=== PATIENT | female | born 1955 | race African-American/Black ===

== ENCOUNTER 2022-07-27 07:50 | Inpatient (IN) | payer MEDICARE, SELFPAY ==
--- NOTE | ~2022-07-27 | MR_ITS ---
EXAMINATION: MR MRCP wo/w con/w 3D wo ind DATE: 07/27/2022 12:16 INDICATION: Abnormal liver function tests. Pancreatitis. Abdominal pain. TECHNIQUE: Magnetic resonance imaging (MRI) of the abdomen was performed without and with 16 mL Multi Emperatriz intravenous contrast. Sequences included coronal T2-weighted FS FSE, coronal T2-weighted FSE, a xial T1-weighted LAVA, coronal FS FIESTA, axial dual-echo T1-weighted SPGR, coronal lava-FLEX, sagitt al T2-weighted FSE, axial T2-weighted FSE, and axial DWI. Thick-slab T2-weighted FSE images were obta ined for magnetic resonance cholangiopancreatography (MRCP). Maximum intensity projection 3-D reconst ructions of the volumetric data were created by the technologist. Postcontrast sequences included cor onal LAVA-flex and time course of axial T1-weighted LAVA. COMPARISON: None. FINDINGS: ABDOMEN MRI: The liver and spleen are normal. There are gallstones in the gallbladder, which is diste nded. Gallbladder wall thickening is noted. The pancreatic duct is dilated and measures 5 mm in the b lana segment. The adrenal glands and kidneys are normal. There are no dilated loops of bowel. There is a 3.7 cm cyst in the right adnexa. ABDOMEN MRCP: The common duct is normal in size and measures 6 mm. There are two 3 mm stones in the c ommon bile duct. IMPRESSION: 1. Two 3 mm stones in the common bile duct. 2. Acute cholecystitis. 3. Mildly dilated pancreatic duct, consistent with acute or chronic pancreatitis. 4. 3.7 cm cyst in the right adnexa, likely benign. Pelvis ultrasound is recommended in one year. Reviewed, dictated and finalized at location A. IMPRESSION: 1. Two 3 mm stones in the common bile duct. 2. Acute cholecystitis. 3. Mildly dilated pancreatic duct, consistent with acute or chronic pancreatiti s. 4. 3.7 cm cyst in the right adnexa, likely benign. Pelvis ultrasound is recomme nded in one year.
--- NOTE | ~2022-07-27 | CT_ITS ---
EXAMINATION: CT abdomen pelvis wo con DATE: 07/30/2022 11:54 INDICATION: Worsening abdominal pain TECHNIQUE: Computed tomography (CT) of the abdomen and pelvis was performed without intravenous contr ast. Automated exposure control and iterative reconstruction technique were employed. The dose-length product was 838.96 mGy-cm. COMPARISON: None FINDINGS: Discoid atelectasis in the right lower lobe. Heart size is normal. No pericardial or pleural effusion . Postoperative change of prior gastric bypass procedure. There appears to be edematous wall thickeni ng in the stomach. Couple small calcified gallstones in the dependent aspect of the gallbladder which itself appears to demonstrate minimal wall thickening and some haziness to the pericholecystic fat s uspicious for acute cholecystitis. The common bile duct remains mildly dilated measuring approximatel y 8 mm with persistent small 4 mm calcified stone at the distal duct. Mild intrahepatic biliary ducta l dilation. There is also mild dilation of the main pancreatic duct within the otherwise unremarkable pancreas with no peripancreatic stranding to suggest acute pancreatitis. Spleen, bilateral adrenal g lands and kidneys are normal. Bowels are normal. The appendix is not visualized. No pericecal inflamm atory change to suggest acute appendicitis. Bladder is normal. There are a few subtle small uterine f ibroids of slightly higher density than the surrounding myometrium, the largest measuring 1.5 cm at t he anterior lower uterine segment. 3.4 cm right adnexal cyst. Left adnexa is unremarkable. Small amou nt of likely physiologic free fluid in the cul-de-sac. No abscess or free intraperitoneal gas. No pat hologically enlarged abdominal or pelvic lymphadenopathy. Partially lumbarized S1 segment. IMPRESSION: 1. Cholelithiasis and choledocholithiasis with 4 mm stone at the distal common bile duct and mild int ra and extrahepatic biliary ductal dilation. There is also mild gallbladder wall thickening with subt le haziness to the surrounding fat consistent with acute cholecystitis. 2. Mild dilation of the main pancreatic duct which could be due to pancreatitis either acute or chron ic although there is no peripancreatic inflammatory stranding to more specifically suggest acute panc reatitis. Correlate with amylase and lipase levels. 3. Change of prior gastric bypass procedure with edematous-appearing gastric wall thickening which co uld be due to gastritis or peptic ulcer disease. Reviewed, dictated and finalized at location A. IMPRESSION: 1. Cholelithiasis and choledocholithiasis with 4 mm stone at the distal common bile duct and mild intra and extrahepatic biliary ductal dilation. There is als o mild gallbladder wall thickening with subtle haziness to the surrounding fat consistent with acute cholecystitis. 2. Mild dilation of the main pancreatic duct which could be due to pancreatitis either acute or chronic although there is no peripancreatic inflammatory stran ding to more specifically suggest acute pancreatitis. Correlate with amylase an d lipase levels. 3. Change of prior gastric bypass procedure with edematous-appearing gastric wa ll thickening which could be due to gastritis or peptic ulcer disease.
[2022-07-27 08:05] VITALS: BMI 33.5
--- NOTE | 2022-07-27 08:36 | ADMGEN ---
This patient, Екатерина Capellan, was admitted to 3 [facility] Surg Room 310-01 from [facility] at 0720 by EMS stretcher. Patient/family oriented to hospital policies and general routines including ID bracelet, bed and alarms, visiting hours, pain management, procedures, bathroom and other care routines, personal items, smoking policy, room service/diet, and visiting hours. Information on how to activate the Rapid Response Team has been discussed. Patient/Family are encouraged to report perceived risks to care and to ask questions if they do not understand what they are told or what they should do.
[2022-07-27 08:44] VITALS: BP 127/74; PULSE 68; RESP 18; TEMP 35.6; O2SAT 97
[2022-07-27] MEDS: MORPHINE SULFATE (*CRX) 2 MG/ML INJ IV PUSH (09:54)
[2022-07-27 10:01] LABS: Basophils Percent Auto 0.3 % (0.2-1.2); Eosinophils Percent Auto 0.1 % (0-4.4); Hematocrit 33.6 % (37.0-47.0); Hemoglobin 10.8 g/dL (12.0-15.0); Immature Granulocyte Absolute 0.07 K/mm3 (0.00-0.031); Immature Granulocyte Percent A 0.4 % (0-0.5); Lymphocytes Absolute Auto 0.51 K/mm3 (0.9-3.2); Lymphocytes Percent Auto 3.3 % (18.3-44.2); Mean Corpuscular HGB Conc 32.1 g/dl (32-36); Mean Corpuscular Hemoglobin 34.3 pg (26-34); Mean Corpuscular Volume 106.7 fl (80-100); Mean Platelet Volume 9.5 fl (7.4-10.4); Monocytes Absolute Auto 0.7 K/mm3 (0.1-0.6); Monocytes Percent Auto 4.5 % (2.6-8.5); Neutrophils Absolute Auto 14.3 K/mm3 (1.3-6.7); Neutrophils Percent Auto 91.4 % (45.5-73.1); Platelet Count Result 276 k/mm3 (150-375); Red Blood Count 3.15 M/mm3 (4.2-5.4); Red Cell Distribution Width 12.3 % (11.5-14.5); White Blood Count 15.7 K/mm3 (4.5-10.0)
[2022-07-27 10:10] LABS: Lactic Acid Reflex 1.1 mmol/L (0.7-2.0)
[2022-07-27 10:14] LABS: INR 1.1; Prothrombin Time 13.8 Seconds (11.1-14.7)
[2022-07-27 10:15] LABS: Albumin Level 3.9 g/dL (3.5-5.1); Alkaline Phosphatase 386 U/L (38-126); Anion Gap 16 mmol/L (8-16); Bilirubin,Total 2.3 mg/dL (0.2-1.3); Blood Urea Nitrogen 13 mg/dL (7-17); Calcium 8.5 mg/dL (8.4-10.2); Carbon Dioxide 20 mmol/L (22-30); Chloride 100 mmol/L (98-107); Estimated CRCL calculation 44 ml/min; Estimated Glomerular Filt Rate 50; Glucose 112 mg/dL (65-110); Magnesium 1.6 mg/dL (1.6-2.3); Partial Thromboplastin Time 26.5 SECONDS (22.3-36.8); Potassium 3.6 mmol/L (3.4-5.0); Sodium 136 mmol/L (137-145)
--- NOTE | 2022-07-27 10:17 | WPDGICN ---
Assessment and Plan Assessment and plan (1) Biliary acute pancreatitis: Code(s): K85.10 - Biliary acute pancreatitis without necrosis or infection Status: Acute Assessment and Plan: most likely biliary pancreatitis based on CT findings and presentation will get MRCP to rule out choledocholithiasis, also will ask surgery to see get records of previous gastric surgery- will be important to know anatomy before deciding if we could do ERCP (2) Elevated liver enzymes: Code(s): R74.8 - Abnormal levels of other serum enzymes Status: Acute Assessment and Plan: repeat labs and trend probably biliary related will get hepatitis panel denies alcohol use (3) RUQ pain: Code(s): R10.11 - Right upper quadrant pain Status: Acute Assessment and Plan: better with pain meds (4) Nausea and vomiting in adult: Code(s): R11.2 - Nausea with vomiting, unspecified Status: Acute Assessment and Plan: better (5) S/P gastric surgery: Code(s): Z98.890 - Other specified postprocedural states Status: Acute GI Consult Note Consult date/time: 07/27/22 10:17 Reason for consult: elevated liver enzymes, biliary pancreatitis HPI: Екатерина Capellan is a 66 year old female with history of prior gastric surgery about 4 years ago at [facility] because perforated ulcer that required new intervention at [facility] [place] (no records). She had new onset of severe pain after having fried fish for lunch, radiated to her back and ruq and did not go away, then also nausea and vomiting. Finally went to [place] [facility]. CT scan a/p reviewed, showed mild diffuse and GB distension questionable stone in distal bile duct, also unremarkable gastric anastomosis. Labs wbc 13k, hb 12.4, plat 295, transaminases 880, bili 1.3, lipase 1027. Patient given pain meds, zosyn and then physician contacted me to transfer her to our hospital because lack of GI coverage. She is better but still with abdominal pain. She denies previous episode of pancreatitis, no alcohol. Review of Systems Constitutional: Constitutional: Denies chills Eyes: Eyes: Denies blurry vision ENT: Reports Normal hearing present Cardiovascular: Cardiovascular: Denies chest pain Respiratory: Respiratory: Denies cough Gastrointestinal: Gastrointestinal: Reports abdominal pain, Reports nausea and Reports vomiting Genitourinary: Genitourinary: Denies dysuria Musculoskeletal: Musculoskeletal: Denies myalgias Integumentary/Breasts: Skin/Breast: Denies rash Neurologic: Denies Abnormal speech present Psychiatric: Psychiatric: Denies behavioral changes [facility] Past Medical History Medical History (Updated 07/27/22 @ 10:24 by Yovanny Hutchinson MD) Biliary acute pancreatitis Elevated liver enzymes Nausea and vomiting in adult RUQ pain Surgical History Surgical History (Updated 07/27/22 @ 10:24 by Yovanny Hutchinson MD) S/P gastric surgery Family History Family History (Updated 07/27/22 @ 08:43 by Alicia Brewer RN) Father Stomach cancer Mother Myocardial infarction Cerebrovascular accident Social History Social History Smoking status: Never smoker Alcohol intake: never Substance use: current Substance use type: marijuana Last use: 07/22/2022 Spiritual care concerns: No Meds Home Medications and Allergies Allergies Allergy/AdvReac Type Severity Reaction Status Date / Time No Known Allergies Allergy Verified 07/27/22 08:55 Vital Signs Vital Signs - 24 hr 07/27/22 08:44 Temperature 96.1 F L Pulse Rate 68 Respiratory Rate 18 Blood Pressure 127/74 Pulse Oximetry 97 Exam Const: General: no acute distress HENMT: General nose exam: Normal nares present Eyes: General: appearance normal, both eyes and all related structures Neck: Neck: supple Resp: Auscultation: clear to auscultation bilaterally Cardio: Rate: regular rate GI: GI Palp:
[2022-07-27 10:20] LABS: Alanine Aminotransferase 1400 U/L (6-35)
[2022-07-27 10:34] LABS: Aspartate Amino Transferase 2207 U/L (14-36)
--- NOTE | 2022-07-27 10:49 | PM.IMHP ---
H&P: HPI History of Present Illness Date/Time: 07/27/22 10:49 Chief Complaint: Abdominal pain Narrative: 66-year-old female who presents with severe pain In her right upper quadrant radiated to the back 1 hour after eating lunch associated with nausea and vomiting. she went into the [facility]. CT scan of abdomen pelvis was done which showed mild diffusion gallbladder distension questionable stone in distal bile duct. She was started on pain medication and Zosyn and was transferred here for further management and evaluation. CT abdomen and pelvis done 07/26/2022: Lungs clear trace pericardial effusion heart size normal Visible liver unremarkable. Moderately distended gallbladder with no wall thickening or inflammation. Distal esophagus and gastric body appeared normal. Gastric anastomosis revealed no complication. Small bowel appears normal. Mural lipoma in the ascending colon. Appendix is not seen. Pancreas normal. Adrenal glands normal. Spleen is normal. Mild diffuse biliary fullness no visible choledocholithiasis or other obstruction. Major vascular structures are normal in caliber. No enlarged lymph node or free fluid. Small right adnexal cyst. Mild disc disease moderate face at arthropathy. Mild hip and SI joint arthrosis. Body wall unremarkable Impression: 1. Mild diffuse bili distension moderate gallbladder distention. Questionable stone in the distal common duct could be obstructing. Consider HIDA or MRCP correlation. Two chronic findings as above Laboratory findings WBC 13.4 Hemoglobin 12.4 hematocrit 38 Platelet 295 AST 182 ALT 2086 is Sodium 131 Potassium 3.9 chloride 100 bicarbonate 21 Glucose 114 BUN 17 creatinine 1.26 Alkaline phosphorus 359 Bilirubin total 1.3 Calcium 9.5 Total protein 7.2 Albumin 4.2 Globulin 3.0 lipase is 1027 Urinalysis with protein 30 many squamous epithelial cells otherwise negative COVID nonreactive Review of Systems Review of Systems: - CONSTITUTIONAL: Denies weight loss, fever and chills. - HEENT: Denies changes in vision and hearing - RESPIRATORY: Denies SOB and cough. - CV: Denies palpitations and CP. - GI: Reports abdominal pain, nausea, vomiting and denies diarrhea. - : Denies dysuria and urinary frequency. - MSK: Denies myalgia and joint pain. - SKIN: Denies rash and pruritus. - NEUROLOGICAL: Denies headache and syncope. - PSYCHIATRIC: Denies recent changes in mood. Denies anxiety and depression. [facility] Past Medical History Medical History (Updated 07/27/22 @ 10:24 by Yovanny Hutchinson MD) Biliary acute pancreatitis Elevated liver enzymes Nausea and vomiting in adult RUQ pain Surgical History Surgical History (Updated 07/27/22 @ 10:24 by Yovanny Hutchinson MD) S/P gastric surgery Family History Family History (Updated 07/27/22 @ 08:43 by Alicia Brewer RN) Father Stomach cancer Mother Myocardial infarction Cerebrovascular accident Social History Social History Smoking status: Never smoker Alcohol intake: never Substance use: current Substance use type: marijuana Last use: 07/22/2022 Spiritual care concerns: No Meds Home Medications and Allergies Allergies Allergy/AdvReac Type Severity Reaction Status Date / Time No Known Allergies Allergy Verified 07/27/22 08:55 Vital Signs Vital Signs - 24 hr 07/27/22 08:44 Temperature 96.1 F L Pulse Rate 68 Respiratory Rate 18 Blood Pressure 127/74 Pulse Oximetry 97 Exam Narrative: GENERAL: The patient is well developed, not in acute distress HEENT: Nonicteric sclerae, PERRLA, EOMI. Oropharynx clear. Moist mucous membranes. Conjunctivae appear well perfused. CHEST: Chest wall is nontender. HEART: Regular rate and rhythm without murmur, rubs, or gallops LUNGS: Clear to auscultation bilaterally. no respiratory distress ABDOMEN: Soft, positive bowel sounds, tender right upper quadrant, no organomegaly.
--- NOTE | 2022-07-27 13:19 | PM.CNGS ---
Assessment and Plan Assessment and plan (1) RUQ pain: Code(s): R10.11 - Right upper quadrant pain Status: Acute Assessment and Plan: Suspicious for biliary acute pancreatitis or possibly severe acute cholecystitis with cystic duct obstruction. MRCP has been done and will review the report once generated. If patient does have bile duct stones, Dr. Alvarez is seeing the patient and possibly may need to proceed with ERCP. Patient has had previous stomach surgery and ERCP view may not be possible depending on the procedure done before. Continue IV Zosyn and analgesics. Follow exam labs and further plans pending results of MRCP. Thank you for asking us to see this patient in consultation. (2) Elevated liver enzymes: Code(s): R74.8 - Abnormal levels of other serum enzymes Status: Acute Assessment and Plan: Suspicious for common bile duct stones and biliary pancreatitis versus severe acute cholecystitis. No definite stones noted in the gallbladder on CT scan. Pend MR CP result. (3) S/P gastric surgery: Code(s): Z98.890 - Other specified postprocedural states Status: Acute Assessment and Plan: Request previous records from outside hospital. History of Present Illness Consult details Consult date: 07/27/22 Reason for consult: abdominal pain (RIGHT UPPER QUADRANT ABDOMINAL PAIN) Requesting physician: Yovanny Hutchinson MD Narrative: Patient is a 66-year-old woman who had some fried fish yesterday afternoon around 330. About an hour later she experienced severe right upper quadrant abdominal pain the radiated around to her back. The pain was unrelenting and she went to the emergency room at [facility]. She had at least 3 episodes of vomiting while she was there. She had some chills but no real fever. A CT scan was done and showed a dilated gallbladder and dilated bile ducts with a possible stone in the distal common bile [place]. [place] [address], her low liver function tests and lipase were elevated as well. She transferred to [facility] about 7:00 a.m. this morning. Patient feels much better than she did but is still requiring narcotic IV analgesics. Her liver function tests are elevated here with total bilirubin 2.3, AST 2207, ALT 1400, alkaline phosphatase 386[place] [address] and H&H is 10.8/33.6. An MRCP has been done but is not yet read. She is seen in consultation now for acute pancreatitis, possibly acute biliary pancreatitis. The patient does have a history of 2 previous stomach surgeries. The 1st was at [facility] and was due to bleeding. She had a perforated pyloric ulcer repaired at [facility] about 3 years ago. We do not have any of these records. Review of Systems Review of Systems: All systems reviewed & are unremarkable except as noted in HPI and below (HPI and those items noted below) Constitutional: Constitutional: Reports as per HPI, Reports chills, Denies fever(s), Denies headache(s) and Denies night sweats Cardiovascular: Cardiovascular: Denies chest pain, Denies diaphoresis, Denies dyspnea and Denies paroxysmal nocturnal dyspnea Respiratory: Respiratory: Denies chest congestion, Denies cough and Denies dyspnea Gastrointestinal: Gastrointestinal: Reports as per HPI, Reports abdominal pain, Reports nausea and Reports vomiting Comments: History of stomach surgery x2 due to ulcer disease Integumentary/Breasts: Skin/Breast: Denies lesions and Denies rash PMF Past Medical History Medical History (Updated 07/27/22 @ 10:24 by Yovanny Hutchinson MD) Biliary acute pancreatitis Elevated liver enzymes Nausea and vomiting in adult RUQ pain Surgical History Surgical History (Updated 07/27/22 @ 10:24 by Yovanny Hutchinson MD) S/P gastric surgery Family History Family History (Updated 07/27/22 @ 08:43 by Alicia Brewer RN) Father Stomach cancer
[2022-07-27 14:00] VITALS: BP 128/48; PULSE 71; RESP 18; TEMP 36.2; O2SAT 98
[2022-07-27] MEDS: SODIUM CHLORIDE 0.9% IV 1,000 ML 100 ML IV CONT (14:19)
[2022-07-27] MEDS: ONDANSETRON INJ 4 MG/2 ML VIAL IV PUSH (14:20)
[2022-07-27] MEDS: MORPHINE SULFATE INJ (*CRX) 10 MG/ML AMP 5 MG IV PUSH (14:20)
[2022-07-27 16:00] VITALS: PULSE 59
[2022-07-27 16:28] LABS: Appearance Urine Clear (Clear); Bilirubin Urine 2+ (Negative); Blood Urine Negative (Negative); Color Urine Yellow (Yellow); Glucose Urine UA Negative (Negative); Ketones Urine Negative (Negative); Leukocyte Esterase Ur Negative LEU/UL (Negative); Nitrate Urine Negative (Negative); Protein Urine 1+ mg/dL (Negative); Specific Grav Ur 1.015 (1.001-1.035); Urobilinogen Urine 0.2 mg/dL (<2.0)
[2022-07-27 16:37] LABS: Add Urine Microscopic? YES; Bacteria Urine Trace /hpf; Mucus Urine Rare /lpf; Squamous Epithelial Cell Urine Few /hpf (Few); WBC Urine 0-3 /hpf
[2022-07-27 19:38] VITALS: PULSE 65
[2022-07-27] MEDS: METOPROLOL TARTRATE 50 MG TAB PO (19:38)
[2022-07-27] MEDS: PANTOPRAZOLE 40 MG TABLET PO (19:38)
[2022-07-27] MEDS: GABAPENTIN 300 MG CAPSULE PO (19:38)
[2022-07-27] MEDS: BENZONATATE 100 MG CAPSULE 200 MG PO (19:38)
[2022-07-27] MEDS: oxyCODONE/ACETAMINOPHEN (*CRX) 10-325 MG TABLET 1 TAB PO (19:39)
[2022-07-27 20:00] VITALS: PULSE 65
[2022-07-27 20:45] VITALS: BP 143/54; PULSE 61; RESP 16; TEMP 36.6; O2SAT 96
[2022-07-27] MEDS: SUCRALFATE 1 GM TABLET PO (20:50)
[2022-07-27] MEDS: QUEtiapine FUMARATE 25 MG TABLET PO (20:50)
[2022-07-27] MEDS: ZOLPIDEM TARTRATE (*CRX) 5 MG TABLET 10 MG PO (23:00)
[2022-07-27] MEDS: MORPHINE SULFATE (*CRX) 4 MG/ML INJ 3 MG IV PUSH (23:00)
[2022-07-28] VITALS (11 sets, daily range): BP systolic 112–154; BP diastolic 49–68; PULSE 51–68; RESP 18–20; TEMP 35.6–36.3; O2SAT 92–97
[2022-07-28] MEDS: MORPHINE SULFATE (*CRX) 2 MG/ML INJ 1 MG IV PUSH ×2 (04:10→23:12)
[2022-07-28] MEDS: SODIUM CHLORIDE 0.9% IV 1,000 ML 100 ML IV CONT (04:11)
[2022-07-28] MEDS: LEVOTHYROXINE SODIUM 75 MCG TABLET PO (05:32)
[2022-07-28] MEDS: LEVOTHYROXINE SODIUM 100 MCG TABLET PO (05:32)
[2022-07-28 07:39] LABS: Basophils Percent Auto 0.2 % (0.2-1.2); Eosinophils Absolute Auto 0.4 K/mm3 (0-0.3); Eosinophils Percent Auto 4.4 % (0-4.4); Immature Granulocyte Absolute 0.04 K/mm3 (0.00-0.031); Immature Granulocyte Percent A 0.4 % (0-0.5); Lymphocytes Absolute Auto 0.69 K/mm3 (0.9-3.2); Lymphocytes Percent Auto 7.5 % (18.3-44.2); Mean Corpuscular HGB Conc 32.3 g/dl (32-36); Mean Corpuscular Hemoglobin 33.9 pg (26-34); Mean Corpuscular Volume 105.1 fl (80-100); Monocytes Absolute Auto 0.8 K/mm3 (0.1-0.6); Monocytes Percent Auto 8.9 % (2.6-8.5); Neutrophils Absolute Auto 7.2 K/mm3 (1.3-6.7); Neutrophils Percent Auto 78.6 % (45.5-73.1); Platelet Count Result 268 k/mm3 (150-375); Red Blood Count 2.95 M/mm3 (4.2-5.4); Red Cell Distribution Width 12.5 % (11.5-14.5); White Blood Count 9.2 K/mm3 (4.5-10.0)
[2022-07-28 07:49] LABS: Albumin Level 3.2 g/dL (3.5-5.1); Alkaline Phosphatase 336 U/L (38-126); Anion Gap 9 mmol/L (8-16); Aspartate Amino Transferase 676 U/L (14-36); Bilirubin,Total 2.8 mg/dL (0.2-1.3); Calcium 8.5 mg/dL (8.4-10.2); Carbon Dioxide 22 mmol/L (22-30); Chloride 104 mmol/L (98-107); Estimated CRCL calculation 53 ml/min; Estimated Glomerular Filt Rate > 60; Glucose 88 mg/dL (65-110); Lipase 175 U/L (23-300); Magnesium 1.9 mg/dL (1.6-2.3); Potassium 3.4 mmol/L (3.4-5.0); Sodium 135 mmol/L (137-145)
[2022-07-28 07:50] LABS: Blood Urea Nitrogen 7 mg/dL (7-17)
[2022-07-28 07:55] LABS: Alanine Aminotransferase 797 U/L (6-35)
[2022-07-28 08:13] LABS: Anisocytosis 1+ (NORMAL); Platelet Estimate Adequate (Adequate)
[2022-07-28 08:31] LABS: Hepatitis B Surface Antigen Negative (Negative)
[2022-07-28 08:37] LABS: HAV RESULT Negative (Negative); Hepatitis B Core IgM Result Negative (Negative)
[2022-07-28 08:49] LABS: Hepatitis C Virus Antibody Negative (Negative)
[2022-07-28] MEDS: FLUTICASONE PROPIONATE 0.05% NA SPR 16 GM BTL (*BKC) 2 SPRAY NASAL (08:55)
[2022-07-28] MEDS: ENOXAPARIN 40 MG/0.4 ML SYRINGE SUB-Q (08:56)
[2022-07-28] MEDS: BENZONATATE 100 MG CAPSULE 200 MG PO ×3 (08:57→17:12)
[2022-07-28] MEDS: oxyCODONE/ACETAMINOPHEN (*CRX) 10-325 MG TABLET 1 TAB PO ×3 (08:57→17:12)
[2022-07-28] MEDS: ESCITALOPRAM OXALATE 10 MG TABLET PO (08:57)
[2022-07-28] MEDS: PANTOPRAZOLE 40 MG TABLET PO ×2 (08:57→17:12)
[2022-07-28] MEDS: GABAPENTIN 300 MG CAPSULE PO ×3 (08:57→17:12)
[2022-07-28] MEDS: ROSUVASTATIN 10 MG TABLET PO (08:57)
[2022-07-28] MEDS: DICYCLOMINE HCL 10 MG CAPSULE PO ×3 (08:57→17:12)
[2022-07-28] MEDS: LORATADINE 10 MG TABLET PO (08:57)
[2022-07-28] MEDS: METOPROLOL TARTRATE 50 MG TAB PO (08:58)
[2022-07-28] MEDS: carisoprodoL (*CRX) 350 MG TABLET PO ×3 (08:58→21:40)
[2022-07-28] MEDS: LOSARTAN POTASSIUM 100 MG TABLET PO (08:58)
[2022-07-28] MEDS: SUCRALFATE 1 GM TABLET PO ×4 (08:59→21:34)
[2022-07-28] MEDS: TRIAMCINOLONE ACET 0.1% CREAM 80 GM TUBE 1 APPLIC TOPICAL ×2 (09:03→17:13)
--- NOTE | 2022-07-28 12:38 | WPDGIPROGNO ---
Progress Note: A&P Assessment and Plan (1) Biliary acute pancreatitis: Code(s): K85.10 - Biliary acute pancreatitis without necrosis or infection Status: Acute Assessment and Plan: liver enzymes trending down, normal lipase today, feeling better but still with pain MRCP pending to exclude choledocholithiasis and decide if will need ERCP, ok to have CL diet today and npo after midnight surgery on board (2) Elevated liver enzymes: Code(s): R74.8 - Abnormal levels of other serum enzymes Status: Acute Assessment and Plan: slowly trending down probably biliary related (3) RUQ pain: Code(s): R10.11 - Right upper quadrant pain Status: Acute (4) S/P gastric surgery: Code(s): Z98.890 - Other specified postprocedural states Status: Acute Assessment and Plan: pending records (5) Nausea and vomiting in adult: Code(s): R11.2 - Nausea with vomiting, unspecified Status: Acute Assessment and Plan: improved Subjective Date/time seen: 07/28/22 12:38 Interval history: less pain today, no more nausea Review of Systems Review of Systems: All systems reviewed & are unremarkable except as noted in HPI and below Exam Const: General: comfortable, no acute distress, alert and awake; No confusion Nutritional Appearance: well nourished Orientation/consciousness: No confusion HENMT: Head: normocephalic and atraumatic Mouth: Yes Normal oral and palatal mucosa present Eyes: Conjunctivae: conjunctivae normal Pupils: Equal, round and reactive pupils present EOM: EOMs intact bilaterally Neck: Neck: normal visual inspection and nontender Resp: Effort & Inspection: normal respiratory effort Auscultation: clear to auscultation bilaterally Cardio: Rate: regular rate Rhythm: regular rhythm Heart sounds: no gallops, no murmurs and no rubs GI: Inspection: non-distended, scar (Upper midline scar, left epigastric scar) and no visible herniation GI Palp: Yes Soft to palpation and Yes Tenderness to palpation present (GI) (tender right upper quadrant with guarding) Auscultation: Hypoactive bowel sounds present Skin: Lesions: no lesions Rashes: no rashes Neuro: General: no focal motor deficits and CN's II-XI intact bilaterally Cranial nerves: Yes Equal, round and reactive pupils present, Yes Bilaterally intact EOM present, Yes facial symmetry and Yes Midline tongue present Speech: normal speech Motor exam (neuro): 5/5 motor strength present throughout and Motor abnormalities not present Extrem: General: no clubbing, cyanosis or edema and edema Psych: Affect: normal affect Thought process: Normal thought process present Insight: Good insight present (Psych) Objective Data Vital Signs Vital Signs: Vital Signs - 24 hr 07/27/22 14:00 07/27/22 16:00 07/27/22 19:38 Temperature 97.1 F L Pulse Rate 71 59 L 65 Respiratory Rate 18 Blood Pressure 128/48 L Pulse Oximetry 98 Oxygen Delivery 07/27/22 20:45 07/27/22 20:00 07/27/22 20:00 Temperature 97.8 F Pulse Rate 61 65 Respiratory Rate 16 Blood Pressure 143/54 H Pulse Oximetry 96 Oxygen Delivery Room Air 07/28/22 00:00 07/28/22 04:00 07/28/22 05:29 Temperature 97.3 F L Pulse Rate 68 68 62 Respiratory Rate 18 Blood Pressure 154/68 H Pulse Oximetry 95 Oxygen Delivery 07/28/22 08:58 07/28/22 08:00 07/28/22 08:00 Temperature Pulse Rate 59 L 61 Respiratory Rate Blood Pressure Pulse Oximetry Oxygen Delivery Room Air 07/28/22 12:00 Temperature Pulse Rate 57 L Respiratory Rate Blood Pressure Pulse Oximetry Oxygen Delivery Intake/Output Intake/Output: Intake & Output 07/25/22 07/26/22 07/27/22 07/28/22 23:59 23:59 23:59 23:59 Intake Total 870 1150 Output Total 800 800 Balance 70 350 Meds/Results Medications: Active Medications Generic Name Dose Route Start Last Admin Trade Name Freq PRN Re
--- NOTE | 2022-07-28 14:14 | PM.PNGS ---
Progress Note: A&P Assessment and Plan (1) RUQ pain: Code(s): R10.11 - Right upper quadrant pain Status: Acute Assessment and Plan: pain better but still present. Discussed with patient she will need her gallbladder removed eventually. Awaiting GI plans an MRCP result. Continue IV Zosyn and analgesics. (2) Elevated liver enzymes: Code(s): R74.8 - Abnormal levels of other serum enzymes Status: Acute Assessment and Plan: LFTs improving today although bilirubin slightly higher Subjective Subjective Date/Time Seen: 07/28/22 14:14 Patient reports: still having pain ( Less severe than yesterday or the day before), tolerating liquids well and afebrile Review of Systems Review of Systems: All systems reviewed & are unremarkable except as noted in HPI and below ( HPI and those items noted below) Constitutional: Constitutional: Denies chills and Denies fever(s) Gastrointestinal: Gastrointestinal: Reports abdominal pain ( right upper quadrant), Denies heartburn, Denies nausea and Denies vomiting Objective Data Vital Signs Vital Signs: Vital Signs - 24 hr 07/27/22 16:00 07/27/22 19:38 07/27/22 20:45 Temperature 36.6 C Pulse Rate 59 L 65 61 Respiratory Rate 16 Blood Pressure 143/54 H Pulse Oximetry 96 Oxygen Delivery 07/27/22 20:00 07/27/22 20:00 07/28/22 00:00 Temperature Pulse Rate 65 68 Respiratory Rate Blood Pressure Pulse Oximetry Oxygen Delivery Room Air 07/28/22 04:00 07/28/22 05:29 07/28/22 08:58 Temperature 36.3 C L Pulse Rate 68 62 59 L Respiratory Rate 18 Blood Pressure 154/68 H Pulse Oximetry 95 Oxygen Delivery 07/28/22 08:00 07/28/22 08:00 07/28/22 12:00 Temperature Pulse Rate 61 57 L Respiratory Rate Blood Pressure Pulse Oximetry Oxygen Delivery Room Air Intake/Output Intake/Output: Intake & Output 07/25/22 07/26/22 07/27/22 07/28/22 23:59 23:59 23:59 23:59 Intake Total 870 1150 Output Total 800 800 Balance 70 350 Meds/Results Medications: Active Medications Generic Name Dose Route Start Last Admin Trade Name Freq PRN Reason Stop Dose Admin Benzonatate 200 mg 07/27/22 17:50 07/28/22 11:58 Benzonatate 100 Mg Capsule PO 200 mg TID MARK Administration Carisoprodol 350 mg 07/27/22 17:40 07/28/22 11:59 Carisoprodol (*Crx) 350 Mg Tablet PO 350 mg TID PRN Administration Muscle Spasm Dicyclomine HCl 10 mg 07/27/22 17:40 07/28/22 11:58 Dicyclomine Hcl 10 Mg Capsule PO 10 mg TID PRN Administration Abdominal Discomfort Enoxaparin Sodium 40 mg 07/28/22 09:00 07/28/22 08:56 Enoxaparin 40 Mg/0.4 Ml Syringe SUB-Q 40 mg DAILY MARK Administration Ergocalciferol 50,000 unit 08/05/22 09:00 Ergocalciferol 50,000 Unit Capsule PO Mo@0900 MARK Escitalopram Oxalate 10 mg 07/28/22 09:00 07/28/22 08:57 Escitalopram Oxalate 10 Mg Tablet PO 10 mg DAILY MARK Administration Fluticasone Propionate 2 spray 07/28/22 09:00 07/28/22 08:55 Fluticasone Propionate 0.05% Na Spr 16 Gm Btl (*Bkc) NASAL 2 spray DAILY MARK Administration Gabapentin 300 mg 07/27/22 17:50 07/28/22 11:58 Gabapentin 300 Mg Capsule PO 300 mg TID MARK Administration Sodium Chloride 1,000 mls @ 100 mls/hr 07/27/22 11:40 07/28/22 12:33 Normal Saline Iv IV CONT 100 mls/hr .Q10H MARK Infusion Piperacillin/Tazobactam/Dextrose 3.375 gm in 50 mls @ 100 mls/hr 07/27/22 12:00 07/28/22 12:33 Zosyn 3.375 Gm/D5w 50ml Pm IVPB Infused Q6HR MARK Infusion Levothyroxine Sodium 100 mcg 07/28/22 06:30 07/28/22 05:32 Levothyroxine Sodium 100 Mcg Tablet PO 100 mcg DAILY@0630 MARK Administration Levothyroxine Sodium 75 mcg 07/28/22 06:30 07/28/22 05:32 Levothyroxine Sodium 75 Mcg Tablet PO 75 mcg DAILY@0630 MARK Administration Loratadine 10 mg 07/28/22 09:00 07/28/22 08:57 Loratadine 10 Mg Tablet PO
--- NOTE | 2022-07-28 15:21 | PM.IMPN ---
Progress Note: A&P Assessment and Plan (1) Nausea and vomiting in adult: Code(s): R11.2 - Nausea with vomiting, unspecified Status: Acute (2) S/P gastric surgery: Code(s): Z98.890 - Other specified postprocedural states Status: Acute (3) RUQ pain: Code(s): R10.11 - Right upper quadrant pain Status: Acute (4) Elevated liver enzymes: Code(s): R74.8 - Abnormal levels of other serum enzymes Status: Acute (5) Biliary acute pancreatitis: Code(s): K85.10 - Biliary acute pancreatitis without necrosis or infection Status: Acute Plan # acute pancreatitis lipase elevated likely biliary pancreatitis. LFTs are elevated as well. No history of alcohol use. MRI as ordered by GI to rule out choledocholithiasis if so will need ERCP. MRI of bleed pending. General surgery consultation for cholecystectomy which she will eventually need # elevated liver enzymes likely due to choledocholithiasis MRI to conform / prove. Continue to monitor # Gallbladder distention no fluid around the gallbladder noted in the CT abdomen. MRI ordered # history of gastric bypass surgery 4 years ago # history of perforated ulcer status post repair # hypertension # DVT prophylaxis Lovenox # code status full code Subjective Date/time seen: 07/28/22 15:21 Interval history: overnight events. Still continues to have pain. Not able to tolerate clear liquids. No nausea or vomiting remains afebrile Review of Systems Review of Systems: All systems reviewed & are unremarkable except as noted in HPI and below Exam Narrative: GENERAL: The patient is well developed, not in acute distress HEENT: Nonicteric sclerae, PERRLA, EOMI. Oropharynx clear. Moist mucous membranes. Conjunctivae appear well perfused. CHEST: Chest wall is nontender. HEART: Regular rate and rhythm without murmur, rubs, or gallops LUNGS: Clear to auscultation bilaterally. no respiratory distress ABDOMEN: Soft, positive bowel sounds, tender right upper quadrant, no organomegaly. SKIN: No rash, no excessive bruising, petechiae, or purpura. NEUROLOGIC: Cranial nerves II-XII intact, alert and oriented x 3, no gross motor deficits EXTREMITIES: no edema, cyanosis or clubbing Objective Data Vital Signs Vital Signs: Vital Signs - 24 hr 07/27/22 16:00 07/27/22 19:38 07/27/22 20:45 Temperature 97.8 F Pulse Rate 59 L 65 61 Respiratory Rate 16 Blood Pressure 143/54 H Pulse Oximetry 96 Oxygen Delivery 07/27/22 20:00 07/27/22 20:00 07/28/22 00:00 Temperature Pulse Rate 65 68 Respiratory Rate Blood Pressure Pulse Oximetry Oxygen Delivery Room Air 07/28/22 04:00 07/28/22 05:29 07/28/22 08:58 Temperature 97.3 F L Pulse Rate 68 62 59 L Respiratory Rate 18 Blood Pressure 154/68 H Pulse Oximetry 95 Oxygen Delivery 07/28/22 08:00 07/28/22 08:00 07/28/22 12:00 Temperature Pulse Rate 61 57 L Respiratory Rate Blood Pressure Pulse Oximetry Oxygen Delivery Room Air Intake/Output Intake/Output: Intake & Output 07/25/22 07/26/22 07/27/22 07/28/22 23:59 23:59 23:59 23:59 Intake Total 870 1150 Output Total 800 800 Balance 70 350 Meds/Results Medications: Active Medications Generic Name Dose Route Start Last Admin Trade Name Freq PRN Reason Stop Dose Admin Benzonatate 200 mg 07/27/22 17:50 07/28/22 11:58 Benzonatate 100 Mg Capsule PO 200 mg TID MARK Administration Carisoprodol 350 mg 07/27/22 17:40 07/28/22 11:59 Carisoprodol (*Crx) 350 Mg Tablet PO 350 mg TID PRN Administration Muscle Spasm Dicyclomine HCl 10 mg 07/27/22 17:40 07/28/22 11:58 Dicyclomine Hcl 10 Mg Capsule PO 10 mg TID PRN Administration Abdominal Discomfort Enoxaparin Sodium 40 mg 07/28/22 09:00 07/28/22 08:56 Enoxaparin 40 Mg/0.4 Ml Syringe SUB-Q 40 mg DAILY MARK Administration Ergocalciferol 50,000 unit 08/05/22 09:00
[2022-07-28] MEDS: MORPHINE SULFATE INJ (*CRX) 10 MG/ML AMP 5 MG IV PUSH (15:35)
[2022-07-28] MEDS: QUEtiapine FUMARATE 25 MG TABLET PO (21:34)
[2022-07-28] MEDS: ONDANSETRON INJ 4 MG/2 ML VIAL IV PUSH (21:40)
[2022-07-28] MEDS: ZOLPIDEM TARTRATE (*CRX) 5 MG TABLET 10 MG PO (23:05)
[2022-07-29] VITALS (17 sets, daily range): BP systolic 126–153; BP diastolic 51–90; PULSE 49–66; RESP 12–20; TEMP 36.1–36.6; O2SAT 0–100
[2022-07-29] MEDS: MORPHINE SULFATE (*CRX) 2 MG/ML INJ 1 MG IV PUSH (04:33)
[2022-07-29] MEDS: SODIUM CHLORIDE 0.9% IV 1,000 ML 100 ML IV CONT ×2 (04:34→21:14)
[2022-07-29] MEDS: LEVOTHYROXINE SODIUM 75 MCG TABLET PO (06:04)
[2022-07-29] MEDS: LEVOTHYROXINE SODIUM 100 MCG TABLET PO (06:04)
[2022-07-29 06:09] LABS: Basophils Absolute Auto 0.1 K/mm3 (0.0-0.1); Basophils Percent Auto 0.7 % (0.2-1.2); Eosinophils Absolute Auto 0.4 K/mm3 (0-0.3); Hematocrit 31.2 % (37.0-47.0); Hemoglobin 9.9 g/dL (12.0-15.0); Immature Granulocyte Absolute 0.02 K/mm3 (0.00-0.031); Immature Granulocyte Percent A 0.3 % (0-0.5); Lymphocytes Percent Auto 12.2 % (18.3-44.2); Mean Corpuscular HGB Conc 31.7 g/dl (32-36); Mean Corpuscular Hemoglobin 33.9 pg (26-34); Mean Corpuscular Volume 106.8 fl (80-100); Monocytes Absolute Auto 0.7 K/mm3 (0.1-0.6); Monocytes Percent Auto 9.4 % (2.6-8.5); Neutrophils Absolute Auto 5.3 K/mm3 (1.3-6.7); Neutrophils Percent Auto 72.4 % (45.5-73.1); Platelet Count Result 248 k/mm3 (150-375); Red Blood Count 2.92 M/mm3 (4.2-5.4); Red Cell Distribution Width 12.3 % (11.5-14.5); White Blood Count 7.4 K/mm3 (4.5-10.0)
[2022-07-29 06:28] LABS: Alanine Aminotransferase 476 U/L (6-35); Albumin Level 3.2 g/dL (3.5-5.1); Alkaline Phosphatase 323 U/L (38-126); Anion Gap 10 mmol/L (8-16); Aspartate Amino Transferase 209 U/L (14-36); Bilirubin,Total 1.1 mg/dL (0.2-1.3); Blood Urea Nitrogen 4 mg/dL (7-17); Calcium 8.1 mg/dL (8.4-10.2); Carbon Dioxide 23 mmol/L (22-30); Chloride 106 mmol/L (98-107); Estimated CRCL calculation 53 ml/min; Estimated Glomerular Filt Rate > 60; Glucose 92 mg/dL (65-110); Magnesium 1.9 mg/dL (1.6-2.3); Potassium 3.5 mmol/L (3.4-5.0); Sodium 139 mmol/L (137-145)
[2022-07-29] MEDS: ENOXAPARIN 40 MG/0.4 ML SYRINGE SUB-Q (08:52)
[2022-07-29] MEDS: FLUTICASONE PROPIONATE 0.05% NA SPR 16 GM BTL (*BKC) 2 SPRAY NASAL (08:52)
[2022-07-29] MEDS: BENZONATATE 100 MG CAPSULE 200 MG PO ×2 (08:53→17:22)
[2022-07-29] MEDS: oxyCODONE/ACETAMINOPHEN (*CRX) 10-325 MG TABLET 1 TAB PO ×2 (08:53→17:23)
[2022-07-29] MEDS: GABAPENTIN 300 MG CAPSULE PO ×2 (08:54→17:22)
[2022-07-29] MEDS: DICYCLOMINE HCL 10 MG CAPSULE PO ×3 (08:54→20:07)
[2022-07-29] MEDS: LOSARTAN POTASSIUM 100 MG TABLET PO (08:55)
[2022-07-29] MEDS: ESCITALOPRAM OXALATE 10 MG TABLET PO (08:55)
[2022-07-29] MEDS: TRIAMCINOLONE ACET 0.1% CREAM 80 GM TUBE 1 APPLIC TOPICAL ×2 (08:56→17:25)
[2022-07-29] MEDS: PANTOPRAZOLE 40 MG TABLET PO ×2 (08:56→17:23)
[2022-07-29] MEDS: carisoprodoL (*CRX) 350 MG TABLET PO ×2 (08:56→17:22)
[2022-07-29] MEDS: LORATADINE 10 MG TABLET PO (08:56)
[2022-07-29] MEDS: SUCRALFATE 1 GM TABLET PO ×3 (08:56→20:05)
[2022-07-29] MEDS: ROSUVASTATIN 10 MG TABLET PO (08:56)
[2022-07-29] MEDS: MORPHINE SULFATE (*CRX) 4 MG/ML INJ 3 MG IV PUSH (11:15)
--- NOTE | 2022-07-29 12:12 | WPDANESEPPF ---
Anes - Initial Pre Proc Eval Procedure: Operation Date: 07/29/22 14:15 Proposed Procedures p Endoscopic Retro Cholangiopancreatogram - Yovanny Hutchinson MD Date/Time: 07/29/22 12:12 Surgeon: Gaetano Reeves MD Pre Op Diagnosis: Acute Biliary Pancreatitis Patient Data Age: 66 Gender: F Height: 1.57 m Weight: 83.1 kg Last Vital Signs Temp 36.1 C L 07/29/22 06:00 Pulse 49 L 07/29/22 08:55 Resp 20 07/29/22 06:00 BP 153/74 H 07/29/22 06:00 Pulse Ox 97 07/29/22 06:00 O2 Del Method Room Air 07/29/22 08:45 Allergies Allergy/AdvReac Type Severity Reaction Status Date / Time No Known Allergies Allergy Verified 07/27/22 08:55 Home Medications Medication Instructions Recorded Confirmed Type benzonatate 200 mg capsule 200 mg PO TID 07/27/22 07/27/22 History carisoprodol 350 mg tablet 350 mg PO TID PRN Muscle Spasm 07/27/22 07/27/22 History cetirizine 10 mg tablet 10 mg PO DAILY 07/27/22 07/27/22 History dicyclomine 10 mg capsule 10 mg PO TID PRN Abdominal 07/27/22 07/27/22 History Discomfort ergocalciferol (vitamin D2) 1,250 50,000 unit PO WEEKLY 07/27/22 07/27/22 History mcg (50,000 unit) capsule escitalopram oxalate 10 mg tablet 10 mg PO DAILY 07/27/22 07/27/22 History escitalopram oxalate 10 mg tablet mg 07/27/22 History fluticasone propionate 50 2 spray intranasal DAILY 07/27/22 07/27/22 History mcg/actuation nasal spray,suspension gabapentin 300 mg capsule 300 mg PO TID 07/27/22 07/27/22 History hydrochlorothiazide 12.5 mg capsule 12.5 mg PO DAILY 07/27/22 07/27/22 History levothyroxine 175 mcg tablet 175 mcg PO QAM 07/27/22 07/27/22 History losartan 100 mg tablet 100 mg PO DAILY 07/27/22 07/27/22 History metoprolol tartrate 50 mg tablet 50 mg PO BID 07/27/22 07/27/22 History oxycodone-acetaminophen 10 mg-325 1 tablet PO TID 07/27/22 07/27/22 History mg tablet pantoprazole 40 mg tablet,delayed 40 mg PO BID 07/27/22 07/27/22 History release quetiapine 25 mg tablet 25 mg PO HS 07/27/22 07/27/22 History rosuvastatin 10 mg tablet 10 mg PO DAILY 07/27/22 07/27/22 History sucralfate 1 gram tablet 1 g PO QID 07/27/22 07/27/22 History triamcinolone acetonide 0.1 % 1 applic topical BID 07/27/22 07/27/22 History topical cream zolpidem 10 mg tablet 10 mg PO HS PRN Insomnia 07/27/22 07/27/22 History Laboratory Tests 07/29/22 07/29/22 05:30 05:30 WBC 7.4 K/mm3 K/mm3 (4.5-10.0) RBC 2.92 M/mm3 L M/mm3 (4.2-5.4) Hgb 9.9 g/dL L g/dL (12.0-15.0) Hct 31.2 % L % (37.0-47.0) MCV 106.8 fl H fl (80-100) MCH 33.9 pg pg (26-34) MCHC 31.7 g/dl L g/dl (32-36) RDW 12.3 % % (11.5-14.5) Plt Count 248 k/mm3 k/mm3 (150-375) MPV 10.0 fl fl (7.4-10.4) Immature Gran % (Auto) 0.3 % % (0-0.5) Neut % (Auto) 72.4 % % (45.5-73.1) Lymph % (Auto) 12.2 % L % (18.3-44.2) [place] % (Auto) 9.4 % H % (2.6-8.5) Eos % (Auto) 5.0 % H % (0-4.4) Baso % (Auto) 0.7 % % (0.2-1.2) Lymph # (Auto) 0.90 K/mm3 K/mm3 (0.9-3.2) [place] # (Auto) 0.7 K/mm3 H K/mm3 (0.1-0.6) Eos # (Auto) 0.4 K/mm3 H K/mm3 (0-0.3) Baso # (Auto) 0.1 K/mm3 K/mm3 (0.0-0.1) Abs Immat Gran (auto) 0.02 K/mm3 K/mm3 (0.00-0.031) Absolute Neuts (auto) 5.3 K/mm3 K/mm3 (1.3-6.7) Absolute Nucleated RBC 0.0 K/mm3 K/mm3 (0.0-0.012) Nucleated RBC % 0.0 % % (0.0-0.2) Sodium 139 mmol/L mmol/L (137-145) Potassium 3.5 mmol/L mmol/L (3.4-5.0) Chloride 106 mmol/L mmol/L (98-107) Carbon Dioxide 23 mmol/L mmol/L (22-30) Anion Gap 10 mmol/L mmol/L (8-16) BUN 4 mg/dL L mg/dL (7-17) Creatinine 0.90 mg/dL mg/dL (0.7-1.0) Estim Creat Clear Calc 53 ml/min ml/min Estimated GFR > 60 (59 - ) Glucose 92 mg/dL mg/dL (65-110) Calcium 8.1 mg/dL L mg/dL (8.4
--- NOTE | 2022-07-29 12:12 | PC.NURSE ---
I received a message from pt's daughter as she has concerns about pt's ERCP today stating that we did not get her consent. I attempted to call her back but there was no answer. Pt is A&O4.
[2022-07-29] MEDS: LACTATED RINGERS 1,000 ML 150 ML IV CONT (12:20)
[2022-07-29] MEDS: INDOMETHACIN 50 MG SUPP.RECT RECTAL (13:07)
--- NOTE | 2022-07-29 14:34 | PM.IMPN ---
Progress Note: A&P Assessment and Plan (1) Nausea and vomiting in adult: Code(s): R11.2 - Nausea with vomiting, unspecified Status: Acute (2) S/P gastric surgery: Code(s): Z98.890 - Other specified postprocedural states Status: Acute (3) RUQ pain: Code(s): R10.11 - Right upper quadrant pain Status: Acute (4) Elevated liver enzymes: Code(s): R74.8 - Abnormal levels of other serum enzymes Status: Acute (5) Biliary acute pancreatitis: Code(s): K85.10 - Biliary acute pancreatitis without necrosis or infection Status: Acute Plan # acute pancreatitis lipase elevated likely biliary pancreatitis. LFTs are elevated as well. No history of alcohol use. MRI as ordered by GI to rule out choledocholithiasis and shows 2 stones. ERCP attempted today however she is status post gastro jejunostomy and hence it could be done. GI suggested higher facility transfer . General surgery consultation for cholecystectomy which she will eventually need # elevated liver enzymes likely due to choledocholithiasis MRI suggestive of choledocholithiasis. # Gallbladder distention no fluid around the gallbladder noted in the CT abdomen. Acute cholecystitis revealed in MRI /MRCP on Zosyn IV # history of gastric bypass surgery 4 years ago # history of perforated ulcer status post repair # hypertension # DVT prophylaxis Lovenox # code status full code Subjective Date/time seen: 07/29/22 14:34 Interval history: She went for EGD / ERCP today. She had gastrojejunostomy and hence ERCP could not be performed. Discussed with GI and General surgery. He is transferred to tertiary facility. She continues to have pain in right upper quadrant but improved Review of Systems Review of Systems: All systems reviewed & are unremarkable except as noted in HPI and below Exam Narrative: GENERAL: The patient is well developed, not in acute distress HEENT: Nonicteric sclerae, PERRLA, EOMI. Oropharynx clear. Moist mucous membranes. Conjunctivae appear well perfused. CHEST: Chest wall is nontender. HEART: Regular rate and rhythm without murmur, rubs, or gallops LUNGS: Clear to auscultation bilaterally. no respiratory distress ABDOMEN: Soft, positive bowel sounds, tender right upper quadrant, no organomegaly. SKIN: No rash, no excessive bruising, petechiae, or purpura. NEUROLOGIC: Cranial nerves II-XII intact, alert and oriented x 3, no gross motor deficits EXTREMITIES: no edema, cyanosis or clubbing Objective Data Vital Signs Vital Signs: Vital Signs - 24 hr 07/28/22 17:12 07/28/22 16:00 07/28/22 21:30 Temperature Pulse Rate 51 L 53 L Respiratory Rate Blood Pressure Pulse Oximetry Oxygen Delivery Room Air 07/28/22 20:00 07/29/22 00:00 07/28/22 22:00 Temperature 96.4 F L Pulse Rate 51 L 62 55 L Respiratory Rate 19 Blood Pressure 135/49 L Pulse Oximetry 97 Oxygen Delivery 07/29/22 04:00 07/29/22 06:00 07/29/22 08:55 Temperature 96.9 F L Pulse Rate 59 L 61 49 L Respiratory Rate 20 Blood Pressure 153/74 H Pulse Oximetry 97 Oxygen Delivery 07/29/22 08:45 07/29/22 08:45 07/29/22 12:16 Temperature 97.3 F L Pulse Rate 61 52 L Respiratory Rate 17 Blood Pressure 130/51 L Pulse Oximetry 97 Oxygen Delivery Room Air Room Air Intake/Output Intake/Output: Intake & Output 07/26/22 07/27/22 07/28/22 07/29/22 23:59 23:59 23:59 23:59 Intake Total 870 3610 350 Output Total 800 1900 1100 Balance 70 1710 -750 Meds/Results Medications: Active Medications Generic Name Dose Route Start Last Admin Trade Name Freq PRN Reason Stop Dose Admin Benzonatate 200 mg 07/27/22 17:50 07/29/22 08:53 Benzonatate 100 Mg Capsule PO 200 mg TID MARK Administration Carisoprodol 350 mg 07/27/22 17:40 07/29/22 08:56 Carisoprodol (*Crx) 350 Mg Tablet PO 350 mg TID PRN Administration Muscle Spasm Dicyclomine HCl 1
--- NOTE | 2022-07-29 15:58 | PM.PNGS ---
Progress Note: A&P Assessment and Plan (1) Choledocholithiasis: Code(s): K80.50 - Calculus of bile duct without cholangitis or cholecystitis without obstruction Status: Acute Assessment and Plan: MRCP showed two 3mm stones in the common bile duct. ERCP attempted today but she was found to have had a partial gastrectomy with a gastrojejunostomy, and they were unable to proceed with the ERCP. Agree with transfer to a tertiary care facility. She will eventually need to have a cholecystectomy, which can be addressed at the outside facility. (2) Elevated liver enzymes: Code(s): R74.8 - Abnormal levels of other serum enzymes Status: Acute Assessment and Plan: LFTs trending down, although MRCP showed two 3mm stones in the common bile duct. Recommend transfer. (3) S/P gastric surgery: Code(s): Z98.890 - Other specified postprocedural states Status: Acute Plan I have discussed the patient's case and plan of care with Dr. Mccall. Subjective Subjective Date/Time Seen: 07/29/22 15:58 Patient reports: no new complaints and afebrile Interval history: No acute events overnight. Underwent ERCP today. Still having some right-sided abdominal pain, but better. No nausea. Review of Systems Review of Systems: All systems reviewed & are unremarkable except as noted in HPI and below Exam Const: General: comfortable, no acute distress and awake Orientation/consciousness: patient oriented x3 GI: Inspection: non-distended GI Palp: Yes Soft to palpation, Yes Tenderness to palpation present (GI) (RUQ, RLQ) and No Guarding due to palpation present (GI) Auscultation: normal bowel sounds Psych: Affect: normal affect Thought process: Normal thought process present Objective Data Vital Signs Vital Signs: Vital Signs - 24 hr 07/28/22 17:12 07/28/22 16:00 07/28/22 21:30 Temperature Pulse Rate 51 L 53 L Respiratory Rate Blood Pressure Pulse Oximetry Oxygen Delivery Room Air Oxygen Flow Rate 07/28/22 20:00 07/29/22 00:00 07/28/22 22:00 Temperature 96.4 F L Pulse Rate 51 L 62 55 L Respiratory Rate 19 Blood Pressure 135/49 L Pulse Oximetry 97 Oxygen Delivery Oxygen Flow Rate 07/29/22 04:00 07/29/22 06:00 07/29/22 08:55 Temperature 96.9 F L Pulse Rate 59 L 61 49 L Respiratory Rate 20 Blood Pressure 153/74 H Pulse Oximetry 97 Oxygen Delivery Oxygen Flow Rate 07/29/22 08:45 07/29/22 08:45 07/29/22 12:16 Temperature 97.3 F L Pulse Rate 61 52 L Respiratory Rate 17 Blood Pressure 130/51 L Pulse Oximetry 97 Oxygen Delivery Room Air Room Air Oxygen Flow Rate 07/29/22 14:27 07/29/22 14:37 07/29/22 14:47 Temperature 97.8 F Pulse Rate 66 66 57 L Respiratory Rate 17 17 17 Blood Pressure 135/70 150/90 H 146/60 H Pulse Oximetry 100 100 100 Oxygen Delivery Simple Face Mask Simple Face Mask Simple Face Mask Oxygen Flow Rate 6 6 6 07/29/22 14:56 07/29/22 15:06 07/29/22 15:16 Temperature Pulse Rate 54 L 52 L 53 L Respiratory Rate 17 17 17 Blood Pressure 150/80 H 147/59 H 146/54 H Pulse Oximetry 100 100 0 L Oxygen Delivery Simple Face Mask Simple Face Mask Room Air Oxygen Flow Rate 4 2 Intake/Output Intake/Output: Intake & Output 07/26/22 07/27/22 07/28/22 07/29/22 23:59 23:59 23:59 23:59 Intake Total 870 3610 350 Output Total 800 1900 1100 Balance 70 1710 -750 Meds/Results Medications: Active Medications Generic Name Dose Route Start Last Admin Trade Name Freq PRN Reason Stop Dose Admin Benzonatate 200 mg 07/27/22 17:50 07/29/22 08:53 Benzonatate 100 Mg Capsule PO 200 mg TID MARK Administration Carisoprodol 350 mg 07/27/22 17:40 07/29/22 08:56 Carisoprodol (*Crx) 350 Mg Tablet PO 350 mg TID PRN Administration Muscle Spasm Dicyclomine HCl 10 mg 07/27/22 17:40 07/29/22 08:54 Dicyclomine Hcl 10 Mg Capsule PO 10 mg TID PRN Administrat
[2022-07-29 17:34] LABS: EDCOVIDSCREEN Negative (Negative)
[2022-07-29] MEDS: QUEtiapine FUMARATE 25 MG TABLET PO (20:06)
[2022-07-29] MEDS: ZOLPIDEM TARTRATE (*CRX) 5 MG TABLET 10 MG PO (22:57)
[2022-07-30] VITALS (8 sets, daily range): BP systolic 157–169; BP diastolic 65–76; PULSE 43–74; RESP 18; TEMP 36.3–36.6; O2SAT 96–98
[2022-07-30] MEDS: LEVOTHYROXINE SODIUM 100 MCG TABLET PO (05:48)
[2022-07-30] MEDS: LEVOTHYROXINE SODIUM 75 MCG TABLET PO (05:48)
[2022-07-30] MEDS: carisoprodoL (*CRX) 350 MG TABLET PO (05:48)
[2022-07-30 06:58] LABS: Basophils Percent Auto 0.1 % (0.2-1.2); Hematocrit 29.5 % (37.0-47.0); Hemoglobin 9.4 g/dL (12.0-15.0); Immature Granulocyte Absolute 0.07 K/mm3 (0.00-0.031); Immature Granulocyte Percent A 0.8 % (0-0.5); Lymphocytes Absolute Auto 0.87 K/mm3 (0.9-3.2); Lymphocytes Percent Auto 9.9 % (18.3-44.2); Mean Corpuscular HGB Conc 31.9 g/dl (32-36); Mean Corpuscular Hemoglobin 33.9 pg (26-34); Mean Corpuscular Volume 106.5 fl (80-100); Mean Platelet Volume 10.3 fl (7.4-10.4); Monocytes Absolute Auto 0.7 K/mm3 (0.1-0.6); Monocytes Percent Auto 7.6 % (2.6-8.5); Neutrophils Absolute Auto 7.2 K/mm3 (1.3-6.7); Neutrophils Percent Auto 81.6 % (45.5-73.1); Platelet Count Result 245 k/mm3 (150-375); Red Blood Count 2.77 M/mm3 (4.2-5.4); Red Cell Distribution Width 11.9 % (11.5-14.5); White Blood Count 8.8 K/mm3 (4.5-10.0)
[2022-07-30 07:20] LABS: Alanine Aminotransferase 302 U/L (6-35); Albumin Level 3.2 g/dL (3.5-5.1); Alkaline Phosphatase 279 U/L (38-126); Anion Gap 11 mmol/L (8-16); Aspartate Amino Transferase 86 U/L (14-36); Bilirubin,Total 0.6 mg/dL (0.2-1.3); Blood Urea Nitrogen 3 mg/dL (7-17); Calcium 8.2 mg/dL (8.4-10.2); Carbon Dioxide 24 mmol/L (22-30); Chloride 105 mmol/L (98-107); Estimated CRCL calculation 59 ml/min; Estimated Glomerular Filt Rate > 60; Glucose 132 mg/dL (65-110); Magnesium 1.8 mg/dL (1.6-2.3); Potassium 3.6 mmol/L (3.4-5.0); Sodium 140 mmol/L (137-145)
[2022-07-30 07:24] LABS: Anisocytosis 1+ (NORMAL); Macrocytosis 1+ (NORMAL); Ovalocytes 1+ (NORMAL)
[2022-07-30 07:25] LABS: Platelet Estimate Adequate (Adequate)
[2022-07-30] MEDS: ESCITALOPRAM OXALATE 10 MG TABLET PO (08:47)
[2022-07-30] MEDS: BENZONATATE 100 MG CAPSULE 200 MG PO ×2 (08:47→12:34)
[2022-07-30] MEDS: ENOXAPARIN 40 MG/0.4 ML SYRINGE SUB-Q (08:47)
[2022-07-30] MEDS: SODIUM CHLORIDE 0.9% IV 1,000 ML 100 ML IV CONT (08:47)
[2022-07-30] MEDS: FLUTICASONE PROPIONATE 0.05% NA SPR 16 GM BTL (*BKC) 2 SPRAY NASAL (08:47)
[2022-07-30] MEDS: GABAPENTIN 300 MG CAPSULE PO ×2 (08:48→12:34)
[2022-07-30] MEDS: SUCRALFATE 1 GM TABLET PO ×2 (08:48→12:34)
[2022-07-30] MEDS: ROSUVASTATIN 10 MG TABLET PO (08:48)
[2022-07-30] MEDS: LOSARTAN POTASSIUM 100 MG TABLET PO (08:48)
[2022-07-30] MEDS: oxyCODONE/ACETAMINOPHEN (*CRX) 10-325 MG TABLET 1 TAB PO ×2 (08:48→12:34)
[2022-07-30] MEDS: PANTOPRAZOLE 40 MG TABLET PO (08:48)
[2022-07-30] MEDS: LORATADINE 10 MG TABLET PO (08:48)
[2022-07-30] MEDS: ONDANSETRON INJ 4 MG/2 ML VIAL IV PUSH (08:57)
--- NOTE | 2022-07-30 10:50 | ECG_ITS ---
Measurements Intervals [place] Rate: 63 P: 48 NH: 137 QRS: 44 QRSD: 83 T: 55 QT: 458 QTc: 470 Interpretive Statements SINUS RHYTHM BASELINE ARTIFACT- II, V5-V6 NORMAL ECG NO PREVIOUS ECG AVAILABLE FOR COMPARISON Electronically Signed On 07-30-2022 12:09:18 CDT by Narayan Callaway D.O.
[2022-07-30] MEDS: HYDROmorphone HCL INJ (*CRX) 1 MG/ML SYR IV PUSH ×2 (11:20→15:38)
--- NOTE | 2022-07-30 12:59 | PM.PNGS ---
Progress Note: A&P Assessment and Plan (1) Choledocholithiasis with acute cholecystitis: Code(s): K80.42 - Calculus of bile duct with acute cholecystitis without obstruction Status: Acute Assessment and Plan: Patient awaiting transfer to [facility] for alternative techniques of endoscopic bile duct stone removal. Now with worsening acute cholecystitis. Will ask x-ray to place image guided percutaneous cholecystostomy tube today as it is uncertain when transfer will occur. Discussed with patient who agrees. (2) Biliary acute pancreatitis: Code(s): K85.10 - Biliary acute pancreatitis without necrosis or infection Status: Acute Assessment and Plan: Pancreatitis is improved but above problems persist (3) S/P gastric surgery: Code(s): Z98.890 - Other specified postprocedural states Status: Acute Assessment and Plan: Appears to have undergone gastrojejunostomy such that ERCP was not successful. Subjective Subjective Date/Time Seen: 07/30/22 12:59 Patient reports: still having pain (Right upper quadrant pain worse today.), nausea and afebrile Interval history: ERCP unable to be done due to presence of gastroenterostomy. Patient awaiting transfer to [facility] but is having increasing right upper quadrant abdominal pain. Repeat CT today shows suggestion of cholecystitis. There is still a stone in the common bile duct (which is the reason for transfer) by the CT scan done today. Review of Systems Review of Systems: All systems reviewed & are unremarkable except as noted in HPI and below (HPI and those items noted below) Constitutional: Constitutional: Denies chills and Denies fever(s) Cardiovascular: Cardiovascular: Denies chest pain, Denies diaphoresis, Denies dyspnea and Denies paroxysmal nocturnal dyspnea Respiratory: Respiratory: Denies chest congestion, Denies cough and Denies dyspnea Gastrointestinal: Gastrointestinal: Reports as per HPI, Reports abdominal pain, Reports GI cramping and Reports nausea Integumentary/Breasts: Skin/Breast: Denies lesions and Denies rash Exam Const: General: cooperative, no acute distress, alert, awake and uncomfortable Nutritional Appearance: average body habitus Orientation/consciousness: patient oriented x3 GI: Inspection: non-distended, scar (Upper midline scar as before) and no visible herniation GI Palp: Yes abdominal tenderness (Right upper quadrant), Yes Firmness to palpation present (GI), Yes Tenderness to palpation present (GI), Yes Guarding due to palpation present (GI) and No Palpable mass present Objective Data Vital Signs Vital Signs: Vital Signs - 24 hr 07/29/22 14:27 07/29/22 14:37 07/29/22 14:47 Temperature 36.6 C Pulse Rate 66 66 57 L Respiratory Rate 17 17 17 Blood Pressure 135/70 150/90 H 146/60 H Pulse Oximetry 100 100 100 Oxygen Delivery Simple Face Mask Simple Face Mask Simple Face Mask Oxygen Flow Rate 6 6 6 07/29/22 14:56 07/29/22 15:06 07/29/22 15:16 Temperature Pulse Rate 54 L 52 L 53 L Respiratory Rate 17 17 17 Blood Pressure 150/80 H 147/59 H 146/54 H Pulse Oximetry 100 100 0 L Oxygen Delivery Simple Face Mask Simple Face Mask Room Air Oxygen Flow Rate 4 2 07/29/22 15:30 07/29/22 16:00 07/29/22 20:05 Temperature 36.2 C L Pulse Rate 52 L 57 L 64 Respiratory Rate 12 Blood Pressure 141/58 H Pulse Oximetry 95 Oxygen Delivery Oxygen Flow Rate 07/29/22 20:05 07/29/22 22:00 07/30/22 00:00 Temperature 36.3 C L Pulse Rate 62 58 L Respiratory Rate 16 Blood Pressure 126/74 Pulse Oximetry 94 Oxygen Delivery Room Air Oxygen Flow Rate 07/30/22 04:00 07/30/22 06:00 07/30/22 08:00 Temperature 36.4 C Pulse Rate 44 L 74 43 L Respiratory Rate 18 Blood Pressure 157/66 H Pulse Oximetry 96 Oxygen Delivery Oxygen Flow Rate 07/30/22 10:30 Temperature 36.3 C L Pulse Rate 44 L Respiratory Rate 18 Blood Pressure 15
--- NOTE | 2022-07-30 13:16 | P.PNAN_ITS ---
Anes - Prog Note Post-Op Date/Time: 07/30/22 10:50 Cardiovascular status: normal Respiratory status: normal Airway patency: baseline Mental status: baseline Post-Op hydration status: normal Vital Signs: Last Vital Signs Temp 97.3 F L 07/30/22 10:30 Pulse 44 L 07/30/22 10:30 Resp 18 07/30/22 10:30 BP 157/65 H 07/30/22 10:30 Pulse Ox 97 07/30/22 10:30 O2 Del Method Room Air 07/29/22 20:05 O2 Flow Rate 2 07/29/22 15:06 Pain Score (VAS): 9 I/O: Intake & Output 07/29/22 07/30/22 07/30/22 23:59 07:59 15:59 Intake Total 1150 1150 200 Output Total 50 850 Balance 1100 300 200 Laboratory Tests 07/30/22 06:05 07/30/22 06:05 07/29/22 07/30/22 07/30/22 16:10 06:05 06:05 WBC 8.8 RBC 2.77 L Hgb 9.4 L Hct 29.5 L MCV 106.5 H MCH 33.9 MCHC 31.9 L RDW 11.9 Plt Count 245 MPV 10.3 Immature Gran % (Auto) 0.8 H Neut % (Auto) 81.6 H Lymph % (Auto) 9.9 L [place] % (Auto) 7.6 Eos % (Auto) 0.0 Baso % (Auto) 0.1 L Lymph # (Auto) 0.87 L [place] # (Auto) 0.7 H Eos # (Auto) 0.0 Baso # (Auto) 0.0 Abs Immat Gran (auto) 0.07 H Absolute Neuts (auto) 7.2 H Absolute Nucleated RBC 0.0 Nucleated RBC % 0.0 Platelet Estimate Adequate Anisocytosis 1+ Macrocytosis 1+ Ovalocytes 1+ Sodium 140 Potassium 3.6 Chloride 105 Carbon Dioxide 24 Anion Gap 11 BUN 3 L Creatinine 0.80 Estim Creat Clear Calc 59 Estimated GFR > 60 Glucose 132 H Calcium 8.2 L Magnesium 1.8 Total Bilirubin 0.6 AST 86 H ALT 302 H Alkaline Phosphatase 279 H Total Protein 6.0 L Albumin 3.2 L SARS-CoV-2 IgG/IgM Ag?Rapid Negative Post-procedural complaints: none Patient Feedback: Patient satisfied with anesthetic care. Other Findings: pt having complaints of pain 9.5/10. spoke with nurse regarding pt's complaint of pain and need for intervention.
--- NOTE | 2022-07-30 13:19 | WPDGIPROGNO ---
Progress Note: A&P Assessment and Plan (1) Choledocholithiasis with acute cholecystitis: Code(s): K80.42 - Calculus of bile duct with acute cholecystitis without obstruction Status: Acute Assessment and Plan: patient needs transfer to another hospital since she had gastric bypass and unable to advance ERCP scope she has choledocholithiasis, liver enzymes trending down but will need ERCP follow by surgery for cholecystectomy continue medical treatment and awaiting bed at another facility (2) Nausea and vomiting in adult: Code(s): R11.2 - Nausea with vomiting, unspecified Status: Acute Assessment and Plan: better (3) RUQ pain: Code(s): R10.11 - Right upper quadrant pain Status: Acute Assessment and Plan: still with pain but better (4) Elevated liver enzymes: Code(s): R74.8 - Abnormal levels of other serum enzymes Status: Acute Assessment and Plan: monitor (5) S/P gastric surgery: Code(s): Z98.890 - Other specified postprocedural states Status: Acute Subjective Date/time seen: 07/30/22 13:19 Interval history: unable to complete ercp yesterday because evidence of previous gastric bypass. Still with upper abdominal pain but better, tolerating liquid diet Review of Systems Review of Systems: All systems reviewed & are unremarkable except as noted in HPI and below Exam Const: General: cooperative, no acute distress, alert, awake and uncomfortable Nutritional Appearance: average body habitus Orientation/consciousness: patient oriented x3 HENMT: General nose exam: Normal nares present Eyes: General: appearance normal, both eyes and all related structures Neck: Neck: supple Resp: Auscultation: clear to auscultation bilaterally GI: Inspection: non-distended, scar (Upper midline scar as before) and no visible herniation GI Palp: Yes abdominal tenderness (Right upper quadrant), Yes Tenderness to palpation present (GI), Yes Guarding due to palpation present (GI) and No Palpable mass present Skin: General skin exam: normal color Neuro: Speech: normal speech Extrem: General: normal to inspection Psych: Mental Status: mental status grossly normal Objective Data Vital Signs Vital Signs: Vital Signs - 24 hr 07/29/22 14:27 07/29/22 14:37 07/29/22 14:47 Temperature 97.8 F Pulse Rate 66 66 57 L Respiratory Rate 17 17 17 Blood Pressure 135/70 150/90 H 146/60 H Pulse Oximetry 100 100 100 Oxygen Delivery Simple Face Mask Simple Face Mask Simple Face Mask Oxygen Flow Rate 6 6 6 07/29/22 14:56 07/29/22 15:06 07/29/22 15:16 Temperature Pulse Rate 54 L 52 L 53 L Respiratory Rate 17 17 17 Blood Pressure 150/80 H 147/59 H 146/54 H Pulse Oximetry 100 100 0 L Oxygen Delivery Simple Face Mask Simple Face Mask Room Air Oxygen Flow Rate 4 2 07/29/22 15:30 07/29/22 16:00 07/29/22 20:05 Temperature 97.1 F L Pulse Rate 52 L 57 L 64 Respiratory Rate 12 Blood Pressure 141/58 H Pulse Oximetry 95 Oxygen Delivery Oxygen Flow Rate 07/29/22 20:05 07/29/22 22:00 07/30/22 00:00 Temperature 97.3 F L Pulse Rate 62 58 L Respiratory Rate 16 Blood Pressure 126/74 Pulse Oximetry 94 Oxygen Delivery Room Air Oxygen Flow Rate 07/30/22 04:00 07/30/22 06:00 07/30/22 08:00 Temperature 97.6 F Pulse Rate 44 L 74 43 L Respiratory Rate 18 Blood Pressure 157/66 H Pulse Oximetry 96 Oxygen Delivery Oxygen Flow Rate 07/30/22 10:30 Temperature 97.3 F L Pulse Rate 44 L Respiratory Rate 18 Blood Pressure 157/65 H Pulse Oximetry 97 Oxygen Delivery Oxygen Flow Rate Intake/Output Intake/Output: Intake & Output 07/27/22 07/28/22 07/29/22 07/30/22 23:59 23:59 23:59 23:59 Intake Total 870 3610 1500 1400 Output Total 800 1900 1150 850 Balance 70 1710 350 550 Meds/Results Medications: Active Medications Generic Name Dose Route Start Last Admin Trade Name
--- NOTE | 2022-07-30 13:57 | PM.TDS ---
Transfer Discharge Sum: Prov Provider Date of admission: 07/28/22 13:32 Primary care physician: UNKNOWN,DOCTOR Admitting clinician: Itzel Melara MD Consults: 07/27/22 Consult to Physician Routine Comment: Samm/Meggan on Exchange @ 10:52am (,[place]) Consulting Provider: Oskar Mccall machine scallop cutter/MD group to consult: surgery Reason for consultation: biliary pancreatitis Has provider been notified: Yes DS: Admitting Diagnosis Discharge Date Admitting Diagnosis abdominal pain DS: Discharge Diagnosis Discharge Diagnosis (1) Nausea and vomiting in adult: Code(s): R11.2 - Nausea with vomiting, unspecified Status: Acute (2) S/P gastric surgery: Code(s): Z98.890 - Other specified postprocedural states Status: Acute (3) RUQ pain: Code(s): R10.11 - Right upper quadrant pain Status: Acute (4) Elevated liver enzymes: Code(s): R74.8 - Abnormal levels of other serum enzymes Status: Acute (5) Biliary acute pancreatitis: Code(s): K85.10 - Biliary acute pancreatitis without necrosis or infection Status: Acute Plan # Acute pancreatitis; lipase elevated likely biliary pancreatitis. LFTs are elevated as well. No history of alcohol use. MRI as ordered by GI to rule out choledocholithiasis and shows 2 stones. ERCP attempted 07/29/2022 however she is status post gastro jejunostomy and hence it could be done. GI suggested higher facility transfer . General surgery consultation for cholecystectomy which she will eventually need. This was consulted with outside hospital at [facility] and was accepted the. She had worsening pain on 07/30/2022 just suspected to be due to ongoing choledocholithiasis and cholecystitis. CT scan was done which revealed the same. She is planned for cholecystostomy tube placement however she had available bed at [facility] and will be going to be transferred there for further care. # elevated liver enzymes likely due to choledocholithiasis MRI suggestive of choledocholithiasis. # Gallbladder distention no fluid around the gallbladder noted in the CT abdomen. Acute cholecystitis revealed in MRI /MRCP on Zosyn IV # bradycardia mild sinus bradycardia may be medication related. Metoprolol on hold # history of gastric bypass surgery 4 years ago # history of perforated ulcer status post repair # hypertension # DVT prophylaxis Lovenox # code status full code Transfer Discharge Sum: Med Medications Active and Home Medications: Home Medications benzonatate 200 mg capsule 200 mg PO TID 07/27/22 [History Confirmed 07/27/22] carisoprodol 350 mg tablet 350 mg PO TID PRN Muscle Spasm 07/27/22 [History Confirmed 07/27/22] cetirizine 10 mg tablet 10 mg PO DAILY 07/27/22 [History Confirmed 07/27/22] dicyclomine 10 mg capsule 10 mg PO TID PRN Abdominal Discomfort 07/27/22 [History Confirmed 07/27/22] ergocalciferol (vitamin D2) 1,250 mcg (50,000 unit) capsule 50,000 unit PO WEEKLY 07/27/22 [History Confirmed 07/27/22] escitalopram oxalate 10 mg tablet 10 mg PO DAILY 07/27/22 [History Confirmed 07/27/22] escitalopram oxalate 10 mg tablet mg 07/27/22 [History] fluticasone propionate 50 mcg/actuation nasal spray,suspension 2 spray intranasal DAILY 07/27/22 [History Confirmed 07/27/22] gabapentin 300 mg capsule 300 mg PO TID 07/27/22 [History Confirmed 07/27/22] hydrochlorothiazide 12.5 mg capsule 12.5 mg PO DAILY 07/27/22 [History Confirmed 07/27/22] levothyroxine 175 mcg tablet 175 mcg PO QAM 07/27/22 [History Confirmed 07/27/22] losartan 100 mg tablet 100 mg PO DAILY 07/27/22 [History Confirmed 07/27/22] metoprolol tartrate 50 mg tablet 50 mg PO BID 07/27/22 [History Confirmed 07/27/22] oxycodone-acetaminophen 10 mg-325 mg tablet 1 tablet PO TID 07/27/22 [History Confirmed 07/27/22] pantoprazole 40 mg tablet,delayed release 40 mg PO BID 07/27/22 [History Confirmed 07/27/22] quetiapine 25 mg tablet 25 mg PO HS 07/27/22 [His
== END 2022-07-30 15:50 | disposition short-term general hospital (02) | DRG 439 ==
PROVIDERS: Internal Medicine Gastroenterology; Admitting Provider Internal Medicine; Visit Provider Internal Medicine
PROC: 0DJ08ZZ Inspection of Upper Intestinal Tract, Via Natural or Artificial Opening Endoscopic (ICD-10-PCS; CPT 43260; principal; 2022-07-29 14:15)
DX: K85.10 Biliary acute pancreatitis without necrosis or infection (principal); K80.42 Calculus of bile duct with acute cholecystitis without obstruction; K31.89 Other diseases of stomach and duodenum; I10 Essential (primary) hypertension; E78.5 Hyperlipidemia, unspecified; E03.9 Hypothyroidism, unspecified; R00.1 Bradycardia, unspecified; T44.7X5A Adverse effect of beta-adrenoreceptor antagonists, initial encounter; Z20.822 Contact with and (suspected) exposure to COVID-19; Z79.899 Other long term (current) drug therapy; Z87.11 Personal history of peptic ulcer disease; Z98.84 Bariatric surgery status; Z98.890 Other specified postprocedural states
CPT/HCPCS: 36415; 74176; 74183; 76376; 80053; 80074; 81001; 83605; 83690; 83735; 85025; 85610; 85730; 87040; 87426; 93005; 96361; 96365; 96366; 96372; 96375; 96376; A9270; A9577; C9803; G0378; J1100; J1170; J1650; J2270; J2405; J2543; J2704; J2710; J3010; J7030; J7120

== ENCOUNTER 2025-05-30 14:43 | Outpatient (CLI) | payer MEDICARE, SELFPAY ==
--- NOTE | ~2025-05-30 | XR_ITS ---
Supine view of the abdomen Clinical history: Abdominal pain Findings: Bowel gas pattern is nonspecific. No evidence for obstruction or free air. No abnormal mass lesion or calcification is seen. Osseous structures are intact. Impression: No significant abnormality is seen. Reviewed, dictated and finalized at [facility]. Impression: No significant abnormality is seen.
--- OUTSIDE RECORDS SUMMARY | 2025-05-30 14:47 | XMS_ITS | Referral Summary ---
Author Organization [facility] Address [address] [place] [address] Care Team Providers Care Senior Linux Administrator Name Role Phone Siena Bell MD Primary Care Provider Encounters Date Type Department Care Team Description 05/26/2025 9:00 AM CDT Office Visit [facility] Surgery [address] 12th [place] [address] [place] [id number] Dustin Garibay MD Other constipation (Primary Dx) from Last 3 Months Allergies Active Allergy Reactions Criticality Noted Date Comments Ibuprofen Other (See comments) Low 04/21/2020 Medications rosuvastatin (CRESTOR) 10 mg tablet take 1 tablet (10MG) by oral route every day 0 2 Active losartan (COZAAR) 25 mg tablet take 1 tablet (25MG) by oral route every day 0 2 Active gabapentin (NEURONTIN) 600 mg tablet Take 1 tablet (600 mg total) by mouth 2 (two) times a day [address] (PROTONIX) 40 mg EC tablet Take 1 tablet (40 mg total) by mouth 2 (two) times a day 8 Active hydroCHLOROthia zide (HYDRODIURIL) 12.5 mg tablet Take 1 tablet (12.5 mg total) by mouth daily Active escitalopram (LEXAPRO) 10 mg tablet Take 1 tablet (10 mg total) by mouth daily Active zolpidem (AMBIEN) 10 mg tablet Take 1 tablet (10 mg total) by mouth nightly as needed for sleep Active metoprolol tartrate (LOPRESSOR) 50 mg immediate release tablet Take 1 tablet (50 mg total) by mouth 2 (two) times a day 60 tablet 2 Active QUEtiapine (SEROquel) 25 mg tablet Take 1 tablet (25 mg total) by mouth nightly 30 tablet 3 Active senna-docusate (Senexon-S) 8.6-50 mg Take 1 tablet by mouth 2 (two) times a day 60 tablet 2 4 Active NIFEdipine XL 30 mg 24 hr tablet Take 1 tablet (30 mg total) by mouth daily Active tiZANidine (ZANAFLEX) 4 mg tablet Take 1 tablet (4 mg total) by mouth 3 (three) times a day as needed for muscle spasms Active calcitRIOL (ROCALTROL) 0.25 mcg capsule Take 1 capsule (0.25 mcg total) by mouth daily 4 Active levothyroxine (SYNTHROID) 175 mcg tablet Take 1 tablet (175 mcg total) by mouth director of operations before breakfast Active acetaminophen 500 mg capsule Take 2 capsules (1,000 mg total) by mouth every 6 (six) hours as needed for pain 5 Active oxyCODONE (ROXICODONE) 5 mg immediate release tabletIndicatio ns:Pain Take 1 tablet (5 mg total) by mouth every 4 (four) hours as needed for pain 20 tablet 5 Active Active Problems Problem Noted Date Diagnosed Date SBO (small bowel obstruction) 11/23/2022 History of biliary duct stent placement 09/24/20 22 Overview (09/24/2022): Added automatically from request for surgery [id number] Intraabdominal fluid collection 08/12/2022 Assessment & Plan (09/24/2022 2:36 PM ANCIENT ART CURATOR): - Reports doing well today with no acute complaints. Tolerating antibiotics well without issues. Labs show no leukocytosis with normal renal and hepatic function. She has some occasional mild abdominal pain that has significantly improved. Imaging from yesterday shows resolution of gallbladder fossa fluid collection and only tiny remaining perihepatic fluid collection. She has received an extended course of IV antibiotics - Ok to stop IV ertapenem and micafungin today. PICC line should be pulled - Discussed with patient the rational for treatment, culture results, risk of recurrent infection, signs/symptoms of recurrent infection, and to contact ID clinic with any questions or concerns Assessment & Plan (08/16/2022 8:00 AM CDT): The patient is a 66 y.o. female w/ PMH of Bilroth 2 HTN, HLD, hypothyroidism, RYGB, chronic pain on opioids, mood disorder who is admitted for complications s/p cholecystectomy with several intraabdominal fluid collections. ID is consulted for antibiotic recommendations. She presented initially to an OSH ([facility]) with abdominal pain a couple weeks ago. She subsequently had a laparascopic cholecystectomy at [facility] on 08/02. Following this she had poor recovery with new O2 requirement after the OR and rising WBC count. She had a positive HIDA scan. She was transferred to [facility] on 08/04. On 08/05 she had a drain placement by IR for multiloculated fluid collection in the periphepatic space with 20cc of bilious fluid drained. Cultures from this are +C. Dubliniensis and C. Glabrata (S-dev, fluc - dose dependent). Also on 08/05 she had ERCP which showed a small bowel injury involving the parent limb of her previous Billroth II anatomy. She was taken to the OR later that day on 08/05 for ex lap with small bowel resection and anastomosis. Cultures were were obtained of intraabdominal fluid and are also positive for C. Dubliniensis and C. Glabrata. She had rising leukocytosis to 20 over the weekend so repeat CT was obtained on 08/11 which showed small volume collection extending from the gallbladder fossa with mild peripheral rim enhancement is slightly increased in size. The current drain does not appear to be reaching this space. IR was consulted and this collection is not currently amenable to percutaneous drainage. They recommended if the patient fails to improve, a repeat CT may be performed in approximately 1 week to evaluate evolution of these collections. Currently on micafungin and ertapenem Recommendations -continue micafungin 100mg IV q24hrs and ertapenem 1g IV q24hrs -would repeat CT [address] to re-evaluate fluid collection -we will sign off for now. Please let us know when she is approaching discharge and/or when the repeat CT is completed for further antibiotic recs Acute cholangitis 08/04/2022 Bile leak 08/04/2022 Overview (08/05/2022): Added automatically from request for surgery [id number] Perforation bowel 08/04/2022 Overview (08/05/2022): Added automatically from request for surgery [id number] Choledocholithiasis 07/30/2022 Chronic prescription opiate use 07/30/2022 History of gastric bypass 07/30/2022 Acute cholecystitis with acute cholangitis 07/30 Acute gallstone pancreatitis 07/30/2022 Vitamin D deficiency 08/13/2021 Stage 3 chronic kidney disease 08/09/2021 Hypercholesterolemia 08/01/2020 Primary insomnia 02/10/2019 Chronic bilateral low back pain without sciatica 01/26/2019 Chronic peptic ulcer 01/26/2019 Atherosclerosis of [place] co ronary artery of [place] heart without angina pectoris 01/26/2019 Depressive disorder 01/26/2019 Essential hypertension 01/26/2019 Acquired hypothyroidism 01/26/2019 Chronic gastric ulcer with perforation 8 Gastric ulcer without hemorrhage or perforation 06/30/2018 Overview (06/30/2018): Added automatically from request for surgery [id number] Class 1 obesity due to exces s calories with serious comorbidity and body mass index (BMI) of 32.0 to 32.9 in adult 03/09/2018 Iron deficiency anemia secon victorina to inadequate dietary iron intake 01/08/2018 Other constipation 01/08/2018 Pain of upper abdomen 01/08/2018 Immunizations Immunization Administration Dates Next Due Influenza, Quadrivalent, Hig h Dose, Preservative Free, Intrr 11/27/2022 Social History Tobacco Use Types Packs/Day Years Used Date Smoking Tobacco: Former Cigarettes Q uit: 1982 Smokeless Tobacco: Never Tobacco Cessation:Counseling Given: Not Answered Alcohol Use Standard Drinks/Week Comments Yes 0 (1 standard drink = 0.6 oz pur e alcohol) Social Connection and Isolation Panel [NHANES] A nswer Date Recorded In a typical week, how many times do you talk on the phone with family, friends, or neighbors? Three times a week 07/31/2022 How often do you get togethe r with friends or relatives? Twice a week 07/31/2022 How often do you attend chur ch or adventism services? Never 07/31/2022 Do you belong to any clubs o r organizations such as caodaism groups, unions, fraternal or athletic groups, or school groups? No 07/31/2022 How often do you attend meet ings of the clubs or organizations you belong to? Never 07/31/2022 Are you , , di vorced, , never , or living with a partner? 07/31/2022 AUDIT-C Answer Date Recorded Q1: How often do you have a drink containing alc ohol? Monthly or less 12/26/2024 Q2: How many drinks containi ng alcohol do you have on a typical day when you are drinking? 1 or 2 12/26/2024 Q3: How often do you have si x or more drinks on one occasion? Never 12/26/2024 Overall Financial Resource Strain (CARDIA) Answe r Date Recorded How hard is it for you to pa y for the very basics like food, housing, medical care, and heating? Not hard at all 07/31/2022 PRAPARE - Transportation Answer Date Re corded In the past 12 months, has l ack of transportation kept you from medical appointments or from getting medications? No 07/18 In the past 12 months, has l ack of transportation kept you from meetings, work, or from getting things needed for daily living? No 07/31/2022 Personal Safety Answer Date Recorded Have you ever been in or are you currently in a harmful physical or emotional relationship or is someone making you feel afraid or unsafe? Denies 01/14/2025 Comments No Sex and Gender Information Value Date Recorded Sex Assigned at Not on file Legal Sex Female 12:02 PM ANCIENT ART CURATOR Gender Identity Not on file Sexual Orientation Not on file Last Filed Vital Signs Vital Sign Reading Time Taken Comments Blood Pressure 108/63 05/26/2025 9:09 AM CDT Pulse 76 05/26/2025 9:09 AM CDT Temperature 36.4 C (97.6 F) 05/26/2025 9:09 AM CDT Respiratory Rate 18 01/17/2025 11:38 AM ANCIENT ART CURATOR Oxygen Saturation 96% 02/24/2025 9:35 AM CDT Inhaled Oxygen Concentration - - Weight 63.1 kg (139 lb 3.2 oz) 05/26/2025 9:09 A M CDT Height 157.5 cm (5' 2) 05/26/2025 9:09 AM CDT Body Mass Index 25.46 05/26/2025 9:09 AM CDT Plan of Treatment Not on file Medical Devices Implanted Type Area Zoology Technical Officer Device Identifier Shelf Expiration Date Model / Serial / Lot [employer] Rubio Advanix 8.5fr 7cm Rapid Exchange Temporary [place] Stent [id number] - [id number] Implanted:Qty: 1 on 08/01/2022 by Nick Nobles MD at Stent N/A: Bile Duct [employer] Rubio 04/15/2024 [id number] / / [id number] Explanted Type Area Zoology Technical Officer Device Identifier Shelf Expiration Date Model / Serial / Lot [employer] Calderón 5fr 9cm Pancreatic Stent [id number] - [id number] Implanted:Qty: 1 on 08/01/2022 by Nick Nobles MD at Explanted:Qty: 1 on 08/05/2022 by Philipp Andino MD at [facility] Stent N/A: Pancreas [employer] 04/16/2027 [id number] / / [id number] Procedures Procedure Name Priority Date/Time Associated Diagnosis Comments OCCULT BLOOD, FECAL (FIT) Routine 03/17/2017 6:37 PM CDT SCREENING MAMMOGRAM BILATERAL W ZULY Routine 06/20/2016 2:52 PM CDT from Last 3 Months or Most Recently Relevant to Health Maintenance Results * Occult blood, fecal non neoplasm screening (03/17/2017 6:37 PM CDT) Stool Occult Blood NEGATIVE NEGATIVE 03/17/2017 6:55 PM CDT [facility] HISTORICAL RESULTS 03/17/2017 6:37 PM CDT 03/17/2017 6:52 PM CDT Narrative [employer] HISTORICAL RESULTS - 03/17/2017 6:55 PM CDT Collected By bg Arley [facility] BODY FLUIDS AND STOOLS GRETA [place]STILLO Final Result [facility] [employer] HISTORICAL RESULTS from Last 3 Months or Most Recently Relevant to Health Maintenance Insurance [facility] MEDICARE ADVANTAGE [employer] OOS Voxy ACCESS OOS Member Subscriber Plan / Payer (Ef fective 2021-Present) Name:Екатерина Dockery Relation to Subscriber:Self Name:Екатерина Dockery Payer ID:[id number] (NAIC) Type:[facility] Address: [address] MEDICARE ADVANTAGE [facility] MDCR HMO REF Advance Directives For more information, please contact: [phone] * Full Code (Latest Code Status on File) Date Activated Date Inactivated Comments 01/14/2025 2:46 PM 01/17/2025 4:11 PM * Full Code Date Activated Date Inactivated Comments 12/26/2024 2:51 AM 12/31/2024 2:15 PM * Full Code Date Activated Date Inactivated Comments 11/23/2022 7:44 AM 11/27/2022 2:36 PM * Full Code Date Activated Date Inactivated Comments 10/16/2022 12:35 PM 10/16/2022 8:42 PM * Full Code Date Activated Date Inactivated Comments 08/05/2022 10:14 PM 08/24/2022 2:48 AM Care Teams Senior Linux Administrator Relationship Specialty Start Date End Date Siena Bell MD [address] [place] [address] PCP - General Gastroenterology 08/28/22
--- OUTSIDE RECORDS SUMMARY | 2025-05-30 14:47 | XMS_ITS | Encounter Summary ---
Author Organization [facility] Address [address] [place] [address] Care Team Providers Care Correspondence School Instructor Name Role Phone Malorie Lo MD Primary Care Provider [phone] Encounter Details Date Type Department Care Team (Late st Contact Info) Description 06/15/2024 Chart Prep [facility] Infusion Services at [facility] [place] [address] Malorie Lo MD [address] [facility] [place] [address] Social History Tobacco Use Types Packs/Day Years Used Date Smoking Tobacco: Never Assessed Comments Unknown Sex and Gender Information Value Date Recorded Sex Assigned at Female 03/01/2025 12:11 PM CDT Legal Sex Female 7:10 PM CDT Gender Identity Not on file Sexual Orientation Not on file documented as of this encounter Plan of Treatment Not on file documented as of this encounter Visit Diagnoses Not on filedocumented in this encounter Care Teams Correspondence School Instructor Relationship Specialty Start Date End Date Malorie Lo MD [address] [facility] [place] [address] PCP - General 08/21/11 documented as of this encounter
--- OUTSIDE RECORDS SUMMARY | 2025-05-30 14:47 | XMS_ITS | Clinical Summary ---
Author Organization [facility] Address [address] [place] [address] Care Team Providers Care Wall Attendant Name Role Phone Malorie Lo MD Primary Care Provider [phone] Source Comments [facility],non-owned Affiliates and Associated Physician Practices is amultiple site organization consisting of ambulatory clinics and hospital sitesin [place], [place], [place] and [place]. This disclosure is being madepursuant to the Care Everywhere program and may not contain all information available regarding this patient. 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 Gender Identity Not on file Sexual Orientation Not on file Plan of Treatment Health Maintenance Due Date Last Done Comments BONE DENSITY TESTING 1955 COLOGUARD (AGES 45-75) - COL ON CA SCREENING 1954 COLON MONITORING 1954 COLONOSCOPY - COLON CA SCREENING 1954 CT COLONOGRAPHY - COLON CA SCREENING 1954 Colorectal Cancer Screening 1954 FIT - COLON CA SCREENING 1954 FLEX SIG - COLON CA SCREENING 1954 LIPID TESTING 1954 MAMMOGRAM 1954 HEPATITIS C SCREENING 12/12/1972 DTAP/TDAP/TD VACCINES (1 - Tdap) 1973 PNEUMOCOCCAL VACCINE 50+ (1 of 1 - PCV) 2004 ZOSTER VACCINE (1 of 2) 2004 COVID-19 VACCINE (1 - 2023-2 5 season) 2024 DEPRESSION SCREENING 11/17/2024 INFLUENZA VACCINE (#1) 2025 Respiratory Syncytial Virus (RSV) Vaccine Pt: or over 60 yrs (1 - 1-dose 75+ series) 2029 HEPATITIS B VACCINE Aged Out No longe r eligible based on patient's age to complete this topic HIB VACCINE Aged Out No longer eligi ble based on patient's age to complete this topic HPV VACCINE Aged Out No longer eligi ble based on patient's age to complete this topic MENINGOCOCCAL (Group B) VACC INE SHARED DECISION-MAKING Aged Out No longer eligibl e based on patient's age to complete this topic MENINGOCOCCAL GROUPS A/C/Y/W VACCINE Aged Out No longer eligible b ased on patient's age to complete this topic Care Teams Wall Attendant Relationship Specialty Start Date End Date Malorie Lo MD PCP - General 04/30/12
--- OUTSIDE RECORDS SUMMARY | 2025-05-30 14:47 | XMS_ITS | Clinical Summary ---
Author Organization [facility] Address [address] [place] [address] Care Team Providers Care Block Operator Name Role Phone Siena Bell MD Primary Care Provider Allergies Active Allergy Reactions Criticality Noted Date [...] 1 tablet (175 mcg total) by mouth charging operator before breakfast Active acetaminophen 500 mg capsule [...] (09/24/2022): Added automatically from request for surgery [id number] Intraabdominal fluid collection 08/12/2022 Assessment & Plan (09/24/2022 2:36 PM GLASS CLEANER): - Reports doing well today with no [...] recommendations. She presented initially to an OSH ([facility]) with abdominal pain a couple weeks ago. She subsequently had a laparascopic cholecystectomy at [facility] on 08/02. Following this she had poor recovery with new O2 requirement after the OR and rising WBC count. She had a positive HIDA scan. She was transferred to [facility] on 08/04. On 08/05 she had [...] (08/05/2022): Added automatically from request for surgery [id number] Perforation bowel 08/04/2022 Overview (08/05/2022): Added automatically from request for surgery [id number] Choledocholithiasis 07/30/2022 Chronic prescription opiate use 07/30/2022 History of gastric bypass 07/30/2022 Acute cholecystitis with acute cholangitis 07/30 Acute gallstone pancreatitis 07/30/2022 Vitamin D deficiency 08/13/2021 Stage 3 chronic kidney disease 08/09/2021 Hypercholesterolemia 08/01/2020 Primary insomnia 02/10/2019 Chronic bilateral low back pain without sciatica 01/26/2019 Chronic peptic ulcer 01/26/2019 Atherosclerosis of [place] co ronary artery of [place] heart without angina pectoris 01/26/2019 Depressive disorder 01/26/2019 Essential hypertension 01/26/2019 Acquired hypothyroidism 01/26/2019 Chronic gastric ulcer with perforation 8 Gastric ulcer without hemorrhage or perforation 06/30/2018 Overview (06/30/2018): Added automatically from request for surgery [id number] Class 1 obesity due to exces s calories with serious comorbidity and body mass index (BMI) of 32.0 to 32.9 in adult 03/09/2018 Iron deficiency anemia henny prajapati to inadequate dietary iron intake 01/08/2018 Other constipation 01/08/2018 Pain of upper abdomen 01/08/2018 Encounters Date Type Department Care Team Description 05/26/2025 9:00 AM CDT Office Visit [facility] Surgery [address] 12th [place] [address] [place] [address] Dustin Garibay MD Other constipation (Primary Dx) from Last 3 Months Immunizations Immunization Administration Dates Next Due Influenza, Quadrivalent, Hig h Dose, Preservative Free, Intrr 11/27/2022 Surgical History Surgery Date Site/Laterality Comments CORONARY ANGIOPLASTY WITH STENT PLACEMENT VAGOTOMY AND PYLOROPLASTY UPPER GASTROINTESTINAL ENDOSCOPY IMAGE GUIDED DRAINAGE PERITO LORELEI OR RETROPERITONEAL FLUID COLLECTION 08/05/2022 N/A CHOLECYSTECTOMY Medical History Medical History Date Comments Peptic ulcer disease with hemorrhage Aspiration pneumonia (HCC) Gastric outlet obstruction Hypothyroidism Hyperlipidemia Hypertension Chronic coronary artery disease Iron deficiency anemia IV iron - Electrical Controls Assembler Dr. Mendez Family History Medical History Relation Name Comments Ulcers Brother Heart disease Father Stomach cancer Father Cancer Mother Coronary artery disease Mother Heart disease Mother Stroke Mother Heart disease Sister 1 Heart disease Sister 2 Relation Name Status Comments Brother Father Mother Other 1 Other 2 Sister 1 Sister 2 Social History Tobacco Use Types Packs/Day Years [...] often do you attend chur ch or congregation services? Never 07/31/2022 Do you belong to any clubs o r organizations such as christian groups, unions, fraternal or athletic groups, or [...] on file Legal Sex Female 12:02 PM GLASS CLEANER Gender Identity Not on file Sexual Orientation Not on file Obstetrics History Last Filed Vital Signs Vital Sign Reading Time Taken Comments Blood Pressure 108/63 05/26/2025 9:09 AM CDT Pulse 76 05/26/2025 9:09 AM CDT Temperature 36.4 C (97.6 F) 05/26/2025 9:09 AM CDT Respiratory Rate 18 01/17/2025 11:38 AM GLASS CLEANER Oxygen Saturation 96% 02/24/2025 9:35 AM CDT Inhaled Oxygen Concentration - - Weight 63.1 kg (139 lb 3.2 oz) 05/26/2025 9:09 A M CDT Height 157.5 cm (5' 2) 05/26/2025 9:09 AM CDT Body Mass Index 25.46 05/26/2025 9:09 AM CDT Plan of Treatment Health Maintenance Due Date Last Done Comments Colon Cancer Screening-Colonoscopy 1954 Hepatitis C Screening 1954 Osteoporosis Screening-Bone Density Scan 1954 DTaP/Tdap/Td Vaccine (1 - Tdap) 1965 Hepatitis B Screening 1972 Zoster Vaccine (1 of 2) 2004 Depression Screening 01/08/2019 01/08/2018 Well Visit 65+ 2019 Pneumococcal vaccine 65+ (2 of 2 - PPSV23) 08/01/2021 08/01/2020 Covid-19 Vaccine (3 - 2023-2 5 season) 2024 03/09/2021, 02/09/2021 Influenza Vaccine (#1) 2025 , 11/27/2022, 08/07/2021, Additional history exists Fall Risk Assessment 01/17/2026 01/17/2025 Breast Cancer Screening-Mammogram 03/24/2026 03/24/2025, 03/24/2025, 06/20/2016 Colon Cancer Screening-FIT Discontinued 03/17/2017 Medical Devices Implanted Type Area Solar Energy Installation Manager Device Identifier Shelf Expiration Date Model / Serial / Lot [employer] Rubio Advanix 8.5fr 7cm Rapid Exchange Temporary [place] Stent [id number] - [id number] Implanted:Qty: 1 on 08/01/2022 by Nick Nobles MD at [facility] Stent N/A: Bile Duct [employer] Rubio 04/15/2024 [id number] / / [id number] Explanted Type Area Solar Energy Installation Manager Device Identifier Shelf Expiration Date Model / Serial / Lot [employer] Calderón 5fr 9cm Pancreatic Stent [id number] - [id number] Implanted:Qty: 1 on 08/01/2022 by Nick Nobles MD at [facility] Explanted:Qty: 1 on 08/05/2022 by Philipp Andino MD at [facility] Stent N/A: Pancreas [employer] 04/16/2027 [id number] / / [id number] Procedures Procedure Name Priority Date/Time Associated Diagnosis Comments OCCULT BLOOD, FECAL (FIT) Routine 03/17/2017 6:37 PM CDT SCREENING MAMMOGRAM BILATERAL W ZULY Routine 06/20/2016 2:52 PM CDT from Last 3 Months or Most Recently Relevant to Health Maintenance Results * Occult blood, fecal non neoplasm screening (03/17/2017 6:37 PM CDT) Stool Occult Blood NEGATIVE NEGATIVE 03/17/2017 6:55 PM CDT [facility] HISTORICAL RESULTS 03/17/2017 6:37 PM CDT 03/17/2017 6:52 PM CDT Narrative [facility] HISTORICAL RESULTS - 03/17/2017 6:55 PM CDT Collected By bg Arley [facility] BODY FLUIDS AND STOOLS [place]ST[place]O Final Result [facility] HISTORICAL RESULTS from Last 3 Months or Most Recently Relevant to Health Maintenance Insurance [facility] MEDICARE ADVANTAGE BLUE ACCESS OOS BLUE ACCESS OOS Member Subscriber Plan / Payer (Ef fective 2021-Present) Name:Екатерина Dockery Relation to Subscriber:Self Name:Екатерина Dockery Payer ID:[id number] (NAIC) Type:[employer] Address: [address] MEDICARE ADVANTAGE [facility] MDCR HMO REF Advance Directives For more information, please contact: [phone] * Full Code (Latest Code Status on [...] 10:14 PM 08/24/2022 2:48 AM Care Teams Block Operator Relationship Specialty [place] [address] [place] [id number] PCP - General Gastroenterology 08/28/22
--- OUTSIDE RECORDS SUMMARY | 2025-05-30 14:47 | XMS_ITS | Clinical Summary ---
Author Organization [facility] Address [address], [address] [place] [address] Phone Care Team Providers Care Keg Raiser Name Role Phone Siena Bell MD Primary Care Provider Eloy Mendez MD Unavailable [phone] Allergies Active Allergy Reactions Criticality Noted Date Comments Ibuprofen Other (see Comments) Low 04/21/2020 Pollen Extract Runny Nose,Other (see Comments) Low 01/15/2018 headache Medications sucralfate (CARAFATE) 1 GM Tablet Take 1 g by mouth 4 times daily. Active losartan (COZAAR) 100 MG Tablet Take 100 mg by mouth daily. 11/05/20 17 Active pantoprazole (PROTONIX) 40 MG Tablet Delayed Response 2 times daily. 12/17/19 18 Active oxyCODONE-Acet aminophen (PERCOCET) 10-325 MG Tablet Take 1 Tablet by mouth every 6 hours as needed for Moderate or more severe pain. 0 12/19/19 18 Active QUEtiapine (SEROQUEL) 25 MG Tablet nightly. 12/19/19 18 Active dicyclomine (BENTYL) 10 MG Capsule dicyclomine 10 mg capsule Active hydroCHLOROthi azide (MICROZIDE) 12.5 MG Capsule hydrochlorothiazide 12.5 mg capsule Active fluticasone (FLONASE) 50 MCG/ACT Suspension SPRAY TWO SPRAYS IN EACH NOSTRIL ONCE DAILY 10/06/20 20 Active escitalopram (LEXAPRO) 10 MG Tablet TAKE 1 TABLET BY MOUTH EVERY DAY IN THE MORNING 09/04/20 Active busPIRone (BUSPAR) 10 MG Tablet TAKE 1 TABLET BY MOUTH TWICE A DAY 09/04/20 20 Active metoprolol tartrate (LOPRESSOR) 50 MG Tablet 06/27/20 21 Active zolpidem (AMBIEN) 10 MG Tablet TAKE 1 TABLET BY MOUTH EVERY DAY NEEDED 12/28/19 22 Active ergocalciferol (VITAMIN D) 84305 UNIT Capsule TAKE 1 CAPSULE EVERY WEEK BY ORAL ROUTE. 11/27/19 22 Active carisoprodol (SOMA) 350 MG Tablet 01/08/20 22 Active tiZANidine (ZANAFLEX) 4 MG Tablet 03/18/20 23 Active Senexon-S 8.6-50 MG Tablet Take 1 Tablet by mouth 2 times daily. 09/02/20 23 Active NIFEdipine (PROCARDIA-XL) 30 MG TABLET SR 24 HR Take 30 mg by mouth daily. 07/21/20 23 Active gabapentin (NEURONTIN) 600 MG Tablet Take 600 mg by mouth 3 times daily. 09/03/20 23 Active furosemide (LASIX) 40 MG Tablet Take 40 mg by mouth daily. 07/31/20 23 Active ferrous sulfate 325 (65 Fe) MG Tablet Take 325 mg by mouth. 18 Active cetirizine (ZyrTEC) 10 MG Tablet Take 10 mg by mouth daily. 07/24/20 23 Active bisacodyl 10 MG Suppository INSERT 1 SUPPOSITORY INTO THE RECTUM DAILY. 06/20/20 23 Active Linzess 145 MCG Capsule TAKE 1 CAPSULE BY MOUTH EVERY DAY NEEDED 11/20/19 24 Active ondansetron (ZOFRAN) 4 MG Tablet TAKE 1 TABLET BY MOUTH THREE TIMES A DAY NEEDED Active levothyroxine (SYNTHROID) 175 MCG Tablet 05/20/20 24 Active HYDROcodone-ac etaminophen (NORCO) 5-325 MG Tablet Take 1 Tablet by mouth every 6 hours as needed. 11/12/20 24 Active polyethylene glycol (GLYCOLAX) 17 GM/SCOOP Powder DISSOLVE 17 GRAMS INTO APPROPRIATE LIQUID AND DRINK BY MOUTH DAILY 11/16/20 24 Active traZODone (DESYREL) 50 MG Tablet Take 50 mg by mouth every evening. 11/16/20 24 Active calcitRIOL (ROCALTROL) 0.25 MCG Capsule take 1 capsule by mouth every other day 10/18/20 24 Active nitroGLYCERIN (NITRODUR) 0.2 MG/HR PATCH 24 HR nitroglycerin 0.2 mg/hr patch 24 hour 02/18/20 25 Active cloNIDine (CATAPRES) 0.1 MG Tablet 02/22/20 25 Active rosuvastatin (CRESTOR) 20 MG Tablet Take 20 mg by mouth daily. 12/15/19 25 Active Active Problems Problem Noted Date Diagnosed Date Trauma 09/11/2024 Iron deficiency anemia, unspecified 09/10/2023 Anemia in stage 3b chronic kidney disease 2017 Hypertension Encounters Date Type Department Care Team Description 03/03/2025 10:15 AM CDT Lab [facility] [address] [phone] Lab, [facility] [place] Anemia in stage 3b chronic kidney disease (HCC); Iron deficiency anemia, unspecified iron deficiency anemia type 03/03/2025 9:30 AM CDT Office Visit [facility] [address] [phone] Gillian Sandoval, CABIN AGENT, ELECTRONIC WIRER Anemia in stage 3b chronic kidney disease (HCC) (Primary Dx); Iron deficiency anemia, unspecified iron deficiency anemia type 03/03/2025 Travel from Last 3 Months Immunizations Immunization Administration Dates Next Due Influenza, high-dose, trivalent, PF 09/08/2024 Family History Medical History Relation Name Comments Cancer Father stomach Heart Attack Mother Stroke Mother Heart Attack Sister Relation Name Status Comments Father Mother Sister Social History Tobacco Use Types Packs/Day Years Used Date Smoking Tobacco: Former Cigarettes Smokeless Tobacco: Never Tobacco Cessation:Counseling Given: Not Answered Comments:socially smoked in her 20's Alcohol Use Standard Drinks/Week Comments Yes 0 (1 standard drink = 0.6 oz pur e alcohol) occasionally PHQ-2 Answer Date Recorded Total Score - Questions 1-9 0 11/2021 Comments No Sex and Gender Information Value Date Recorded Sex Assigned at Not on file 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 Gender Identity Not on file Sexual Orientation Not on file Last Filed Vital Signs Vital Sign Reading Time Taken Comments Blood Pressure 150/84 03/03/2025 9:40 AM CDT Pulse 84 03/03/2025 9:40 AM CDT Temperature 36.5 C (97.7 F) 03/03/2025 9:40 AM CDT Respiratory Rate 18 03/03/2025 9:40 AM CDT Oxygen Saturation 99% 03/03/2025 9:40 AM CDT Inhaled Oxygen Concentration - - Weight 64.4 kg (141 lb 14.4 oz) 03/03/2025 9:40 AM CDT Height 157.5 cm (5' 2) 03/03/2025 9:40 AM CDT Body Mass Index 25.95 03/03/2025 9:40 AM CDT Plan of Treatment Upcoming Encounters Date Type Department Care Team (Late st Contact Info) Description 06/02/2025 9:30 AM CDT Office Visit [facility] [address] [phone] Mary Syed MD [address] [place] [phone] Health Maintenance Due Date Last Done Comments DEXA Bone Density 1954 Hepatitis C Virus (HCV) Screening 1954 TdaP Immunization 1954 Cologuard 1999 Colonoscopy 1999 Colorectal Cancer Screening 1999 Immunochemical Fecal Occult Blood 1999 Zoster Immunization (1 of 2) 2004 Mammogram 06/20/2017 06/20/2016 Pneumococcal Immunization (50+ years) (2 of 2 - PPSV23) 09/26/2020 08/01/2020 SARS-COV-2 Immunization (3 - season) 2024 03/09/2021, 02/09/2021 Influenza Immunization (#1) 07/18/202508/18, 11/27/2022, 08/07/2021, Additional history exists Respiratory Syncytial Virus (RSV) Immunization (Adult) (1 - 1-dose 75+ series) 2029 Pneumococcal Immunization Combined Discontinued 08/01/2020 Hepatitis B Immunization Aged Out No longer eligible based on patient's age to complete this topic Human Papillomavirus (HPV) Immunization Aged Out No longer eligible based on patient's age to complete this topic Meningococcal Immunization (ACWY) Aged Out No longer eligible based on patient's age to complete this topic Rotavirus Immunization Aged Out No lo nger eligible based on patient's age to complete this topic Procedures Procedure Name Priority Date/Time Associated Diagnosis Comments CBC WITH AUTO DIFF OH Routine 03/03/2025 10:13 AM CDT CMP (COMPREHENSIVE METABOLIC PANEL) Routine 03/03/2025 10:13 AM CDT Anemia in stage 3b chronic kidney disease (HCC) Iron deficiency anemia, unspecified iron deficiency anemia type VITAMIN B12 Routine 03/03/2025 10:13 AM CDT Anemia in stage 3b chronic kidney disease (HCC) Iron deficiency anemia, unspecified iron deficiency anemia type FOLIC ACID (FOLATE) Routine 03/03/2025 1 0:13 AM CDT Anemia in stage 3b chronic kidney disease (HCC) Iron deficiency anemia, unspecified iron deficiency anemia type FERRITIN Routine 03/03/2025 10:13 AM CDT Anemia in stage 3b chronic kidney disease (HCC) Iron deficiency anemia, unspecified iron deficiency anemia type IRON W/ IRON BINDING CAPACITY OH Routine 03/03/2025 10:13 AM CDT Anemia in stage 3b chronic kidney disease (HCC) Iron deficiency anemia, unspecified iron deficiency anemia type RETICULOCYTE COUNT (RETIC) Routine 03/03/2025 10:13 AM CDT Anemia in stage 3b chronic kidney disease (HCC) Iron deficiency anemia, unspecified iron deficiency anemia type from Last 3 Months Results * IRON W/ IRON BINDING CAPACITY OH (03/03/2025 10:13 AM CDT) IRON 90 50 - 212 ug/dL [facility] [employer] [employer] [facility] UIBC 249 155 - 355 ug/dL [facility] [employer] TIBC 339 261 - 478 ug/dl [facility] [employer] % Saturation 27 20 - 50 % [facility] [employer] [facility] 03/03/2025 10:1 3 AM CDT Narrative [facility] [employer] [facility] - 03/03/2025 11:06 AM CDT Release to patient->Immediate us Gillian Sandoval APRN, ELECTRONIC WIRER LAB SEND OUTS Toni tilley Result [facility] [employer] [place] [address], * (ABNORMAL) CBC WITH AUTO DIFF [place] (03/03/2025 10:13 AM CDT) WBC 5.9 4.0 - 10.0 10*3/uL [facility] [employer] [facility] HGB 10.6(L) 11.2 - 15.7 g/dL [facility] [employer] HCT 33.2(L) 34.1 - 44.9 % [facility] [employer] [employer] PLT 308 163 - 369 10*3/uL [facility] [employer] [facility] MPV 8.8(L) 9.4 - 12.4 fL [facility] [employer] RBC 3.08(L) 3.93 - 5.22 10*6/uL [facility] MCV 108(H) 79 - 95 fL [facility] [employer] MCH 34.4(H) 25.6 - 32.2 pg [facility] [employer] MCHC 31.9(L) 32.2 - 36.5 g/dL [facility] [employer] RDW 16.7(H) 11.6 - 14.4 % [facility] [employer] Neutrophils % 69.6(H) 36.0 - 66.0 % [facility] [employer] Lymphocytes % 18.6(L) 19.0 - 40.0 % [facility] [employer] Monocytes % 8.1 4.1 - 12.1 % [facility] [employer] Eosinophils % 2.7 0.0 - 3.5 % [facility] Basophils % 0.7 0.0 - 1.0 % [facility] [employer] [facility] Absolute Neutrophils 4.1 1.4 - 6.6 10*3/uL [facility] [employer] Absolute Lymphocytes 1.1 0.8 - 4.0 10*3/uL [facility] [employer] Absolute Monocytes 0.5 0.2 - 1.2 10*3/uL [facility] [employer] Absolute Eosinophils 0.2 0.0 - 0.4 10*3/uL [facility] [employer] Absolute Basophils 0.0 0.0 - 0.1 10*3/uL [facility] [employer] [facility] WBC Estimate Normal [facility] [employer] [facility] Platelet Estimate Normal [facility] [facility] RBC Morphology Abnormal CANCE R [employer] Macrocytosis 2+ [facility] [employer] Anisocytosis 1+ [facility] [facility] 03/03/2025 10:1 3 AM CDT us Gillian Sandoval APRN, CNP LAB SEND OUTS Fin al Result [facility] [address] [place] [address], [place] [phone] * VITAMIN B12 (03/03/2025 10:13 AM CDT) Vitamin B12 243 180 - 914 pg/mL [facility] [employer] Blood 03/03/2025 10:1 3 AM CDT Narrative [facility] - 03/03/2025 3:12 PM CDT Release to patient->Immediate us Gillian Sandoval APRN, CNP CHEMISTRY ORDERABLE S Final Result Performing Organization Address City/[facility]/ZIP Co de Phone Number [facility] [employer] [address] [place] [address], [place] [phone] * (ABNORMAL) RETICULOCYTE COUNT (RETIC) (03/03/2025 10:13 AM CDT) Reticulocyte count 2.27(H) 0.50 - 1.70 % [facility] [employer] [facility] RET-He 39.20(H) 28.20 - 36.60 pg [facility] [employer] [facility] Comment: RET-He is a direct assessment of incorporation of iron into erythrocyte hemoglobin. It provides an indirect measure of the iron available for new erythropoiesis over past 2-4 days. Blood 03/03/2025 10:[address] [facility] - 03/03/2025 10:27 AM CDT Release to patient->Immediate us Gillian Sandoval APRN, ELECTRONIC WIRER HEMATOLOGY ORDERABL ES Final Result Performing Organization Address [facility] de Phone Number [facility] [place] [address], [place] [phone] * FOLIC ACID (FOLATE) (03/03/2025 10:13 AM CDT) Folate >20.00 >=5.90 ng/mL [facility] Blood 03/03/2025 10:1 3 AM CDT [facility] - 03/03/2025 3:12 PM CDT Release to patient->Immediate IS THE PATIENT REQUIRED TO BE FASTING FOR 12 HOURS?->No us Gillian Sandoval APRN, CNP CHEMISTRY ORDERABLE S Final Result Performing Organization Address [facility] de Phone Number [facility] [place] [place] [address], [place] [phone] * (ABNORMAL) FERRITIN (03/03/2025 10:13 AM CDT) Ferritin 421(H) 11 - 307 ng/mL [facility] Blood 03/03/2025 10:1 3 AM CDT [facility] - 03/03/2025 3:12 PM CDT Release to patient->Immediate us Gillian Sandoval APRN, ELECTRONIC WIRER CHEMISTRY ORDERABLE S Final Result Performing Organization Address [facility] Co de Phone Number [facility] [address] [place] [address], * CMP (COMPREHENSIVE METABOLIC PANEL) (03/03/2025 10:13 AM CDT) Glucose 85 70 - 105 mg/dL [facility] Blood Urea Nitrogen 23 7 - 25 mg/dL [facility] Creatinine 1.0 0.6 - 1.2 mg/dL [facility] Sodium 139 136 - 145 mEq/L [facility] Potassium 4.2 3.5 - 5.1 mEq/L [facility] Chloride 106 98 - 107 mEq/L [facility] Bicarbonate 23 21 - 31 mEq/L [facility] Total Bilirubin 0.3 0.3 - 1.0 mg/dL [facility] Alk. Phosphatase 69 34 - 104 U/L [facility] Aspartate Aminotransferase 20 13 - 39 U/L [facility] Alanine Aminotransferase 25 7 - 52 U/L [facility] Total Protein 6.6 6.4 - 8.9 g/dL [facility] Albumin 4.3 3.5 - 5.7 g/dL [facility] Calcium 9.4 8.6 - 10.3 mg/dL [facility] Anion Gap 14.2 7.0 - 15.0 mEq/L [facility] Globulin 2.3 2.0 - 3.5 g/dL [facility] EGFR 61 >60 ml/min/1. 73m2 [facility] Comment: This eGFR is calculated using 2020 CKD-EPI Creatinine equation without race modifier based on the NKF-ASN task force recommendations Equation: bISR=782*min(SCr/k,1)a*max(SCr/k,1)-1.200*0.9938Age*1.012 (if female), where SCr is serum creatinine, k is 0.7 for females and 0.9 for males, and a is -0.241 for females and -0.302 for males Blood 03/03/2025 10:1 3 AM CDT [facility] - 03/03/2025 11:06 AM CDT Release to patient->Immediate IS THE PATIENT REQUIRED TO BE FASTING FOR 8 HOURS?->No us Gillian Sandoval APRN, NAHOMI CHEMISTRY ORDERABLE S Final Result [facility] [employer] [facility] [address], [place] [phone] from Last 3 Months Insurance [facility] Teams Keg Raiser Relationship Specialty Start Date End Date Siena Bell MD [address] [place] [address] PCP - General Internal Medicine 01/16/22 Eloy Mendez MD [address] [place] [phone] Consulting Physician Oncology 09/29/23
--- OUTSIDE RECORDS SUMMARY | 2025-05-30 14:47 | XMS_ITS | Continuity of Care Document ---
Author Organization [facility] Address [address] [place] [address] [place] [address] Phone Care Team Providers Care Client Service Associate Name Role Phone Jb Apple MD Unavailable [...] Diagnoses Date Provider Providers Copied on Encounter [facility], [address], [place], [address], tel:[phone] [facility] No Information 9 Zechariah Muhammad. [address], [place], [address] , [place]. tel:[phone] OFFICE/OUTPA TIENT VISIT, [facility], [address], [place], [place], [address], [place] tel:[phone] [facility] chronic pain (chief complaint) anxiety1 (chief complaint) abd pain1 (chief complaint) thyroid1 (chief complaint) HTN (chief complaint) Abdominal painHypothyroidismG eneralized Anxiety DisorderChronic pain syndromeEssential (primary) hypertension Zechariah Muhammad. [address], [place], [place], [address] , [place]. tel:[phone] Referring Provider: Silverio Temple [facility] A, [place], [place], [address]. tel:[phone] OFFICE/OUTPA TIENT VISIT, [facility], [address], [place], [place], [address], [place] tel:[phone] [facility] chronic pain (chief complaint) hypothyroi dism1 (chief complaint) anxiety1 (chief complaint) abd pain1 (chief complaint) anemia1 (chief complaint) HypothyroidismAbdom inal painChronic pain syndromeGeneralized Anxiety DisorderIron deficiency anemia Zechariah Muhammad. [address], [place], [place], [address] , [place]. tel:[phone] Referring Provider: Silverio Temple [facility] A, [place], [place], [address]. tel:[phone] OFFICE/OUTPA TIENT VISIT, [facility], [address], [address], [place] tel:[phone] [facility] hypothyroi dism1 (chief complaint) back pain1 (chief complaint) anxiety1 (chief complaint) itching1 (chief complaint) abd pain1 (chief complaint) HypothyroidismAbdom inal painPruritus, unspecifiedChronic pain syndromeGeneralized Anxiety Disorder Zechariah Lorenzo [address], [place], [place], [address] , [place]. tel:[phone] Referring Provider: Silverio Temple [address], [place], [place], [address]. tel:[phone] OFFICE/OUTPA TIENT VISIT, EST [facility], [address], [place], [place], [address], [place] tel:[phone] [facility] chronic pain1 (chief complaint) anxiety1 (chief complaint) thyroid1 (chief complaint) gastric ulcer1 (chief complaint) hard nodule1 (chief complaint) HypothyroidismGener alized Anxiety DisorderAcute gastric ulcer with hemorrhageChronic pain syndromeAbdominal pain 8 Zechariah Muhammad. [address], [place], [place], [address] , [place]. [phone] Referring Provider: Silverio Temple [address], [place], [place], [address]. tel:[phone] OFFICE/OUTPA TIENT VISIT, [facility], [address], [place], [place], [address], [place] tel:[phone] [facility] anxiety1 (chief complaint) chronic pain1 (chief complaint) gastric1 ulcer (chief complaint) hand1 (chief complaint) HTN (chief complaint) Acute gastric ulcer with hemorrhageChronic pain syndromeEssential (primary) hypertensionPain in left handGeneralized Anxiety DisorderHypothyroid ism 8 Zechariah Muhammad. [address], [place], [place], [address] , [place]. [phone] Referring Provider: Silverio Temple [address], [place], [place], [address]. tel:[phone] PREV VISIT, EST, AGE 40-64 [facility], [address], [place], [place], [address], [place] tel:[phone] [facility] Physicaal (chief complaint) Encounter for general adult medical exam w abnormal findingsAcute gastric ulcer with hemorrhageChronic pain syndromeGeneralized Anxiety DisorderAnemia 8 Zechariah Muhammad. [address], [place], [place], [address] , [place]. [phone] Referring Provider: Silverio Temple [address], [place], [place], [address]. tel:[phone] OFFICE/OUTPA TIENT VISIT, [facility], [address], [place], [place], [address], [place] tel:[phone] [facility] chronic pain1 (chief complaint) anxiety1 (chief complaint) hypothyroi dism1 (chief complaint) HTN (chief complaint) gastric ulcer1 (chief complaint) HypothyroidismEssen tial (primary) hypertensionAcute gastric ulcer with hemorrhageChronic pain syndromeGeneralized Anxiety Disorder 8 Zechariah Muhammad. [address], [place], [place], [address] , [place]. tel:[phone] Referring Provider: Silverio Temple [address], [place], [place], [address]. tel:[phone] OFFICE/OUTPA TIENT VISIT, [facility], [address], [address], [place] tel:[phone] [facility] thyroid1 (chief complaint) anemia1 (chief complaint) anxiety1 (chief complaint) back pain1 (chief complaint) HypothyroidismAnemi aChronic pain syndromeGeneralized Anxiety DisorderEssential (primary) hypertension 8 Zechariah Lorenzo [address], [place], [place], [address] , [place]. tel:[phone] Referring Provider: Silverio Temple [address], [place], [place], [address]. tel:[phone] OFFICE/OUTPA TIENT VISIT, [facility], [address], [place], [place], [address], [place] tel:[phone] [facility] Gastric ulcer1 (chief complaint) anxiety1 (chief complaint) chronic pain1 (chief complaint) thyroid1 (chief complaint) HypothyroidismAcute gastric ulcer with hemorrhageChronic pain syndromeGeneralized Anxiety DisorderEssential (primary) hypertension 8 Zechariah Lorenzo [address], [place], [place], [address] , [place]. tel:[phone] Referring Provider: Silverio Temple [address], [place], [place], [address]. tel:[phone] OFFICE/OUTPA TIENT VISIT, [facility], [address], [place], [place], [address], [place] tel:[phone] [facility] HTN (chief complaint) gastric ulcer1 (chief complaint) hypothyroi dism1 (chief complaint) anxiety1 (chief complaint) Acute gastric ulcer with hemorrhageEssential (primary) hypertensionHypothy roidismChronic pain syndromeGeneralized Anxiety Disorder May-0 8 Zechariah Muhammad. [address], [place], [place], [address] , [place]. tel:[phone] Referring Provider: Silverio Temple [address], [place], [place], [address]. tel:[phone] OFFICE/OUTPA TIENT VISIT, [facility], [address], [place], [place], [address], [place] tel:[phone] [facility] gastric ulcer1 (chief complaint) back pain1 (chief complaint) anxiety1 (chief complaint) hypothyroi dism1 (chief complaint) Acute gastric ulcer with hemorrhageHypothyro idismChronic pain syndromeGeneralized Anxiety Disorder 0 8 Zechariah Muhammad. [address], [place], [place], [address] , [place]. [phone] Referring Provider: Silverio Temple [address], [place], [place], [address]. tel:[phone] OFFICE/OUTPA TIENT VISIT, [facility], [address], [place], [place], [address], [place] tel:[phone] [facility] GI (chief complaint) anxiety1 (chief complaint) back pain1 (chief complaint) thyroid (chief complaint) HypothyroidismAnemi aAcute gastric ulcer with hemorrhageChronic pain syndrome Mar-0 8 Zechariah Muhammad. [address], [place], [place], [address] , [place]. [phone] PREV VISIT, EST, AGE 40-64 [facility], [address], [place], [place], [address], [place] tel:[phone] [facility] Medicine Physical (chief complaint) Encounter for general adult medical exam w abnormal findingsHypothyroid ismEssential (primary) hypertensionAcute gastric ulcer with hemorrhage Fe0 2 8 Zechariah Lorenzo [address], [place], [place], [address] , [place]. [phone] OFFICE/OUTPA TIENT VISIT, [facility], [address], [place], [place], [address], [place] [phone] [facility] fibroid (chief complaint) cough1 (chief complaint) hypothyroi dism1 (chief complaint) HTN (chief complaint) HypothyroidismAcute bronchitisEssential (primary) hypertensionLeiomyo ma of uterus, unspecified 0 7 Zechariah Lorenzo [address], [place], [place], [address] , [place]. [phone] Referring Provider: Silverio Temple [address], [place], [place], [address]. tel:[phone] OFFICE/OUTPA TIENT VISIT, [facility], [address], [place], [place], [address], [place] [phone] [facility] Medicine htyroid (chief complaint) fibroid (chief complaint) anxiety1 (chief complaint) back pain1 (chief complaint) UTI1 (chief complaint) HypothyroidismUrina ry tract infectionChronic pain syndromeAnemia Oct- 7 Zechariah Lorenzo [address], [place], [place], [address] , [place]. [phone] Referring Provider: Silverio Temple [address], [place], [place], [address]. tel:[phone] OFFICE/OUTPA TIENT VISIT, [facility], [address], [place], [place], [address], [place] tel:[phone] [facility] hypothyroi dism1 (chief complaint) anemia1 (chief complaint) back pain1 (chief complaint) anxiety1 (chief complaint) HypothyroidismAnemi aAcute gastric ulcer with hemorrhageChronic pain syndrome 7 Zechariah Muhammad. [address], [place], [place], [address] , [place]. tel:[phone] Referring Provider: Silverio Temple [address], [place], [place], [address]. tel:[phone] OFFICE/OUTPA TIENT VISIT, [facility], [address], [place], [place], [address], [place] tel:[phone] [facility] hypothryoi dism1 (chief complaint) anemia1 (chief complaint) HLP (chief complaint) vitamin D (chief complaint) back pain1 (chief complaint) Iron deficiency anemiaHyperlipidemi aHypothyroidismVita min D deficiency, unspecified Zechariah Lorenzo [address], [place], [place], [address] , [place]. [phone] Referring Provider: Silverio Temple [address], [place], [place], [address]. tel:[phone] OFFICE/OUTPA TIENT VISIT, [facility], [address], [place], [place], [address], [place] [phone] [facility] cold (chief complaint) HTN (chief complaint) back pain1 (chief complaint) Acute bronchitisChronic pain syndromeEssential (primary) hypertension 7 Zechariah Lorenzo [address], [place], [place], [address] , [place]. [phone] Referring Provider: Silverio Temple [address], [place], [place], [address]. tel:[phone] OFFICE/OUTPA TIENT VISIT, [facility], [address], [place], [place], [address], [place] tel:[phone] [facility] gastric ulcer1 (chief complaint) anxiety1 (chief complaint) back pain1 (chief complaint) thyroid1 (chief complaint) HTN (chief complaint) Essential (primary) hypertensionUnspeci fied ovarian cyst, right sideAnemiaChronic pain syndrome 7 Zechariah Muhammad. [address], [place], [place], [address] , [place]. [phone] Referring Provider: Silverio Temple [address], [place], [place], [address]. tel:[phone] OFFICE/OUTPA TIENT VISIT, [facility], [address], [place], [place], [address], [place] tel:[phone] [facility] ulcer (chief complaint) anemia1 (chief complaint) pelvic cyst (chief complaint) back pain1 (chief complaint) anxiety1 (chief complaint) Acute gastric ulcer with hemorrhageUnspecifi ed ovarian cyst, right sideChronic pain syndromeAnemia 7 Zechariah Muhammad. [address], [place], [place], [address] , [place]. [phone] Referring Provider: Silverio Temple [address], [place], [place], [address]. tel:[phone] OFFICE/OUTPA TIENT VISIT, [facility], [address], [place], [place], [address], [place] [phone] [facility] Gastric ulcer1 (chief complaint) hypothyroi dism (chief complaint) HTN (chief complaint) back pain1 (chief complaint) Acute gastric ulcer with hemorrhageHypothyro idismEssential (primary) hypertensionChronic pain syndrome 7 Zechariah Muhammad. [address], [place], [place], [address] , [place]. [phone] Referring Provider: Silverio Temple [address], [place], [place], [address]. tel:[phone] OFFICE/OUTPA TIENT VISIT, [facility], [address], [place], [place], [address], [place] tel:[phone] [facility] back pain1 (chief complaint) anxiety1 (chief complaint) HTN (chief complaint) hypothyroi dism1 (chief complaint) GERD1 (chief complaint) Essential (primary) hypertensionHypothy roidismGERD w/o esophagitis 7 Zechariah Muhammad. [address], [place], [place], [address] , [place]. tel:[phone] Referring Provider: Silverio Temple [address], [place], [place], [address]. tel:[phone] Family History Family Member Type Diagnosis Age At Onset Mother Problem (finding) of HTN Father Problem (finding) of stomach CA Sister Problem (finding) back pain Mother Problem (finding) Cardiovascular disease 60 Payers Payer name Insurance type Covered green party ID Authoriza tion(s) No Information Social History [...] homicidal thought. Pt denies any crying spells. HTN Pt has HTn ,Pt t akes metoprolol and losartan and her BP is borderline high today abd pain1 Pt has midepigas tric pain [...] Pt denies any chest pain, headache palpitation. hypothyroidism1 Pt has low thyro id. Pt [...] headache, palpitation, fatigue. back pain1 Patient has outpatient physical therapist assistant linda low back pain. . Patient complained of mild sciatica with leg numbness and tingling. Patient denies any loss of bowel bladder control. Patient failed NSAID and tramadol. Patient has 6 out of 10 pain daily. Patient complained of sharp pain. Patient denies any worsening pain. anxiety1 Patient has outpatient physical therapist assistant linda anxiety and depression. Patient denies any [...] robaxin PRN for pain anxiety1 Patient has outpatient physical therapist assistant linda anxiety and depression. Patient denies any [...] op. Pt denies any nausea, vomiting, diarrhea hypothyroidism1 Pt takes 125 mcg synthroid daily. [...] any active bleeding or any abd pain chronic pain1 Pt has chronic l ow back pain with bilateral sciatica or any numbness. Pt denies any loss of bladder control. Pt denies any worsening pain. Pt has neurontin and dong ok Pt failed ultram and NSAID anxiety1 Pt has chronic a nxiety and depression pt takes paxil and valium and doing ok. pt denies any suicidal or homicidals thought thyroid1 Pt has low thyro id. Pt [...] me she had TSH done recen[facility]ty at [facility] but i could not find anything at [facility]. HTN Pt takes losarta n and metoprolol and her BP is high today Pt states that she is stressed out a lot since her just recently. Pt denies any chest ness or headache htyroid Pt has hypothyro idism. Pt takes synthroid. Pt had lab done at [facility] two weeks ago. . Pt denies any [...] Pt deneis any loss of bladder control cold Pt c/o coughing, wheezing and sore [...] homicidal thought. Pt denies any crying spells Gastric ulcer1 Pt has large gas tric ulcer. Pt recenlty admitted to [facility] for acute bleeding Pt had EGD phillip in hospital and she was transfused 4 [...] does have sciatica and some leg numbness. hypothyroidism Pt has low thyro id. Pt takes synthroid. Pt denies any chest pain or headache HTN Pt has HTn. Pt t akes metoprolol 25 mg bid and losartan. Her BP is stalbe. back pain1 Pt has chronic l ow [...] hemorrhage Increase physical activity Relat ed to [facility] general adult medical exam w/o abnormal findings Special diet education Related t o Body mass index (BMI) 31.0-31.9, adult Weight management Related to Hyp othyroidism Increase physical activity Relat ed to Hypothyroidism Weight management Related to Ane na Special diet education Related t o Body mass index (BMI) 33.0-33.9, adult Special diet education Related t o [...] Education Related to Dietary Surveillance and Counseling Increase [...]
--- OUTSIDE RECORDS SUMMARY | 2025-05-30 14:47 | XMS_ITS | Clinical Summary ---
Author Organization 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 Name Role Phone Malorie Lo MD Primary Care Provider [phone] Active Problems Problem Noted Date Diagnosed Date Iron deficiency anemia 06/15/2024 Encounters Date Type Department Care Team Description 05/14/2025 10:35 AM CDT - 05/14/2025 11:59 PM CDT Hospital Encounter [facility] [place] [address] [place] [address] Joce Barksdale MD Discharge Disposition: Home or Self Care (Routine Discharge) 05/14/2025 Orders Only [facility] [place] [address] [place] [address] Joce Barksdale MD 05/14/2025 Travel 03/24/2025 9:50 AM CDT - 03/24/2025 11:59 PM CDT Hospital Encounter [facility] [place] [address] [place] [address] Joce Barksdale MD Discharge Disposition: Home or Self Care (Routine Discharge) 03/24/2025 9:50 AM CDT - 03/24/2025 11:59 PM CDT Hospital Encounter [facility] [place] [address] [place] [address] Non-Staff, Provider Discharge Disposition: Home or Self Care (Routine Discharge) 03/24/2025 Orders Only [facility] [place] [address] [place] [address] Joce Barksdale MD 03/24/2025 Travel from Last 3 Months Social History Tobacco Use Types Packs/Day Years Used Date Smoking Tobacco: Never Assessed Comments Unknown Sex and Gender Information Value Date Recorded Sex Assigned at Female 03/01/2025 12:11 PM CDT Legal Sex Female 7:10 PM CDT Gender Identity Not on file Sexual Orientation Not on file Last Filed Vital Signs Vital Sign Reading Time Taken Comments Blood Pressure 151/75 02/25/2025 11:05 AM CDT Pulse 62 02/25/2025 11:05 AM CDT Temperature 36.2 C (97.1 F) 02/25/2025 11:05 AM CDT Respiratory Rate 16 02/25/2025 11:05 AM CDT Oxygen Saturation 100% 02/25/2025 11:05 AM CDT Inhaled Oxygen Concentration - - Weight - - Height - - Body Mass Index - - Plan of Treatment Health Maintenance Due Date Last Done Comments Colorectal Cancer Screening Colonoscopy (10 Years) 1954 Hepatitis C 1972 DTaP, Tdap and Td Vaccines ( 1 - Tdap) 1973 Zoster Vaccines (1 of 2) 2004 Annual Medicare Wellness Visit 2019 Dexa Scan (General) 2019 Pneumococcal Vaccine: 50+ Years (2 of 2 - PPSV23) 08/01/2021 08/01/2020 COVID-19 Vaccine (3 - 2023-2 5 season) 2024 03/09/2021, 02/09/2021 Mammogram Screening 03/24/2027 03/24/2025, 06/20/2016 RSV Immunization or 60+ Years (1 - 1-dose 75+ series) 2029 Meningococcal B Vaccine Aged Out No l onger eligible based on patient's age to complete this topic Meningococcal Vaccine Aged Out No jesus alberto júnior eligible based on patient's age to complete this topic RSV Immunizations Under 20 Months Aged Out No longer eligible b ased on patient's age to complete this topic Procedures Procedure Name Priority Date/Time Associated Diagnosis Comments VITAMIN D, 25 OH Routine 05/14/2025 10:5 5 AM CDT Vitamin D deficiency disease PTH - INTACT Routine 05/14/2025 10:55 AM CDT Hyperparathyroidism , unspecified (HHS/HCC) URIC ACID BLOOD Routine 05/14/2025 10:55 AM CDT Chronic kidney disease, stage III (moderate) (CMS/HCC) COMPREHENSIVE METABOLIC PANEL Routine 05/14/2025 10:55 AM CDT Chronic kidney disease, stage III (moderate) (CMS/HCC) MG SCREENING W ZULY SHERLY DIGI Routine 03/24/2025 10:39 AM CDT Encounter for screening mammogram for malignant neoplasm of breast ALBUMIN URINE RANDOM W/CREATININE Routine 03/24/2025 10:04 AM CDT CKD (chronic kidney disease) HTN (hypertension) Anemia Edema Vitamin D deficiency Urinary tract infection, site not specified Impaired glucose tolerance test Elevated lipoprotein A level Hyperparathyroidism , unspecified (HHS/HCC) Nonspecific abnormal results of thyroid function study HC URINALYSIS AUTO W/O MICRO Routine 03/24/2025 10:04 AM CDT CKD (chronic kidney disease) HTN (hypertension) Anemia Edema Vitamin D deficiency Urinary tract infection, site not specified Impaired glucose tolerance test Elevated lipoprotein A level Hyperparathyroidism , unspecified (HHS/HCC) Nonspecific abnormal results of thyroid function study VITAMIN D, 25 OH Routine 03/24/2025 10:0 0 AM CDT CKD (chronic kidney disease) HTN (hypertension) Anemia Edema Vitamin D deficiency Urinary tract infection, site not specified Impaired glucose tolerance test Elevated lipoprotein A level Hyperparathyroidism , unspecified (HHS/HCC) Nonspecific abnormal results of thyroid function study PTH - INTACT Routine 03/24/2025 10:00 AM CDT CKD (chronic kidney disease) HTN (hypertension) Anemia Edema Vitamin D deficiency Urinary tract infection, site not specified Impaired glucose tolerance test Elevated lipoprotein A level Hyperparathyroidism , unspecified (HHS/HCC) Nonspecific abnormal results of thyroid function study THYROID STIM HORMONE TSH Routine 03/24/2025 10:00 AM CDT CKD (chronic kidney disease) HTN (hypertension) Anemia Edema Vitamin D deficiency Urinary tract infection, site not specified Impaired glucose tolerance test Elevated lipoprotein A level Hyperparathyroidism , unspecified (HHS/HCC) Nonspecific abnormal results of thyroid function study HEMOGLOBIN, GLYCOSYLATED Routine 03/24/2025 10:00 AM CDT CKD (chronic kidney disease) HTN (hypertension) Anemia Edema Vitamin D deficiency Urinary tract infection, site not specified Impaired glucose tolerance test Elevated lipoprotein A level Hyperparathyroidism , unspecified (HHS/HCC) Nonspecific abnormal results of thyroid function study URIC ACID BLOOD Routine 03/24/2025 10:00 AM CDT CKD (chronic kidney disease) HTN (hypertension) Anemia Edema Vitamin D deficiency Urinary tract infection, site not specified Impaired glucose tolerance test Elevated lipoprotein A level Hyperparathyroidism , unspecified (HHS/HCC) Nonspecific abnormal results of thyroid function study COMPREHENSIVE METABOLIC PANEL Routine 03/24/2025 10:00 AM CDT CKD (chronic kidney disease) HTN (hypertension) Anemia Edema Vitamin D deficiency Urinary tract infection, site not specified Impaired glucose tolerance test Elevated lipoprotein A level Hyperparathyroidism , unspecified (HHS/HCC) Nonspecific abnormal results of thyroid function study from Last 3 Months Results * PTH - INTACT (05/14/2025 10:55 AM CDT) Only the most recent of2 resultswithin the time period is included. PTH INTACT 31.7 18.4 - 80.1 PG/ML 05/14/2025 11:44 AM CDT [facility] 05/14/2025 10:5 5 AM CDT us Joce Barksdale MD LABORATORY Final Result [facility] [address] [place] [address], [place] [phone] * (ABNORMAL) COMPREHENSIVE METABOLIC PANEL (05/14/2025 10:55 AM CDT) Only the most recent of2 resultswithin the time period is included. [facility] GLUCOSE 93 70 - 99 MG/DL 05/14/2025 11:37 AM T [facility] BUN 18 7 - 18 MG/DL 05/14/2025 11:37 AM T [facility] CREATININE S/P/B 0.94 0.55 - 1.02 MG/DL 05/14/2025 11:37 AM T [facility] SODIUM S/P/B 140 136 - 145 MMOL/L 05/14/2025 11:37 AM T [facility] POTASSIUM S/P/B 4.1 3.5 - 5.1 MMOL/L 05/14/2025 11:37 AM T [facility] CHLORIDE S/P/B 113 97 - 115 MMOL/L 05/14/2025 11:37 AM T [facility] CO2 23.1 21 - 32 MMOL/L 05/14/2025 11:37 AM T [facility] CALCIUM S/P/B 9.0 8.5 - 10.1 MG/DL 05/14/2025 11:37 AM T [facility] BILIRUBIN TOTAL S/P/B 0.4 0.2 - 1.2 MG/DL 05/14/2025 11:37 AM T [facility] Comment: THIS ASSAY IS NOT RECOMMENDED FOR PATIENTS UNDERGOING TREATMENT WITH ELTROMBOPAG DUE TO THE POTENTIAL FOR FALSELY ELEVATED RESULTS. TOTAL PROTEIN S/P/B 6.6 6.4 - 8.2 G/DL 05/14/2025 11:37 AM T [facility] ALBUMIN S/P/B 3.5 3.4 - 5.0 G/DL 05/14/2025 11:37 AM T [facility] AST 19 15 - 37 U/L 05/14/2025 11:37 AM T [facility] ALT 28 14 - 55 U/L 05/14/2025 11:37 AM CDT [facility] ALKALINE PHOSPHATASE S/P/B 82 50 - 136 U/L 05/14/2025 11:37 AM CDT [facility] ANION GAP 3.9 2 - 10 MMOL/L 05/14/2025 11:37 AM CDT [facility] BUN CREATININE RATIO 19.2 6 - 26 05/14/2025 11:37 AM CDT [facility] A/G RATIO 1.1 1.0 - 2.0 RATIO 05/14/2025 11:37 AM CDT [facility] GFR ESTIMATE 65(L) >90 ML/MIN/1.7 3 M2 05/14/2025 11:37 AM CDT [facility] Comment: NOTE: eGFR is not calculated for patients <18 years of age or gender unknown. This is an estimated GFR calculation using the new CKD EPI creatinine equation without race and so does not require a correction factor for race. This estimated GFR should not be used for calculating drug doses. 05/14/2025 10:5 5 AM CDT Joce Barksdale MD LABORATORY Final Result [facility] [address] [place] [address], * VITAMIN D, 25 OH (05/14/2025 10:55 AM CDT) Only the most recent of2 resultswithin the time period is included. VITAMIN D 25 HYDROXY S/P/B 74 30 - 100 NG/ML 05/14/2025 11:44 AM CDT [facility] Comment: INTERPRETATION DEFICIENT <20 INSUFFICIENT 20-29 SUFFICIENT 30-100 05/14/2025 10:5 5 AM CDT Joce Barksdale MD LABORATORY Final Result [facility] [address] [place] [address], [place] [phone] * (ABNORMAL) URIC ACID BLOOD (05/14/2025 10:55 AM CDT) Only the most recent of2 resultswithin the time period is included. URIC ACID 2.5(L) 2.6 - 6.0 MG/DL 05/14/2025 11:37 AM CDT [facility] 05/14/2025 10:5 5 AM CDT Joce Barksdale MD LABORATORY Final Result Performing Organization Address City/[facility]/ZIP Co de Phone Number [facility] [address] [place] [address], [place] [phone] * MG SCREENING W ZULY SHERLY DIGI (03/24/2025 10:39 AM CDT) Anatomical Region Laterality Modality Breast Bilateral Mammography 03/25/2025 11:1 3 AM CDT Impressions 03/25/2025 11:13 AM CDT IMPRESSION: No significant interval change. No mammographic evidence of malignancy. RECOMMENDATION: Routine ScreeningBilateral OVERALL IMAGING ASSESSMENT: ACR BI-RADS 2 - BENIGN FINDING(S). Ordered By: PROVIDER NON-STAFF Interpreted By: Lv Rojas, 03/25/2025 11:13 AM Narrative 03/25/2025 11:13 AM CDT [facility] [place] [address] EXAMINATION: MG SCREENING W ZULY SHERLY DIGI INDICATIONS: Screening TECHNIQUE: Digital full field CC and MLO screening mammography bilaterally to include 3-D Tomosynthesis technique. This study was read with the assistance of a computer-aided detection system. HISTORY: No reported breast complaint. No documented personal or first degree family history of breast cancer. No documented prior breast procedure. COMPARISON: 08/04/2023, 04/30/2022, 03/30/2021, 12/03/2018, and 06/20/2016. TISSUE DENSITY: There are scattered areas of fibroglandular density. FINDINGS: Typically benign round and rim calcifications bilaterally, right greater than left, without suspicious interval change in quantity or morphology. No suspicious microcalcification or mass. No developing asymmetry or architectural distortion. No axillary adenopathy. us Provider Non-Staff MAMMO Final Result * (ABNORMAL) URINALYSIS (03/24/2025 10:04 AM CDT) SPECIMEN TYPE URINE CLEAN CATCH 03/24/2025 10:05 AM CDT [facility] COLOR (U) LIGHT YELLOW 03/24/2025 10:34 AM CDT [facility] TRANSPARENCY CLEAR 03/24/2025 10:34 AM CDT [facility] SPECIFIC GRAVITY (U) 1.023 1.001 - 1.030 03/24/2025 10:34 AM CDT [facility] U PH 5.5 5.0 - 9.0 03/24/2025 10:34 AM CDT [facility] LEUKOCYTES (U) 250(A) NEGATIVE 03/24/2025 10:34 AM CDT [facility] NITRITES NEGATIVE NEGATIVE 03/24/2025 10:34 AM CDT [facility] PROTEIN RANDOM (U) 10 <30 MG/DL 03/24/2025 10:34 AM CDT [facility] GLUCOSE (U) NORMAL NORMAL MG/DL 03/24/2025 10:34 AM CDT [facility] KETONES MG/DL (U) NEGATIVE NEGATIVE MG/DL 03/24/2025 10:34 AM CDT [facility] UROBILINOGEN NORMAL NORMAL MG/DL 03/24/2025 10:34 AM CDT [facility] BILIRUBIN (U) NEGATIVE NEGATIVE MG/DL 03/24/2025 10:34 AM CDT [facility] BLOOD (U) NEGATIVE NEGATIVE 03/24/2025 10:34 AM CDT [facility] MUCUS RARE /LPF 03/24/2025 10:34 AM CDT [facility] WBC/HPF 1 <6 /HPF 03/24/2025 10:34 AM CDT [facility] RBC/HPF 1 <6 /HPF 03/24/2025 10:34 AM CDT [facility] SQUAMOUS EPITHELIALS RARE /HPF 03/24/2025 10:34 AM CDT [facility] URINE SPECIMEN OBTAINED BY CLEAN CATCH PROCEDURE / Unknown 03/24/2025 10:04 AM CDT us Joce Barksdale MD URINE ORDERABLES Final Result [facility] [address] [place] [address], [place] [phone] * MICROALBUMIN CREAT RATIO, URINE RANDOM (03/24/2025 10:04 AM CDT) CREATININE (U) 78.2 28 - 217 MG/DL 03/24/2025 11:02 AM CDT [facility] MICROALBUMIN (U) 0.6 <2.0 mg/dL 03/24/20 11:02 AM CDT [facility] ALBUMIN/CREAT RATIO 7.6 <30 MG/G 03/24/2025 11:02 AM CDT [facility] URINE SPECIMEN / Unknown 03/24/2025 10:04 AM CDT us Joce Barksdale MD URINE ORDERABLES Final Result Performing Organization Address [facility] Co de Phone Number [facility] [address] [place] [address], [place] [phone] * HEMOGLOBIN, GLYCOSYLATED (03/24/2025 10:00 AM CDT) HGB A1C 5.0 <5.7 % 03/24/2025 11:22 AM CDT [facility] Comment: ADA GUIDELINES 2010 5.7 TO 6.4% INCREASED RISK OF DIABETES > OR = 6.5% CONSISTENT WITH DIABETES ESTIMATED AVG GLUCOSE 97 mg/dL 03/24/2025 11:22 AM CDT [facility] 03/24/2025 10:0 0 AM CDT us Joce Barksdale MD LABORATORY Final Result Performing Organization Address [facility] de Phone Number [facility] [address] [place] [address], [place] [phone] * (ABNORMAL) THYROID STIM HORMONE TSH (03/24/2025 10:00 AM CDT) TSH 0.174(L) 0.358 - 3.74 uIU/ML 03/24/2025 11:07 AM CDT [facility] Comment: HIGH DOSES OF BIOTIN MAY INTERFERE WITH THIS TEST RESULT. CORRELATION TO CLINICAL HISTORY AND PRESENTATION RECOMMENDED. 03/24/2025 10:0 0 AM CDT us Joce Barksdale MD LABORATORY Final Result [facility] [address] [place] [address], from Last 3 Months Insurance [facility] [place] [address] Care Teams Oil Pipeline Dispatcher Relationship Specialty Start Date End Date Malorie Lo MD [address] [place] [address] PCP - General 08/21/11
--- OUTSIDE RECORDS SUMMARY | 2025-05-30 14:47 | XMS_ITS | Encounter Summary ---
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 Name Role Phone Malorie Lo MD Primary Care Provider [phone] Encounter Details Date Type Department Care Team (Late st Contact Info) Description 06/29/2024 Therapy Plan [facility] [place] [address] Mary Syed MD [address] [place] [address] [phone] Social History Tobacco Use Types Packs/Day Years [...] documented as of this encounter Visit Diagnoses Diagnosis Iron deficiency anemia- Primary Iron deficiency anemia, unspecified documented in this encounter Care Teams Bread Packer Relationship Specialty Start Date End Date Malorie Lo MD [address] [facility] [place] [address] PCP - General 08/21/11 documented as of this encounter
== END 2025-05-30 14:44 | disposition home or self-care (01) ==
PROVIDERS: Visit Provider Nurse Practitioner Family
DX: K59.00 Constipation, unspecified (principal)
CPT/HCPCS: 74018

== ENCOUNTER 2025-07-21 16:00 | Emergency (ER) | payer MEDICARE, SELFPAY ==
--- OUTSIDE RECORDS SUMMARY | 2019-01-13 15:34 | XMS_ITS | Continuity of Care Document ---
Author Organization [facility] Address [address] [place] [address] [place] [address] Phone Care Team Providers Care Silver Wrapper Name Role Phone Jb Apple MD Unavailable Unavailable Allergies, Adverse Reactions, Alerts Substance Reaction Status Criticality No Known Allergies Active No Inform ation Medications Medication Instructions Dosage Effective Dates (start - stop) Status Comments Percocet 10 mg-325 mg tablet take 1 tablet by oral route 4 times every day as needed as needed 1 tablet - Active PRN for pain, avoid drivng or operate machines Valium 5 mg tablet take 1 tablet by oral route 2 times every day as needed 5 MG - Active PRN for anxiety, avoid driving or oepat amchines cyclobenzaprine 5 mg tablet take 1 tablet by oral route every bedtime as needed 5 MG - Active PRN for pain, avoid driving or operate machines Synthroid 137 mcg tablet take 1 tablet by oral route every day 137 MCG - Active triamcinolone acetonide 0.025 % topical cream apply by topical route 2 times every day a thin layer to the affected area(s) 0.00 - Active Protonix 40 mg tablet,delayed release take 1 tablet by oral route 2 times every day 40 MG - Active Paxil 20 mg tablet take 1 tablet by oral route every day 20 MG - Active Neurontin 300 mg capsule take 1 capsule by oral route 3 times every day 300 MG - Active avoid driving or operate machines, losartan 100 mg tablet take 1 tablet by oral route every day 100 MG - Active metoprolol tartrate 25 mg tablet take 1 tablet by oral route 2 times every day 25 MG - Active Ventolin HFA 90 mcg/actuation aerosol inhaler inhale 2 puff by inhalation route every 4 - 6 hours as needed - Active PRN for cough Vitamin D2 50,000 unit capsule take 1 capsule by oral route every week - Active Procedures Procedure Date OFFICE/OUTPATIENT VISIT, EST OFFICE/OUTPATIENT VISIT, EST OFFICE/OUTPATIENT VISIT, EST OFFICE/OUTPATIENT VISIT, EST OFFICE/OUTPATIENT VISIT, EST PREV VISIT, EST, AGE 40-64 OFFICE/OUTPATIENT VISIT, EST OFFICE/OUTPATIENT VISIT, EST OFFICE/OUTPATIENT VISIT, EST OFFICE/OUTPATIENT VISIT, EST OFFICE/OUTPATIENT VISIT, EST OFFICE/OUTPATIENT VISIT, EST OFFICE/OUTPATIENT VISIT, EST PREV VISIT, EST, AGE 40-64 OFFICE/OUTPATIENT VISIT, EST OFFICE/OUTPATIENT VISIT, EST OFFICE/OUTPATIENT VISIT, EST OFFICE/OUTPATIENT VISIT, EST OFFICE/OUTPATIENT VISIT, EST OFFICE/OUTPATIENT VISIT, EST OFFICE/OUTPATIENT VISIT, EST OFFICE/OUTPATIENT VISIT, EST OFFICE/OUTPATIENT VISIT, EST OFFICE/OUTPATIENT VISIT, NEW Advance Directives Directive Yes / No Effective Date File Name No Information Encounters Encounter Description Practice Location Reason(s) For Visit Diagnoses Date Provider Providers Copied on Encounter [facility], [address], [address], tel:[phone] [facility] No Information 9 Zechariah Muhammad. [address], [address] , [place]. tel:[phone] OFFICE/OUTPA TIENT VISIT, [facility], [address], [place], [place], [address], [place] tel:[phone] [facility] chronic pain (chief complaint) anxiety1 (chief complaint) abd pain1 (chief complaint) thyroid1 (chief complaint) HTN (chief complaint) Abdominal painHypothyroidismG eneralized Anxiety DisorderChronic pain syndromeEssential (primary) hypertension Zechariha Muhammad. [address], [place], [place], [address] , [place]. tel:[phone] Referring Provider: Silverio Temple [facility] [address], [place], [place], [address]. tel:[phone] OFFICE/OUTPA TIENT VISIT, [facility], [address], [place], [place], [address], [place] tel:[phone] [facility] chronic pain (chief complaint) hypothyroi dism1 (chief complaint) anxiety1 (chief complaint) abd pain1 (chief complaint) anemia1 (chief complaint) HypothyroidismAbdom inal painChronic pain syndromeGeneralized Anxiety DisorderIron deficiency anemia Zechariah Muhammad. [address], [place], [place], [address] , [place]. tel:[phone] Referring Provider: Silverio Temple [facility] [address], [place], [place], [address]. tel:[phone] OFFICE/OUTPA TIENT VISIT, [facility], [address], [address], [place] tel:[phone] [facility] hypothyroi dism1 (chief complaint) back pain1 (chief complaint) anxiety1 (chief complaint) itching1 (chief complaint) abd pain1 (chief complaint) HypothyroidismAbdom inal painPruritus, unspecifiedChronic pain syndromeGeneralized Anxiety Disorder Zechariah Lorenzo [address], [place], [place], [address] , [place]. tel:[phone] Referring Provider: Silverio Temple [address], [place], [place], [address]. tel:[phone] OFFICE/OUTPA TIENT VISIT, EST [facility], [address], [place], [place], [address], [place] tel:[phone] [facility] chronic pain1 (chief complaint) anxiety1 (chief complaint) thyroid1 (chief complaint) gastric ulcer1 (chief complaint) hard nodule1 (chief complaint) HypothyroidismGener alized Anxiety DisorderAcute gastric ulcer with hemorrhageChronic pain syndromeAbdominal pain 8 Zechariah Muhammad. [address], [place], [place], [address] , [place]. [phone] Referring Provider: Silverio Temple [address], [place], [place], [address]. tel:[phone] OFFICE/OUTPA TIENT VISIT, [facility], [address], [place], [place], [address], [place] tel:[phone] [facility] anxiety1 (chief complaint) chronic pain1 (chief complaint) gastric1 ulcer (chief complaint) hand1 (chief complaint) HTN (chief complaint) Acute gastric ulcer with hemorrhageChronic pain syndromeEssential (primary) hypertensionPain in left handGeneralized Anxiety DisorderHypothyroid ism 8 Zechariah Muhammad. [address], [place], [place], [address] , [place]. [phone] Referring Provider: Silverio Temple [address], [place], [place], [address]. tel:[phone] PREV VISIT, EST, AGE 40-64 [facility], [address], [place], [place], [address], [place] tel:[phone] [facility] Physicaal (chief complaint) Encounter for general adult medical exam w abnormal findingsAcute gastric ulcer with hemorrhageChronic pain syndromeGeneralized Anxiety DisorderAnemia 8 Zechariah Muhammad. [address], [place], [place], [address] , [place]. [phone] Referring Provider: Silverio Temple [address], [place], [place], [address]. tel:[phone] OFFICE/OUTPA TIENT VISIT, [facility], [address], [place], [place], [address], [place] tel:[phone] [facility] chronic pain1 (chief complaint) anxiety1 (chief complaint) hypothyroi dism1 (chief complaint) HTN (chief complaint) gastric ulcer1 (chief complaint) HypothyroidismEssen tial (primary) hypertensionAcute gastric ulcer with hemorrhageChronic pain syndromeGeneralized Anxiety Disorder 8 Zechariah Muhammad. [address], [place], [place], [address] , [place]. tel:[phone] Referring Provider: Silverio Temple [address], [place], [place], [address]. tel:[phone] OFFICE/OUTPA TIENT VISIT, [facility], [address], [address], [place] tel:[phone] [facility] thyroid1 (chief complaint) anemia1 (chief complaint) anxiety1 (chief complaint) back pain1 (chief complaint) HypothyroidismAnemi aChronic pain syndromeGeneralized Anxiety DisorderEssential (primary) hypertension 8 Zechariah Lorenzo [address], [place], [place], [address] , [place]. tel:[phone] Referring Provider: Silverio Temple [address], [place], [place], [address]. tel:[phone] OFFICE/OUTPA TIENT VISIT, [facility], [address], [place], [place], [address], [place] tel:[phone] [facility] Gastric ulcer1 (chief complaint) anxiety1 (chief complaint) chronic pain1 (chief complaint) thyroid1 (chief complaint) HypothyroidismAcute gastric ulcer with hemorrhageChronic pain syndromeGeneralized Anxiety DisorderEssential (primary) hypertension 8 Zechariah Lorenzo [address], [place], [place], [address] , [place]. tel:[phone] Referring Provider: Silverio Temple [address], [place], [place], [address]. tel:[phone] OFFICE/OUTPA TIENT VISIT, [facility], [address], [place], [place], [address], [place] tel:[phone] [facility] HTN (chief complaint) gastric ulcer1 (chief complaint) hypothyroi dism1 (chief complaint) anxiety1 (chief complaint) Acute gastric ulcer with hemorrhageEssential (primary) hypertensionHypothy roidismChronic pain syndromeGeneralized Anxiety Disorder May-0 8 Zechariah Muhammad. [address], [place], [place], [address] , [place]. [phone] Referring Provider: Silverio Temple [address], [place], [place], [address]. tel:[phone] OFFICE/OUTPA TIENT VISIT, [facility], [address], [place], [place], [address], [place] tel:[phone] [facility] gastric ulcer1 (chief complaint) back pain1 (chief complaint) anxiety1 (chief complaint) hypothyroi dism1 (chief complaint) Acute gastric ulcer with hemorrhageHypothyro idismChronic pain syndromeGeneralized Anxiety Disorder 0 8 Zechariah Muhammad. [address], [place], [place], [address] , [place]. [phone] Referring Provider: Silverio Temple [address], [place], [place], [address]. tel:[phone] OFFICE/OUTPA TIENT VISIT, [facility], [address], [place], [place], [address], [place] tel:[phone] [facility] GI (chief complaint) anxiety1 (chief complaint) back pain1 (chief complaint) thyroid (chief complaint) HypothyroidismAnemi aAcute gastric ulcer with hemorrhageChronic pain syndrome Mar-0 8 Zechariah Muhammad. [address], [place], [place], [address] , [place]. [phone] PREV VISIT, EST, AGE 40-64 [facility], [address], [place], [place], [address], [place] tel:[phone] [facility] Medicine Physical (chief complaint) Encounter for general adult medical exam w abnormal findingsHypothyroid ismEssential (primary) hypertensionAcute gastric ulcer with hemorrhage Fe0 2 8 Zechariah Lorenzo [address], [place], [place], [address] , [place]. [phone] OFFICE/OUTPA TIENT VISIT, [facility], [address], [place], [place], [address], [place] [phone] [facility] fibroid (chief complaint) cough1 (chief complaint) hypothyroi dism1 (chief complaint) HTN (chief complaint) HypothyroidismAcute bronchitisEssential (primary) hypertensionLeiomyo ma of uterus, unspecified 0 7 Zechariah Lorenzo [address], [place], [place], [address] , [place]. [phone] Referring Provider: Silverio Temple [address], [place], [place], [address]. tel:[phone] OFFICE/OUTPA TIENT VISIT, [facility], [address], [place], [place], [address], [place] [phone] [facility] Medicine htyroid (chief complaint) fibroid (chief complaint) anxiety1 (chief complaint) back pain1 (chief complaint) UTI1 (chief complaint) HypothyroidismUrina ry tract infectionChronic pain syndromeAnemia Oct- 7 Zechariah Lorenzo [address], [place], [place], [address] , [place]. [phone] Referring Provider: Silverio Temple [address], [place], [place], [address]. tel:[phone] OFFICE/OUTPA TIENT VISIT, [facility], [address], [place], [address], [place] tel:[phone] [facility] hypothyroi dism1 (chief complaint) anemia1 (chief complaint) back pain1 (chief complaint) anxiety1 (chief complaint) HypothyroidismAnemi aAcute gastric ulcer with hemorrhageChronic pain syndrome 7 Zechariah Muhammad. [address], [place], [place], [address] , [place]. tel:[phone] Referring Provider: Silverio Temple [address], [place], [place], [address]. tel:[phone] OFFICE/OUTPA TIENT VISIT, [facility], [address], [place], [place], [address], [place] tel:[phone] [facility] hypothryoi dism1 (chief complaint) anemia1 (chief complaint) HLP (chief complaint) vitamin D (chief complaint) back pain1 (chief complaint) Iron deficiency anemiaHyperlipidemi aHypothyroidismVita min D deficiency, unspecified Zechariah Lorenzo [address], [place], [place], [address] , [place]. [phone] Referring Provider: Silverio Temple [address], [place], [place], [address]. tel:[phone] OFFICE/OUTPA TIENT VISIT, [facility], [address], [place], [place], [address], [place] [phone] [facility] cold (chief complaint) HTN (chief complaint) back pain1 (chief complaint) Acute bronchitisChronic pain syndromeEssential (primary) hypertension 7 Zechariah Lorenzo [address], [place], [place], [address] , [place]. [phone] Referring Provider: Silverio Temple [address], [place], [address]. tel:[phone] OFFICE/OUTPA TIENT VISIT, [facility], [address], [place], [place], [address], [place] tel:[phone] [facility] gastric ulcer1 (chief complaint) anxiety1 (chief complaint) back pain1 (chief complaint) thyroid1 (chief complaint) HTN (chief complaint) Essential (primary) hypertensionUnspeci fied ovarian cyst, right sideAnemiaChronic pain syndrome 7 Zechariah Muhammad. [address], [place], [place], [address] , [place]. [phone] Referring Provider: Silverio Temple [address], [place], [place], [address]. tel:[phone] OFFICE/OUTPA TIENT VISIT, [facility], [address], [place], [place], [address], [place] tel:[phone] [facility] ulcer (chief complaint) anemia1 (chief complaint) pelvic cyst (chief complaint) back pain1 (chief complaint) anxiety1 (chief complaint) Acute gastric ulcer with hemorrhageUnspecifi ed ovarian cyst, right sideChronic pain syndromeAnemia 7 Zechariah Muhammad. [address], [place], [place], [address] , [place]. [phone] Referring Provider: Silverio Temple [address], [place], [place], [address]. tel:[phone] OFFICE/OUTPA TIENT VISIT, [facility], [address], [place], [place], [address], [place] [phone] [facility] Gastric ulcer1 (chief complaint) hypothyroi dism (chief complaint) HTN (chief complaint) back pain1 (chief complaint) Acute gastric ulcer with hemorrhageHypothyro idismEssential (primary) hypertensionChronic pain syndrome 7 Zechariah Muhammad. [address], [place], [place], [address] , [place]. [phone] Referring Provider: Silverio Temple [address], [place], [place], [address]. tel:[phone] OFFICE/OUTPA TIENT VISIT, [facility], [address], [place], [place], [address], [place] tel:[phone] [facility] back pain1 (chief complaint) anxiety1 (chief complaint) HTN (chief complaint) hypothyroi dism1 (chief complaint) GERD1 (chief complaint) Essential (primary) hypertensionHypothy roidismGERD w/o esophagitis 7 Zechariah Muhammad. [address], [place], [place], [address] , [place]. tel:[phone] Referring Provider: Silverio Temple [address], [place], [place], [address]. tel:[phone] Family History Family Member Type Diagnosis Age At Onset Mother Problem (finding) of HTN Father Problem (finding) of stomach CA Sister Problem (finding) back pain Mother Problem (finding) Cardiovascular disease 60 Payers Payer name Insurance type Covered republican ID Authoriza tion(s) No Information Social History Type Description Quantity Date Captured Comments Sex Female Smoking Status No Information Chief Complaint And Reason For Visit No Information Plan Of Treatment Date Type Action Status Goal Special diet education compl eted Goal Special diet education compl eted Goal Special diet education compl eted Goal Special diet education compl eted Goal Special diet education compl eted Goal Special diet education compl eted Goal Special diet education compl eted Goal Special diet education compl eted Goal Special diet education compl eted Goal Special diet education compl eted Referral Ordered: Hematology (related to Abdominal pain) ordered Referral Ordered: CT ABDOMEN W/O DYE ordered Referral Ordered: US EXAM, ABDOM, COMPLETE ordered Referral Ordered: Hematology (related to Iron deficiency anemia) ordered Referral Ordered: US THYROID ordered Referral Ordered: Referrals: Hematology. Evaluate and treat ordered Referral Ordered: DXA BONE DENSITY, AXIAL ordered Referral Ordered: MAMMOGRAM, SCREENING ordered Referral Ordered: US, PELVIC (NONOBSTETRIC); ordered Referral Ordered: Pain Medicine (related to GERD w/o esophagitis) ordered Referral Ordered: Referrals: Pain Medicine. Evaluate and treat ordered History Of Present Illness Encounter Date Complaint History Of Prese nt Illness chronic pain Pt has chronic l ow back pain pt denies any worsening pain Pt denies any loss of bladder control. Pt failed NSAID and ultram anxiety1 Pt has chronic a nxiety and depression. Pt takes paxil and valium and doing ok. Pt denies any suicidal or homicidal thought. Pt denies any crying spells. abd pain1 Pt has midepigas tric pain Pt is s/p gastric ulcer repair and she notices the hard nodule shortly post surgery. Pt is noncompliant pt was told to follow up with surgeon and also to do abdominal CT which she still has not done either. Pt denies any worsening pain. pt denies any fever nausea, vomiting thyroid1 Pt is on 137 mcg of synthroid. Pt denies any chest pain, headache palpitation. HTN Pt has HTn ,Pt t akes metoprolol and losartan and her BP is borderline high today hypothyroidism1 Pt has low thyro id. Pt takes synthroid 125 mcg daily. Pt is under replaced. abd pain1 Pt has hard nodu le midabdominal around the surgical scar. Pt still did not see surgeon yet. Pt had ultrasound done which showed nonspecific nodule around the surgical scar. anemia1 Pt has anemia. P t denies any GI blood loss post surgery. Pt is seeing Dr. Tariq now. Pt is on protonix Pt denies any acute abdominal pain. Pt does feel fatigue. Pt denies any dizziness. chronic pain Pt has chronic l ow back pain Pt denies any worsening pain Pt denies any loss of bladder control. Pt takes percocet PRN for pain. Pt failed NSAID and ultram. Pt has bilateral sciatica and leg numbness but not worse anxiety1 Pt has chronic a nxiety and depression Pt takes paxil and valium and doing ok. Pt denies any suicidal or homicidal thought. Pt denies any crying spells hypothyroidism1 Patient has hypo thyroidism. The patient takes Synthroid patient. Patient is noncompliant with TSH testing. Patient denies any chest pain, headache, palpitation, fatigue. back pain1 Patient has chronic condition nurse linda low back pain. . Patient complained of mild sciatica with leg numbness and tingling. Patient denies any loss of bowel bladder control. Patient failed NSAID and tramadol. Patient has 6 out of 10 pain daily. Patient complained of sharp pain. Patient denies any worsening pain. anxiety1 Patient has chronic condition nurse linda anxiety and depression. Patient denies any suicidal homicidal thoughts. Patient denies any crying spells. Patient takes paxil and valium and doing okay. Patient denies any hopelessness. itching1 Patient has hist ory of eczema. Patient has intermittent itchy skin throughout the arm and legs. Patient denies any rash. The patient will refill of steroid cream. abd pain1 Patient status p ost partial gastrectomy due to perforated gastric ulcer. Patient recently had EGD which showed benign stomach. Patient is on Protonix. Patient see GI. Patient complained of a tender hard nodule in mid epigastric area for several months now. Patient did not do ultrasound. Patient did not see surgeon. Patient told me her GI physician gave her some medication for the nodule but she does not know the name of it. chronic pain1 Patient has hist ory of chronic low back pain. Patient complained of mild sciatica with bilateral leg numbness medically. Patient denies any loss of bowel bladder control. Patient failed NSAID and tramadol. Patient has 6 out of 10 pain daily. Patient complained of sharp pain. Patient denies any worsening pain. Pt takes percocet PRN for pain. Pt takes robaxin PRN for pain anxiety1 Patient has chronic condition nurse linda anxiety and depression. Patient denies any suicidal homicidal thoughts. Patient denies any crying spells. Patient takes paxil and valium and doing okay. Patient noticed more motivation. Patient denies any hopelessness. gastric ulcer1 Patient has hist ory of perforated gastric ulcer status post gastrectomy. Patient just saw Dr. Tariq and had EGD done. Patient takes Protonix. Patient was told EGD was benign. hard nodule1 Pt notices a xochitl d tender nodule on top of surgical scar for several weeks. Pt denies any fever, chill. Pt denies any bleeding thyroid1 Pt has low thyro id. Pt takes synthroid. pt still has not done TSH yet. Pt denies any fatigue, chest pain, palpitation. hand1 Pt c/o pain betw een left 5th and 4th finger for one week. Pt denies any injury. Pt c/o sharp pain. Pt thinks that she might have hit the left hand on night stand. Pt denies any weakness or numbness. HTN Pt takes losarta n and metoprolol;. Her BP is stable. Pt needs refill anxiety1 Pt has chronic a nxiety and depression. Pt takes paxil and valium ,Pt denies any suicidal or homicidal thought. Pt denies any crying spells chronic pain1 Pt has chronic l ow back pain. Pt has sciatica and leg numbness. pt has stomach pain post op. Pt denies any worsening pain gastric1 ulcer Pt has chronic b leeding gastric ulcer. Pt had emergency gastrotomy recently. Pt had followed up with surgeon. Pt will see Dr marciano bland .Pt is on protonix Physicaal Pt needs annual physical. pt has HTn. Pt takes metoprolol, losartan and her BP is stable. Pt has chronic low back pain with sciatica and leg numbness. Pt takes neurontin and percocet and doing ok. Pt has low thyroid Pt teaks synthroid. Pt also has anxiety and depression Pt takes paxil and valium. Pt recently had emergency gastrectomy due to perforated stomach ulcer. Pt is on protonix Pt c/o stomach pain post op. Pt denies any nausea, vomiting, diarrhea chronic pain1 Pt has chronic l ow back pain with bilateral sciatica or any numbness. Pt denies any loss of bladder control. Pt denies any worsening pain. Pt has neurontin and dong ok Pt failed ultram and NSAID anxiety1 Pt has chronic a nxiety and depression pt takes paxil and valium and doing ok. pt denies any suicidal or homicidals thought hypothyroidism1 Pt takes 125 mcg synthroid daily. Pt denies any chest pain or headache HTN Pt takes losarta n and metoprolol BID. her BP is high today Pt denies any chest pain or headache gastric ulcer1 Pt has gastric u lcer and she just seen GI surgeon and she could not make to her surgery date so she is waiting from surgeon to be rescheduled. Pt is on protonix. Pt denies any active bleeding or any abd pain thyroid1 Pt has low thyro id. Pt takes 112 mcg of synthroid. Pt had lab done and she is under replaced. Pt has chronic fatigue but no sob. Pt denies any chest pain back pain1 Pt has chronic l ow back pain with sciatica and leg numbness. Pt has 7/10 pain. Pt failed neurontin Pt was told that she is not surgical candidate by neurosurgery last year per pt Pt failed pain injections. Pt takes percocet PRN for pain. Pt failed ultram and she could not tolerate NSAID due to stomach issue anxiety1 Pt has chronic a nxiety and depression. Pt takes paxil and valium and doing ok. Pt denies any suicidal or homicidal thought. pt denies any crying spells anemia1 Pt has anemia wi th iron deficiency. Pt has gastri ulcer which is bleeding still. Pt is on protonix. Pt states that she still has not set up surgery with her GI surgeon. Pt just had lab done and her Hemoglobin actually improving. Pt denies any vaginal bleeding. thyroid1 Pt has low thyro id. Pt takes synthroid. Pt still has not done lab yet Pt denies any chest pain or fatigue or headache chronic pain1 Pt has chronic l ow back pain. Pt has DDD Pt failed NSAID and ultram. Pt takes opioid for back pain pt denies any worsening pain pt denies any loss of bladder control anxiety1 Pt has chronic a nxiety and depression Pt takes paxil and avium and doing ok pt denies any suicidal or homicidal thought Pt denies any crying spells Gastric ulcer1 Pt has large gas tric ulcer Pt continue to bleed and she has to go to hospital frequent for transfusion and anemia Pt still has not had gastric surgery done yet Pt is very slow in this and she does not seem to worry about it. Pt is on protonix 40 mg BID. pt denies any acute abdominal pain Pt feels mildly fatigue recently. Pt denies any dizziness Pt denies any chest pain HTN Pt takes metopro lol and losartan. Her BP is borderline high. gastric ulcer1 Pt has gastric u lcer pt is seeing GI surgeon (Devon) who will perform gastric surgery. Pt is on carafate. Pt is on protonix. Pt has high gastrin hypothyroidism1 Pt has low thyro id Pt takes synthroid Pt has not done lab yet anxiety1 Pt has chronic a nxiety and depression Pt takes paxil and valium and doing ok. Pt denies any suicidal, or homicidal thought. Pt denies any crying spells hypothyroidism1 Pt has been taki ng 112 mcg synthroid for two weeks now. Pt denies any palpitation, chest pain. anxiety1 Pt has chronic a nxiety and depression. Pt takes paxil and valium and doing ok. Pt denies any suicidal or homicidal thought. Pt denies any crying spells back pain1 Pt has chronic l ow back pain Pt denies any worsening pain. Pt denies any loss of bladder control. gastric ulcer1 Pt has gastric u lcer with high gastrin. Pt is seeing GI surgeon and she will have gastric surgery soon. Pt is on protonix Pt denies any abd pain. thyroid Pt has hypothyro idism. Pt takes synthroid 137 mcg daily. Her lab form hematology came back and she is overreplaced. Pt denie sany chest pain or headache back pain1 Pt has chronic l ow back pain. Pt denies any worsening pain .pt denies any loss of bladder control. Pt has 7/10 pain. Pt failed NSAID anxiety1 Pt has chronic a nxiety and depression. Pt takes paxil and valium and doing ok. pt denies any suicidal or homicidalk t hought. Pt denies any crying spells. GI Pt has chronic a nd recurrent bleeding pyloric ulcer. Pt is seeing tracy and she is going to see GI surgeon soon. Pt is on protonix. Pt denies any acute abdominal pain, ,Pt denies any nausea, vomiting, diarrhea. Physical Pt needs annual physical. Pt has chornic low back pian pt has sciatica and leg numbness. pt failed pain management Pt has chronic anxiety and depression. Pt takes paxil and valium. Pt has low thyroid. Pt takes synthroid 137 mcg and she still has not done lab yet Pt c/o productive coughing with green phlegm for one week. Pt is severely anemc due to bleeding gastric ulcer. Pt states that she was admitted to hospital last week for anemia again and she recieved blood transfusion and also EGD sohwed again bleeding ulcer. Pt told me she will be seeing a different GI physician now and no longer Marciano Levine. Pt is on protonix now. Pt still has not seen hematology yet. Pt denies any other complaints. Pt overall feels weak but not worse than her baseline HTN Pt takes losarta n and metoprolol and her BP is high today Pt states that she is stressed out a lot since her just recently. Pt denies any chest ness or headache fibroid Pt has fibroid. Pt denies any vaginal bleeding. cough1 Pt c/o productiv e coughing with green phlegm for one week pt denies any sore throat or sinus symptoms. pt denies any chest pain or sob Pt denies any fever hypothyroidism1 Pt takes synthro id. Pt told me she had TSH done recenlty at [place] but i could not find anything at [place]. htyroid Pt has hypothyro idism. Pt takes synthroid. Pt had lab done at [place] two weeks ago. . Pt denies any chest pain or headache fibroid Pt has a small f ibroid that is growing out of her uterus. Pt denies any vaginal bleeding anxiety1 Pt has chornic a nxiety and depression. Pt takes paxil and valium and doign ok. Pt denies any suicidal or homicidal thought. Pt denies any cyring spells back pain1 Pt has chornic l ow back pain. Pt denies any worsening pain. >pt denies nay loss of bladder control UTI1 Pt c/o urinary b urning, frequency, urgency for one week. Pt denies any flank pain. Pt denies any fever, chill hypothyroidism1 Pt has low thryo id,, Pt had normal thyroid ultrasound. Pt is on 137 mcg of syhthroid Pt denies any chest pain or headache anemia1 Pt is anemic. Pt told me she never received any call from hematology. Pt has pyloric ulcer. Pt is christine protonix and she denies any abd pian or GERd back pain1 Pt has chornic l ow back pain. Pt denies any worsening pian, ,Pt denies an loss of bladder control. Pt takes pecocet PRN for pain. Pt failed NSAID anxiety1 Pt has chornic a nxiety and depression. Pt takes paxil and valium. pt denie sany suicidal or homicidal thought. Pt denies any cyring spells. anemia1 Pt has iron defi ciency anemia. Pt denies any blood loss in urine Pt feels fatigue. Pt denies any chest pain HLP Pt has HLP Pt is not eating healthy vitamin D Pt has low D. back pain1 Pt has chronic l ow back pain Pt denies any worsening pain Pt deneis any loss of bladder control hypothryoidism1 Pt takes synthro id. Pt has low thyroid. Pt has high TPO and thyroglobulin. Pt is on 125 mcg daily. pt feels fatigue cold Pt c/o coughing, wheezing and sore throat, headache, and myalgia for 2 days. Pt denies any fever. Pt feels dizzy. Pt has sinus congestion as well. Pt denies any sob or chest pain. Pt feels sob with coughing spells. Pt denies any calf pain or recent travel or bedrest back pain1 Pt has chronic l ow back pain. Pt takes percocet Pt did not have any oxycodone during her last UDS HTN Pt has been taki ng losartan 50 mg and metoprolol and her BP is still high today Pt denies any leonard ness or headahe HTN Pt has HTn. Pt t akes metoprolol and losartan and her BP is midlly high today. Pt states that it is due to her back pain. Pt denies any chest pain or headache thyroid1 Pt has low thyro id. Pt takes synthroid. Pt needs refills back pain1 Pt has chronic l ow back pain. pt has 8/10 pain. Pt denies any worsening pain. Pt denies any loss of bladder control. Pt does not want neurosrugery evaluation. pt failed back injections. Pt takes percocet and she states that her back pain is not well controlled. anxiety1 Pt has chronic a nxizety and depression. pt takes paxil and valium and doing ok. Pt denies any suicidal or homicidal thought. Pt denies any cyring spells. gastric ulcer1 Pt has ative gas tric ulcer. Pt is on protonix BID. Pt denies any abd pain or GERD. pt just seen GI and she will have EGD next month ulcer Comments: Pt has bleeding GI ulcer. Pt has appointment with Dr. Tariq next week. Pt is on protonix 40 mg BID. Pt denies any recurrent GI bleeding or abd pain now. anemia1 Pt was anemic wi th low iron due to GI bleeding. Pt is s/p PRBC transfusion in hospital recently. Pt denies any chest pain or headache or dizziness. pelvic cyst Pt has right eve e ovarian cyst and pelvic fluid. Pt denies any pelvic pain back pain1 Pt has 7/10 low back pain with bilateral sciatica and numbness. Pt denies any loss of bladder control. Pt denies any worsening pain. Pt doies not want back surgery. Pt failed PT and also back injection by pain management. Pt currently doing ok with percocet and also neurontin. anxiety1 Pt has chornic a nxiety and depression. Pt takes paxil and valium and doing ok. pt denies any suicidal or homicidal thought. Pt denies any crying spells hypothyroidism Pt has low thyro id. Pt takes synthroid. Pt denies any chest pain or headache HTN Pt has HTn. Pt t akes metoprolol 25 mg bid and losartan. Her BP is stalbe. Gastric ulcer1 Pt has large gas tric ulcer. Pt recenlty admitted to [facility] for acute bleeding Pt had EGD whiel in hospital and she was transfused 4 pints of blood. Pt was anemic. Pt denies any dizziness. Pt is on protonix 40 mg BID.currently. Pt has mild midabdominal pain but not as severe as last week. Pt did have dark stool but not anymore. Pt told me she had EGD again in hospital recenlty back pain1 Pt has severe lo w back pain. Pt actually was seeing pain management but she failed injection and she does not want anymore injections. Pt had MRI done recenlty. Pt denies any loss of bladder control. Pt denies any worsening pain Pt used to take percocet QID for pain. Pt does have sciatica and some leg numbness. back pain1 Pt has chronic l ow back pain Pt states that she has spinal stenosis. Pt denies any loss of bladder control. Pt has sciatica. Pt has leg numbness. Pt denies any loss of bladder control anxiety1 Pt has chronic a nxiety Pt denies depression or any suicidal thought. Pt takes valium for anxiety. Pt takes valium QID Pt denies any cyring spells. HTN Pt atakes metorp olol and losartan and her BP is borderline. pt denies any chest pain or headache. hypothyroidism1 Pt has low thyro id Pt takes synthroid Pt denies any chest pain or headache GERD1 Pt has chronic G ERD Pt takes protonix. Pt had EGD two weeks ago and she was told she has gastritis. Pt denies any abd pain or GERD Instructions Date Instruction Additional Infor lisandra Special diet education Related t o Body mass index (BMI) 30.0-30.9, adult Special diet education Related t o Body mass index (BMI) 30.0-30.9, adult Increase physical activity Relat ed to Hypothyroidism Special diet education Related t o Body mass index (BMI) 30.0-30.9, adult Weight management Related to Hyp othyroidism Special diet education Related t o Body mass index (BMI) 30.0-30.9, adult Increase physical activity Relat ed to Hypothyroidism Weight management Related to Hyp othyroidism Elevate head of bed prior to sle ep. Related to Acute gastric ulcer with hemorrhage Avoid provocative fo ods: citrus, alcohol, coffee, chocolate, mints. Related to Acute gastric ulcer with hemorrhage Eat smaller meals, n o eating three hours prior to bedtime. Related to Acute gastric ulcer with hemorrhage Increase physical activity Relat ed to [facility] general adult medical exam w/o abnormal findings Special diet education Related t o Body mass index (BMI) 31.0-31.9, adult Weight management Related to Hyp othyroidism Increase physical activity Relat ed to Hypothyroidism Weight management Related to Ane an Special diet education Related t o Body mass index (BMI) 33.0-33.9, adult Eat smaller meals, n o eating three hours prior to bedtime. Related to Acute gastric ulcer with hemorrhage Elevate head of bed prior to sle ep. Related to Acute gastric ulcer with hemorrhage Special diet education Related t o Body mass index (BMI) 32.0-32.9, adult Avoid provocative fo ods: citrus, alcohol, coffee, chocolate, mints. Related to Acute gastric ulcer with hemorrhage Special diet education Related t o Body mass index (BMI) 31.0-31.9, adult Avoid provocative fo ods: citrus, alcohol, coffee, chocolate, mints. Related to Acute gastric ulcer with hemorrhage Eat smaller meals, n o eating three hours prior to bedtime. Related to Acute gastric ulcer with hemorrhage Elevate head of bed prior to sle ep. Related to Acute gastric ulcer with hemorrhage Special diet education Related t o Body mass index (BMI) 31.0-31.9, adult Special diet education Related t o Body mass index (BMI) 31.0-31.9, adult Avoid provocative fo ods: citrus, alcohol, coffee, chocolate, mints. Related to Acute gastric ulcer with hemorrhage Eat smaller meals, n o eating three hours prior to bedtime. Related to Acute gastric ulcer with hemorrhage Elevate head of bed prior to sle ep. Related to Acute gastric ulcer with hemorrhage Prescribed Diet Educ ation/Lifestyle Education Regarding Diet Related to Dietary Surveillance and Counseling Weight management Related to Hyp othyroidism Prescribed Activity and Exercise Education Related to Dietary Surveillance and Counseling Weight management Related to Enc ounter for general adult medical exam w abnormal findings Prescribed Diet Educ ation/Lifestyle Education Regarding Diet Related to Dietary Surveillance and Counseling Prescribed Activity and Exercise Education Related to Dietary Surveillance and Counseling Prescribed Activity and Exercise Education Related to Dietary Surveillance and Counseling Prescribed Diet Educ ation/Lifestyle Education Regarding Diet Related to Dietary Surveillance and Counseling Increase physical activity Relat ed to Hypothyroidism Weight management Related to Hyp othyroidism Prescribed Activity and Exercise Education Related to Dietary Surveillance and Counseling Prescribed Diet Educ ation/Lifestyle Education Regarding Diet Related to Dietary Surveillance and Counseling Quit smoking Related to Hypot hyroidism Quit smoking Related to Hypot hyroidism Weight management Related to Hyp othyroidism Prescribed Activity and Exercise Education Related to Dietary Surveillance and Counseling Prescribed Diet Educ ation/Lifestyle Education Regarding Diet Related to Dietary Surveillance and Counseling Increase physical activity Relat ed to Hypothyroidism Prescribed Activity and Exercise Education Related to Dietary Surveillance and Counseling Prescribed Diet Educ ation/Lifestyle Education Regarding Diet Related to Dietary Surveillance and Counseling Increase physical activity Relat ed to Iron deficiency anemia Quit smoking Related to Acute bronchitis Prescribed Activity and Exercise Education Related to Dietary Surveillance and Counseling Prescribed Diet Educ ation/Lifestyle Education Regarding Diet Related to Dietary Surveillance and Counseling Increase activity. Related to Es sential (primary) hypertension Follow a low sodium diet. Relate d to Essential (primary) hypertension Elevate head of bed prior to sle ep Related to Acute gastric ulcer with hemorrhage Prescribed Activity and Exercise Education Related to Dietary Surveillance and Counseling Prescribed Diet Educ ation/Lifestyle Education Regarding Diet Related to Dietary Surveillance and Counseling Avoid provocative fo ods: citrus, alcohol, coffee, chocolate, mints Related to Acute gastric ulcer with hemorrhage Eat smaller meals, n o eating three hours prior to bedtime Related to Acute gastric ulcer with hemorrhage Prescribed Activity and Exercise Education Related to Dietary Surveillance and Counseling Prescribed Diet Educ ation/Lifestyle Education Regarding Diet Related to Dietary Surveillance and Counseling Prescribed Activity and Exercise Education Related to Dietary Surveillance and Counseling Prescribed Diet Educ ation/Lifestyle Education Regarding Diet Related to Dietary Surveillance and Counseling Assessments Type Assessment Date No Information
--- OUTSIDE RECORDS SUMMARY | 2019-01-13 15:34 | XMS_ITS | Continuity of Care Document ---
Author Organization [facility] Address [address] [place] [address] [place] [address] Phone Care Team Providers Care Drencher Name Role Phone Jb Apple MD Unavailable Unavailable Allergies, Adverse Reactions, Alerts Substance Reaction Status Criticality No Known Allergies Active No Inform ation Medications Medication Instructions Dosage Effective Dates (start - stop) Status Comments Valium 5 mg tablet take 1 tablet by oral route 2 times every day as needed 5 MG - Active PRN for anxiety, avoid driving or oepat amchines Percocet 10 mg-325 mg tablet take 1 tablet by oral route 4 times every day as needed as needed 1 tablet - Active PRN for pain, avoid drivng or operate machines Synthroid 137 mcg tablet take 1 tablet by oral route every day 137 MCG - Active cyclobenzaprine 5 mg tablet take 1 tablet by oral route every bedtime as needed 5 MG - Active PRN for pain, avoid driving or operate machines triamcinolone acetonide 0.025 % topical cream apply by topical route 2 times every day a thin layer to the affected area(s) 0.00 - Active Protonix 40 mg tablet,delayed release take 1 tablet by oral route 2 times every day 40 MG - Active metoprolol tartrate 25 mg tablet take 1 tablet by oral route 2 times every day 25 MG - Active losartan 100 mg tablet take 1 tablet by oral route every day 100 MG - Active Neurontin 300 mg capsule take 1 capsule by oral route 3 times every day 300 MG - Active avoid driving or operate machines, Paxil 20 mg tablet take 1 tablet by oral route every day 20 MG - Active Ventolin HFA 90 mcg/actuation [...] Diagnoses Date Provider Providers Copied on Encounter [facility], [address], [id number], tel:[phone] [facility] No Information 9 Zechariah Muhammad. [address], [address] , [place]. tel:[phone] OFFICE/OUTPA TIENT VISIT, [facility], [address], [place], [place], [address], [place] tel:[phone] [facility] chronic pain (chief complaint) anxiety1 (chief complaint) abd pain1 (chief complaint) thyroid1 (chief complaint) HTN (chief complaint) Abdominal painHypothyroidismG eneralized Anxiety DisorderChronic pain syndromeEssential (primary) hypertension Zechariah Muhammad. [address], [place], [place], [address] , [place]. tel:[phone] Referring Provider: Silverio Temple [facility] [address], [place], [place], [address]. tel:[phone] OFFICE/OUTPA TIENT VISIT, [facility], [address], [place], [place], [address], [place] tel:[phone] [facility] chronic pain (chief complaint) hypothyroi dism1 (chief complaint) anxiety1 (chief complaint) abd pain1 (chief complaint) anemia1 (chief complaint) HypothyroidismAbdom inal painChronic pain syndromeGeneralized Anxiety DisorderIron deficiency anemia Zechariah Muhammad. [address], [place], [place], [address] , [place]. tel:[phone] Referring Provider: Silverio Temple [address], [place], [place], [address]. tel:[phone] OFFICE/OUTPA TIENT VISIT, [facility], [address] [place], [address], [place] tel:[phone] [facility] hypothyroi dism1 (chief complaint) back pain1 (chief complaint) anxiety1 (chief complaint) itching1 (chief complaint) abd pain1 (chief complaint) HypothyroidismAbdom inal painPruritus, unspecifiedChronic pain syndromeGeneralized Anxiety Disorder Zechariah Lorenzo [address], [place], [place], [address] , [place]. tel:[phone] Referring Provider: Silverio Temple [address], [place], [place], [address]. tel:[phone] OFFICE/OUTPA TIENT VISIT, EST [facility], [address], [place], [place], [address], [place] tel:[phone] [facility] chronic pain1 (chief complaint) anxiety1 (chief complaint) thyroid1 (chief complaint) gastric ulcer1 (chief complaint) hard nodule1 (chief complaint) HypothyroidismGener alized Anxiety DisorderAcute gastric ulcer with hemorrhageChronic pain syndromeAbdominal pain 8 Zechariah Muhammad. [address], [place], [place], [address] , [place]. [phone] Referring Provider: Silverio Temple [address], [place], [place], [address]. tel:[phone] OFFICE/OUTPA TIENT VISIT, [facility], [address], [place], [place], [address], [place] tel:[phone] [facility] anxiety1 (chief complaint) chronic pain1 (chief complaint) gastric1 ulcer (chief complaint) hand1 (chief complaint) HTN (chief complaint) Acute gastric ulcer with hemorrhageChronic pain syndromeEssential (primary) hypertensionPain in left handGeneralized Anxiety DisorderHypothyroid ism 8 Zechariah Muhammad. [address], [place], [place], [address] , [place]. [phone] Referring Provider: Silverio Temple [address], [place], [place], [address]. tel:[phone] PREV VISIT, EST, AGE 40-64 [facility], [address], [place], [place], [address], [place] tel:[phone] [facility] Physicaal (chief complaint) Encounter for general adult medical exam w abnormal findingsAcute gastric ulcer with hemorrhageChronic pain syndromeGeneralized Anxiety DisorderAnemia 8 Zechariah Muhammad. [address], [place], [place], [address] , [place]. [phone] Referring Provider: Silverio Temple [address], [place], [place], [address]. tel:[phone] OFFICE/OUTPA TIENT VISIT, [facility], [address], [place], [place], [address], [place] tel:[phone] [facility] chronic pain1 (chief complaint) anxiety1 (chief complaint) hypothyroi dism1 (chief complaint) HTN (chief complaint) gastric ulcer1 (chief complaint) HypothyroidismEssen tial (primary) hypertensionAcute gastric ulcer with hemorrhageChronic pain syndromeGeneralized Anxiety Disorder 8 Zechariah Muhammad. [address], [place], [place], [address] , [place]. tel:[phone] Referring Provider: Silverio Temple [address], [place], [place], [address]. tel:[phone] OFFICE/OUTPA TIENT VISIT, [facility], [address] [place], [address], [place] tel:[phone] [facility] thyroid1 (chief complaint) anemia1 (chief complaint) anxiety1 (chief complaint) back pain1 (chief complaint) HypothyroidismAnemi aChronic pain syndromeGeneralized Anxiety DisorderEssential (primary) hypertension 8 Zechariah Lorenzo [address], [place], [place], [address] , [place]. tel:[phone] Referring Provider: Silverio Temple [address], [place], [place], [address]. tel:[phone] OFFICE/OUTPA TIENT VISIT, [facility], [address], [place], [place], [address], [place] tel:[phone] [facility] Gastric ulcer1 (chief complaint) anxiety1 (chief complaint) chronic pain1 (chief complaint) thyroid1 (chief complaint) HypothyroidismAcute gastric ulcer with hemorrhageChronic pain syndromeGeneralized Anxiety DisorderEssential (primary) hypertension 8 Zechariah Lorenzo [address], [place], [place], [address] , [place]. tel:[phone] Referring Provider: Silverio Temple [address], [place], [place], [address]. tel:[phone] OFFICE/OUTPA TIENT VISIT, [facility], [address], [place], [place], [address], [place] tel:[phone] [facility] HTN (chief complaint) gastric ulcer1 (chief complaint) hypothyroi dism1 (chief complaint) anxiety1 (chief complaint) Acute gastric ulcer with hemorrhageEssential (primary) hypertensionHypothy roidismChronic pain syndromeGeneralized Anxiety Disorder May-0 8 Zechariah Muhammad. [address], [place], [place], [address] , [place]. [phone] Referring Provider: Silverio Temple [address], [place], [place], [address]. tel:[phone] OFFICE/OUTPA TIENT VISIT, [facility], [address], [place], [place], [address], [place] tel:[phone] [facility] gastric ulcer1 (chief complaint) back pain1 (chief complaint) anxiety1 (chief complaint) hypothyroi dism1 (chief complaint) Acute gastric ulcer with hemorrhageHypothyro idismChronic pain syndromeGeneralized Anxiety Disorder 0 8 Zechariah Muhammad. [address], [place], [address] , [place]. [phone] Referring Provider: Silverio Temple [address], [place], [place], [address]. tel:[phone] OFFICE/OUTPA TIENT VISIT, [facility], [address], [place], [address], [place] tel:[phone] [facility] GI (chief complaint) anxiety1 (chief complaint) back pain1 (chief complaint) thyroid (chief complaint) HypothyroidismAnemi aAcute gastric ulcer with hemorrhageChronic pain syndrome Mar-0 8 Zechariah Muhammad. [address], [place], [place], [address] , [place]. [phone] PREV VISIT, EST, AGE 40-64 [facility], [address], [place], [place], [address], [place] tel:[phone] [facility] Physical (chief complaint) Encounter for general adult medical exam w abnormal findingsHypothyroid ismEssential (primary) hypertensionAcute gastric ulcer with hemorrhage Fe0 2 8 Zechariah Lorenzo [address], [place], [place], [address] , [place]. tel:[phone] OFFICE/OUTPA TIENT VISIT, [facility], [address], [place], [place], [address], [place] [phone] [facility] fibroid (chief complaint) cough1 (chief complaint) hypothyroi dism1 (chief complaint) HTN (chief complaint) HypothyroidismAcute bronchitisEssential (primary) hypertensionLeiomyo ma of uterus, unspecified 0 7 Zechariah Lorenzo [address], [place], [place], [address] , [place]. [phone] Referring Provider: Silverio Temple [address], [place], [place], [address]. tel:[phone] OFFICE/OUTPA TIENT VISIT, [facility], [address], [place], [place], [address], [place] [phone] [facility] htyroid (chief complaint) fibroid (chief complaint) anxiety1 (chief complaint) back pain1 (chief complaint) UTI1 (chief complaint) HypothyroidismUrina ry tract infectionChronic pain syndromeAnemia Oct- 7 Zechariah Lorenzo [address], [place], [place], [address] , [place]. [phone] Referring Provider: Silverio Temple [address], [place], [place], [address]. tel:[phone] OFFICE/OUTPA TIENT VISIT, [facility], [address], [place], [place], [address], [place] tel:[phone] [facility] hypothyroi dism1 (chief complaint) anemia1 (chief complaint) back pain1 (chief complaint) anxiety1 (chief complaint) HypothyroidismAnemi aAcute gastric ulcer with hemorrhageChronic pain syndrome 7 Zechariah Muhammad. [address], [place], [place], [address] , [place]. tel:[phone] Referring Provider: Silverio Temple [address], [place], [place], [address]. tel:[phone] OFFICE/OUTPA TIENT VISIT, [facility], [address], [place], [place], [address], [place] tel:[phone] [facility] hypothryoi dism1 (chief complaint) anemia1 (chief complaint) HLP (chief complaint) vitamin D (chief complaint) back pain1 (chief complaint) Iron deficiency anemiaHyperlipidemi aHypothyroidismVita min D deficiency, unspecified Zechariah Lorenzo [address], [place], [place], [address] , [place]. [phone] Referring Provider: Silverio Temple [address], [place], [place], [address]. tel:[phone] OFFICE/OUTPA TIENT VISIT, [facility], [address], [place], [place], [address], [place] [phone] [facility] cold (chief complaint) HTN (chief complaint) back pain1 (chief complaint) Acute bronchitisChronic pain syndromeEssential (primary) hypertension 7 Zechariah Lorenzo [address], [place], [place], [address] , [place]. [phone] Referring Provider: Silverio Temple [address], [place], [place], [address]. tel:[phone] OFFICE/OUTPA TIENT VISIT, [facility], [address], [place], [place], [address], [place] tel:[phone] [facility] gastric ulcer1 (chief complaint) anxiety1 (chief complaint) back pain1 (chief complaint) thyroid1 (chief complaint) HTN (chief complaint) Essential (primary) hypertensionUnspeci fied ovarian cyst, right sideAnemiaChronic pain syndrome 7 Zechariah Muhammad. [address], [place], [place], [address] , [place]. tel: [phone] Referring Provider: Silverio Temple [address], [place], [place], [address]. tel:[phone] OFFICE/OUTPA TIENT VISIT, [facility], [address], [place], [place], [address], [place] tel:[phone] [facility] ulcer (chief complaint) anemia1 (chief complaint) pelvic cyst (chief complaint) back pain1 (chief complaint) anxiety1 (chief complaint) Acute gastric ulcer with hemorrhageUnspecifi ed ovarian cyst, right sideChronic pain syndromeAnemia 7 Zechariah Muhammad. [address], [place], [place], [address] , [place]. [phone] Referring Provider: Silverio Temple [address], [place], [place], [address]. tel:[phone] OFFICE/OUTPA TIENT VISIT, [facility], [address], [place], [place], [address], [place] [phone] [facility] Gastric ulcer1 (chief complaint) hypothyroi dism (chief complaint) HTN (chief complaint) back pain1 (chief complaint) Acute gastric ulcer with hemorrhageHypothyro idismEssential (primary) hypertensionChronic pain syndrome 7 Zechariah Muhammad. [address], [place], [place], [address] , [place]. [phone] Referring Provider: Silverio Temple [address], [place], [place], [address]. tel:[phone] OFFICE/OUTPA TIENT VISIT, [facility] [place], [address], [place], [place], [address], [place] tel:[phone] [facility] back pain1 (chief complaint) anxiety1 (chief complaint) HTN (chief complaint) hypothyroi dism1 (chief complaint) GERD1 (chief complaint) Essential (primary) hypertensionHypothy roidismGERD w/o esophagitis 7 Zechariah Muhammad. [address], [place], [place], [address] , [place]. tel:[phone] Referring Provider: Silverio Temple [address], [place], [place], [address]. tel:[phone] Family History Family Member Type Diagnosis Age At Onset Mother Problem (finding) of HTN Father Problem (finding) of stomach CA Sister Problem (finding) back pain Mother Problem (finding) Cardiovascular disease 60 Payers Payer name Insurance type Covered libertarian ID Authoriza tion(s) No Information Social History [...] 125 mcg daily. Pt is under replaced. anxiety1 Pt has chronic a nxiety and depression Pt takes paxil and valium and doing ok. Pt denies any suicidal or homicidal thought. Pt denies any crying spells abd pain1 Pt has hard nodu le [...] sciatica and leg numbness but not worse hypothyroidism1 Patient has hypo thyroidism. The patient takes Synthroid patient. Patient is noncompliant with TSH testing. Patient denies any chest pain, headache, palpitation, fatigue. 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 . Patient complained of mild sciatica with leg numbness and tingling. Patient denies any loss of bowel bladder control. Patient failed NSAID and tramadol. Patient has 6 out of 10 pain daily. Patient complained of sharp pain. Patient denies any worsening pain. 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 Patient denies any [...] Pt denies any fatigue, chest pain, palpitation. anxiety1 Pt has chronic a nxiety and [...] Dr marciano bland .Pt is on protonix hand1 Pt c/o pain betw een left 5th and 4th finger for one week. Pt denies any injury. Pt c/o sharp pain. Pt thinks that she might have hit the left hand on night stand. Pt denies any weakness or numbness. HTN Pt takes losarta n and metoprolol;. Her BP is stable. Pt needs refill Physicaal Pt needs annual physical. pt has [...] any active bleeding or any abd pain anemia1 Pt has anemia wi th iron deficiency. Pt has gastri ulcer which is bleeding still. Pt is on protonix. Pt states that she still has not set up surgery with her GI surgeon. Pt just had lab done and her Hemoglobin actually improving. Pt denies any vaginal bleeding. anxiety1 Pt has chronic a nxiety and depression. Pt takes paxil and valium and doing ok. Pt denies any suicidal or homicidal thought. pt denies any crying spells back pain1 Pt has chronic l ow back pain with sciatica and leg numbness. Pt has 7/10 pain. Pt failed neurontin Pt was told that she is not surgical candidate by neurosurgery last year per pt Pt failed pain injections. Pt takes percocet PRN for pain. Pt failed ultram and she could not tolerate NSAID due to stomach issue thyroid1 Pt has low thyro id. Pt takes 112 mcg of synthroid. Pt had lab done and she is under replaced. Pt has chronic fatigue but no sob. Pt denies any chest pain Gastric ulcer1 Pt has large gas tric [...] any dizziness Pt denies any chest pain anxiety1 Pt has chronic a nxiety and depression Pt takes paxil and avium and doing ok pt denies any suicidal or homicidal thought Pt denies any crying spells chronic pain1 Pt has chronic l ow back pain. Pt has DDD Pt failed NSAID and ultram. Pt takes opioid for back pain pt denies any worsening pain pt denies any loss of bladder control thyroid1 Pt has low thyro id. Pt takes synthroid. Pt still has not done lab yet Pt denies any chest pain or fatigue or headache HTN Pt takes metopro lol and losartan. [...] homicidal thought. Pt denies any crying spells gastric ulcer1 Pt has gastric u lcer with high gastrin. Pt is seeing GI surgeon and she will have gastric surgery soon. Pt is on protonix Pt denies any abd pain. back pain1 Pt has chronic l ow back pain Pt denies any worsening pain. Pt denies any loss of bladder control. anxiety1 Pt has chronic a nxiety and depression. Pt takes paxil and valium and doing ok. Pt denies any suicidal or homicidal thought. Pt denies any crying spells hypothyroidism1 Pt has been taki ng 112 mcg synthroid for two weeks now. Pt denies any palpitation, chest pain. GI Pt has chronic a nd recurrent bleeding pyloric ulcer. Pt is seeing tracy and she is going to see GI surgeon soon. Pt is on protonix. Pt denies any acute abdominal pain, ,Pt denies any nausea, vomiting, diarrhea. anxiety1 Pt has chronic a nxiety and depression. Pt takes paxil and valium and doing ok. pt denies any suicidal or homicidalk t hought. Pt denies any crying spells. back pain1 Pt has chronic l ow back pain. Pt denies any worsening pain .pt denies any loss of bladder control. Pt has 7/10 pain. Pt failed NSAID thyroid Pt has hypothyro idism. Pt takes synthroid 137 mcg daily. Her lab form hematology came back and she is overreplaced. Pt denie sany chest pain or headache Physical Pt needs annual physical. Pt has [...] weak but not worse than her baseline fibroid Pt has fibroid. Pt denies any vaginal bleeding. cough1 Pt c/o productiv e coughing with green phlegm for one week pt denies any sore throat or sinus symptoms. pt denies any chest pain or sob Pt denies any fever hypothyroidism1 Pt takes synthro id. Pt told me she had TSH done recenlty at [facility] but i could not find anything at [facility]. HTN Pt takes losarta n and metoprolol and her BP is high today Pt states that she is stressed out a lot since her just recently. Pt denies any chest ness or headache htyroid Pt has hypothyro idism. Pt takes synthroid. Pt had lab done at [facility] two weeks ago. . Pt denies any [...] homicidal thought. Pt denies any cyring spells. hypothryoidism1 Pt takes synthro id. Pt has low thyroid. Pt has high TPO and thyroglobulin. Pt is on 125 mcg daily. pt feels fatigue anemia1 Pt has iron defi ciency anemia. Pt denies any blood loss in urine Pt feels fatigue. Pt denies any chest pain HLP Pt has HLP Pt is not eating healthy vitamin D Pt has low D. back pain1 Pt has chronic l ow back pain Pt denies any worsening pain Pt deneis any loss of bladder control HTN Pt has been taki ng losartan 50 mg and metoprolol and her BP is still high today Pt denies any leonard ness or headahe back pain1 Pt has chronic l ow back pain. Pt takes percocet Pt did not have any oxycodone during her last UDS cold Pt c/o coughing, wheezing and sore throat, headache, and myalgia for 2 days. Pt denies any fever. Pt feels dizzy. Pt has sinus congestion as well. Pt denies any sob or chest pain. Pt feels sob with coughing spells. Pt denies any calf pain or recent travel or bedrest gastric ulcer1 Pt has ative gas tric ulcer. Pt is on protonix BID. Pt denies any abd pain or GERD. pt just seen GI and she will have EGD next month anxiety1 Pt has chronic a nxizety and depression. pt takes paxil and valium and doing ok. Pt denies any suicidal or homicidal thought. Pt denies any cyring spells. back pain1 Pt has chronic l ow back pain. pt has 8/10 pain. Pt denies any worsening pain. Pt denies any loss of bladder control. Pt does not want neurosrugery evaluation. pt failed back injections. Pt takes percocet and she states that her back pain is not well controlled. thyroid1 Pt has low thyro id. Pt takes synthroid. Pt needs refills HTN Pt has HTn. Pt t akes metoprolol and losartan and her BP is midlly high today. Pt states that it is due to her back pain. Pt denies any chest pain or headache ulcer Comments: Pt has bleeding GI ulcer. [...] gas tric ulcer. Pt recenlty admitted to [facility] for acute bleeding Pt had EGD [...] hemorrhage Increase physical activity Relat ed to [facility] for general adult medical exam w/o abnormal findings Increase physical activity Relat ed to Hypothyroidism Weight management Related to Hyp othyroidism Special diet education Related t o Body mass index (BMI) 31.0-31.9, adult Special diet education Related t o Body mass index (BMI) 33.0-33.9, adult Weight management Related to Ane na Special diet education Related t o Body [...] adult medical exam w abnormal findings Prescribed Activity and Exercise Education Related to [...] Counseling Quit smoking Related to Hypot hyroidism Prescribed Activity and Exercise Education Related to Dietary Surveillance and Counseling Prescribed Diet Educ ation/Lifestyle Education Regarding Diet Related to Dietary Surveillance and Counseling Increase physical activity Relat ed to Hypothyroidism Quit smoking Related to Hypot hyroidism Weight [...] diet. Relate d to Essential (primary) hypertension Prescribed Activity and Exercise Education Related to [...]
--- OUTSIDE RECORDS SUMMARY | 2024-11-26 08:30 | XMS_ITS ---
Author Organization [facility] Address [address] [address] Care Team Providers Care Grain Oilseed Or Pasture Farm Worker Name Role Phone Joce Barksdale Unavailable [phone] Problems Problem Type SNOMED Code ICD Code Onset Dates Problem Status W/U Status Risk Notes Problem Hypo-osmolality and or hyponatremia (070179616) Hypo-osmolality and hyponatremia (E87.1) Active confirmed Encounters Encounter Location Date Provider Diagnosis [facility] [address] [place] [address] 11/26/2024 Jocerenuka Barksdale Chronic kidney disea se, [...] Next Appt Details Provider Name:Joce Barksdale , 08/17/2025 02:15:00 PM, [address] [facility] 15, [place], [address], Progress Notes * TOSHIA SWEETOB: (69 yo F)Acc No.[id number]:11/26/2024 Patient: Samm JAY HERNANDES Provider: Brando MENARD MD, F.A.C.P, F.A.S.N. :1955 A ge:68 Y S ex:Female Date:11/26/2024 Address:[address] [place], [place] [phone] Subjective: * Chief Complaints: Objective: Assessment: * Assessment: 1. C hronic kidney disease, stage 2 (mild) - N18.2 (Primary) 2 . H ypo-osmolality and hyponatremia - E87.1 3 . U rinary tract infection, site not specified - N39.0 4 . A nxiety disorder, unspecified - F41.9 Plan: * Billing Information: * Visit Code: 05578 Office Visit, Est Pt., Level 5. * Procedure Codes: * Electronic signature of Horacio Barksdale MD on 07/21/2025 at 04:02 PM CDT Sign off status: Pending * Provider: Brando MENARD MD, F.A.C.P, F.A.S.N. Date: 0 11/26/2024 Generated for Printing/Faxing/eTransmitting on: 0 07/21/2025 04:02 PM CDT
--- OUTSIDE RECORDS SUMMARY | 2024-12-10 09:15 | XMS_ITS ---
Author Organization [facility] Address [address] [place] [address] Care Team Providers Care Billboard Poster Helper Name Role Phone Joce Barksdale Unavailable [phone] Medications Medication SIG (Take, Route, Fr equency, Duration) Notes Start Date End Date Status Calcitriol 0.25 MCG 1 capsule Orally hieu ry other day; Duration: 90 05/05/2024 01/30/2025 Active Problems Problem Type SNOMED Code ICD Code Onset Dates Problem Status W/U Status Risk Notes Problem Primary generalised osteoarthritis (158421601) Primary generalized (osteo)arthriti s (M15.0) Active confirmed Problem Anemia (850094505) Anemia, unspecified (D64.9) Active confirmed Encounters Encounter Location Date Provider Diagnosis [place] [facility] [address] [facility] 15 [place] [address] 12/10/2024 Joce Barksdale Chronic kidney disease, stage [...] Name:Joce Barksdale , 08/17/2025 02:15:00 PM, [address] [facility] [address], [place], [address], Progress Notes * TOSHIA SWEETOB: (69 yo F)Acc No.[id number]:12/10/2024 Progress Notes Patient: JAY MAK Provider: Brando MENARD MD, Rianna.P, F.A.S.N. :1955 A ge:68 Y S ex:Female Date:12/10/2024 Address:[address] [place], [place] [phone] Subjective: * Chief Complaints: * * Medical [...] Treatment: * Billing Information: * Visit Code: 31932 Office Visit, Est Pt., Level 4. * Procedure Codes: * Electronic signature of Horacio Barksdale MD on 07/21/2025 at 04:02 PM CDT Sign off status: Pending * Provider: Brando MENARD MD, Ryan.Joon.C.P, F.A.S.N. Date: 12/10/2024 Generated for Printing/Faxing/eTransmitting on: 0 07/21/2025 04:02 PM CDT
--- OUTSIDE RECORDS SUMMARY | 2025-02-04 13:00 | XMS_ITS ---
Author Organization [facility] Address [address] [place] [address] Care Team Providers Care Internet Application Developer Name Role Phone Joce Barksdale Unavailable [phone] Encounters Encounter Location Date Provider Diagnosis [place] [facility] [address] [facility] [address] [place] [address] 02/04/2025 Joce Barksdale Plan Of Treatment Next Appt Details Provider Name:Joce Shamir , 08/17/2025 02:15:00 PM, [address] [facility], [facility] 15, [place], [address], Progress Notes * OBED SWEETEDOB: (69 yo F)Acc No.[id number]:02/04/2025 Progress Notes Patient: JAY MAK Provider: Brando MENARD MD, F.Joon.C.P, F.A.S.N. :1955 A ge:69 Y S ex:Female Date:02/04/2025 Address:[address] [place], [place] [id number] Subjective: * Chief Complaints: * * Medical History: Objective: * Vitals: Assessment: Plan: * Treatment: * Billing Information: * Visit Code: * Procedure Codes: * Electronic signature of Horacio Barksdale MD on 07/21/2025 at 04:32 PM CDT Sign off status: Pending * Provider: Brando MENARD MD, Ryan.Joon.C.P, F.A.S.N. Date: 02/04/2025 Generated for Printing/Faxing/eTransmitting on: 07/21/2025 04:32 PM CDT
--- OUTSIDE RECORDS SUMMARY | 2025-03-30 11:30 | XMS_ITS ---
Author Organization [facility] Address [address] [address] [place] [address] Care Team Providers Care Supervisory Civil Engineer Name Role Phone Joce Barksdale Unavailable [phone] Problems Problem Type SNOMED Code ICD Code Onset Dates Problem Status W/U Status Risk Notes Problem Secondary hyperparathyroidism of renal origin (72391522) Secondary hyperparathyroidism of renal origin (N25.81) Active confirmed Problem Gastro-esophageal reflux disease without esophagitis (038251176) Gastro-esophageal reflux disease without esophagitis (K21.9) Active confirmed Problem Hypervitaminosis D (09487150) 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 :1955 A ge:69 Y S ex:Female Date:03/30/2025 Address:[address] [place] [address] Subjective: * Chief Complaints: * * Medical [...] Treatment: * Billing Information: * Visit Code: 05501 Office Visit, Est Pt., Level 4. * Procedure Codes: * Electronic signature of Horacio Barksdale MD on 07/21/2025 at 04:02 PM CDT Sign off status: Pending * Provider: Brando MENARD MD, F.A.C.P, F.A.S.N. Date: 0 03/30/2025 Generated for Printing/Faxing/eTransmitting on: 0 07/21/2025 04:02 PM CDT
--- OUTSIDE RECORDS SUMMARY | 2025-05-18 09:00 | XMS_ITS ---
Author Organization [facility] Address [address] [address] [place] [address] Care Team Providers Care Planimeter Operator Name Role Phone Cierra Barksdaleerjit Unavailable [phone] Problems Problem Type SNOMED Code ICD Code Onset Dates Problem Status W/U Status Risk Notes Problem Chronic kidney disease stage 2 (027293622) Chronic kidney disease, stage 2 (mild) (N18.2) Active confirmed Encounters Encounter Location Date Provider Diagnosis [place] [facility] 2043 [facility] 15 [place] [address] 05/18/2025 Joce Barksdale Chronic kidney disea se, [...] Name:Joce Shamir , 08/17/2025 02:15:00 PM, [address] [facility] [address], [address], Progress Notes * TOSHIA SWEETOB: (69 yo F)Acc No.[id number]:05/18/2025 Progress Notes Patient: Samm SERRACARLOZSamanthaJAY CORTEZ Provider: Brando MENARD MD, F.A.C.P, F.A.S.N. :1955 A ge:69 Y S ex:Female Date:05/18/2025 Address:[address] [place] [address] Subjective: * Chief Complaints: * * Medical [...] Treatment: * Billing Information: * Visit Code: 54773 Office Visit, Est Pt., Level 4. * Procedure Codes: * Electronic signature of Horacio Barksdale MD on 07/21/2025 at 04:02 PM CDT Sign off status: Pending * Provider: Brando MENARD MD, F.A.C.P, F.A.S.N. Date: 05/18/2025 Generated for Printing/Faxing/eTransmitting on: 07/21/2025 04:02 PM CDT
--- OUTSIDE RECORDS SUMMARY | 2025-07-20 09:00 | XMS_ITS | Encounter Summary ---
Author Organization [facility] Address [address] [place] [address] Care Team Providers Care Contract Clerk Automobile Name Role Phone Maryana Leone LEAN MANUFACTURING COORDINATOR Unavailable [phone] Maryana Leone LEAN MANUFACTURING COORDINATOR Primary Care Provider [phone] Reason for Visit * Reason Comments [facility] and does c/o ongoing headaches x 2 weeks. Encounter Details Date Type Department Care Team (Late st Contact Info) Description 07/20/2025 9:00 AM CDT Office Visit [facility] Family Medicine - [place] [address] [place] [address] Maryana Leone, LEAN MANUFACTURING COORDINATOR [address] [place] [address] Headache (Patient presents today to get established and does c/o ongoing headaches x 2 weeks. ) Social History Tobacco Use Types Packs/Day Years Used Date Smoking Tobacco: Former Cigarettes Passive Smoke Exposure: Past Smokeless Tobacco: Never Tobacco Cessation:Counseling Given: No Alcohol Use Standard Drinks/Week Comments Not Currently 0 (1 standard drink = 0.6 oz pur e alcohol) PHQ-2 Answer Date Recorded Patient Health Questionnaire-2 Score 1 07/20/2025 Comments No Sex and Gender Information Value Date Recorded Sex Assigned at Female 03/01/2025 12:11 PM CDT Legal Sex Female 7:10 PM CDT Gender Identity Not on file Sexual Orientation Not on file documented as of this encounter Last Filed Vital Signs Vital Sign Reading Time Taken Comments Blood Pressure 110/64 07/20/2025 8:58 AM CDT Pulse 71 07/20/2025 8:58 AM CDT Temperature 36.1 C (96.9 F) 07/20/2025 8:58 AM CDT Respiratory Rate 18 07/20/2025 8:58 AM CDT Oxygen Saturation 98% 07/20/2025 8:58 AM CDT Inhaled Oxygen Concentration - - Weight 62.7 kg (138 lb 3.2 oz) 07/20/2025 8:58 A M CDT Height 153.7 cm (5' 0.5) 07/20/2025 8:58 AM CDT Body Mass Index 26.55 07/20/2025 8:58 AM CDT documented in this encounter Functional Status * Over the past 2 weeks, how often have you been bothered by any of the following problems? Question Answer Date of Assessment Author Status Little interest or pleasure in doing things Several days 07/20/2025 9:23 AM CDT Lisa Berg MA Active Feeling down, depressed, or hopeless Not at all 07/20/2025 9:23 AM CDT Lisa Berg MA Active Patient Health Questionnaire-2 Score 1 07/20/2025 9:23 AM CDT Lisa Berg MA Ac tive * Question Answer Date of Assessment Author Status Trouble falling or staying asleep, or sleeping too much More than half the days 07/20/2025 9:23 AM CDT Lisa Berg MA Active Feeling tired or having little energy More than half the days 07/20/2025 9:23 AM CDT Lisa Berg MA Active Poor appetite or overeating More than half the days 07/20/2025 9:23 AM CDT Lisa Berg MA Active Feeling bad about yourself - or that you are a failure or have let yourself or your family down Not at all 07/20/2025 9:23 AM CDLisa Hoover MA Active Trouble concentrating on things, such as reading the newspaper or watching television Not at all 07/20/2025 9:23 AM CDT Lisa Berg MA Active Moving or speaking so slowly that other people could have noticed? Or the opposite - being so fidgety or restless that you have been moving around a lot more than usual. Not at all 07/20/2025 9:23 AM CDLisa Hoover MA Active Thoughts that you would be better off or hurting yourself in some way Not at all 07/20/2025 9:23 AM Lisa Cannon MA Active Patient Health Questionnaire-9 Score 7 07/20/2025 9:23 AM CDLisa Hoover MA Active * If you checked off any problems on this questionnaire so far, Question Answer Date of Assessment Author Status How difficult have these problems made it for you to do your work, take care of things at home, or get along with other people? Not difficult at all 07/20/2025 9:23 AM CDLisa Hoover MA Active * Over the last 2 weeks, how often have you been bothered by any of the following problems? Question Answer Date of Assessment Author Status Feeling nervous, anxious, or on edge 1 07/20/2025 9:23 AM Lisa Cannon MA Active Not being able to stop or control worrying 1 07/20/2025 9:23 AM Lisa Cannon MA Active Worrying too much about different things 1 07/20/2025 9:23 AM Lisa Cannon MA Active Trouble relaxing 1 07/20/2025 9:23 AM CDPhilipp Hoover MA Active Being so restless that it is hard to sit still 0 07/20/2025 9:23 AM Lisa Cannon MA Active Becoming easily annoyed or irritable 0 07/20/2025 9:23 AM CDLisa oHover MA Active Feeling afraid as if somethi ng awful might happen 0 07/20/2025 9:23 AM CDLisa Hoover MA Activ e BECKY-7 Total Score 4 07/20/2025 9:23 AM Lisa Cannon MA Active documented as of this encounter Progress Notes * Maryana Leone NP - 07/20/2025 9:00 AM CDTAddended by: MARYANA LEONE on: 07/20/2025 03:08 PM Modules accepted: Orders * Maryana Leone NP - 07/20/2025 9:00 AM CDT Patient is a 69 year old female presenting to clinic to establish care. Patient reports history of CKDIII, ESTHER, sleep difficulty, SBO. Patient reports recently experiencing dizziness and occasional falls. Most recent fall was last week no injury noted. She does not use walker or cane for safety. She reports sinus congestion/pressure which may be contributing. Reports taking Benadryl in both the morning and night and mucinex. Patient reports difficulty sleeping and uses zolpidem. She aslo reports chronic pain in low back. She has an appointment with pain management at end of August. Patient is unable to remember all of her medications and is agreeable to bring medication bottles in to follow up appointment. Mammogram- last done 03/24/25 [facility]- Has lag screwer appt 07/21/25 with Chari Stephens, [facility]. LMP - postmenopausal Dexa- Done 2 years ago. Vaccinations- reports up to date, will obtain vaccination history Vision-wears prescription glasses. Sees eye dr ochoa Dental-top partials. Sees Joe Higgins. Will schedule appt as last seen in a couple years Colonoscopy- Dr Tariq performed last colonoscopy 2-3 years ago. Saw Che Michele with [facility] 3 weeks ago. She takes Miralax, Linzess, and Lubiprostone. Review of Systems Constitutional: Night sweats for years HENT: Positive for congestion and sinus pain. Respiratory: Negative. Negative for cough, shortness of breath and wheezing. Cardiovascular: Negative. Gastrointestinal: Negative. Skin: Positive for rash. Right elbow Neurological: Positive for headaches. Physical Exam Constitutional: Appearance: Normal appearance. HENT: Nose: Congestion present. Left Sinus: Frontal sinus tenderness present. Cardiovascular: Rate and Rhythm: Normal rate and regular rhythm. Pulses: Normal pulses. Heart sounds: Normal heart sounds. Pulmonary: Effort: Pulmonary effort is normal. No respiratory distress. Breath sounds: Normal breath sounds. No wheezing. Abdominal: General: Bowel sounds are normal. Palpations: Abdomen is soft. Tenderness: There is abdominal tenderness. Comments: Mild LLQ tenderness Skin: Comments: Mild erythema at inner aspect of right elbow. Neurological: Mental Status: She is alert and oriented to person, place, and time. 07/20/2025 9:23 AM PHQ-9 Score Patient Health Questionnaire-9 Score 7 BECKY-7 (Generalized Anxiety Disorder) Screening 07/20/2025 9:23 AM BECKY-7 Feeling nervous, anxious, or on edge 1 Not being able to stop or control worrying 1 Worrying too much about different things 1 Trouble relaxing 1 Being so restless that it is hard to sit still 0 Becoming easily annoyed or irritable 0 Feeling afraid as if something awful might happen 0 BECKY-7 Total Score 4 How difficult have these problems made it for you to do your work, take care of things at home, or get along with other people? Somewhat difficult Encounter Diagnose(s) ICD-10-CM SNOMED CT(R) 1. Dizziness R42 DIZZINESS 2. Falls R29.6 RECURRENT FALLS 3. Sleeping difficulty G47.9 DIFFICULTY SLEEPING 4. Sinus congestion R09.81 CONGESTION OF NASAL SINUS 5. Dermatitis L30.9 INFLAMMATORY DERMATOSIS 6. Screening for depression Z13.31 PATIENT ENCOUNTER STATUS BRIEF EMOTIONAL/BEHAVIORAL ASSESSMENT Plan Sinus congestion- recommend stopping benadryl due to fall risk and switching to Zyrtec 10 mg nightly. Continue with nasal spray previosuly used. Increase water intake, may use humidifier. Dermatitis right elbow-Continue with moisturizer, avoid itching. Will reassess in 3 weeks. Follow up in 3 weeks to review med list (bring bottles), assess sinus congestion and dermatitis. documented in this encounter Plan of Treatment Upcoming Encounters Date Type Department Care Team (Late st Contact Info) Description 08/11/2025 9:40 AM CDT Office Visit [facility] Family Medicine - [place] [address] [place] [phone] Maryana Leone NP [address] [place] [address] Scheduled Orders Name Type Priority Associated Diagnoses Orde r Schedule BRIEF EMOTIONAL/BEHAVIORAL ASSESSMENT Procedures Routine Screening for depression Ordered: 07/20/2025 documented as of this encounter Visit Diagnoses Diagnosis Dizziness- Primary Dizziness and giddiness Falls Unspecified fall Sleeping difficulty Sleep disturbance, unspecified Sinus congestion Other diseases of nasal cavity and sinuses Dermatitis Contact dermatitis and other eczema, due to unspecified cause Screening for depression documented in this encounter Additional Health Concerns Assessment Noted Time PHQ-9 Depression Total Score: 7 07/20/20 25 9:23 AM CDT documented as of this encounter Care Teams Contract Clerk Automobile Relationship Specialty Start Date End Date Maryana Leone NP [address] [place] [id number] PCP - General NURSE PRACTITIONER 07/19/25 Maryana Leone NP [address] [place] [id number] Nurse Practitioner NURSE PRACTITIONER 07/19/25 documented as of this encounter
--- OUTSIDE RECORDS SUMMARY | 2025-07-20 09:00 | XMS_ITS | Encounter Summary ---
Author Organization [facility] Address [address] [place] [address] Care Team Providers Care Customer Security Clerk Name Role Phone Maryana Leone REPAIR SPECIALIST Unavailable [phone] Maryana Leone REPAIR SPECIALIST Primary Care Provider [phone] Reason for Visit * Reason Comments [facility] and does c/o ongoing headaches x 2 weeks. Encounter Details Date Type Department Care Team (Late st Contact Info) Description 07/20/2025 9:00 AM CDT Office Visit [facility] Family Medicine - [place] [address] [place] [address] Maryana Leone, REPAIR SPECIALIST [address] [place] [address] Headache (Patient presents today to [...] Not at all 07/20/2025 9:23 AM Lisa Cnanon MA Active Patient Health Questionnaire-9 Score 7 [...] or irritable 0 07/20/2025 9:23 AM CDLisa Hoover MA Active Feeling afraid as if somethi [...] follow up appointment. Mammogram- last done 03/24/25 [facility]- Has personnel clerk appt 07/21/25 with Chari Stephens, [facility]. LMP - postmenopausal Dexa- Done 2 years ago. Vaccinations- reports up to date, will obtain vaccination history Vision-wears prescription glasses. Sees eye dr ochoa Dental-top partials. Sees Joe Higgins. Will schedule appt as last seen in a couple years Colonoscopy- Dr Tariq performed last colonoscopy 2-3 years ago. Saw Che Michele with [facility] 3 weeks ago. She takes Miralax, [...] Description 08/11/2025 9:40 AM CDT Office Visit [facility] Family Medicine - [place] [address] [place] [phone] Maryana Leone NP [address] [place] [address] Scheduled Orders Name Type Priority Associated Diagnoses [...] documented as of this encounter Care Teams Customer Security Clerk Relationship Specialty Start Date End Date Maryana Leone NP [address] [place] [id number] PCP - General NURSE PRACTITIONER 07/19/25 Maryana Leone NP [address] [place] [address] Nurse Practitioner NURSE PRACTITIONER 07/19/25 documented as of this encounter
--- NOTE | ~2025-07-21 | XR_ITS ---
XR abdomen gastric tube insert INDICATION: Evaluate NG tube position. TECHNIQUE: Limited KUB perform for evaluating NG tube . COMPARISON: No prior studies for comparison. FINDINGS: NG tube tip in the stomach. Visualized bowel gas pattern is unremarkable. IMPRESSION: 1: NG tube tip in the stomach. Reviewed, dictated and finalized at location O.
--- NOTE | ~2025-07-21 | CT_ITS ---
EXAMINATION: CT abdomen pelvis w con DATE: 07/21/2025 17:15 INDICATION: History of constipation and small bowel obstruction TECHNIQUE: Computed tomography (CT) of the abdomen and pelvis was performed with 100 cc Omnipaque 350 intravenous contrast. The dose-length product was 245.08 mGy-cm. Automated exposure control and iterative reconstruction technique were employed. COMPARISON: CT dated 07/30/2022 FINDINGS: Lung bases unremarkable. Heart size normal. No significant pleural or pericardial effusion. Status post cholecystectomy with prominence of the bile ducts. No focal hepatic masses are identified. The spleen, adrenal glands and kidneys are unremarkable. There is mild prominence of the pancreatic duct. There is moderate gastric distention. There are multiple dilated loops of small bowel. The colon is relatively decompressed. There are surgical changes of the bowel in the right upper abdomen. Clinically correlate. No acute osseous abnormality. No significant vascular abnormality. No lymphadenopathy. IMPRESSION: 1. Dilated small bowel with air-fluid levels, consistent with obstruction. Possible transition site in the central abdomen anteriorly, axial images 100-104. 2: Status post cholecystectomy with prominence of the common bile duct, intrahepatic ducts and pancreatic duct. No obstructing stone or mass identified. Consider correlation with MRCP. Reviewed, dictated and finalized at location O. IMPRESSION: 1. Dilated small bowel with air-fluid levels, consistent with obstruction. Poss ible transition site in the central abdomen anteriorly, axial images 100-104. 2: Status post cholecystectomy with prominence of the common bile duct, intrahe patic ducts and pancreatic duct. No obstructing stone or mass identified. Consi jose juan correlation with MRCP.
--- NOTE | ~2025-07-21 | XR_ITS ---
XR abdomen gastric tube insert INDICATION: Evaluate NG tube position. TECHNIQUE: Limited KUB perform for evaluating NG tube . COMPARISON: 07/21/2025 FINDINGS: NG tube tip in the stomach. Visualized bowel gas pattern is unremarkable. IMPRESSION: 1: NG tube tip in the stomach. Reviewed, dictated and finalized at location O.
--- OUTSIDE RECORDS SUMMARY | 2025-07-21 16:02 | XMS_ITS | Clinical Summary ---
Author Organization [facility] Address [address] [place] [address] Care Team Providers Care Veteran Appeals Reviewer Name Role Phone Siena Bell MD Primary [...] 1 tablet (175 mcg total) by mouth early childhood education instructor before breakfast Active acetaminophen 500 mg capsule [...] (09/24/2022): Added automatically from request for surgery [id number] Intraabdominal fluid collection 08/12/2022 Assessment & Plan (09/24/2022 2:36 PM LEAF SIZE PICKER): - Reports doing well today with no [...] recommendations. She presented initially to an OSH ([facility]) with abdominal pain a couple weeks ago. She subsequently had a laparascopic cholecystectomy at [facility] on 08/02. Following this she had poor recovery with new O2 requirement after the OR and rising WBC count. She had a positive HIDA scan. She was transferred to [facility] on 08/04. On 08/05 she had a [...] (08/05/2022): Added automatically from request for surgery [id number] Perforation bowel 08/04/2022 Overview (08/05/2022): Added automatically from request for surgery [id number] Choledocholithiasis 07/30/2022 Chronic prescription opiate use 07/30/2022 History of gastric bypass 07/30/2022 Acute cholecystitis with acute cholangitis 07/30 Acute gallstone pancreatitis 07/30/2022 Vitamin D deficiency 08/13/2021 Stage 3 chronic kidney disease 08/09/2021 Hypercholesterolemia 08/01/2020 Primary insomnia 02/10/2019 Chronic bilateral low back pain without sciatica 01/26/2019 Chronic peptic ulcer 01/26/2019 Atherosclerosis of belkofski co ronary artery of belkofski heart without angina pectoris 01/26/2019 Depressive disorder 01/26/2019 Essential hypertension 01/26/2019 Acquired hypothyroidism 01/26/2019 Chronic gastric ulcer with perforation 8 Gastric ulcer without hemorrhage or perforation 06/30/2018 Overview (06/30/2018): Added automatically from request for surgery [id number] Class 1 obesity due to exces s calories with serious comorbidity and body mass index (BMI) of 32.0 to 32.9 in adult 03/09/2018 Iron deficiency anemia henny prajapati to inadequate dietary iron intake 01/08/2018 Other constipation 01/08/2018 Pain of upper abdomen 01/08/2018 Encounters Date Type Department Care Team Description 05/26/2025 9:00 AM CDT Office Visit [facility] Medicine Surgery [address] [facility] Advanced Medicine [address] [place] [address] [place] [address] Dustin Garibay MD Other constipation (Primary Dx) [...] disease Iron deficiency anemia IV iron - Medicare Sales Representative Dr. Mendez Family History Medical History Relation [...] e alcohol) Social Connection and Isolation Panel Answer Date Recorded In a typical week, how many times do you talk on the phone with family, friends, or neighbors? Three times a week 07/31/2022 How often do you get togethe r with friends or relatives? Twice a week 07/31/2022 How often do you attend chur ch or latter day services? Never 07/31/2022 Do you belong to any clubs o r organizations such as worship groups, unions, fraternal or athletic groups, or [...] on file Legal Sex Female 12:02 PM LEAF SIZE PICKER Gender Identity Not on file Sexual Orientation Not on file Obstetrics History Last Filed Vital Signs Vital Sign Reading Time Taken Comments Blood Pressure 108/63 05/26/2025 9:09 AM CDT Pulse 76 05/26/2025 9:09 AM CDT Temperature 36.4 C (97.6 F) 05/26/2025 9:09 AM CDT Respiratory Rate 18 01/17/2025 11:38 AM LEAF SIZE PICKER Oxygen Saturation 96% 02/24/2025 9:35 AM CDT [...] Pneumococcal vaccine 65+ (2 of 2 - PCV20 or PCV21) 08/01/2021 08/01/2020 Covid-19 Vaccine (3 - 2023-2 5 season) 2024 03/09/2021, 02/09/2021 Influenza Vaccine (#1) 2025 , 11/27/2022, 08/07/2021, Additional history exists Fall Risk Assessment 01/17/2026 01/17/2025 Breast Cancer Screening-Mammogram 03/24/2026 03/24/2025, 03/24/2025, 06/20/2016 Colon Cancer Screening-FIT Discontinued 03/17/2017 Medical Devices Implanted Type Area Optimization Engineer Device Identifier Shelf Expiration Date Model / Serial / Lot [employer] Rubio Advanix 8.5fr 7cm Rapid Exchange Temporary [place] Stent [id number] - [id number] Implanted:Qty: 1 on 08/01/2022 by Nick Nobles MD at [facility] Stent N/A: Bile Duct [employer] Rubio 04/15/2024 [id number] / / [id number] Explanted Type Area Optimization Engineer Device Identifier Shelf Expiration Date Model / Serial / Lot [employer] Calderón 5fr 9cm Pancreatic Stent [id number] - [id number] Implanted:Qty: 1 on 08/01/2022 by Nick Nobles MD at [facility] Explanted:Qty: 1 on 08/05/2022 by Philipp Andino MD at [facility] Stent N/A: Pancreas [employer] 04/16/2027 [id number] / / [id number] Procedures Procedure Name Priority Date/Time Associated Diagnosis Comments OCCULT BLOOD, FECAL (FIT) Routine 03/17/2017 6:37 PM CDT SCREENING MAMMOGRAM BILATERAL W GOMEZ Routine 06/20/2016 2:52 PM CDT from Last 3 Months or Most Recently Relevant to Health Maintenance Results * Occult blood, fecal non neoplasm screening (03/17/2017 6:37 PM CDT) Stool Occult Blood NEGATIVE NEGATIVE 03/17/2017 6:37 PM CDT 03/17/2017 6:52 PM CDT [facility]ative [facility] - 03/17/2017 6:55 PM CDT Collected By Arley GOLDM[facility] BODY FLUIDS AND STOOLS [place] CASTILLO Final Result [facility] HISTORICAL RESULTS * Screening Mammogram Bilateral W Gomez (06/20/2016 2:52 PM CDT) Anatomical Region Laterality Modality Breast Bilateral Mammography 06/20/2016 2:52 PM CDT Impressions 06/20/2016 3:39 PM CDT BI-RAD 1 NEGATIVE There is no mammographic evidence of malignancy. A 1 year screening mammogram is recommended. The patient has been or will be contacted. The patient will be entered into a reminder system with a target due date of 1 year for her next screening exam. Electronically signed by: Rey Hernandez md/manasa:06/20/2016 15:38:20 Manager Review: Brielle ANGEL(Julieth)(M), [facility] letter sent: Normal Exam Reading location: BI-RADS: 1 Negative [EOD] Narrative 06/20/2016 3:39 PM CDT - MG BILATERAL DIGITAL SCREENING MAMMOGRAM 3D/2D WITH CAD WITH MEDIOLATERAL OBLIQUE CRANIOCAUDAL: 06/20/2016 The study was acquired using full field digital technology and interpreted from soft copy. Current study was also evaluated with R2 CAD. 2D digital mammographic views, as well as 3D digital tomosynthesis were performed in the CC and MLO projections. CLINICAL: Routine mammogram. Denies any problems today. No personal history of breast cancer. No family history of breast cancer. COMPARISONS: Comparison is made to exams dated: 01/22/2011 and 11/20/2009 [facility]. BREAST TISSUE: The tissue of both breasts is almost entirely fatty. FINDINGS: No significant masses, calcifications, or other findings are seen in either breast. There has been no significant interval change. Procedure Note Provider, MD Noemi - 04/03/2021 - MG BILATERAL DIGITAL SCREENING MAMMOGRAM 3D/2D WITH CAD WITH MEDIOLATERALOBLIQUE CRANIOCAUDAL: 06/20/2016 The study was acquired using full field digital technology and interpretedfrom soft copy. Current study was also evaluated with R2 CAD. 2D digital mammographic views, as well as 3D digital tomosynthesis were performed in the CC and MLO projections. CLINICAL: Routine mammogram. Denies any problems today. No personalhistory of breast cancer. No family history of breast cancer. COMPARISONS: Comparison is made to exams dated: 01/22/2011 and 11/20/2009 [facility]. BREAST TISSUE: The tissue of both breasts is almost entirely fatty. FINDINGS: No significant masses, calcifications, or other findings areseen in either breast. There has been no significant interval change. IMPRESSION: BI-RAD 1 NEGATIVE There is no mammographic evidence of malignancy. A 1 year screeningmammogram is recommended. The patient has been or will be contacted. The patient will be entered into a reminder system with a target due dateof 1 year for her next screening exam. Electronically signed by: Rey Hernandez md/manasa:06/20/2016 15:38:20 Manager Review: Brielle Jones RT(R)(M), [facility] letter sent: Normal Exam Reading location: BI-RADS: 1 Negative [EOD] us Malorie Lo MD IMG MAMMO PROCEDURES Final Result from Last 3 Months or Most Recently Relevant to Health Maintenance Insurance [facility] MEDICARE ADVANTAGE [employer] OOS BLUE ACCESS OOS Member Subscriber Plan / Payer (Ef fective 2021-Present) Name:TimiЕкатерина Lilly Relation to Subscriber:Self Name:Екатерина Dockery Payer ID:[id number] (NAIC) Type:[facility] Address: [address] MEDICARE ADVANTAGE [facility] MDCR HMO REF Advance Directives For more information, please contact: [phone] * Full Code (Latest Code Status on [...] 10:14 PM 08/24/2022 2:48 AM Care Teams Veteran Appeals Reviewer Relationship Specialty [place] [address] [place] [address] PCP - General Gastroenterology 08/28/22
--- OUTSIDE RECORDS SUMMARY | 2025-07-21 16:02 | XMS_ITS | Clinical Summary ---
Author Organization [facility] Address [address], [address] [place] [address] Phone Care Team Providers Care Barrel Leveler Name Role Phone Siena Bell MD Primary Care Provider Eloy Mendez MD Unavailable [phone] Allergies Active Allergy Reactions Criticality Noted Date Comments Ibuprofen Other (see Comments) Low 04/21/2020 Pollen Extract Runny Nose,Other (see Comments) Low 01/15/2018 headache Medications losartan (COZAAR) 100 MG Tablet Take 100 [...] MOUTH EVERY DAY IN THE MORNING 09/04/20 20 Active busPIRone (BUSPAR) 10 MG Tablet TAKE 1 TABLET BY MOUTH TWICE A DAY 09/04/20 20 Active metoprolol tartrate (LOPRESSOR) 50 MG Tablet 06/27/20 21 Active zolpidem (AMBIEN) 10 MG Tablet TAKE 1 TABLET BY MOUTH EVERY DAY NEEDED 12/28/19 22 Active ergocalciferol (VITAMIN D) 84405 UNIT Capsule TAKE 1 CAPSULE EVERY WEEK [...] MOUTH EVERY DAY NEEDED 11/20/19 24 Active levothyroxine (SYNTHROID) 175 MCG Tablet 05/20/20 [...] HR nitroglycerin 0.2 mg/hr patch 24 hour 04/03/20 25 Active cloNIDine (CATAPRES) 0.1 MG Tablet 02/22/20 25 Active rosuvastatin (CRESTOR) 20 MG Tablet Take 20 mg by mouth daily. 12/15/19 25 Active ondansetron (ZOFRAN) 4 MG TabletIndicati ons:Nausea Take 1 Tablet by mouth every 8 hours as needed for Nausea - 1st line. 30 Tablet 1 06/02/20 25 Active Active Problems Problem Noted Date Diagnosed Date Trauma 09/11/2024 Iron deficiency anemia, unspecified 09/10/2023 Anemia in stage 3b chronic kidney disease 2017 Hypertension Encounters Date Type Department Care Team Description 06/03/2025 Telephone [facility] [address] [address] Sherry Gooden, MICHAEL, SBA BUSINESS DEVELOPMENT OFFICER 06/02/2025 10:50 AM CDT Lab [facility] [address] [address] Lab, [facility] Nausea; Anemia in stage 3b chronic kidney disease (HCC); Iron deficiency anemia, unspecified iron deficiency anemia type 06/02/2025 9:30 AM CDT Office Visit [facility] [address] [address] Sherry Gooden, ATTENDING ANESTHESIOLOGIST, SBA BUSINESS DEVELOPMENT OFFICER Anemia in stage 3b chronic kidney disease (HCC) (Primary Dx); Iron deficiency anemia, unspecified iron deficiency anemia type; Nausea 06/02/2025 Travel from Last 3 Months Immunizations Immunization [...] Recorded Total Score - Questions 1-9 0 09/0 11/2021 Comments No Sex and Gender Information Value Date Recorded Sex Assigned at Not on file Legal Sex Female 9:24 AM RADIATION ONCOLOGIST Gender Identity Not on file Sexual Orientation Not on file Last Filed Vital Signs Vital Sign Reading Time Taken Comments Blood Pressure 90/58 06/02/2025 10:15 AM CDT Pulse 61 06/02/2025 10:15 AM CDT Temperature 36.6 C (97.8 F) 06/02/2025 10:15 AM CDT Respiratory Rate 18 06/02/2025 10:1 5 AM CDT Oxygen Saturation 97% 06/02/2025 10: 15 AM CDT Inhaled Oxygen Concentration - - Weight 63.8 kg (140 lb 11.2 oz) 025 10:15 AM CDT Height 157.5 cm (5' 2) 06/02/2025 10:1 5 AM CDT Body Mass Index 25.73 06/02/2025 10:15 AM CDT Plan of Treatment Upcoming Encounters Date Type Department Care Team (Late st Contact Info) Description 09/01/2025 9:30 AM CDT Office Visit [facility] [address] [address] Eloy Mendez MD [address] [place] [address] [place] [address] Health Maintenance Due Date Last Done Comments DEXA Bone Density 1954 Hepatitis C Virus (HCV) Screening 1954 TdaP Immunization 1954 Cologuard 1999 Colonoscopy 1999 Colorectal Cancer Screening 1999 Immunochemical Fecal Occult Blood 1999 Zoster Immunization (1 of 2) 2004 Pneumococcal Immunization (50+ years) (2 of 2 - PPSV23, PCV20, or PCV21) 09/26/2020 08/01/2020 Influenza Immunization (#1) 07/18/202508/18, 11/27/2022, 08/07/2021, Additional history exists SARS-COV-2 Immunization ( - season) 2025 03/09/2021, 02/09/2021 Mammogram 03/24/2026 03/24/2025, 0506/2025, 06/20/2016 Respiratory Syncytial Virus (RSV) Immunization (Adult) (1 [...] Comments CBC WITH AUTO DIFF OH Routine 06/02/2025 10:42 AM CDT CMP (COMPREHENSIVE METABOLIC PANEL) Routine 06/02/2025 10:42 AM CDT Nausea Anemia in stage 3b chronic kidney disease (HCC) Iron deficiency anemia, unspecified iron deficiency anemia type VITAMIN B12 Routine 06/02/2025 10:42 AM CDT Nausea Anemia in stage 3b chronic kidney disease (HCC) Iron deficiency anemia, unspecified iron deficiency anemia type FOLIC ACID (FOLATE) Routine 06/02/2025 1 0:42 AM CDT Nausea Anemia in stage 3b chronic kidney disease (HCC) Iron deficiency anemia, unspecified iron deficiency anemia type FERRITIN Routine 06/02/2025 10:42 AM CDT Nausea Anemia in stage 3b chronic kidney disease (HCC) Iron deficiency anemia, unspecified iron deficiency anemia type IRON W/ IRON BINDING CAPACITY OH Routine 06/02/2025 10:42 AM CDT Nausea Anemia in stage 3b chronic kidney disease (HCC) Iron deficiency anemia, unspecified iron deficiency anemia type from Last 3 Months Results * (ABNORMAL) IRON W/ IRON BINDING CAPACITY [place] (06/02/2025 10:42 AM CDT) IRON 76 50 - 212 ug/dL [facility] UIBC 183 155 - 355 ug/dL [facility] TIBC 259(L) 261 - 478 ug/dl [facility] % Saturation 29 20 - 50 % [facility] 06/02/2025 10:4 2 AM CDT Narrative [facility] - 06/02/2025 12:05 PM CDT Release to patient->Immediate Sherry Gooden ATTENDING ANESTHESIOLOGIST, SBA BUSINESS DEVELOPMENT OFFICER LAB SEND OUTS F inal Result [facility] [place] [address], * (ABNORMAL) CBC WITH AUTO DIFF [place] (06/02/2025 10:42 AM CDT) WBC 5.2 4.0 - 10.0 10*3/uL [facility] HGB 11.0(L) 11.2 - 15.7 g/dL [facility] HCT 33.6(L) 34.1 - 44.9 % [facility] PLT 271 163 - 369 10*3/uL [facility] MPV 8.7(L) 9.4 - 12.4 fL [facility] RBC 3.01(L) 3.93 - 5.22 10*6/uL [facility] MCV 112(H) 79 - 95 fL [facility] MCH 36.5(H) 25.6 - 32.2 pg [facility] MCHC 32.7 32.2 - 36.5 g/dL [facility] RDW 11.6 11.6 - 14.4 % [facility] Neutrophils % 64.9 36.0 - 66.0 % [facility] Lymphocytes % 20.3 19.0 - 40.0 % [facility] Monocytes % 11.3 4.1 - 12.1 % [facility] Eosinophils % 2.3 0.0 - 3.5 % [facility] Basophils % 0.6 0.0 - 1.0 % [facility] Absolute Neutrophils 3.4 1.4 - 6.6 10*3/uL [facility] Absolute Lymphocytes 1.1 0.8 - 4.0 10*3/uL [facility] Absolute Monocytes 0.6 0.2 - 1.2 10*3/uL [facility] Absolute Eosinophils 0.1 0.0 - 0.4 10*3/uL [facility] Absolute Basophils 0.0 0.0 - 0.1 10*3/uL [facility] WBC Estimate Normal [facility] Platelet Estimate Normal CA [facility] RBC Morphology Abnormal [facility] Macrocytosis 2+ [facility] Poikilocytosis 1+ [facility] 06/02/2025 10:4 2 AM CDT Sherry Gooden APRN, SBA BUSINESS DEVELOPMENT OFFICER LAB SEND OUTS F inal Result [facility] [address] [place] [address], [place] [phone] * VITAMIN B12 (06/02/2025 10:42 AM CDT) Vitamin B12 232 180 - 914 pg/mL [facility] Blood 06/02/2025 10:4 2 AM CDT Narrative [facility] - 06/03/2025 2:42 PM CDT Release to patient->Immediate Sherry Gooden APRN, SBA BUSINESS DEVELOPMENT OFFICER CHEMISTRY ORDERAB LES Final Result [facility] [address] [place] [address], [place] [phone] * FOLIC ACID (FOLATE) (06/02/2025 10:42 AM CDT) Folate 10.71 >=5.90 ng/mL [facility] Blood 06/02/2025 10:4 2 AM CDT Narrative [facility] - 06/03/2025 2:42 PM CDT Release to patient->Immediate IS THE PATIENT REQUIRED TO BE FASTING FOR 12 HOURS?->No Sherry Gooden APRN, SBA BUSINESS DEVELOPMENT OFFICER CHEMISTRY ORDERAB LES Final Result Performing Organization Address City/[facility]/ZIP Co de Phone Number [facility] Cancer Care [address] [place] [address], * FERRITIN (06/02/2025 10:42 AM CDT) Ferritin 126 11 - 307 ng/mL [facility] Blood 06/02/2025 10:4 2 AM CDT [facility] - 06/03/2025 2:42 PM CDT Release to patient->Immediate Sherry Gooden ATTENDING ANESTHESIOLOGIST, SBA BUSINESS DEVELOPMENT OFFICER CHEMISTRY ORDERAB LES Final Result Performing Organization Address City/[facility]/ZIP Co de Phone Number [facility] [address] [place] [address], * (ABNORMAL) CMP (COMPREHENSIVE METABOLIC PANEL) (06/02/2025 10:42 AM CDT) Glucose 84 70 - 105 mg/dL [facility] Blood Urea Nitrogen 16 7 - 25 mg/dL [facility] Creatinine 1.1 0.6 - 1.2 mg/dL [facility] Sodium 133(L) 136 - 145 mEq/L [facility] Potassium 4.6 3.5 - 5.1 mEq/L [facility] Chloride 99 98 - 107 mEq/L [facility] Bicarbonate 24 21 - 31 mEq/L [facility] Total Bilirubin 0.2(L) 0.3 - 1.0 mg/dL [facility] Alk. Phosphatase 70 34 - 104 U/L [facility] Aspartate Aminotransferase 11(L) 13 - 39 U/L [facility] Alanine Aminotransferase 11 7 - 52 U/L [facility] Total Protein 6.0(L) 6.4 - 8.9 g/dL [facility] Albumin 4.1 3.5 - 5.7 g/dL [facility] Calcium 9.2 8.6 - 10.3 mg/dL [facility] Anion Gap 14.6 7.0 - 15.0 mEq/L [facility] Globulin 1.9(L) 2.0 - 3.5 g/dL [facility] EGFR 54(L) >60 ml/min/1. 73m2 [facility] Comment: This eGFR is calculated using 2020 CKD-EPI Creatinine equation without race modifier based on the NKF-ASN task force recommendations Equation: zVXW=473*min(SCr/k,1)a*max(SCr/k,1)-1.200*0.9938Age*1.012 (if female), where SCr is serum creatinine, k is 0.7 for females and 0.9 for males, and a is -0.241 for females and -0.302 for males Blood 06/02/2025 10:4 2 AM CDT Narrative [facility] - 06/02/2025 12:05 PM CDT Release to patient->Immediate IS THE PATIENT REQUIRED TO BE FASTING FOR 8 HOURS?->No us Sherry Gooden ATTENDING ANESTHESIOLOGIST, SBA BUSINESS DEVELOPMENT OFFICER CHEMISTRY ORDERAB LES Final Result [facility] [place] [address], from Last 3 Months Insurance MEDICARE C [facility] Care Teams Barrel Leveler Relationship Specialty Start Date End Date Siena Bell MD [address] [place] [address] PCP - General Internal Medicine 01/16/22 Eloy Mendez MD [address] [place] [phone] Consulting Physician Oncology 09/29/23
--- OUTSIDE RECORDS SUMMARY | 2025-07-21 16:03 | XMS_ITS | Clinical Summary ---
Author Organization [facility] Address [address] [place] [address] Care Team Providers Care Concrete Spreader Name Role Phone Malorie Lo MD Primary Care Provider [phone] Source Comments [facility],non-owned Affiliates and Associated Physician Practices is amultiple site organization consisting of ambulatory clinics and hospital sitesin [place], [place], [place] and [place]. This disclosure is being madepursuant to the Care Everywhere program and may not contain all information available regarding this patient. Last updated 18.[facility] Active Problems Problem Noted Date Diagnosed Date SBO (small bowel obstruction) 12/25/2024 Social History Tobacco Use Types Packs/Day Years Used Date Smoking Tobacco: Never Assessed Comments Unknown Sex and Gender Information Value Date Recorded Sex Assigned at Not on file Legal Sex Female 6:55 PM LITIGATION SPECIALIST Gender Identity Not on file Sexual Orientation [...] age to complete this topic Care Teams Concrete Spreader Relationship Specialty Start Date End Date Malorie Lo MD PCP - General 04/30/12
--- OUTSIDE RECORDS SUMMARY | 2025-07-21 16:03 | XMS_ITS | Patient Health Record ---
Author Organization [facility] [employer] Address [address] [facility] [address] [place] [address] Care Team Providers Care Bakery And Deli Sales Manager Name Role Phone Giovanny Waddell Unavailable [phone] Reason For Referral No Information Medications Medication SIG (Take, Route, Frequency, Duration) Notes Start Date End Date Status Levothyroxine Sodium 150 MCG Tablet Oral 12/07/2020 Active Sucralfate 1 GM Tablet Oral 12/07/2020 Active QUEtiapine Fumarate 25 MG Tablet Oral 12/07/2020 Active busPIRone HCl 10 MG Tablet Oral 12/07/2020 Active Benzonatate 100 MG Capsule Oral 12/07/2020 Active Dicyclomine HCl 10 MG Capsule Oral 12/07/2020 Active Rosuvastatin Calcium 5 MG Tablet Oral 12/07/2020 Active Losartan Potassium 100 MG Tablet Oral 12/07/2020 Active Metoprolol Tartrate 50 MG Tablet Oral 12/07/2020 Active Zolpidem Tartrate 5 MG Tablet Oral 12/07/2020 Active Cyclobenzaprine HCl 10 MG Tablet Oral 12/07/2020 Active oxyCODONE-Acetaminophen 10-325 MG Tablet Oral 12/07/2020 Active Gabapentin 300 MG Capsule Oral 12/07/2020 Active Pantoprazole Sodium 40 MG Tablet Delayed Release Oral 12/07/2020 Active Escitalopram Oxalate 10 MG Tablet Oral 12/07/2020 Active Fluticasone Propionate Diskus 50 MCG/ACT Aerosol Powder Breath Activated Inhalation *Reorder from [employer] for eRx and Interaction Alerts* 12/07/2020 Active Immunizations Vaccine Route Administration Date Status Comme nts Pneumococcal conjugate PCV 13 Unknown 08/01/2020 Admini stered Novel [id number], preservative free Unknown 08/11/2014 Administered Influenza virus vaccine, quadrivalent (IIV4), split virus, 0.25 mL dosage Unknown 08/01/2020 Administered Influenza virus vaccine, quadrivalent (IIV4), split virus, 0.25 mL dosage Unknown 08/16/2020 Administered Social History Social History Additional Details Category Social Info Options Details Migrated Social History Migrated Social History Alcohol Intake: Occasional 09/04/2020,Tobacco Years: Former smoker 09/04/2020 Plan Of Treatment No Information Insurance Providers Payer Name Payer Address Payer Phone Subscriber Number Group Number Insured Name Patient Relationship to Insured Coverage Start Date Coverage End Date Medicare-I l Medicare [address] [place] [address] [id number] JAY EWING Self - patient is the insured Medical (General) History Surgical History Surgery Date(Month/Year) Appendectomy (36369)
--- OUTSIDE RECORDS SUMMARY | 2025-07-21 16:03 | XMS_ITS | Encounter Summary ---
Author Organization [facility] Address [facility]ly [facility] [place] [address] Care Team Providers Care Welcome Hostess Name Role Phone Malorie Lo MD Primary Care Provider [phone] Zoey Leone COGNOS BI DEVELOPER Unavailable [phone] Zoey Leone NP Primary Care Provider [phone] Encounter Details Date Type Department Care Team (Late st Contact Info) Description 06/15/2024 Chart Prep [facility], [address] [address] Malorie Lo MD [address] [place] [phone] Social History Tobacco Use Types Packs/Day Years Used Date Smoking Tobacco: Never Assessed Comments Unknown Sex and Gender Information Value Date Recorded Sex Assigned at Female 03/01/2025 12:11 PM CDT Legal Sex Female 7:10 PM CDT Gender Identity Not on file Sexual Orientation Not on file documented as of this encounter Plan of Treatment Upcoming Encounters Date Type Department Care Team (Late st Contact Info) Description 08/11/2025 9:40 AM CDT Office Visit [facility] [address] [place] [phone] Zoey Leone NP [address] [place] [address] documented as of this encounter Visit Diagnoses Not on filedocumented in this encounter Care Teams Welcome Hostess Relationship Specialty Start Date End Date Malorie Lo MD [address] [facility] [place] [address] PCP - General 08/21/11 07/18/25 Zoey Leone COGNOS BI DEVELOPER [address] [place] [address] PCP - General NURSE PRACTITIONER 07/19/25 Zoey Leone COGNOS BI DEVELOPER [address] [place] [address] Nurse Practitioner NURSE PRACTITIONER 07/19/25 documented as of this encounter
--- OUTSIDE RECORDS SUMMARY | 2025-07-21 16:03 | XMS_ITS | Patient Health Record ---
Author Organization [facility] Address [address] [place] [address] Care Team Providers Care Boiler Maker Name Role Phone Joce Barksdale Unavailable [phone] Reason For Referral No Information Medications Medication SIG (Take, Route, Fr equency, Duration) Notes Start Date End Date Status Calcitriol 0.25 MCG TAKE 1 CAPSULE BY [facility] EVERY DAY; Duration: 90 Active Protonix 40 MG 1 tablet Orally Once a day; Duration: 90 day(s) 05/18/2025 Active Problems Problem Type SNOMED Code ICD Code Onset Dates Problem Status W/U Status Risk Notes Problem Anemia (192877089) Anemia, unspe cified (D64.9) Active confirmed Problem 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 Problem Hypo-osmolality and or hyponatremia (568687200) Hypo-osmolality and hyponatremia (E87.1) Active confirmed Problem Anxiety disorder (458405526) Anxiety disorder, unspecified (F41.9) Active confirmed Problem Gastro-esophageal reflux disease without esophagitis (517005349) Gastro-esophageal reflux disease without esophagitis (K21.9) Active confirmed Problem Primary generalised osteoarthritis (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) Active confirmed Problem Chronic kidney disease stage 2 (933703938) Chronic kidney disease, stage 2 (mild) (N18.2) Active confirmed Problem Renal osteodystrophy (12856819) Renal osteodystrophy (N25.0) Active confirmed Problem Secondary hyperparathyroidism of renal origin (80033272) Secondary hyperparathyroidism of renal origin (N25.81) Active confirmed Problem Urinary tract infectious disease (disorder) (89201575) Urinary tract infection, site not specified (N39.0) Active confirmed Problem Chronic fatigue syndrome (disorder) (96282756) Chronic fatigue, unspecified (R53.82) Active confirmed Problem Proteinuria (49022121) Proteinuria, unspecified (R80.9) Active confirmed Problem Essential hypertension (27444886) Essential hypertension (I10) Active confirmed Encounters Encounter Location Date Provider Diagnosis [facility] [address] [address] 09/24/2024 Joce Barksdale Chronic kidney disea se, stage 2 (mild) N18.2 ; Anxiety disorder, unspecified F41.9 ; Chronic fatigue, unspecified R53.82 ; Essential hypertension I10 ; Urinary tract infection, site not specified N39.0 ; Proteinuria, unspecified R80.9 ; Chronic kidney disease, stage 3 unspecified N18.30 and Renal osteodystrophy N25.0 [facility] [address] [place] [address] 11/26/2024 Jocerenuka Barksdale Chronic kidney disea se, stage 2 (mild) N18.2 ; Hypo-osmolality and hyponatremia E87.1 ; Urinary tract infection, site not specified N39.0 and Anxiety disorder, unspecified F41.9 [facility] [address] [address] 12/10/2024 Joce Barksdale Chronic kidney disea se, stage 3 unspecified N18.30 ; Hypo-osmolality and hyponatremia E87.1 ; Primary generalized (osteo)arthritis M15.0 ; Elevation of levels of liver transaminase levels R74.01 and Anemia, unspecified D64.9 [facility] [address] [address] 03/30/2025 Joce Barksdale Chronic kidney disea se, [...] without esophagitis K21.9 and Hypervitaminosis D E67.3 [facility] [address] [address] 05/18/2025 Joce Barksdale Chronic kidney disea se, [...] without esophagitis K21.9 and Hypervitaminosis D E67.3 [facility] [address] [facility] [address] [place] [address] 05/18/2025 Joce Barksdale Assessments Encounter Date Diagnosis (ICD Code) Assessment Notes Treatment Notes Treatment Clinical Notes Section Notes 09/24/2024 Chronic kidney disea se, stage 2 (mild) (ICD-10 - N18.2) 11/26/2024 Chronic kidney disea se, stage 2 (mild) (ICD-10 - N18.2) 12/10/2024 Chronic kidney disea se, stage 3 unspecified (ICD-10 - N18.30) 12/10/2024 Hypo-osmolality and hyponatremia (ICD-10 - E87.1) 03/30/2025 Chronic kidney disea se, stage 3 unspecified (ICD-10 - N18.30) 05/18/2025 Chronic kidney disea se, stage 2 (mild) (ICD-10 - N18.2) 03/30/2025 Essential hypertensi on (ICD-10 - I10) 12/10/2024 Primary generalized (osteo)arthritis (ICD-10 - M15.0) 11/26/2024 Hypo-osmolality and hyponatremia (ICD-10 - E87.1) 09/24/2024 Anxiety disorder, unspecified (ICD-10 - F41.9) 05/18/2025 Essential hypertensi on (ICD-10 - I10) 09/24/2024 Chronic fatigue, unspecified (ICD-10 - R53.82) 11/26/2024 Urinary tract infection, site not specified (ICD-10 - N39.0) 12/10/2024 Elevation of levels of liver transaminase levels (ICD-10 - R74.01) 03/30/2025 Anxiety disorder, unspecified (ICD-10 - F41.9) 05/18/2025 Anxiety disorder, unspecified (ICD-10 - F41.9) 05/18/2025 Chronic fatigue, unspecified (ICD-10 - R53.82) 03/30/2025 Chronic fatigue, unspecified (ICD-10 - R53.82) 12/10/2024 Anemia, unspecified (ICD-10 - D64.9) 11/26/2024 Anxiety disorder, unspecified (ICD-10 - F41.9) 09/24/2024 Essential hypertensi on (ICD-10 - I10) 09/24/2024 Urinary tract infection, site not specified (ICD-10 - N39.0) 03/30/2025 Urinary tract infection, site not specified (ICD-10 - N39.0) 05/18/2025 Urinary tract infection, site not specified (ICD-10 - N39.0) 05/18/2025 Proteinuria, unspecified (ICD-10 - R80.9) 03/30/2025 Proteinuria, unspecified (ICD-10 - R80.9) 09/24/2024 Proteinuria, unspecified (ICD-10 - R80.9) 09/24/2024 Chronic kidney disea se, stage 3 unspecified (ICD-10 - N18.30) 05/18/2025 Renal osteodystrophy (ICD-10 - N25.0) 03/30/2025 Renal osteodystrophy (ICD-10 - N25.0) 03/30/2025 Secondary hyperparathyroidism of renal origin (ICD-10 - N25.81) 05/18/2025 Secondary hyperparathyroidism of renal origin (ICD-10 - N25.81) 09/24/2024 Renal osteodystrophy (ICD-10 - N25.0) 05/18/2025 Hypo-osmolality and hyponatremia (ICD-10 - E87.1) 03/30/2025 Hypo-osmolality and hyponatremia (ICD-10 - E87.1) 03/30/2025 Primary generalized (osteo)arthritis (ICD-10 - M15.0) 05/18/2025 Primary generalized (osteo)arthritis (ICD-10 - M15.0) 05/18/2025 Anemia, unspecified (ICD-10 - D64.9) 03/30/2025 Anemia, unspecified (ICD-10 - D64.9) 03/30/2025 Gastro-esophageal reflux disease without esophagitis (ICD-10 - K21.9) 05/18/2025 Gastro-esophageal reflux disease without esophagitis (ICD-10 - K21.9) 05/18/2025 Hypervitaminosis D (ICD-10 - E67.3) 03/30/2025 Hypervitaminosis D (ICD-10 - E67.3) Plan Of Treatment Next Appt Details Provider Name:Joce Barksdale , 08/17/2025 02:15:00 PM, [address] [facility] [address], [address],
--- OUTSIDE RECORDS SUMMARY | 2025-07-21 16:03 | XMS_ITS | Encounter Summary ---
Author Organization [facility] Address [address] [place] [address] Care Team Providers Care Research Subject Name Role Phone Zoey Leone TOASTER ELEMENT REPAIRER Unavailable [phone] Zoey Leone TOASTER ELEMENT REPAIRER Primary Care Provider [phone] Encounter Details Date Type Department Care Team (Latest Contact Info) Description 07/20/2025 Travel Social History Tobacco Use Types Packs/Day Years Used Date Smoking Tobacco: Former Cigarettes Passive Smoke Exposure: Past Smokeless Tobacco: Never Alcohol Use Standard Drinks/Week Comments Not Currently [...] on file documented as of this encounter Functional Status * Over the [...] than half the days 07/20/2025 9:23 AM Lisa Cannon MA Active Feeling tired or having little energy More than half the days 07/20/2025 9:23 AM Lisa Cannon MA Active Poor appetite or overeating More than half the days 07/20/2025 9:23 AM Lisa Cannon MA Active Feeling bad about yourself - or that you are a failure or have let yourself or your family down Not at all 07/20/2025 9:23 AM Lisa Cannon MA Active Trouble concentrating on things, such as reading the newspaper or watching television Not at all 07/20/2025 9:23 AM Lisa Cannon MA Active Moving or speaking so slowly that other people could have noticed? Or the opposite - being so fidgety or restless that you have been moving around a lot more than usual. Not at all 07/20/2025 9:23 AM Lisa Cannon MA Active Thoughts that you would be better off or hurting yourself in some way Not at all 07/20/2025 9:23 AM Lisa Cannon MA Active Patient Health Questionnaire-9 Score 7 07/20/2025 9:23 AM Lisa Cannon MA Active * If you checked off any problems on this questionnaire so far, Question Answer Date of Assessment Author Status How difficult have these problems made it for you to do your work, take care of things at home, or get along with other people? Not difficult at all 07/20/2025 9:23 AM Lisa Cannon MA Active * Over the last 2 [...] Active Trouble relaxing 1 07/20/2025 9:23 AM CDT Philipp Berg MA Active Being so restless that it is hard to sit still 0 07/20/2025 9:23 AM CDT Lisa Berg MA Active Becoming easily annoyed or irritable 0 07/20/2025 9:23 AM CDT Lisa Berg MA Active Feeling afraid as if somethi ng awful might happen 0 07/20/2025 9:23 AM CDT Lisa Breg MA Acti ve BECKY-7 Total Score 4 07/20/2025 9:23 AM CDT Lisa Berg MA Active documented as of this encounter Plan of Treatment Upcoming Encounters Date Type Department Care Team (Late st Contact Info) Description 08/11/2025 9:40 AM CDT Office Visit [facility] Family Medicine - [place] [address] [place] [phone] Zoey Leone, TOASTER ELEMENT REPAIRER [address] [place] [phone] documented as of this encounter Visit Diagnoses Not on filedocumented in this encounter Additional Health Concerns Assessment Noted Time PHQ-9 Depression Total Score: 7 07/20/20 9:23 AM CDT documented as of this encounter Care Teams Research Subject Relationship Specialty Start Date End Date Zoey Leone, TOASTER ELEMENT REPAIRER [address] [place] [address] [phone] PCP - General NURSE PRACTITIONER 07/19/25 Zoey Leone, TOASTER ELEMENT REPAIRER [address] [place] [id number] Nurse Practitioner NURSE PRACTITIONER 07/19/25 documented as of this encounter
--- OUTSIDE RECORDS SUMMARY | 2025-07-21 16:03 | XMS_ITS | Encounter Summary ---
Author Organization [facility] Address [address] [place] [address] Care Team Providers Care Architectural Design Lecturer Name Role Phone Malorie Lo MD Primary Care Provider [phone] Zoey Leone PRECISE WINDER Unavailable [phone] Zoey Leone NP Primary Care Provider [phone] Encounter Details Date Type Department Care Team (Late st Contact Info) Description 06/29/2024 Therapy Plan [facility], [address] [address] Mary Syed MD [address] [place] [address] Social History Tobacco Use Types Packs/Day Years [...] Description 08/11/2025 9:40 AM CDT Office Visit [facility] Family Medicine - [place] [address] [place] [address] Zoey Leone PRECISE WINDER [address] [place] [address] documented as of this encounter Visit Diagnoses Diagnosis Iron deficiency anemia- Primary Iron deficiency anemia, unspecified documented in this encounter Care Teams Architectural Design Lecturer Relationship Specialty Start Date End Date Malorie Lo MD [address] [facility] [address] PCP - General 08/21/11 07/18/25 Zoey Leone PRECISE WINDER [address] [place] [address] [phone] PCP - General NURSE PRACTITIONER 07/19/25 Zoey Leone PRECISE WINDER [address] [place] [address] [phone] Nurse Practitioner NURSE PRACTITIONER 07/19/25 documented as of this encounter
--- OUTSIDE RECORDS SUMMARY | 2025-07-21 16:03 | XMS_ITS | Clinical Summary ---
Author Organization [facility] Address [address] [place] [address] Care Team Providers Care Laboratory Courier Name Role Phone Zoey Leone COST ACCOUNTING MANAGER Unavailable [phone] Zoey Leone NP Primary Care Provider [phone] Allergies Active Allergy Reactions Criticality Noted Date Comments Ibuprofen Other (see comment) Low 04/21/2020 Pollen Extract Other (see comment),Runny Nose Low 0 01/15/2018 headache Medications Ergocalciferol (VITAMIN D2 OR) Take 1 capsule by mouth once a week. 5 Active gabapentin (NEURONTIN) 600 MG tablet Take 1 tablet (600 mg total) by mouth 3 (three) times daily. Active polyethylene glycol (MIRALAX) packet Take 240 mLs (17 g total) by mouth daily. 4 Active budesonide-formo terol (SYMBICORT) 160-4.5 MCG/ACT inhaler Inhale 2 puffs into the lungs 2 (two) times daily. Active albuterol sulfate HFA 108 (90 Base) MCG/ACT inhaler Inhale 1 puff into the lungs as needed. Active atorvastatin (LIPITOR) 40 MG tablet Take 1 tablet (40 mg total) by mouth daily. Active bisacodyl (DULCOLAX) 10 MG suppository INSERT 1 SUPPOSITORY INTO THE RECTUM DAILY. Active calcitriol (ROCALTROL) 0.25 MCG capsule Take 1 capsule (0.25 mcg total) by mouth daily. Active cloNIDine (CATAPRES) 0.1 MG tablet Take 1 tablet (0.1 mg total) by mouth daily. Active diazePAM (VALIUM) 5 MG tablet Take 1 tablet (5 mg total) by mouth as needed. Active dicyclomine (BENTYL) 10 MG capsule Take 1 capsule (10 mg total) by mouth 3 (three) times daily as needed. Active doxepin (SINEQUAN) 10 MG capsule Take 1 capsule (10 mg total) by mouth nightly at bedtime. at bedtime. Active escitalopram (LEXAPRO) 10 MG tablet Take 1 tablet (10 mg total) by mouth daily. Active fluticasone propionate (FLONASE) 50 MCG/ACT nasal spray 2 sprays by Nasal route daily. [place] Into Each Nostril 5 Active furosemide (LASIX) 40 MG tablet Take 1 tablet (40 mg total) by mouth daily. Active hydroCHLOROthiaz dannie (MICROZIDE) 12.5 MG tablet Take 1 tablet (12.5 mg total) by mouth daily. Active HYDROcodone-acet aminophen (NORCO) 5-325 MG tablet Take 1 tablet by mouth every 6 (six) hours as needed. 4 Active levothyroxine (SYNTHROID) 175 MCG tablet Take 1 tablet (175 mcg total) by mouth daily. 4 Active LINZESS 145 MCG capsule Take 1 capsule (145 mcg total) by mouth daily as needed. Active losartan (COZAAR) 100 MG tablet Take 1 tablet (100 mg total) by mouth daily. 5 Active NIFEdipine XL (PROCARDIA-XL) 30 MG 24 hr tablet Take 1 tablet (30 mg total) by mouth daily. Active nitroglycerin (NITROSTAT) 0.[address] 1 tablet (0.4 mg total) under the tongue. Active ondansetron (ZOFRAN) 4 MG tablet Take 1 tablet (4 mg total) by mouth every 8 (eight) hours as needed. Active oxyCODONE-acetam inophen (PERCOCET) 10-325 MG tablet Take 1 tablet by mouth every 6 (six) hours as needed. 5 Active pantoprazole EC (PROTONIX) 40 MG tablet Take 1 tablet (40 mg total) by mouth 2 (two) times daily. 5 Active QUEtiapine (SEROQUEL) 25 MG tablet Take 1 tablet (25 mg total) by mouth 2 (two) times daily. 5 Active rosuvastatin (CRESTOR) 10 MG tablet Take 1 tablet (10 mg total) by mouth daily. Active tiZANidine (ZANAFLEX) 4 MG tablet Take 1 tablet (4 mg total) by mouth 3 (three) times daily as needed. 5 Active traZODone (DESYREL) 50 MG tablet Take 1 tablet (50 mg total) by mouth nightly at bedtime. 4 Active triamcinolone (KENALOG) 0.1 % cream APPLY TO BOTH ARMS and NECK TWICE A DAY FOR 14 DAYS. AVOID THE EYES Active zolpidem (AMBIEN) 10 MG tablet Take 1 tablet (10 mg total) by mouth daily as needed. 5 Active zolpidem (AMBIEN) 10 MG tabletIndication s:Sleeping difficulty Take 1 tablet (10 mg total) by mouth nightly as needed for Sleep. 30 tablet 5 08/19/20 25 Active Active Problems Problem Noted Date Diagnosed Date Iron deficiency anemia 06/15/2024 Encounters Date Type Department Care Team Description 07/20/2025 9:00 AM CDT Office Visit [facility] Family Medicine - [place] [address] [place] [address] Zoey Leone NP Headache (Patient presents today to get established and does c/o ongoing headaches x 2 weeks. ) 07/20/2025 Travel 05/14/2025 10:35 AM CDT - 05/14/2025 11:59 PM CDT Hospital Encounter [facility] [address] Joce Barksdale MD Discharge Disposition: Home or Self Care (Routine Discharge) 05/14/[address] [facility] [place] [address] Joce Barksdale MD 05/14/2025 Travel from Last 3 Months Immunizations Immunization Administration Dates Next Due Fluzone High Dose (IIV, trivalent, 0.5mL) 2023 Fluzone High Dose - >Age 65 (Prefilled Syringe) 11/27/2022 Influenza Adult (Generic) 08/07/2021,08/01/2020, 08/11/2014 Pneumococcal (Prevnar 13) 08/01/2020 Family History Medical History Relation Comments Cancer Father Hypertension Mother Relation Status Comments Father Mother Social History Tobacco Use Types Packs/Day Years [...] Mass Index 26.55 07/20/2025 8:58 AM CDT Plan of Treatment Upcoming Encounters Date Type Department Care Team (Late st Contact Info) Description 08/11/2025 9:40 AM CDT Office Visit [facility] Family Medicine - [place] [address] [place] [address] Zoey Leone NP [address] [place] [address] Health Maintenance Due Date Last Done Comments Colorectal Cancer Screening Colonoscopy (10 Years) 1954 Hepatitis C 1972 DTaP, Tdap and Td Vaccines ( 1 - Tdap) 1973 Zoster Vaccines (1 of 2) 2004 Annual Medicare Wellness Visit 2019 Dexa Scan (General) 2019 Pneumococcal Vaccine: 50+ Years (2 of 2 - PPSV23) 08/01/2021 08/01/2020 COVID-19 Vaccine (3 - 2024-2 6 season) 2025 03/09/2021, 02/09/2021 Mammogram Screening 03/24/2027 03/24/2025, 06/20/2016 RSV Immunization or 60+ Years (1 - 1-dose 75+ series) 2029 PHQ-2 (Physician Maxwell) Completed 07/20/2025 Meningococcal B Vaccine Aged Out No l [...] 05/14/2025 10:55 AM CDT Hyperparathyroidism , unspecified ([facility]/HCC) URIC ACID BLOOD Routine 05/14/2025 10:55 AM CDT Chronic kidney disease, stage III (moderate) ([facility]/HCC) COMPREHENSIVE METABOLIC PANEL Routine 05/14/2025 10:55 AM CDT Chronic kidney disease, stage III (moderate) ([facility]/HCC) MG SCREENING W ZULY SHERLY DIGI Routine 03/24/2025 10:39 AM CDT Encounter for screening mammogram for malignant neoplasm of breast from Last 3 Months or Most Recently Relevant to Health Maintenance Results * PTH - INTACT (05/14/2025 10:55 AM CDT) PTH INTACT 31.7 18.4 - 80.1 PG/ML 05/14/2025 11:44 AM CDT [facility] 05/14/2025 10:5 5 AM CDT Joce Barksdale MD LABORATORY Final Result [facility] [address] [place] [address], [place] [phone] * (ABNORMAL) COMPREHENSIVE METABOLIC PANEL (05/14/2025 10:55 AM CDT) GLUCOSE 93 70 - 99 MG/DL 05/14/2025 11:37 AM CDT [facility] BUN 18 7 - 18 MG/DL 05/14/2025 11:37 AM CDT [facility] CREATININE S/P/B 0.94 0.55 - 1.02 MG/DL 05/14/2025 11:37 AM CDT [facility] SODIUM S/P/B 140 136 - 145 MMOL/L 05/14/2025 11:37 AM CDT [facility] POTASSIUM S/P/B 4.1 3.5 - 5.1 MMOL/L 05/14/2025 11:37 AM CDT [facility] CHLORIDE S/P/B 113 97 - 115 MMOL/L 05/14/2025 11:37 AM CDT [facility] CO2 23.1 21 - 32 MMOL/L 05/14/2025 11:37 AM CDT [facility] CALCIUM S/P/B 9.0 8.5 - 10.1 MG/DL 05/14/2025 11:37 AM CDT [facility] BILIRUBIN TOTAL S/P/B 0.4 0.2 - 1.2 MG/DL 05/14/2025 11:37 AM CDT [facility] Comment: THIS ASSAY IS NOT RECOMMENDED FOR PATIENTS UNDERGOING TREATMENT WITH ELTROMBOPAG DUE TO THE POTENTIAL FOR FALSELY ELEVATED RESULTS. TOTAL PROTEIN S/P/B 6.6 6.4 - 8.2 G/DL 05/14/2025 11:37 AM CDT [facility] ALBUMIN S/P/B 3.5 3.4 - 5.0 G/DL 05/14/2025 11:37 AM CDT [facility] AST 19 15 - 37 U/L 05/14/2025 11:37 AM CDT [facility] ALT 28 14 - 55 U/L 05/14/2025 11:37 AM T [facility] ALKALINE PHOSPHATASE S/P/B 82 50 - 136 U/L 05/14/2025 11:37 AM T [facility] ANION GAP 3.9 2 - 10 MMOL/L 05/14/2025 11:37 AM T [facility] BUN CREATININE RATIO 19.2 6 - 26 05/14/2025 11:37 AM T [facility] A/G RATIO 1.1 1.0 - 2.0 RATIO 05/14/2025 11:37 AM T [facility] GFR ESTIMATE 65(L) >90 ML/MIN/1.7 3 M2 05/14/2025 11:37 AM T [facility] Comment: NOTE: eGFR is not calculated for patients <18 years of age or gender unknown. This is an estimated GFR calculation using the new CKD EPI creatinine equation without race and so does not require a correction factor for race. This estimated GFR should not be used for calculating drug doses. 05/14/2025 10:5 5 AM CDT us Joce Barksdale MD LABORATORY Final Result [facility] [address] [place] [address], [place] [phone] * VITAMIN D, 25 OH (05/14/2025 10:55 AM CDT) VITAMIN D 25 HYDROXY S/P/B 74 30 - 100 NG/ML 05/14/2025 11:44 AM CDT [facility] Comment: INTERPRETATION DEFICIENT <20 INSUFFICIENT 20-29 SUFFICIENT 30-100 05/14/2025 10:5 5 AM CDT Joce Barksdale MD LABORATORY Final Result [facility] [address] [place] [address], [place] [phone] * (ABNORMAL) URIC ACID BLOOD (05/14/2025 10:55 AM CDT) URIC ACID 2.5(L) 2.6 - 6.0 MG/DL 05/14/2025 11:37 AM CDT [facility] 05/14/2025 10:5 5 AM CDT Joce Barksdale MD LABORATORY Final Result [facility] [address] [place] [address], [place] [phone] * MG SCREENING W ZULY SHERLY DIGI [...] 11:13 AM Narrative 03/25/2025 11:13 AM CDT [facility] [place] [address] EXAMINATION: MG SCREENING W ZULY SHERLY DIGI [...] adenopathy. us Provider Non-Staff MAMMO Final Result from Last 3 Months or Most Recently Relevant to Health Maintenance Insurance Care Teams Laboratory Courier Relationship Specialty Start Date End Date Zoey Leone NP [address] [place] [address], [place] [address] PCP - General NURSE PRACTITIONER 07/19/25 Zoey Leone, COST ACCOUNTING MANAGER [address] [place] [address], [place] [address] Nurse Practitioner NURSE PRACTITIONER 07/19/25
[2025-07-21 16:24] VITALS: PULSE 73; RESP 22; O2SAT 99
[2025-07-21 16:30] LABS: Hematocrit 32.0 % (37.0-47.0); Hemoglobin 10.2 g/dL (12.0-15.0); Immature Granulocyte Percent A 0.7 % (0-0.5); Immature Platelet Fraction Pct 1.2 % (0.9-11.2); Lymphocytes Absolute Auto 1.01 K/mm3 (0.9-3.2); Mean Corpuscular HGB Conc 31.9 g/dl (32-36); Mean Corpuscular Hemoglobin 36.8 pg (26-34); Mean Corpuscular Volume 115.5 fl (80-100); Nucleated Red Blood Cells Absolute Auto 0.000 K/mm3 (0.0-0.012); Nucleated Red Blood Cells Perc 0.0 % (0.0-0.2); Platelet Count Result 369 k/mm3 (150-375); Red Blood Count 2.77 M/mm3 (4.2-5.4); White Blood Count 7.3 K/mm3 (4.5-10.0)
--- OUTSIDE RECORDS SUMMARY | 2025-07-21 16:32 | XMS_ITS | Clinical Summary ---
Author Organization [facility] Address [address] [place] [address] Care Team Providers Care Chore Worker Name Role Phone Siena Bell MD Primary [...] 1 tablet (175 mcg total) by mouth hair rooting machine operator before breakfast Active acetaminophen 500 mg [...] (09/24/2022): Added automatically from request for surgery [id number] Intraabdominal fluid collection 08/12/2022 Assessment & Plan (09/24/2022 2:36 PM FIELD STAFF): - Reports doing well today with no [...] She subsequently had a laparascopic cholecystectomy at [facility] on 08/02. Following this she had poor recovery with new O2 requirement after the OR and rising WBC count. She had a positive HIDA scan. She was transferred to [facility] on 08/04. On 08/05 she had [...] (08/05/2022): Added automatically from request for surgery [id number] Perforation bowel 08/04/2022 Overview (08/05/2022): Added automatically from request for surgery [id number] Choledocholithiasis 07/30/2022 Chronic prescription opiate use 07/30/2022 History of gastric bypass 07/30/2022 Acute cholecystitis with acute cholangitis 07/30 Acute gallstone pancreatitis 07/30/2022 Vitamin D deficiency 08/13/2021 Stage 3 chronic kidney disease 08/09/2021 Hypercholesterolemia 08/01/2020 Primary insomnia 02/10/2019 Chronic bilateral low back pain without sciatica 01/26/2019 Chronic peptic ulcer 01/26/2019 Atherosclerosis of yurok co ronary artery of yurok heart without angina pectoris 01/26/2019 Depressive disorder 01/26/2019 Essential hypertension 01/26/2019 Acquired hypothyroidism 01/26/2019 Chronic gastric ulcer with perforation 8 Gastric ulcer without hemorrhage or perforation 06/30/2018 Overview (06/30/2018): Added automatically from request for surgery [id number] Class 1 obesity due to exces s calories with serious comorbidity and body mass index (BMI) of 32.0 to 32.9 in adult 03/09/2018 Iron deficiency anemia henny prajapati to inadequate dietary iron intake 01/08/2018 Other constipation 01/08/2018 Pain of upper abdomen 01/08/2018 Encounters Date Type Department Care Team Description 05/26/2025 9:00 AM CDT Office Visit [facility] Medicine Surgery [address] [facility] Advanced Medicine 12th [place] [address] [place] [address] Dustin Garibay MD Other constipation (Primary Dx) [...] disease Iron deficiency anemia IV iron - Die Polisher Dr. Mendez Family History Medical History Relation [...] often do you attend chur ch or uatsdin services? Never 07/31/2022 Do you belong to any clubs o r organizations such as mu-ism groups, unions, fraternal or athletic groups, or [...] on file Legal Sex Female 12:02 PM FIELD STAFF Gender Identity Not on file Sexual Orientation Not on file Obstetrics History Last Filed Vital Signs Vital Sign Reading Time Taken Comments Blood Pressure 108/63 05/26/2025 9:09 AM CDT Pulse 76 05/26/2025 9:09 AM CDT Temperature 36.4 C (97.6 F) 05/26/2025 9:09 AM CDT Respiratory Rate 18 01/17/2025 11:38 AM FIELD STAFF Oxygen Saturation 96% 02/24/2025 9:35 AM CDT [...] Discontinued 03/17/2017 Medical Devices Implanted Type Area Mine Inspector Federal Device Identifier Shelf Expiration Date Model / Serial / Lot [employer] Advanix 8.5fr 7cm Rapid Exchange Temporary [place] Stent [id number] - [id number] Implanted:Qty: 1 on 08/01/2022 by Nick Nobles MD at [facility] Stent N/A: Bile Duct [employer] Rubio 04/15/2024 [id number] / / [id number] Explanted Type Area Mine Inspector Federal Device Identifier Shelf Expiration Date Model / Serial / Lot [employer] Calderón 5fr 9cm Pancreatic Stent [id number] - [id number] Implanted:Qty: 1 on 08/01/2022 by Nick Nobles MD at [facility] Explanted:Qty: 1 on 08/05/2022 by Philipp Andino MD at [facility] Stent N/A: Pancreas [employer] 04/16/2027 [id number] / / [id number] Procedures Procedure Name Priority Date/Time Associated Diagnosis Comments OCCULT BLOOD, FECAL (FIT) Routine 03/17/2017 6:37 PM CDT SCREENING MAMMOGRAM BILATERAL W GOEMZ Routine 06/20/2016 2:52 PM CDT from Last 3 Months or Most Recently Relevant to Health Maintenance Results * Occult blood, fecal non neoplasm screening (03/17/2017 6:37 PM CDT) Stool Occult Blood NEGATIVE NEGATIVE 03/17/2017 6:37 PM CDT 03/17/2017 6:52 PM CDT Narrative [email or web address] HISTORICAL RESULTS - 03/17/2017 6:55 PM CDT Collected By Arley GOLDMAN [facility] BODY FLUIDS AND STOOLS GRETA CASTILLO Final Result [facility] HISTORICAL RESULTS * Screening Mammogram Bilateral W [...] Electronically signed by: Rey Hernandez md/manasa:06/20/2016 15:38:20 Accounts Receivable Associate: Brielle ANGEL(Julieth)(M), [facility] letter sent: Normal Exam Reading location: BI-RADS: [...] made to exams dated: 01/22/2011 and 11/20/2009 [facility]. BREAST TISSUE: The tissue of both breasts [...] made to exams dated: 01/22/2011 and 11/20/2009 [facility]. BREAST TISSUE: The tissue of both breasts [...] Electronically signed by: Rey Hernandez md/manasa:06/20/2016 15:38:20 Accounts Receivable Associate: Brielle Jones RT(R)(M), [facility] letter sent: Normal Exam Reading location: BI-RADS: 1 Negative [EOD] us Malorie Lo MD IMG MAMMO PROCEDURES Final Result from Last 3 Months or Most Recently Relevant to Health Maintenance Insurance [facility] MEDICARE ADVANTAGE [employer] OOS BLUE ACCESS OOS Member Subscriber Plan / Payer (Ef fective 2021-Present) Name:TimiЕкатерина Lilly Relation to Subscriber:Self Name:Екатерина Dockery Payer ID:[id number] (NAIC) Type:[facility] Address: [address] MEDICARE ADVANTAGE [facility] MED[facility] Address: [address] [address] [place] [address] [facility] MDCR HMO REF [facility] MED[facility] Address: [address] [address] [place] [address] Advance Directives For more information, please contact: [phone] * Full Code (Latest Code Status on [...] 10:14 PM 08/24/2022 2:48 AM Care Teams Chore Worker Relationship Specialty [place] [address] [address] PCP - General Gastroenterology 08/28/22
--- OUTSIDE RECORDS SUMMARY | 2025-07-21 16:32 | XMS_ITS | Clinical Summary ---
Author Organization [facility] Address [address] [place] [address] Phone Care Team Providers Care Platform Attendant Name Role Phone Siena Bell MD Primary Care Provider Eloy Mendez MD Unavailable [phone] Allergies Active Allergy Reactions Criticality Noted Date [...] NEEDED 12/28/19 22 Active ergocalciferol (VITAMIN D) 08380 UNIT Capsule TAKE 1 CAPSULE EVERY WEEK [...] Description 06/03/2025 Telephone [facility] [address] [address] Sherry Gooden, MICAHEL, KEYSEATER OPERATOR 06/02/2025 10:50 AM CDT Lab [facility] [address] [address] Lab, [facility] Nausea; Anemia in stage 3b chronic kidney disease (HCC); Iron deficiency anemia, unspecified iron deficiency anemia type 06/02/2025 9:30 AM CDT Office Visit [facility] [address] [address] Sherry Gooden, VACUUM CLEANER MECHANIC, KEYSEATER OPERATOR Anemia in stage 3b chronic kidney disease [...] on file Legal Sex Female 9:24 AM PROCESS DEVELOPMENT MANAGER Gender Identity Not on file Sexual Orientation [...] CDT Office Visit [facility] [address] [address] Eloy Mendez MD [address] MICHEL [address] [place] [address] Health Maintenance Due Date Last Done [...] CDT) IRON 76 50 - 212 ug/dL [facility] AGRICULTURAL RESEARCH TECH[facility] UIBC 183 155 - 355 ug/dL [facility] AGRICULTURAL RESEARCH [facility]CH[facility] TIBC 259(L) 261 - 478 ug/dl [facility] AGRICULTURAL RESEARCH TECHNOLOGIST [facility] % Saturation 29 20 - 50 % CANCER AGRICULTURAL RESEARCH TECHNOLOGIST [facility] 06/02/2025 10:4 2 AM CDT Narrative CANCER AGRICULTURAL RESEARCH TECHNOLOGIST [facility] - 06/02/2025 12:05 PM CDT Release to patient->Immediate Sherry Gooden VACUUM CLEANER MECHANIC, KEYSEATER OPERATOR LAB SEND OUTS F inal Result CANCER AGRICULTURAL RESEARCH TECHNOLOGIST [facility] [place] [address], * (ABNORMAL) CBC WITH AUTO DIFF [place] (06/02/2025 10:42 AM CDT) WBC 5.2 4.0 - 10.0 10*3/uL CANCER AGRICULTURAL RESEARCH TECHNOLOGIST [facility] HGB 11.0(L) 11.2 - 15.7 g/dL CANCER AGRICULTURAL RESEARCH TECHNOLOGIST [facility] HCT 33.6(L) 34.1 - 44.9 % CANCER AGRICULTURAL RESEARCH TECHNOLOGIST [facility] PLT 271 163 - 369 10*3/uL CANCER AGRICULTURAL RESEARCH TECHNOLOGIST [facility] MPV 8.7(L) 9.4 - 12.4 fL CANCER AGRICULTURAL RESEARCH TECHNOLOGIST [facility] RBC 3.01(L) 3.93 - 5.22 10*6/uL CANCER AGRICULTURAL RESEARCH TECHNOLOGIST [facility] MCV 112(H) 79 - 95 fL CANCER AGRICULTURAL RESEARCH TECHNOLOGIST [facility] MCH 36.5(H) 25.6 - 32.2 pg CANCER AGRICULTURAL RESEARCH TECHNOLOGIST [facility] MCHC 32.7 32.2 - 36.5 g/dL CAN[facility]ER AGRICULTURAL RESEARCH TECHNOLOGIST [facility] RDW 11.6 11.6 - 14.4 % CANCER AGRICULTURAL RESEARCH TECHNOLOGIST [facility] Neutrophils % 64.9 36.0 - 66.0 % CANCER AGRICULTURAL RESEARCH TECHNOLOGIST [facility] Lymphocytes % 20.3 19.0 - 40.0 % CANCER AGRICULTURAL RESEARCH TECHNOLOGIST [facility] Monocytes % 11.3 4.1 - 12.1 % CANCER AGRICULTURAL RESEARCH TECHNOLOGIST [facility] Eosinophils % 2.3 0.0 - 3.5 % CANCER AGRICULTURAL RESEARCH TECHNOLOGIST [facility] Basophils % 0.6 0.0 - 1.0 % CANCER AGRICULTURAL RESEARCH TECHNOLOGIST [facility] Absolute Neutrophils 3.4 1.4 - 6.6 10*3/uL CANCER AGRICULTURAL RESEARCH TECHNOLOGIST [facility] Absolute Lymphocytes 1.1 0.8 - 4.0 10*3/uL CANCER AGRICULTURAL RESEARCH TECHNOLOGIST [facility] Absolute Monocytes 0.6 0.2 - 1.2 10*3/uL CANCER AGRICULTURAL RESEARCH TECHNOLOGIST [facility] Absolute Eosinophils 0.1 0.0 - 0.4 10*3/uL CANCER AGRICULTURAL RESEARCH TECHNOLOGIST [facility] Absolute Basophils 0.0 0.0 - 0.1 10*3/uL CANCER AGRICULTURAL RESEARCH TECHNOLOGIST [facility] WBC Estimate Normal CANCER AGRICULTURAL RESEARCH TECHNOLOGIST [facility] Platelet Estimate Normal CA NCER AGRICULTURAL RESEARCH TECHNOLOGIST [facility] RBC Morphology Abnormal CANCE R AGRICULTURAL RESEARCH TECHNOLOGIST [facility] Macrocytosis 2+ CANCER AGRICULTURAL RESEARCH TECHNOLOGIST [facility] Poikilocytosis 1+ CANCE R AGRICULTURAL RESEARCH TECHNOLOGIST [facility] 06/02/2025 10:4 2 AM CDT Sherry Gooden APRN, KEYSEATER OPERATOR LAB SEND OUTS F inal Result CANCER AGRICULTURAL RESEARCH TECHNOLOGIST [facility] [address] [place] [address], [place] [phone] * VITAMIN B12 (06/02/2025 10:42 AM CDT) Vitamin B12 232 180 - 914 pg/mL [facility] AGRICULTURAL RESEARCH TECHNOLOGISTPR[facility]IE [facility] Blood 06/02/2025 10:4 2 AM CDT Narrative [facility] AGRICULTURAL RESEARCH TE[facility] - 06/03/2025 2:42 PM CDT Release to patient->Immediate Sherry Gooden APRN, KEYSEATER OPERATOR CHEMISTRY ORDERAB LES Final Result [facility] AGRICULTURAL RESEARCH TECHNOLOG[facility] [address] [place] [address], [place] [phone] * FOLIC ACID (FOLATE) (06/02/2025 10:42 AM CDT) Folate 10.71 >=5.90 ng/mL [facility] AGRICULTURAL RESEARCH TE[facility] Blood 06/02/2025 10:4 2 AM CDT Narrative [facility] AGRICULTURAL RESEARCH TECHNOLOG[facility]PR[facility] - 06/03/2025 2:42 PM CDT Release to patient->Immediate IS THE PATIENT REQUIRED TO BE FASTING FOR 12 HOURS?->No Sherry Gooden APRN, KEYSEATER OPERATOR CHEMISTRY ORDERAB LES Final Result Performing Organization Address City/[facility]/ZIP Co de Phone Number CANCER AGRICULTURAL RESEARCH TECHNOLOGIST [facility] Cancer Care [address] [place] [address], * FERRITIN (06/02/2025 10:42 AM CDT) Ferritin 126 11 - 307 ng/mL [facility] Blood 06/02/2025 10:4 2 AM CDT [facility] - 06/03/2025 2:42 PM CDT Release to patient->Immediate Sherry Gooden VACUUM CLEANER MECHANIC, KEYSEATER OPERATOR CHEMISTRY ORDERAB LES Final Result Performing Organization Address City/[facility]/ZIP Co de Phone Number [facility] AGRICULTURAL RESEARCH TECHNOLOGISTPR[facility]IRIE [facility] Cancer Care [address] [place] [address], * (ABNORMAL) CMP (COMPREHENSIVE METABOLIC PANEL) (06/02/2025 10:42 AM CDT) Glucose 84 70 - 105 mg/dL [facility] Blood Urea Nitrogen 16 7 - 25 mg/dL [facility] Creatinine 1.1 0.6 - 1.2 mg/dL [facility] Sodium 133(L) 136 - 145 mEq/L [facility] Potassium 4.6 3.5 - 5.1 mEq/L [facility] Chloride 99 98 - 107 mEq/L [facility] Bicarbonate 24 21 - 31 mEq/L [facility] Total Bilirubin 0.2(L) 0.3 - 1.0 mg/dL [facility] Alk. Phosphatase 70 34 - 104 U/L [facility] Aspartate Aminotransferase 11(L) 13 - 39 U/L [facility] RESEARCH TECHNOLOGISTPR[facility]IRIE [facility] Alanine Aminotransferase 11 7 - 52 U/L [facility] Total Protein 6.0(L) 6.4 - 8.9 g/dL [facility] Albumin 4.1 3.5 - 5.7 g/dL [facility] Calcium 9.2 8.6 - 10.3 mg/dL [facility] Anion Gap 14.6 7.0 - 15.0 mEq/L [facility] Globulin 1.9(L) 2.0 - 3.5 g/dL [facility] EGFR 54(L) >60 ml/min/1. 73m2 [facility] AGRICULTURAL RESEARCH TECHNOLOGISTPR[facility]IRIE [facility] Comment: This eGFR is calculated using 2020 CKD-EPI Creatinine equation without race modifier based on the NKF-ASN task force recommendations Equation: mEZE=226*min(SCr/k,1)a*max(SCr/k,1)-1.200*0.9938Age*1.012 (if female), where SCr is serum creatinine, k is 0.7 for females and 0.9 for males, and a is -0.241 for females and -0.302 for males Blood 06/02/2025 10:4 2 AM CDT Narrative [facility] AGRICULTURAL RESEARCH TECH[facility] - 06/02/2025 12:05 PM CDT Release to patient->Immediate IS THE PATIENT REQUIRED TO BE FASTING FOR 8 HOURS?->No us Sherry Gooden VACUUM CLEANER MECHANIC, KEYSEATER OPERATOR CHEMISTRY ORDERAB LES Final Result CANCER AGRICULTURAL RESEARCH TECHNOLOGIST [facility] [place] [address], from Last 3 Months Insurance MEDICARE C [employer] [facility] Care Teams Platform Attendant Relationship Specialty Start Date End Date Siena Bell MD [address] [place] [address] PCP - General Internal Medicine 01/16/22 Eloy Mendez MD [address] [place] [phone] Consulting Physician Oncology 09/29/23
--- OUTSIDE RECORDS SUMMARY | 2025-07-21 16:35 | XMS_ITS | Encounter Summary ---
Author Organization [facility] Address [address] [place] [address] Care Team Providers Care Toll Bridge Attendant Name Role Phone Malorie Lo MD Primary Care Provider [phone] Zoey Leone CHILD CAREGIVER PRIVATE HOME Unavailable [phone] Zoey Leone NP Primary Care Provider [phone] Encounter Details Date Type Department Care Team (Late st Contact Info) Description 06/29/2024 Therapy Plan [facility], [address] [address] Mary Syed MD [address] [place] [address] Social History Tobacco Use Types Packs/Day [...] Description 08/11/2025 9:40 AM CDT Office Visit [facility] Family [facility] - [place] [address] [place] [address] Zoey Leone CHILD CAREGIVER PRIVATE HOME [address] [place] [address] documented as of this encounter Visit Diagnoses Diagnosis Iron deficiency anemia- Primary Iron deficiency anemia, unspecified documented in this encounter Care Teams Toll Bridge Attendant Relationship Specialty Start Date End Date Malorie Lo MD [address] [facility] [place] [address] PCP - General 08/21/11 07/18/25 Zoey Leone CHILD CAREGIVER PRIVATE HOME [address] [place] [phone] PCP - General NURSE PRACTITIONER 07/19/25 Zoey Leone CHILD CAREGIVER PRIVATE HOME [address] [place] [phone] Nurse Practitioner NURSE PRACTITIONER 07/19/25 documented as of this encounter
--- OUTSIDE RECORDS SUMMARY | 2025-07-21 16:35 | XMS_ITS | Clinical Summary ---
Author Organization [facility] Address [address] [place] [address] Care Team Providers Care Disability Aide Name Role Phone Zoey Leone STRAW HAT MACHINE OPERATOR Unavailable [phone] Zoey Leone NP Primary Care Provider [phone] Allergies Active Allergy Reactions Criticality Noted Date [...] spray 2 sprays by Nasal route daily. [place] Into Each Nostril 5 Active furosemide (LASIX) [...] Description 07/20/2025 9:00 AM CDT Office Visit [facility] Family Medicine - [place] [address] [place] [address] Zoey Leone NP Headache (Patient presents today to get established and does c/o ongoing headaches x 2 weeks. ) 07/20/2025 Travel 05/14/2025 10:35 AM CDT - 05/14/2025 11:59 PM CDT Hospital Encounter [place] [address] Joce Barksdale MD Discharge Disposition: Home or Self Care (Routine Discharge) 05/14/[address] [place] [address] Joce Barksdale MD 05/14/2025 Travel from Last [...] Description 08/11/2025 9:40 AM CDT Office Visit [facility] Family Medicine - [place] [address] [place] [address] Zoey Leone NP [address] [place] [address] Health Maintenance Due Date Last [...] - 1-dose 75+ series) 2029 PHQ-2 (Physician Melvin) Completed 07/20/2025 Meningococcal B Vaccine Aged Out [...] 05/14/2025 10:55 AM CDT Hyperparathyroidism , unspecified ([facility]/HCC) URIC ACID BLOOD Routine 05/14/2025 10:55 AM CDT Chronic kidney disease, stage III (moderate) ([facility]/HCC) COMPREHENSIVE METABOLIC PANEL Routine 05/14/2025 10:55 AM CDT Chronic kidney disease, stage III (moderate) ([facility]/HCC) MG SCREENING W ZULY SHERLY DIGI Routine 03/24/2025 10:39 AM CDT Encounter for screening mammogram for malignant neoplasm of breast from Last 3 Months or Most Recently Relevant to Health Maintenance Results * PTH - INTACT (05/14/2025 10:55 AM CDT) PTH INTACT 31.7 18.4 - 80.1 PG/ML 05/14/2025 11:44 AM CDT [facility] 05/14/2025 10:5 5 AM CDT Joce Barksdale MD LABORATORY Final Result [facility] [address] [place] [address], [place] [phone] * (ABNORMAL) COMPREHENSIVE METABOLIC PANEL (05/14/2025 10:55 AM CDT) GLUCOSE 93 70 - 99 MG/DL 05/14/2025 11:37 AM CDT [facility] BUN 18 7 - 18 MG/DL 05/14/2025 11:37 AM CDT [facility] CREATININE S/P/B 0.94 0.55 - 1.02 MG/DL 05/14/2025 11:37 AM CDT [facility] SODIUM S/P/B 140 136 - 145 MMOL/L 05/14/2025 11:37 AM CDT [facility] POTASSIUM S/P/B 4.1 3.5 - 5.1 MMOL/L 05/14/2025 11:37 AM CDT [facility] CHLORIDE S/P/B 113 97 - 115 MMOL/L 05/14/2025 11:37 AM CDT [facility] CO2 23.1 21 - 32 MMOL/L 05/14/2025 11:37 AM CDT [facility] CALCIUM S/P/B 9.0 8.5 - 10.1 MG/DL 05/14/2025 11:37 AM CDT [facility] BILIRUBIN TOTAL S/P/B 0.4 0.2 - 1.2 MG/DL 05/14/2025 11:37 AM CDT [facility] Comment: THIS ASSAY IS NOT RECOMMENDED FOR PATIENTS UNDERGOING TREATMENT WITH ELTROMBOPAG DUE TO THE POTENTIAL FOR FALSELY ELEVATED RESULTS. TOTAL PROTEIN S/P/B 6.6 6.4 - 8.2 G/DL 05/14/2025 11:37 AM CDT [facility] ALBUMIN S/P/B 3.5 3.4 - 5.0 G/DL 05/14/2025 11:37 AM CDT [facility] AST 19 15 - 37 U/L 05/14/2025 11:37 AM CDT [facility] ALT 28 14 - 55 U/L 05/14/2025 11:37 AM T [facility] ALKALINE PHOSPHATASE S/P/B 82 50 - 136 U/L 05/14/2025 11:37 AM T [facility] ANION GAP 3.9 2 - 10 MMOL/L 05/14/2025 11:37 AM T [facility] BUN CREATININE RATIO 19.2 6 - 26 05/14/2025 11:37 AM T [facility] A/G RATIO 1.1 1.0 - 2.0 RATIO 05/14/2025 11:37 AM T [facility] GFR ESTIMATE 65(L) >90 ML/MIN/1.7 3 M2 05/14/2025 11:37 AM T [facility] Comment: NOTE: eGFR is not calculated [...] us Joce Barksdale MD LABORATORY Final Result [facility] [address] [place] [address], [place] [phone] * VITAMIN D, 25 [place] (05/14/2025 10:55 AM CDT) VITAMIN D 25 HYDROXY S/P/B 74 30 - 100 NG/ML 05/14/2025 11:44 AM CDT [facility] Comment: INTERPRETATION DEFICIENT <20 INSUFFICIENT 20-29 SUFFICIENT 30-100 05/14/2025 10:5 5 AM CDT Joce Barksdale MD LABORATORY Final Result [facility] [address] [place] [address], [place] [phone] * (ABNORMAL) URIC ACID BLOOD (05/14/2025 10:55 AM CDT) URIC ACID 2.5(L) 2.6 - 6.0 MG/DL 05/14/2025 11:37 AM CDT [facility] 05/14/2025 10:5 5 AM CDT Joce Barksdale MD LABORATORY Final Result [facility] [address] [place] [address], [place] [phone] * MG SCREENING W ZULY SHERLY DIGI [...] 11:13 AM Narrative 03/25/2025 11:13 AM CDT [facility] [address] [place] [address] EXAMINATION: MG SCREENING W ZULY SHERLY DIGI [...] Relevant to Health Maintenance Insurance Care Teams Disability Aide Relationship Specialty Start Date End Date Zoey Leone NP [address] [place] [address], [place] [address] PCP - General NURSE PRACTITIONER 07/19/25 Zoey Leone, STRAW HAT MACHINE OPERATOR [address] [place] [address], [place] [address] Nurse Practitioner NURSE PRACTITIONER 07/19/25
--- OUTSIDE RECORDS SUMMARY | 2025-07-21 16:35 | XMS_ITS | Encounter Summary ---
Author Organization [facility] Address [facility] [place] [address] Care Team Providers Care Metal Dresser Name Role Phone Malorie Lo MD Primary Care Provider [phone] Zoey Leone PENCILLER Unavailable [phone] Zoey Lenoe NP Primary Care Provider [phone] Encounter Details Date Type Department Care Team (Late st Contact Info) Description 06/15/2024 Chart Prep [facility], [address] [address] Malorie Lo MD [address] [place] [id number] Social History Tobacco Use Types Packs/Day [...] Description 08/11/2025 9:40 AM CDT Office Visit [facility] [address] [place] [id number] Zoey Leone NP [address] [place] [address] documented as of this encounter Visit Diagnoses Not on filedocumented in this encounter Care Teams Metal Dresser Relationship Specialty Start Date End Date Malorie Lo MD [address] [place] [address] PCP - General 08/21/11 07/18/25 Zoey Leone PENCILLER [address] [place] [id number] PCP - General NURSE PRACTITIONER 07/19/25 Zoey Leone PENCILLER [address] [place] [id number] Nurse Practitioner NURSE PRACTITIONER 07/19/25 documented as of this encounter
--- OUTSIDE RECORDS SUMMARY | 2025-07-21 16:35 | XMS_ITS | Encounter Summary ---
Author Organization [facility] Address [address] [place] [address] Care Team Providers Care Software Development Engineer Name Role Phone Zoey Leone CARBON BLOCKS PRESS OPERATOR Unavailable [phone] Zoey Leone CARBON BLOCKS PRESS OPERATOR Primary Care Provider [phone] Encounter Details Date Type Department Care Team [...] Questionnaire-9 Score 7 07/20/2025 9:23 AM Lisa Cannno MA Active * If you checked off [...] happen 0 07/20/2025 9:23 AM CDT Lisa Berg MA Acti ve BECKY-7 Total Score 4 07/20/2025 9:23 AM CDT Lisa Berg MA Active documented as of this encounter Plan of Treatment Upcoming Encounters Date Type Department Care Team (Late st Contact Info) Description 08/11/2025 9:40 AM CDT Office Visit [facility] - [facility] [address] [place] [phone] Zoey Leone, CARBON BLOCKS PRESS OPERATOR [address] [place] [phone] documented as of this encounter Visit Diagnoses Not on filedocumented in this encounter Additional Health Concerns Assessment Noted Time PHQ-9 Depression Total Score: 7 07/20/20 9:23 AM CDT documented as of this encounter Care Teams Software Development Engineer Relationship Specialty Start Date End Date Zoey Leone, CARBON BLOCKS PRESS OPERATOR [address] [place] [id number] PCP - General NURSE PRACTITIONER 07/19/25 Zoey Leone, CARBON BLOCKS PRESS OPERATOR [address] [place] [id number] Nurse Practitioner NURSE PRACTITIONER 07/19/25 documented as of this encounter
--- OUTSIDE RECORDS SUMMARY | 2025-07-21 16:35 | XMS_ITS | Clinical Summary ---
Author Organization [facility] Address [address] [place] [address] Care Team Providers Care Telephone Triage Nurse Name Role Phone Malorie Lo MD Primary Care Provider [phone] Source Comments [facility],non-owned Affiliates and Associated Physician Practices is amultiple site organization consisting of ambulatory clinics and hospital sitesin [place], [place], [place]. This disclosure is being madepursuant to the Care Everywhere program and may not contain all information available regarding this patient. Last updated 18.[facility] Active Problems Problem Noted Date Diagnosed Date SBO (small bowel obstruction) 12/25/2024 Social History Tobacco Use Types Packs/Day Years Used Date Smoking Tobacco: Never Assessed Comments Unknown Sex and Gender Information Value Date Recorded Sex Assigned at Not on file Legal Sex Female 6:55 PM HOSPICE MANAGER Gender Identity Not on file Sexual [...] age to complete this topic Care Teams Telephone Triage Nurse Relationship Specialty Start Date End Date Malorie Lo MD PCP - General 04/30/12
[2025-07-21 16:38] LABS: Alanine Aminotransferase 17 U/L (6-35); Albumin Level 3.9 g/dL (3.5-5.1); Alkaline Phosphatase 94 U/L (38-126); Anion Gap 11 mmol/L (4-12); Aspartate Amino Transferase 25 U/L (14-36); Bilirubin,Total 0.3 mg/dL (0.2-1.3); Blood Urea Nitrogen 28 mg/dL (7-17); Calcium 9.4 mg/dL (8.4-10.2); Carbon Dioxide 13 mmol/L (22-30); Chloride 112 mmol/L (98-107); Estimated CRCL calculation 32 ml/min; Estimated Glomerular Filt Rate 45; Glucose 106 mg/dL (65-110); Lipase 87 U/L (23-300); Potassium 4.0 mmol/L (3.4-5.0); Sodium 136 mmol/L (137-145); Total Protein 6.7 g/dL (6.3-8.2)
[2025-07-21] MEDS: SODIUM CHLORIDE 0.9% IV 1,000 ML 999 ML IV CONT (16:41)
[2025-07-21] MEDS: DICYCLOMINE HCL INJ 20 MG/2 ML VIAL IM (16:42)
[2025-07-21] MEDS: HYDROmorphone HCL INJ (*CRX) 1 MG/ML SYR 0.5 MG IV PUSH ×2 (16:42→21:34)
--- NOTE | 2025-07-21 16:42 | ED.GENADULT ---
HPI - General Adult General Chief complaint: Abdominal Pain Stated complaint: abdominal pain Time Seen by Provider: 07/21/25 16:02 History of Present Illness HPI narrative: This is a 69-year-old female presenting ED with chief complaint of abdominal pain. Patient has history of chronic abdominal pain and constipation. Patient was constipated for last 3 days. She took her Linzess last night. She then had diarrhea this morning in burning abdominal pain. She has had 1 episode of nausea and vomiting. She denies fevers chills chest pain or difficulty breathing. Patient has a long history of chronic abdominal pain. She called her GI clinic earlier today in the franchise broker told her to go to the ER she was having abdominal pain. Related Data Home Medications ?Medication ?Instructions ?Recorded ?Confirmed ?Last Taken ?Type benzonatate 200 mg capsule 200 mg PO TID 07/27/22 06/28/25 Unknown History carisoprodol 350 mg tablet 350 mg PO TID PRN Muscle Spasm 07/27/22 06/28/25 Unknown History cetirizine 10 mg tablet 10 mg PO DAILY 07/27/22 06/28/25 Unknown History ergocalciferol (vitamin D2) 1,250 50,000 unit PO WEEKLY 07/27/22 06/28/25 Unknown History mcg (50,000 unit) capsule escitalopram oxalate 10 mg tablet 10 mg PO DAILY 07/27/22 06/28/25 Unknown History escitalopram oxalate 10 mg tablet mg 07/27/22 06/28/25 Unknown History fluticasone propionate 50 2 spray intranasal DAILY 07/27/22 06/28/25 Unknown History mcg/actuation nasal spray,suspension gabapentin 300 mg capsule 300 mg PO TID 07/27/22 06/28/25 Unknown History hydrochlorothiazide 12.5 mg capsule 12.5 mg PO DAILY 07/27/22 06/28/25 Unknown History levothyroxine 175 mcg tablet 175 mcg PO QAM 07/27/22 06/28/25 Unknown History losartan 100 mg tablet 100 mg PO DAILY 07/27/22 06/28/25 Unknown History metoprolol tartrate 50 mg tablet 50 mg PO BID 07/27/22 06/28/25 Unknown History oxycodone-acetaminophen 10 mg-325 1 tablet PO TID 07/27/22 06/28/25 Unknown History mg tablet quetiapine 25 mg tablet 25 mg PO HS 07/27/22 06/28/25 Unknown History rosuvastatin 10 mg tablet 10 mg PO DAILY 07/27/22 06/28/25 Unknown History triamcinolone acetonide 0.1 % 1 applic topical BID 07/27/22 06/28/25 Unknown History topical cream zolpidem 10 mg tablet 10 mg PO HS PRN Insomnia 07/27/22 06/28/25 Unknown History Allergies Allergy/AdvReac Type Severity Reaction Status Date / Time ibuprofen Allergy Mild Unknown Verified 07/21/25 20:36 [facility] Past Medical History Medical History Hypothyroidism Hypertension Hyperlipidemia Nausea and vomiting in adult RUQ pain Elevated liver enzymes Biliary acute pancreatitis Surgical History Surgical History S/P gastric surgery Family History Family History Father Stomach cancer Mother Myocardial infarction Cerebrovascular accident Social History Social History Smoking status: Never smoker Alcohol intake: never Substance use: current Substance use type: marijuana Last use: 07/22/2022 Spiritual care concerns: No Exam Narrative: APPEARANCE: No apparent distress. Head: atraumatic. EYES: EOMI, NOSE: Atraumatic NECK: Trachea midline RESPIRATORY: No increased rate of breathing clear to auscultation CARDIOVASCULAR: RRR, no peripheral edema ABDOMINAL: Non-distended soft nontender MUSCULOSKELETAl: No obvious deformities NEURO: Alert. Moving 4/4 extremities SKIN:: Warm, dry. Normal color PSYCHIATRIC: Normal affect Course Vital Signs Vital signs: Vital Signs Pulse Rate 73 07/21/25 16:24 Respiratory Rate 22 H 07/21/25 16:24 Pulse Oximetry 99 07/21/25 16:24 Oxygen Delivery Room Air 07/21/25 16:24 Pulse Rate 73 07/21/25 16:24 Respiratory Rate 22 H 07/21/25 16:24 Pulse Oximetry 99 07/21/25 16:24 Oxygen Delivery Room Air 07/21/25 16:24 Medical Decision Making MDM Narrative Medical decision making narrative: -Course: 69-year-old female with chronic abdominal presenting presenting with abdominal pain nausea and vomiting. While she did have diarrhea this morning she is now. Passing flatus. She says this feels similar to previous small-bowel obstructions. CT shows a small bowel obstruction with transition point in the lower anterior abdomen. An NG tube was placed to intermittent suction. She is given fluid resuscitation and pain control. Patient has a very complex surgical history of abdomen. I spoke with the GI specialist Dr. Garvin. They have accepted the patient transfer although she will likely not get a bed tonight. They requested that we give her oral contrast now and then get a abdominal x-ray in the morning. This will be both diagnostic and therapeutic. If she has a bowel movement she can be discharged. If not they will accept for transfer to their facility. Patient has been signed out to the oncoming physician. -DDX includes but is not limited to: Small-bowel obstruction, colitis, diverticulitis, appendicitis Vital Signs Vital Signs: Vital Signs Pulse Rate 73 07/21/25 16:24 Respiratory Rate 22 H 07/21/25 16:24 Pulse Oximetry 99 07/21/25 16:24 Oxygen Delivery Room Air 07/21/25 16:24 Pulse Rate 73 07/21/25 16:24 Respiratory Rate 22 H 07/21/25 16:24 Pulse Oximetry 99 07/21/25 16:24 Oxygen Delivery Room Air 07/21/25 16:24 Lab Data 07/21/25 16:19 07/21/25 16:19 Labs: Lab Results 07/21/25 07/21/25 07/21/25 Range/Units 16:19 16:21 21:02 WBC 7.3 (4.5-10.0) K/mm3 RBC 2.77 L (4.2-5.4) M/mm3 Hgb 10.2 L (12.0-15.0) g/dL Hct 32.0 L (37.0-47.0) % MCV 115.5 H (80-100) fl MCH 36.8 H (26-34) pg MCHC 31.9 L (32-36) g/dl RDW 12.2 (11.5-14.5) % Plt Count 369 D (150-375) k/mm3 MPV 9.1 (7.4-10.4) fl Immature Gran % (Auto) 0.7 H (0-0.5) % Neut % (Auto) 76.3 H (45.5-73.1) % Lymph % (Auto) 13.8 L (18.3-44.2) % Wake % (Auto) 8.4 (2.6-8.5) % Eos % (Auto) 0.5 (0-4.4) % Baso % (Auto) 0.3 (0.2-1.2) % Lymph # (Auto) 1.01 (0.9-3.2) K/mm3 Wake # (Auto) 0.6 (0.1-0.6) K/mm3 Eos # (Auto) 0.0 (0-0.3) K/mm3 Baso # (Auto) 0.0 (0.0-0.1) K/mm3 Abs Immat Gran (auto) 0.05 H (0.00-0.031) K/mm3 Absolute Neuts (auto) 5.6 (1.3-6.7) K/mm3 Absolute Nucleated RBC 0.000 (0.0-0.012) K/mm3 Band Neutrophils % Not Reportable Nucleated RBC % 0.0 (0.0-0.2) % Platelet Estimate Adequate (Adequate) % Immature Plt Fraction 1.2 (0.9-11.2) % Macrocytosis 1+ (NORMAL) Sammy Cells Occasional Schistocytes None seen Sodium 136 L (137-145) mmol/L Potassium 4.0 (3.4-5.0) mmol/L Chloride 112 H (98-107) mmol/L Carbon Dioxide 13 L (22-30) mmol/L Anion Gap 11 (4-12) mmol/L BUN 28 H D (7-17) mg/dL Creatinine 1.19 H (0.7-1.0) mg/dL Estim Creat Clear Calc 32 ml/min Estimated GFR 45 L (59 - ) Glucose 106 (65-110) mg/dL Lactic Acid 0.9 (0.7-2.0) mmol/L Calcium 9.4 (8.4-10.2) mg/dL Total Bilirubin 0.3 (0.2-1.3) mg/dL AST 25 (14-36) U/L ALT 17 (6-35) U/L Alkaline Phosphatase 94 (38-126) U/L Total Protein 6.7 (6.3-8.2) g/dL Albumin 3.9 (3.5-5.1) g/dL Lipase 87 (23-300) U/L Urine Color Yellow (Yellow) Urine Appearance Clear (Clear) Urine pH 5.5 (5.0-9.0) Ur Specific [place] 1.037 H (1.001-1.035) Urine Protein Negative (Negative) mg/dL Urine Glucose (UA) Negative (Negative) mg/dL Urine Ketones Negative (Negative) mg/dL Ur Blood (Man) Negative (Negative) Urine Nitrate Negative (Negative) Urine Bilirubin Negative (Negative) Urine Urobilinogen 0.2 (<2.0) mg/dL Leukocyte Esterase Rfl Negative (Negative) SUZI/UL Discharge Plan Discharge Clinical Impression: Complete small bowel obstruction Patient Disposition: Acute Care Hospital Condition: Stable Patient Language: Irish Prescriptions: No Action pantoprazole 40 mg tablet,delayed release (DR/EC) 40 mg PO QAM Qty: 30 3RF ondansetron 4 mg tablet,disintegrating 4 mg PO Q8H PRN (Reason: nausea and vomiting) Qty: 30 2RF dicyclomine 10 mg capsule 10 mg PO TID PRN (Reason: Abdominal Discomfort) Qty: 90 2RF lubiprostone [Amitiza] 24 mcg capsule 24 mcg PO BID Qty: 60 3RF carisoprodol 350 mg tablet 350 mg PO TID PRN (Reason: Muscle Spasm) quetiapine 25 mg tablet 25 mg PO HS levothyroxine 175 mcg tablet 175 mcg PO QAM cetirizine 10 mg tablet 10 mg PO DAILY benzonatate 200 mg capsule 200 mg PO TID triamcinolone acetonide 0.1 % cream 1 applic TOPICAL BID Rx Instructions: to arms and neck oxycodone-acetaminophen 10-325 mg tablet 1 tablet PO TID metoprolol tartrate 50 mg tablet 50 mg PO BID hydrochlorothiazide 12.5 mg capsule 12.5 mg PO DAILY gabapentin 300 mg capsule 300 mg PO TID ergocalciferol (vitamin D2) 1,250 mcg (50,000 unit) capsule 50,000 unit PO WEEKLY Rx Instructions: on mondays zolpidem 10 mg tablet 10 mg PO HS PRN (Reason: Insomnia) losartan 100 mg tablet 100 mg PO DAILY fluticasone propionate 50 mcg/actuation [place],Suspension 2 spray INTRANASAL DAILY escitalopram oxalate 10 mg tablet 10 mg PO DAILY escitalopram oxalate 10 mg tablet rosuvastatin 10 mg tablet 10 mg PO DAILY Follow-up/Referrals: Che Michele, MICHAEL [Primary Care Provider, Gastroenterology]
[2025-07-21 16:53] LABS: Burr Cells Occasional; Macrocytosis 1+ (NORMAL); Schistocytes None Seen
[2025-07-21] MEDS: LIDO 1%/EPINEPHRINE 1:100,000 20 ML VIAL 10 ML INFILTRATE (18:41)
[2025-07-21 21:08] LABS: Add Urine Microscopic? NO; Appearance Urine Clear (Clear); Glucose Urine UA Negative (Negative); Leukocyte Esterase Ur Negative LEU/UL (Negative); Nitrate Urine Negative (Negative); Specific Grav Ur 1.037 (1.001-1.035)
== END 2025-07-22 01:00 | disposition short-term general hospital (02) ==
PROVIDERS: Emergency Medicine; Emergency Provider Emergency Medicine; PCP Nurse Practitioner Family
DX: K56.601 Complete intestinal obstruction, unspecified as to cause (principal); I10 Essential (primary) hypertension; E03.9 Hypothyroidism, unspecified; E78.5 Hyperlipidemia, unspecified; Z79.899 Other long term (current) drug therapy
CPT/HCPCS: 36415; 74177; 80053; 81003; 83605; 83690; 85025; 85055; 96361; 96372; 96374; 96376; 99285; J0500; J1171; J2004; J7030; Q9967

== ENCOUNTER 2025-09-20 13:42 | Inpatient (IN) | payer MEDICARE, SELFPAY ==
--- OUTSIDE RECORDS SUMMARY | 2024-05-05 07:00 | XMS_ITS ---
Author Organization [facility] Address [id number] [place] [address] Care Team Providers Care Wet Inspector Optical Glass Name Role Phone Joce Barksdale Unavailable [phone] Encounters Encounter Location Date Provider Diagnosis [place] [facility] [address] [facility] [address] [place] [address] 05/05/2024 Joce Barksadle Chronic kidney disease, stage 2 (mild) N18.2 ; Anxiety disorder, unspecified F41.9 ; Chronic fatigue, unspecified R53.82 ; Essential hypertension I10 ; Urinary tract infection, site not specified N39.0 and Proteinuria, unspecified R80.9 Assessments Encounter Date Diagnosis (ICD Code) Assessment Notes Treatment Notes Treatment Clinical Notes Section Notes 05/05/2024 Chronic kidney disease, stage 2 (mild) (ICD-10 - N18.2) 05/05/2024 Anxiety disorder, unspecified (ICD-10 - F41.9) 05/05/2024 Chronic fatigue, unspecified (ICD-10 - R53.82) 05/05/2024 Essential hypertension (ICD-10 - I10) 05/05/2024 Urinary tract infection, site not specified (ICD-10 - N39.0) 05/05/2024 Proteinuria, unspecified (ICD-10 - R80.9) Plan Of Treatment Next Appt Details Provider Name:Joce Barksdale , 09/26/2025 04:15:00 PM, [address] [facility], [address], [place], [address], Progress Notes * TOSHIA SWEETOB: (69 yo F)Acc No.[id number]:05/05/2024 Progress Notes Patient: Samm JAY HERNANDES Provider: Brando MENARD MD, F.A.C.P, F.A.S.N. :1955 A ge:68 Y S ex:Female Date:05/05/2024 Address:[address] [place] [address] [facility] Subjective: * Chief Complaints: * * Medical History: Objective: * Vitals: Assessment: * Assessment: 1. C hronic kidney disease, stage 2 (mild) - N18.2 (Primary) 2 . A nxiety disorder, unspecified - F41.9 3 . C hronic fatigue, unspecified - R53.82 ? 4 . E ssential hypertension - I10 5 . U rinary tract infection, site not specified - N39.0 6 . P roteinuria, unspecified - R80.9 Plan: * Treatment: * Billing Information: * Visit Code: 68968 Office Visit, Est Pt., Level 4. * Procedure Codes: * Electronic signature of Horacio Barksdale MD on 09/20/2025 at 03:10 PM REGIONAL RECRUITER Sign off status: Pending * Provider: Brando MENARD MD, F.A.C.P, F.A.S.N. Date: 0 05/05/2024 Generated for Printing/Faxing/eTransmitting on: 11/20/2024 03:10 PM REGIONAL RECRUITER
--- OUTSIDE RECORDS SUMMARY | 2024-07-16 07:15 | XMS_ITS ---
Author Organization [facility] Address [address] [place] [address] Care Team Providers Care Custom Shoe Designer And Maker Name Role Phone Joce Barksdale Unavailable [phone] Medications Medication SIG (Take, Route, Fr equency, Duration) Notes Start Date End Date Status Calcitriol 0.25 MCG 1 capsule Orally hieu ry other day; Duration: 90 05/05/2024 01/30/2025 Active Problems Problem Type SNOMED Code ICD Code Onset Dates Problem Status W/U Status Risk Notes Problem Renal osteodystrophy (02439209) Renal osteodystrophy (N25.0) Active confirmed Encounters Encounter Location Date Provider Diagnosis [place] [facility] [address] [facility] [address] [place] [address] 07/16/2024 Joce Barksdale Chronic kidney disea se, stage 3 unspecified N18.30 ; Essential hypertension I10 ; Renal osteodystrophy N25.0 ; Anxiety disorder, unspecified F41.9 ; Chronic fatigue, unspecified R53.82 ; Urinary tract infection, site not specified N39.0 and Proteinuria, unspecified R80.9 Assessments Encounter Date Diagnosis (ICD Code) Assessment Notes Treatment Notes Treatment Clinical Notes Section Notes 07/16/2024 Chronic kidney disease, stage 3 unspecified (ICD-10 - N18.30) 07/16/2024 Essential hypertension (ICD-10 - I10) 07/16/2024 Renal osteodystrophy (ICD-10 - N25.0) 07/16/2024 Anxiety disorder, unspecified (ICD-10 - F41.9) 07/16/2024 Chronic fatigue, unspecified (ICD-10 - R53.82) 07/16/2024 Urinary tract infection, site not specified (ICD-10 - N39.0) 07/16/2024 Proteinuria, unspecified (ICD-10 - R80.9) Plan Of Treatment Next Appt Details Provider Name:Joce Barksdale , 09/26/2025 04:15:00 PM, [address] [facility], [facility] [address], [place], [address], Progress Notes * TOSHIA SWEETOB: (69 yo F)Acc No.[id number]:07/16/2024 Progress Notes Patient: JAY MAK Provider: Brando MENARD MD, Ryan.Joon.C.P, F.A.S.N. :1955 A ge:68 Y S ex:Female Date:07/16/2024 Address:[address] [place], [place] [phone] Subjective: * Chief Complaints: * * Medical History: * Medications: T aking Calcitriol 0.25 MCG Capsule 1 capsule Orally every other day , stop date 01/30/2025 Objective: * Vitals: Assessment: * Assessment: 1. C hronic kidney disease, stage 3 unspecified - N18.30 2 . E ssential hypertension - I10 3 . R enal osteodystrophy - N25.0 4 . A nxiety disorder, unspecified - F41.9 5 . C hronic fatigue, unspecified - R53.82 6 . U rinary tract infection, site not specified - N39.0 7 . P roteinuria, unspecified - R80.9 Plan: * Treatment: * Billing Information: * Visit Code: 20026 Office Visit, Est Pt., Level 4. * Procedure Codes: * Electronic signature of Horacio Barksdale MD on 09/20/2025 at 03:09 PM CLINICAL MASSAGE THERAPIST Sign off status: Pending * Provider: Brando MENARD MD, Ryan.Joon.C.P, F.A.S.N. Date: 0 07/16/2024 Generated for Printing/Faxing/eTransmitting on: 11/20/2024 03:09 PM CLINICAL MASSAGE THERAPIST
--- OUTSIDE RECORDS SUMMARY | 2024-09-24 06:30 | XMS_ITS ---
Author Organization [facility] Address [address] [place] [address] Care Team Providers Care Cold Header Name Role Phone Joce Barksdale Unavailable [phone] Medications Medication SIG (Take, Route, Fr equency, Duration) Notes Start Date End Date Status Calcitriol 0.25 MCG 1 capsule Orally hieu ry other day; Duration: 90 05/05/2024 01/30/2025 Active Encounters Encounter Location Date Provider Diagnosis [place] [facility] [address] [facility] [address] [place] [address] 09/24/2024 Joce Barksdale Chronic kidney disea se, stage 2 (mild) N18.2 ; Anxiety disorder, unspecified F41.9 ; Chronic fatigue, unspecified R53.82 ; Essential hypertension I10 ; Urinary tract infection, site not specified N39.0 ; Proteinuria, unspecified R80.9 ; Chronic kidney disease, stage 3 unspecified N18.30 and Renal osteodystrophy N25.0 Assessments Encounter Date Diagnosis (ICD Code) Assessment Notes Treatment Notes Treatment Clinical Notes Section Notes 09/24/2024 Chronic kidney disease, stage 2 (mild) (ICD-10 - N18.2) 09/24/2024 Anxiety disorder, unspecified (ICD-10 - F41.9) 09/24/2024 Chronic fatigue, unspecified (ICD-10 - R53.82) 09/24/2024 Essential hypertension (ICD-10 - I10) 09/24/2024 Urinary tract infection, site not specified (ICD-10 - N39.0) 09/24/2024 Proteinuria, unspecified (ICD-10 - R80.9) 09/24/2024 Chronic kidney disease, stage 3 unspecified (ICD-10 - N18.30) 09/24/2024 Renal osteodystrophy (ICD-10 - N25.0) Plan Of Treatment Next Appt Details Provider Name:Joce Barksdale , 09/26/2025 04:15:00 PM, [address] [facility], [facility] [address], [place], [address], Progress Notes * TOSHIA SWEETOB: (69 yo F)Acc No.[id number]:09/24/2024 Progress Notes Patient: JAY MAK Provider: Brando MENARD MD, F.Joon.C.P, F.A.S.N. :1955 A ge:68 Y S ex:Female Date:09/24/2024 Address:[address] [place], [place] [id number] Subjective: * Chief Complaints: * * Medical [...] 6 . P roteinuria, unspecified - R80.9 7 .?Chronic kidney disease, stage 3 unspecified - N18.30 8 . R enal osteodystrophy - N25.0 Plan: * Treatment: * Billing Information: * Visit Code: 06465 Office Visit, Est Pt., Level 4. * Procedure Codes: * Electronic signature of Horacio Barksdale MD on 09/20/2025 at 03:10 PM ABSORPTION AND ADSORPTION ENGINEER Sign off status: Pending * Provider: Brando MENARD MD, F.Joon.C.P, F.A.S.N. Date: 11/24/2023 Generated for Printing/Faxing/eTransmitting on: 11/20/2024 03:10 PM ABSORPTION AND ADSORPTION ENGINEER
--- OUTSIDE RECORDS SUMMARY | 2024-11-26 07:30 | XMS_ITS ---
Author Organization [facility] Address [address] [address] Care Team Providers Care Needle Loom Operator Name Role Phone Joce Barksdale Unavailable [phone] Problems Problem Type SNOMED Code ICD Code Onset Dates Problem Status W/U Status Risk Notes Problem Hypo-osmolality and or hyponatremia (428649426) Hypo-osmolality and hyponatremia (E87.1) Active confirmed Encounters Encounter Location Date Provider Diagnosis [facility] [address] [place] [address] 11/26/2024 Jocerenuka Barksdale Chronic kidney disea se, stage 2 (mild) N18.2 ; Hypo-osmolality and hyponatremia E87.1 ; Urinary tract infection, site not specified N39.0 and Anxiety disorder, unspecified F41.9 Assessments Encounter Date Diagnosis (ICD Code) Assessment Notes Treatment Notes Treatment Clinical Notes Section Notes 11/26/2024 Chronic kidney disease, stage 2 (mild) (ICD-10 - N18.2) 11/26/2024 Hypo-osmolality and hyponatremia (ICD-10 - E87.1) 11/26/2024 Urinary tract infection, site not specified (ICD-10 - N39.0) 11/26/2024 Anxiety disorder, unspecified (ICD-10 - F41.9) Plan Of Treatment Next Appt Details Provider Name:Joce Barksdale , 09/26/2025 04:15:00 PM, [address] [facility] [address], [place], [address], Progress Notes * TOSHIA SWEETOB: (69 yo F)Acc No.[id number]:11/26/2024 Patient: Samm JAY HERNANDES Provider: Brando MENARD MD, F.A.C.P, F.A.S.N. :1955 A ge:68 Y S ex:Female Date:11/26/2024 Address:[address] [place], [place] [phone] Subjective: * Chief Complaints: Objective: Assessment: * Assessment: 1. C hronic kidney disease, stage 2 (mild) - N18.2 (Primary) 2 . H ypo-osmolality and hyponatremia - E87.1 3 . U rinary tract infection, site not specified - N39.0 4 . A nxiety disorder, unspecified - F41.9 Plan: * Billing Information: * Visit Code: 61648 Office Visit, Est Pt., Level 5. * Procedure Codes: * Electronic signature of Horacio Barksdale MD on 09/20/2025 at 03:10 PM HISTORIOGRAPHY PROFESSOR Sign off status: Pending * Provider: Brando MENARD MD, F.A.C.P, F.A.S.N. Date: 0 11/26/2024 Generated for Printing/Faxing/eTransmitting on: 11/20/2024 03:10 PM HISTORIOGRAPHY PROFESSOR
--- OUTSIDE RECORDS SUMMARY | 2024-12-10 08:15 | XMS_ITS ---
Author Organization [facility] Address [address] [place] [address] Care Team Providers Care Agency Sales Director Name Role Phone Joce Barksdale Unavailable [phone] Medications Medication SIG (Take, Route, Fr equency, Duration) Notes Start Date End Date Status Calcitriol 0.25 MCG 1 capsule Orally hieu ry other day; Duration: 90 05/05/2024 01/30/2025 Active Problems Problem Type SNOMED Code ICD Code Onset Dates Problem Status W/U Status Risk Notes Problem Primary generalised osteoarthritis (315904332) Primary generalized (osteo)arthriti s (M15.0) Active confirmed Problem Anemia (109316478) Anemia, unspecified (D64.9) Active confirmed Encounters Encounter Location Date Provider Diagnosis [place] [facility] [address] [facility] [address] [place] [address] 12/10/2024 Joce Barksdale Chronic kidney disease, stage 3 unspecified N18.30 ; Hypo-osmolality and hyponatremia E87.1 ; Primary generalized (osteo)arthritis M15.0 ; Elevation of levels of liver transaminase levels R74.01 and Anemia, unspecified D64.9 Assessments Encounter Date Diagnosis (ICD Code) Assessment Notes Treatment Notes Treatment Clinical Notes Section Notes 12/10/2024 Chronic kidney disease, stage 3 unspecified (ICD-10 - N18.30) 12/10/2024 Hypo-osmolality and hyponatremia (ICD-10 - E87.1) 12/10/2024 Primary generalized (osteo)arthritis (ICD-10 - M15.0) 12/10/2024 Elevation of levels of liver transaminase levels (ICD-10 - R74.01) 12/10/2024 Anemia, unspecified (ICD-10 - D64.9) Plan Of Treatment Next Appt Details Provider Name:Joce Barksdale , 09/26/2025 04:15:00 PM, [address] [facility] [address], [place], [address], Progress Notes * TOSHIA SWEETOB: (69 yo F)Acc No.[id number]:12/10/2024 Progress Notes Patient: JAY MAK Provider: Brando MENARD MD, Rianna.P, F.A.S.N. :1955 A ge:68 Y S ex:Female Date:12/10/2024 Address:[address] [place], [place] [phone] Subjective: * Chief Complaints: * * Medical History: * Medications: T aking Calcitriol 0.25 MCG Capsule 1 capsule Orally every other day , stop date 01/30/2025 Objective: * Vitals: Assessment: * Assessment: 1. C hronic kidney disease, stage 3 unspecified - N18.30 (Primary) 2 . H ypo-osmolality and hyponatremia - E87.1 3 . P rimary generalized (osteo)arthritis - M15.0 4 . E levation of levels of liver transaminase levels - R74.01 & #160; 5 . A nemia, unspecified - D64.9 Plan: * Treatment: * Billing Information: * Visit Code: 28293 Office Visit, Est Pt., Level 4. * Procedure Codes: * Electronic signature of Horacio Barksdale MD on 09/20/2025 at 03:09 PM LINUX SYSTEMS ANALYST Sign off status: Pending * Provider: Brando MENARD MD, Ryan.Joon.C.P, F.A.S.N. Date: 0 12/10/2024 Generated for Printing/Faxing/eTransmitting on: 11/20/2024 03:09 PM LINUX SYSTEMS ANALYST
--- OUTSIDE RECORDS SUMMARY | 2025-02-04 12:00 | XMS_ITS ---
Author Organization [facility] Office Address [address] [facility] 61 [facility] [address] [place] [address] Care Team Providers Care Superintendent System Operation Name Role Phone Joce Barksdale Unavailable [phone] Encounters Encounter Location Date Provider Diagnosis [place] [facility] [address] [facility] [address] [place] [address] 02/04/2025 Joce Barksdale Plan Of Treatment Next Appt Details Provider Name:Joce Shamir , 09/26/2025 04:15:00 PM, [address] [facility], [facility] 15, [place], [address], Progress Notes * OBED SWEETEDOB: (69 yo F)Acc No.[id number]:02/04/2025 Progress Notes Patient: JAY MAK Provider: Brando MENARD MD, Ryan.Joon.C.P, F.A.S.N. :1955 A ge:69 Y S ex:Female Date:02/04/2025 Address:[address] [place], [place] [id number] Subjective: * Chief Complaints: * * Medical History: Objective: * Vitals: Assessment: Plan: * Treatment: * Billing Information: * Visit Code: * Procedure Codes: * Electronic signature of Horacio Barksdale MD on 09/20/2025 at 03:09 PM NON DESTRUCTIVE EVALUATION TECHNICIAN Sign off status: Pending * Provider: Brando MENARD MD, Ryan.Joon.C.P, F.A.S.N. Date: 0 02/04/2025 Generated for Printing/Faxing/eTransmitting on: 11/20/2024 03:09 PM NON DESTRUCTIVE EVALUATION TECHNICIAN
--- OUTSIDE RECORDS SUMMARY | 2025-03-30 10:30 | XMS_ITS ---
Author Organization [facility] Address [address] [address] [place] [address] Care Team Providers Care Timber Framer Name Role Phone Joce Barksdale Unavailable [phone] Problems Problem Type SNOMED Code ICD Code Onset Dates Problem Status W/U Status Risk Notes Problem Secondary hyperparathyroidism of renal origin (85040888) Secondary hyperparathyroidism of renal origin (N25.81) Active confirmed Problem Gastro-esophageal reflux disease without esophagitis (753803279) Gastro-esophageal reflux disease without esophagitis (K21.9) Active confirmed Problem Hypervitaminosis D (47112951) 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 Encounters Encounter Location Date Provider Diagnosis [place] [facility] [address] [facility] 15 [place] [address] 03/30/2025 Joce Barksdale Chronic kidney disea se, stage 3 unspecified N18.30 ; Essential hypertension I10 ; Anxiety disorder, unspecified F41.9 ; Chronic fatigue, unspecified R53.82 ; Urinary tract infection, site not specified N39.0 ; Proteinuria, unspecified R80.9 ; Renal osteodystrophy N25.0 ; Secondary hyperparathyroidism of renal origin N25.81 ; Hypo-osmolality and hyponatremia E87.1 ; Primary generalized (osteo)arthritis M15.0 ; Anemia, unspecified D64.9 ; Gastro-esophageal reflux disease without esophagitis K21.9 and Hypervitaminosis D E67.3 Assessments Encounter Date Diagnosis (ICD Code) Assessment Notes Treatment Notes Treatment Clinical Notes Section Notes 03/30/2025 Chronic kidney disea se, stage 3 unspecified (ICD-10 - N18.30) 03/30/2025 Essential hypertensi on (ICD-10 - I10) 03/30/2025 Anxiety disorder, unspecified (ICD-10 - F41.9) 03/30/2025 Chronic fatigue, unspecified (ICD-10 - R53.82) 03/30/2025 Urinary tract infection, site not specified (ICD-10 - N39.0) 03/30/2025 Proteinuria, unspecified (ICD-10 - R80.9) 03/30/2025 Renal osteodystrophy (ICD-10 - N25.0) 03/30/2025 Secondary hyperparathyroidism of renal origin (ICD-10 - N25.81) 03/30/2025 Hypo-osmolality and hyponatremia (ICD-10 - E87.1) 03/30/2025 Primary generalized (osteo)arthritis (ICD-10 - M15.0) 03/30/2025 Anemia, unspecified (ICD-10 - D64.9) 03/30/2025 Gastro-esophageal reflux disease without esophagitis (ICD-10 - K21.9) 03/30/2025 Hypervitaminosis D (ICD-10 - E67.3) Plan Of Treatment Next Appt Details Provider Name:Joce Barksdale , 09/26/2025 04:15:00 PM, [address], [address], Progress Notes * GEOVANNY-DIEGOOBEDISEDOB: (69 yo F)Acc No.[id number]:03/30/2025 Progress Notes Patient: JAY MAK Provider: Brando MENARD MD, F.A.C.P, F.A.S.N. :1955 A ge:69 Y S ex:Female Date:03/30/2025 Address:[address] [place] [address] Subjective: * Chief Complaints: * * Medical History: Objective: * Vitals: Assessment: * Assessment: 1. C hronic kidney disease, stage 3 unspecified - N18.30 (Primary) 2 . E ssential hypertension - I10 3 . A nxiety disorder, unspecified - F41.9 ?4. C hronic fatigue, unspecified - R53.82 5 . U rinary tract infection, site not specified - N39.0 6 . P roteinuria, unspecified - R80.9 ?7. R enal osteodystrophy - N25.0 8 . S econdary hyperparathyroidism of renal origin - N25.81 9 . H ypo-osmolality and hyponatremia - E87.1 10. P rimary generalized (osteo)arthritis - M15.0 1 1. A nemia, unspecified - D64.9 1 2. G abdulaziz-esophageal reflux disease without esophagitis - K21.9? 13. H ypervitaminosis D - E67.3 Plan: * Treatment: * Billing Information: * Visit Code: 40429 Office Visit, Est Pt., Level 4. * Procedure Codes: * Electronic signature of Horacio Barksdale MD on 09/20/2025 at 03:10 PM DIRECTOR OF STUDENT FINANCIAL SERVICES Sign off status: Pending * Provider: Brando MENARD MD, F.A.C.P, F.A.S.N. Date: 0 03/30/2025 Generated for Printing/Faxing/eTransmitting on: 1 11/20/2024 03:10 PM DIRECTOR OF STUDENT FINANCIAL SERVICES
--- OUTSIDE RECORDS SUMMARY | 2025-05-18 08:00 | XMS_ITS ---
Author Organization [facility] Address [address] [address] [place] [address] Care Team Providers Care Binder Coverstitch Name Role Phone Cierra Barksdaleerjit Unavailable [phone] Problems Problem Type SNOMED Code ICD Code Onset Dates Problem Status W/U Status Risk Notes Problem Chronic kidney disease stage 2 (574604722) Chronic kidney disease, stage 2 (mild) (N18.2) Active confirmed Encounters Encounter Location Date Provider Diagnosis [place] [facility] 20[address] [facility] 15 [place] [address] 05/18/2025 Joce Barksdale Chronic kidney disea se, stage 2 (mild) N18.2 ; Essential hypertension I10 ; Anxiety disorder, [...] Treatment Notes Treatment Clinical Notes Section Notes 05/18/2025 Chronic kidney disea se, stage 2 (mild) (ICD-10 - N18.2) 05/18/2025 Essential hypertensi on (ICD-10 - I10) 05/18/2025 Anxiety disorder, unspecified (ICD-10 - F41.9) 05/18/2025 Chronic fatigue, unspecified (ICD-10 - R53.82) 05/18/2025 Urinary tract infection, site not specified (ICD-10 - N39.0) 05/18/2025 Proteinuria, unspecified (ICD-10 - R80.9) 05/18/2025 Renal osteodystrophy (ICD-10 - N25.0) 05/18/2025 Secondary hyperparathyroidism of renal origin (ICD-10 - N25.81) 05/18/2025 Hypo-osmolality and hyponatremia (ICD-10 - E87.1) 05/18/2025 Primary generalized (osteo)arthritis (ICD-10 - M15.0) 05/18/2025 Anemia, unspecified (ICD-10 - D64.9) 05/18/2025 Gastro-esophageal reflux disease without esophagitis (ICD-10 - K21.9) 05/18/2025 Hypervitaminosis D (ICD-10 - E67.3) Plan Of Treatment Next Appt Details Provider Name:Joce Shamir , 09/26/2025 04:15:00 PM, 2043 [facility] [address], [place], [address], Progress Notes * TOSHIA SWEETOB: (69 yo F)Acc No.[id number]:05/18/2025 Progress Notes Patient: Samm SERRACARLOZSamanthaJAY CORTEZ Provider: Brando MENARD MD, F.A.C.P, F.A.S.N. :1955 A ge:69 Y S ex:Female Date:05/18/2025 Address:[address] [place] [address] Subjective: * Chief Complaints: * * Medical History: Objective: * Vitals: Assessment: * Assessment: 1. C hronic kidney disease, stage 2 (mild) - N18.2 (Primary) 2 . E ssential hypertension - I10 3 . A nxiety disorder, unspecified - F41.9 4 . C hronic fatigue, unspecified - R53.82 5 . U rinary tract infection, site not specified - N39.0 6 . P roteinuria, unspecified - R80.9 7 .?Renal osteodystrophy - N25.0 8 . S econdary hyperparathyroidism of renal origin - N25.81 9 . H ypo-osmolality and hyponatremia - E87.1 1 0. P rimary generalized (osteo)arthritis - M15.0 1 1. A nemia, unspecified - D64.9 1 2. G abdulaziz-esophageal reflux disease without esophagitis - K21.9 ? 1 3. H ypervitaminosis D - E67.3 Plan: * Treatment: * Billing Information: * Visit Code: 02575 Office Visit, Est Pt., Level 4. * Procedure Codes: * Electronic signature of Horacio Barksdale MD on 09/20/2025 at 03:09 PM FISH CULTURIST Sign off status: Pending * Provider: Brando MENARD MD, F.A.C.P, F.A.S.N. Date: 0 05/18/2025 Generated for Printing/Faxing/eTransmitting on: 1 11/20/2024 03:09 PM FISH CULTURIST
--- OUTSIDE RECORDS SUMMARY | 2025-08-17 13:15 | XMS_ITS ---
Author Organization [facility] Address [address] [facility] [address] [facility] [address] [place] [address] Care Team Providers Care Rare/Endangered Species Specialist Name Role Phone Joce Barksdale Unavailable [phone] Encounters Encounter Location Date Provider Diagnosis [place] [facility] [address] [facility] [address] [place] [address] 08/17/2025 Joce Barksdale Plan Of Treatment Next Appt Details Provider Name:Joce Shamir , 09/26/2025 04:15:00 PM, [address] [facility], [facility] [address], [place], [address], Progress Notes * OBED SWEETEDOB: (69 yo F)Acc No.[id number]:08/17/2025 Progress Notes Patient: JAY MAK Provider: Brando MENARD MD, Ryan.Joon.C.P, F.A.S.N. :1955 A ge:69 Y S ex:Female Date:08/17/2025 Address:[address] [place], [place] [id number] Subjective: * Chief Complaints: * * Medical History: Objective: * Vitals: Assessment: Plan: * Treatment: * Billing Information: * Visit Code: * Procedure Codes: * Electronic signature of Horacio Barksdale MD on 09/20/2025 at 03:09 PM FRENCH PASTRY COOK Sign off status: Pending * Provider: Brando MENARD MD, Ryan.Joon.C.P, F.A.S.N. Date: Generated for Printing/Faxing/eTransmitting on: 11/20/2024 03:09 PM FRENCH PASTRY COOK
--- OUTSIDE RECORDS SUMMARY | 2025-09-09 07:45 | XMS_ITS ---
Author Organization [facility] Address [address] [facility] [address] [facility] [address] [place] [address] Care Team Providers Care Eeg Technician Name Role Phone Joce Barksdale Unavailable [phone] Encounters Encounter Location Date Provider Diagnosis [place] [facility] [address] [facility] [address] [place] [address] 09/09/2025 Joce Barksdale Plan Of Treatment Next Appt Details Provider Name:Joce Shamir , 09/26/2025 04:15:00 PM, [address] [facility], [facility] [address], [place], [address], Progress Notes * TOSHIA SWEETOB: (69 yo F)Acc No.[id number]:09/09/2025 Progress Notes Patient: JAY MAK Provider: Brando MENARD MD, F.Joon.C.P, F.A.S.N. :1955 A ge:69 Y S ex:Female Date:09/09/2025 Address:[address] [place], [place] [id number] Subjective: * Chief Complaints: Objective: Assessment: Plan: * Billing Information: * Visit Code: * Procedure Codes: * Electronic signature of Horacio Barksdale MD on 09/20/2025 at 03:09 PM HIGHER LEVEL TEACHING ASSISTANT Sign off status: Pending * Provider: Brando MENARD MD, F.Joon.C.P, F.A.S.N. Date: Generated for Printing/Faxing/eTransmitting on: 11/20/2024 03:09 PM HIGHER LEVEL TEACHING ASSISTANT
[2025-09-20] VITALS (7 sets, daily range): BP systolic 118–164; BP diastolic 47–86; PULSE 67–97; RESP 13–22; TEMP 36.6–37.4; O2SAT 99–100; BMI 28.6
--- NOTE | ~2025-09-20 | XR_ITS ---
EXAM/PROCEDURE: XR abdomen/kub 1V HISTORY: SBO COMPARISON: May 30, 2025 TECHNIQUE: KUB FINDINGS: Several loops of gaseous dilated bowel throughout the abdomen and pelvis with at least moderate amount of stool extending to the right hemicolon. No large amount of free air seen. Surgical suture and surgical clips overlie the upper abdomen. Gastric tube present with tip projecting over the mid stomach or gastric body region. IMPRESSION: Nonspecific bowel gas pattern. Gastric tube appears adequately positioned. Reviewed, dictated and finalized at location A. OR SCIENCE CONSULTANT
--- NOTE | ~2025-09-20 | XR_ITS ---
XR abdomen gastric tube insert INDICATION: Evaluate NG tube position. TECHNIQUE: Limited KUB perform for evaluating NG tube . COMPARISON: 07/21/2025 FINDINGS: NG tube tip in the stomach. Visualized bowel gas pattern is nonspecific.Moderate gastric distention. IMPRESSION: 1: NG tube tip in the stomach. Reviewed, dictated and finalized at location O. MOTIVE CONSULTANT
--- NOTE | ~2025-09-20 | XR_ITS ---
EXAM/PROCEDURE: XR abdomen/kub 1V HISTORY: SBO COMPARISON: KUB from yesterday TECHNIQUE: KUB FINDINGS: Scattered loops of gas-filled bowel throughout the abdomen and pelvis with small number of mildly distended loops of small bowel in the right upper quadrant. Mild wall thickening may be present. Gastric catheter remains in place. No large amount of free air identified. IMPRESSION: Right upper quadrant findings consistent with ileus or possible small bowel obstruction. Bowel wall thickening may be present which could be associated with inflammatory or infectious enteritis. Reviewed, dictated and finalized at location A. T METAL WORK FURNACE INSTALLER IMPRESSION: Right upper quadrant findings consistent with ileus or possible small bowel obs truction. Bowel wall thickening may be present which could be associated with i nflammatory or infectious enteritis.
--- NOTE | ~2025-09-20 | CT_ITS ---
EXAMINATION: CT abdomen pelvis w con DATE: 09/20/2025 17:42 INDICATION: Abdominal pain TECHNIQUE: Computed tomography (CT) of the abdomen and pelvis was performed with 100 cc of 350 intravenous contrast. The dose-length product was 476.96 mGy-cm. Automated exposure control and iterative reconstruction technique were employed. COMPARISON: CT dated 07/21/2025. FINDINGS: Lung bases unremarkable. No significant pleural or pericardial effusion. Heart size normal. Gallbladder is surgically absent with dilation of the bile ducts. There is dilated stomach containing debris as well as multiple dilated loops of small bowel with transition to normal caliber small bowel in the central abdomen, consistent with obstruction. No free air or free fluid. Spleen is atrophic. There is dilation of the pancreatic duct. No significant vascular abnormality. No lymphadenopathy. IMPRESSION: 1. Small bowel obstruction. 2: Status post cholecystectomy with prominence of the bile ducts and pancreatic duct. Consider correlation with MRCP. Reviewed, dictated and finalized at location O. ORATOR
--- NOTE | ~2025-09-20 | MR_ITS ---
EXAM/PROCEDURE: MR MRCP wo/w con/w 3D wo ind HISTORY: evaluate pancreatic duct and torsten dilatation COMPARISON: CT exam of the abdomen from September 20 and MRI from July 27, 2022. TECHNIQUE: Standard technique for pre and postcontrast enhanced MRCP performed. Exam somewhat limited due to motion artifact. FINDINGS: Patient is status post cholecystectomy. Biliary ducts are somewhat ectatic and prominent with the common bile duct measuring up to 10 mm, possibly associated with postcholecystectomy reservoir effect. No clearly abnormal dilatation seen. No discretely defined filling defects, though evaluation of the ducts in the head of the pancreas somewhat limited by motion artifact. No discrete pancreatic lesion or mass. No abnormal enhancing lesions seen in the adrenal glands kidneys pancreas spleen stomach or liver. Aorta normal size. There is bowel gas pattern with scattered loops of mildly distended small bowel consistent with possible small bowel obstruction reported on recent CT exam. IMPRESSION: Postcholecystectomy dilatation of the biliary ducts with no clearly defined choledocholithiasis or ductal lesion identified. No pancreatic lesion or mass identified. Reviewed, dictated and finalized at location A. IC MANGLER IMPRESSION: Postcholecystectomy dilatation of the biliary ducts with no clearl y defined choledocholithiasis or ductal lesion identified. No pancreatic lesion or mass identified.
--- OUTSIDE RECORDS SUMMARY | 2025-09-20 15:09 | XMS_ITS | Clinical Summary ---
Author Organization [facility] Address [address] [place] [address] Care Team Providers Care Finger Lift Operator Name Role Phone Siena Bell MD [...] 2 (two) times a day 8 Active hydroCHLOROthiazi de (HYDRODIURIL) 12.5 mg tablet Take 1 tablet/capsule (12.5 mg total) by mouth daily Active [...] by mouth nightly 30 tablet 3 Active tiZANidine (ZANAFLEX) 4 mg tablet Take 1 tablet (4 mg total) by mouth 3 (three) times a day as needed for muscle spasms Active calcitRIOL (ROCALTROL) 0.25 mcg capsule Take 1 capsule (0.25 mcg total) by mouth daily 4 Active levothyroxine (SYNTHROID) 175 mcg tablet Take 1 tablet (175 mcg total) by mouth supply aide before breakfast Active budesonide-formot Denise (SYMBICORT) 160-4.5 mcg/actuation inhaler Inhale 2 puffs 2 (two) times a day Active dicyclomine (BENTYL) 10 mg capsule Take 1 capsule (10 mg total) by mouth 2 (two) times a day 5 Active cloNIDine (CATAPRES) 0.2 mg tablet Take 1 tablet (0.2 mg total) by mouth daily Active ondansetron (ZOFRAN) 4 mg tablet Take 1 tablet (4 mg total) by mouth every 4 (four) hours as needed for nausea or vomiting 10 tablet 5 Active linaCLOtide (LINZESS) 145 mcg capsuleIndication s:chronic idiopathic constipation Take 1 capsule (145 mcg total) by mouth daily 30 capsule 5 10/08/20 25 Active Active Problems Problem Noted Date Diagnosed Date Small bowel obstruction 07/22/2025 SBO (small bowel obstruction) 11/23/2022 History of biliary duct stent placement 09/24/20 Overview (09/24/2022): Added automatically from request for surgery [id number] Intraabdominal fluid collection 08/12/2022 Assessment & Plan (09/24/2022 2:36 PM MINE SHIFTER): - Reports doing well today with no [...] recommendations. She presented initially to an OSH ([facility]) with abdominal pain a couple weeks ago. She subsequently had a laparascopic cholecystectomy at [facility] on 08/02. Following this she had poor recovery with new O2 requirement after the OR and rising WBC count. She had a positive HIDA scan. She was transferred to [facility] on 08/04. On 08/05 she had a [...] (08/05/2022): Added automatically from request for surgery [id number] Perforation bowel 08/04/2022 Overview (08/05/2022): Added automatically from request for surgery [id number] Choledocholithiasis 07/30/2022 Chronic prescription opiate use 07/30/2022 History of gastric bypass 07/30/2022 Acute cholecystitis with acute cholangitis 07/30 Acute gallstone pancreatitis 07/30/2022 Vitamin D deficiency 08/13/2021 Stage 3 chronic kidney disease 08/09/2021 Hypercholesterolemia 08/01/2020 Primary insomnia 02/10/2019 Chronic bilateral low back pain without sciatica 01/26/2019 Chronic peptic ulcer 01/26/2019 Atherosclerosis of [place] co ronary artery of [place] heart without angina pectoris 01/26/2019 Depressive disorder 01/26/2019 Essential hypertension 01/26/2019 Acquired hypothyroidism 01/26/2019 Chronic gastric ulcer with perforation 8 Gastric ulcer without hemorrhage or perforation 06/30/2018 Overview (06/30/2018): Added automatically from request for surgery [id number] Class 1 obesity due to exces s calories with serious comorbidity and body mass index (BMI) of 32.0 to 32.9 in adult 03/09/2018 Iron deficiency anemia secon victorina to inadequate dietary iron intake 01/08/2018 Other constipation 01/08/2018 Pain of upper abdomen 01/08/2018 Encounters Date Type Department Care Team Description 09/08/2025 9:00 AM CDT Office Visit [facility] Medicine Surgery [address] [facility] Advanced Medicine 12th [place] [address] [place] [address] Dustin Garibay MD SBO (small bowel obstruction) (HCC) (Primary Dx); Other constipation [facility] [address] [facility] Advanced [facility] 12th [place] [address] [place] [address] Dustin Garibay MD 07/22/2025 1:57 AM CDT - 07/24/2025 5:18 PM CDT Hospital Encounter [facility] [address] [place] [address] Dustin Garibay MD Discharge Disposition: Discharge to home or self care from Last 3 Months Immunizations Immunization Administration [...] disease Iron deficiency anemia IV iron - [employer] Dr. Mendez Family History Medical History Relation [...] week 07/31/2022 How often do you attend formerly [facility] or baptism services? Never 07/31/2022 Do you belong to any clubs o r organizations such as oriental orthodox groups, unions, fraternal or athletic groups, or [...] making you feel afraid or unsafe? Denies 07/22/2025 Comments No Sex and Gender Information Value Date Recorded Sex Assigned at Not on file Legal Sex Female 12:02 PM MINE SHIFTER Gender Identity Not on file Sexual Orientation Not on file Last Filed Vital Signs Vital Sign Reading Time Taken Comments Blood Pressure 117/81 09/08/2025 9:25 AM CDT Pulse 70 09/08/2025 9:25 AM CDT Temperature 35.7 C (96.2 F) 09/08/2025 9:25 AM CDT Respiratory Rate 18 07/24/2025 11:18 AM CDT Oxygen Saturation 100% 09/08/2025 9:25 AM CDT Inhaled Oxygen Concentration - - Weight 61.4 kg (135 lb 4.8 oz) 07/24/2025 7:00 A M CDT Height 157.5 cm (5' 2) 05/26/2025 9:09 AM CDT Body Mass Index 24.75 05/26/2025 9:09 AM CDT Plan of Treatment [...] PCV21) 08/01/2021 08/01/2020 Covid-19 Vaccine (3 - 2024-2 6 season) 2025 03/09/2021, 02/09/2021 Influenza Vaccine (#1) 2025 , 11/27/2022, 08/07/2021, Additional history exists Breast Cancer Screening-Mammogram 03/24/2026 03/24/2025, 03/24/2025, 06/20/2016 Fall Risk Assessment 07/24/2026 07/24/2025 Colon Cancer Screening-FIT Discontinued 03/17/2017 Medical Devices Implanted Type Area Religious Assistant Device Identifier Shelf Expiration Date Model / Serial / Lot [employer] Rubio Advanix 8.5fr 7cm Rapid Exchange Temporary [place] Stent [id number] - [id number] Implanted:Qty: 1 on 08/01/2022 by Nick Nobles MD at [facility] Stent N/A: Bile Duct [employer] Rubio 04/15/2024 [id number] / / [id number] Explanted Type Area Religious Assistant Device Identifier Shelf Expiration Date Model / Serial / Lot [employer] Calderón 5fr 9cm Pancreatic Stent [id number] - [id number] Implanted:Qty: 1 on 08/01/2022 by Nick Nobles MD at [facility] Explanted:Qty: 1 on 08/05/2022 by Philipp Adnino MD at [facility] Stent N/A: Pancreas [employer] 04/16/2027 [id number] / / [id number] Procedures Procedure Name Priority Date/Time Associated Diagnosis Comments XR ABDOMEN AP 1 VIEW IP Routine 07/24/2025 8:23 AM CDT MAGNESIUM Routine 07/24/2025 4:27 AM CDT PHOSPHORUS Routine 07/24/2025 4:27 AM CDT EGFR Routine 07/24/2025 4:27 AM CDT LACTATE Routine 07/24/2025 4:27 AM CDT COMPREHENSIVE METABOLIC PANEL Routine 07/24/2025 4:27 AM CDT CBC WITHOUT DIFFERENTIAL Routine 07/24/2025 4:27 AM CDT XR ABDOMEN AP 1 VIEW IP Routine 07/23/2025 4:45 PM CDT XR ABDOMEN AP 1 VIEW IP Routine 07/23/2025 10:55 AM CDT EGFR Routine 07/23/2025 4:21 AM CDT LACTATE Routine 07/23/2025 4:21 AM CDT COMPREHENSIVE METABOLIC PANEL Routine 07/23/2025 4:21 AM CDT CBC WITHOUT DIFFERENTIAL Routine 07/23/2025 4:[address] BODY OUTSIDE REFERENCE Routine 07/22/2025 3:11 PM CDT XR ABDOMEN AP 1 VIEW IP Routine 07/22/2025 5:33 AM CDT EGFR Routine 07/22/2025 5:01 AM CDT LACTATE Routine 07/22/2025 5:01 AM CDT COMPREHENSIVE METABOLIC PANEL Routine 07/22/2025 5:01 AM CDT CBC WITHOUT DIFFERENTIAL Routine 07/22/2025 5:01 AM CDT OCCULT BLOOD, FECAL (FIT) Routine 03/17/2017 6:37 PM CDT SCREENING MAMMOGRAM BILATERAL W GOMEZ Routine 06/20/2016 2:52 PM CDT from Last 3 Months or Most Recently Relevant to Health Maintenance Results * Small Bowel Challenge 24 hour Post Injection XR Abdomen Ap 1 Vw (07/24/2025 8:23 AM CDT) Anatomical Region Laterality Modality Body, Abdomen N/A Digital Radiogra phy 07/25/2025 10:1 4 AM CDT Impressions 07/25/2025 11:55 AM CDT Interval transit of contrast through the colon and small bowel loops. Improving dilation of small bowel, indicating resolving small bowel obstruction. Dictated by: Jaguar Suggs M.D. The radiology attending physician has personally reviewed this study, and had reviewed and/or edited this written report and agrees with it. Electronically signed by: Sherman Booth M.D. Narrative 07/25/2025 11:55 AM CDT EXAMINATION: Abdomen, one view. HISTORY: Bowel obstruction. COMPARISON: 07/23/2025 Procedure Note Sherman Booth MD - 07/25/2025 EXAMINATION: Abdomen, one view. HISTORY: Bowel obstruction. COMPARISON: 07/23/2025 IMPRESSION: Interval transit of contrast through the colon and small bowel loops. Improving dilation of small bowel, indicating resolving small bowel obstruction. Dictated by: Jaguar Suggs M.D. The radiology attending physician has personally reviewed this study, and had reviewed and/or edited this written report and agrees with it. Electronically signed by: Sherman Booth M.D. us Dante Warren NP IMG XR PROCEDURES Final Res ult * Lactate (07/24/2025 4:27 AM CDT) Lactate 0.9 0.7 - 2.0 mmol/L Blood 07/24/2025 4:27 AM CDT 07/24/2025 5:04 AM CDT us Dustin Garibay MD LAB BLOOD ORDERABLES F inal Result [facility] Department [place] [address] * eGFR (07/24/2025 4:27 AM CDT) Pathologist [facility] eGFR 79 >=60 mL/min/1. 73 m2 Comment: Interpretive Data Reference Interval Normal >/= 90 mL/min/1.73m2 Mildly decreased* 60 - 89 mL/min/1.73m2 Mildly to moderately decreased 45 - 59 mL/min/1.73m2 Moderately to severely decreased 30 - 44 mL/min/1.73m2 Severely decreased 15 - 29 mL/min/1.73m2 Kidney Failure < 15 mL/min/1.73m2 *Relative to young adult level Estimated glomerular filtration rate is determined by the 2020 CKD-EPI equation recommended by the National Kidney Foundation (A Unifying Approach to GFR Estimation: Recommendations of the NKF-ASK Task Force on Reassessing the Inclusion of Race in Diagnosing Kidney Disease, JASN 2020). The CKD-EPI equation should not be used for patients with unstable renal function and has not been validated in children and those over 70. Current interpretive data was last reviewed 2021. Blood 07/24/2025 4:27 AM CDT 07/24/2025 5:13 AM CDT Dustin Garibay MD LAB BLOOD ORDERABLES F inal Result [facility] Department [place] [address] * (ABNORMAL) CBC without differential (07/24/2025 4:27 AM CDT) [facility] WBC 8.07 3.80 - 9.90 K/cumm Hgb 10.4(L) 11.9 - 15.5 g/dL [facility] Hct 31.8(L) 35.6 - 45.5 % [facility] Plt 327 150 - 400 K/cumm [facility] MPV 9.4 9.1 - 12.3 fL [facility] RBC 2.85(L) 3.90 - 5.20 M/cumm [facility] MCV 111.6(H) 81.3 - 96.4 fL [facility] MCH 36.5(H) 27.1 - 33.3 pg [facility] MCHC 32.7 32.3 - 35.7 g/dL [facility] RDW CV 11.9 11.1 - 14.9 % [facility] RDW SD 49.2(H) 35.7 - 48.1 fL [facility] NRBC abs 0.00 0.00 - 0.01 K/cumm [facility] Blood 07/24/2025 4:27 AM CDT 07/24/2025 5:05 AM CDT Dustin Garibay MD LAB BLOOD ORDERABLES F inal Result Performing Organization Address [facility] Co de Phone Number [facility] Department [place] [address] * Phosphorus (07/24/2025 4:27 AM CDT) Phosphorus, pl 4.2 2.3 - 4.5 mg/dL Blood 07/24/2025 4:27 AM CDT 07/24/2025 5:13 AM CDT Dustin Garibay MD LAB BLOOD ORDERABLES F inal Result Performing Organization Address [facility] de Phone Number [facility] Department [place] [address] * (ABNORMAL) Magnesium (07/24/2025 4:27 AM CDT) Magnesium 1.3(L) 1.4 - 2.5 mg/dL Blood 07/24/2025 4:27 AM CDT 07/24/2025 5:13 AM CDT Dustin Garibay MD LAB BLOOD ORDERABLES F inal Result Performing Organization Address [facility] Co de Phone Number [facility] Department [place] [address] * (ABNORMAL) Comprehensive metabolic panel (07/24/2025 4:27 AM CDT) Sodium 146(H) 135 - 145 mmol/L Potassium, pl 3.4 3.3 - 4.9 mmol/L [facility] Chloride 112(H) 97 - 110 mmol/L [facility] CO2 25 22 - 32 mmol/L [facility] Anion gap 9 2 - 15 mmol/L [facility] BUN 6 6 - 25 mg/dL [facility] Creatinine 0.80 0.60 - 1.10 mg/dL [facility] Glucose 92 70 - 199 mg/dL [facility] Comment: Interpretive Data Fasting glucose >/= 126 mg/dl is diagnostic for diabetes. Fasting is defined as no caloric intake for at least 8 hours. Fasting glucose between 100 mg/dl to 125 mg/dl is diagnostic of prediabetes. In a patient with classic symptoms of hyperglycemia or hyperglycemic crisis, a random glucose >/= 200 mg/dl is diagnostic for diabetes. In the absence of unequivocal hyperglycemia, results should be confirmed by repeat testing. The classification and Diagnosis of Diabetes Diabetes Care 202; 46: S19-S40. Current interpretive data was last revised 2022. Calcium 8.6 8.5 - 10.3 mg/dL [facility] Bilirubin, total 0.2 0.1 - 1.2 mg/dL [facility] Protein, pl 5.7(L) 6.5 - 8.5 g/dL [facility] Albumin 3.1(L) 3.5 - 5.0 g/dL [facility] Alk phos 78 40 - 130 Units/L [facility] ALT 14 7 - 45 Units/L [facility] AST 22 10 - 45 Units/L [facility] Blood 07/24/2025 4:27 AM CDT 07/24/2025 5:13 AM CDT us Dustin Garibay MD LAB BLOOD ORDERABLES F inal Result [facility] Department [place] [address] * Small Bowel Challenge 10 hour Post Injection XR Abdomen Ap 1 Vw (07/23/2025 4:45 PM CDT) Anatomical Region Laterality Modality Body, Abdomen N/A Digital Radiogra phy 07/23/2025 4:49 PM CDT Impressions 07/23/2025 4:49 PM CDT Comparison is made to prior study of 07/23/2025 at 1054. In the interval, there has been no change. Again seen is contrast within colon and some small bowel loops which are at upper limit of normal. These findings likely are indicative of an ileus. No free intraperitoneal gas is seen. Electronically signed by: Emigdio Garcia M.D. Narrative 07/23/2025 4:49 PM CDT EXAMINATION: Abdomen, one view. Procedure Note Emigdio Garcia MD - 07/23/2025 EXAMINATION: Abdomen, one view. IMPRESSION: Comparison is made to prior study of 07/23/2025 at 1054. In the interval, there has been no change. Again seen is contrast within colon and some small bowel loops which are at upper limit of normal. These findings likely are indicative of an ileus. No free intraperitoneal gas is seen. Electronically signed by: Emigdio Garcia M.D. Dante Warren NP IMG XR PROCEDURES Final Res ult * Small Bowel Challenge 4 hour Post Injection XR Abdomen Ap 1 Vw (07/23/2025 10:55 AM CDT) Anatomical Region Laterality Modality Body, Abdomen N/A Digital Radiogra phy 07/23/2025 11:2 5 AM CDT Impressions 07/23/2025 11:35 AM CDT Contrast is noted throughout the the dilated loops of small bowel without definitive colonic contrast. Continued interval follow-up is recommended. Endogastric tube with tip projecting over the gastric antrum. Dictated by: Jaguar Suggs M.D. The radiology attending physician has personally reviewed this study, and had reviewed and/or edited this written report and agrees with it. Electronically signed by: Jerry Diaz M.D. Narrative 07/23/2025 11:35 AM CDT EXAMINATION: Abdomen, one view. HISTORY: Bowel obstruction. COMPARISON: 07/22/2025 Procedure Note Jerry Diaz MD - 07/23/2025 EXAMINATION: Abdomen, one view. HISTORY: Bowel obstruction. COMPARISON: 07/22/2025 IMPRESSION: Contrast is noted throughout the the dilated loops of small bowel without definitive colonic contrast. Continued interval follow-up is recommended. Endogastric tube with tip projecting over the gastric antrum. Dictated by: Jaguar Suggs M.D. The radiology attending physician has personally reviewed this study, and had reviewed and/or edited this written report and agrees with it. Electronically signed by: Jerry Diaz M.D. us Dante Warren BOTTLED BEVERAGE INSPECTOR IMG XR PROCEDURES Final Res ult * Lactate (07/23/2025 4:21 AM CDT) Pathologist [facility] Lactate 1.0 0.7 - 2.0 mmol/L Blood 07/23/2025 4:21 AM CDT 07/23/2025 4:47 AM CDT Dustin Garibay MD LAB BLOOD ORDERABLES F inal Result [facility] Department [place] [address] * eGFR (07/23/2025 4:21 AM CDT) Pathologist [facility] eGFR >90 >=60 mL/min/1. 73 m2 Comment: Interpretive Data Reference Interval Normal >/= 90 mL/min/1.73m2 Mildly decreased* 60 - 89 mL/min/1.73m2 Mildly to moderately decreased 45 - 59 mL/min/1.73m2 Moderately to severely decreased 30 - 44 mL/min/1.73m2 Severely decreased 15 - 29 mL/min/1.73m2 Kidney Failure < 15 mL/min/1.73m2 *Relative to young adult level Estimated glomerular filtration rate is determined by the 2020 CKD-EPI equation recommended by the National Kidney Foundation (A Unifying Approach to GFR Estimation: Recommendations of the NKF-ASK Task Force on Reassessing the Inclusion of Race in Diagnosing Kidney Disease, JASN 2020). The CKD-EPI equation should not be used for patients with unstable renal function and has not been validated in children and those over 70. Current interpretive data was last reviewed 2021. Blood 07/23/2025 4:21 AM CDT 07/23/2025 4:44 AM CDT us Dustin Garibay MD LAB BLOOD ORDERABLES F inal Result [facility] Department [place] [address] * (ABNORMAL) CBC without differential (07/23/2025 4:21 AM CDT) WBC 6.95 3.80 - 9.90 K/cumm Hgb 10.5(L) 11.9 - 15.5 g/dL [facility] Hct 31.8(L) 35.6 - 45.5 % [facility] Plt 338 150 - 400 K/cumm [facility] MPV 9.3 9.1 - 12.3 fL [facility] RBC 2.89(L) 3.90 - 5.20 M/cumm [facility] MCV 110.0(H) 81.3 - 96.4 fL [facility] MCH 36.3(H) 27.1 - 33.3 pg [facility] MCHC 33.0 32.3 - 35.7 g/dL [facility] RDW CV 12.1 11.1 - 14.9 % [facility] RDW SD 48.5(H) 35.7 - 48.1 fL [facility] NRBC abs 0.00 0.00 - 0.01 K/cumm [facility] Blood 07/23/2025 4:21 AM CDT 07/23/2025 4:45 AM CDT Dustin Garibay MD LAB BLOOD ORDERABLES F inal Result [facility] Department [place] [address] * (ABNORMAL) Comprehensive metabolic panel (07/23/2025 4:21 AM CDT) Sodium 148(H) 135 - 145 mmol/L Potassium, pl 3.3 3.3 - 4.9 mmol/L [facility] Chloride 112(H) 97 - 110 mmol/L [facility] CO2 24 22 - 32 mmol/L [facility] Anion gap 12 2 - 15 mmol/L [facility] BUN 7 6 - 25 mg/dL [facility] Creatinine 0.63 0.60 - 1.10 mg/dL [facility] Glucose 91 70 - 199 mg/dL [facility] Comment: Interpretive Data Fasting glucose >/= 126 mg/dl is diagnostic for diabetes. Fasting is defined as no caloric intake for at least 8 hours. Fasting glucose between 100 mg/dl to 125 mg/dl is diagnostic of prediabetes. In a patient with classic symptoms of hyperglycemia or hyperglycemic crisis, a random glucose >/= 200 mg/dl is diagnostic for diabetes. In the absence of unequivocal hyperglycemia, results should be confirmed by repeat testing. The classification and Diagnosis of Diabetes Diabetes Care 2021; 46: S19-S40. Current interpretive data was last revised 2022. Calcium 9.5 8.5 - 10.3 mg/dL [facility] Bilirubin, total 0.2 0.1 - 1.2 mg/dL [facility] Protein, pl 6.5 6.5 - 8.5 g/dL [facility] Albumin 3.7 3.5 - 5.0 g/dL [facility] Alk phos 89 40 - 130 Units/L [facility] ALT 10 7 - 45 Units/L [facility] AST 16 10 - 45 Units/L [facility] Blood 07/23/2025 4:21 AM CDT 07/23/2025 4:44 AM CDT Dustin Garibay MD LAB BLOOD ORDERABLES F inal Result Performing Organization Address [facility]/ZIP Co de Phone Number [facility] Department [place] [address] * CT Body Outside Reference (07/22/2025 3:11 PM CDT) Impressions [facility] - 07/22/2025 3:11 PM CDT These images are for Reference purposes only and have not been reviewed by [facility] Radiology. There will be no report generated by a [facility] Radiologist. Narrative [facility]_PACS[facility] - 07/22/2025 3:11 PM CDT EXAMINATION: Images For Reference Purposes Only Dustin Garibay MD IMG CT PROCEDURES Kari l Result Performing Organization Address [facility] Co de Phone Number [email or web address] * XR Abdomen Ap 1 Vw (07/22/2025 5:33 AM CDT) Anatomical Region Laterality Modality Body, Abdomen N/A Digital Radiogra phy 07/22/2025 8:59 AM CDT Impressions 07/22/2025 8:59 AM CDT Single view of the abdomen. Gastric tube tip and side-port project over gastric antrum and body respectively. Right abdominal suture line in surgical clips noted. Mildly dilated loops of small bowel in the central abdomen with gas seen distally to the level of the rectum may represent a partial small bowel obstruction or ileus. Contrast material noted in the bladder from reported recent CT. Electronically signed by: Bebeto Davison M.D. Narrative 07/22/2025 8:59 AM CDT EXAMINATION: Abdomen, one view. HISTORY: Small bowel obstruction COMPARISON: 01/15/2025 Procedure Note Bebeto Davison MD - 07/22/2025 EXAMINATION: Abdomen, one view. HISTORY: Small bowel obstruction COMPARISON: 01/15/2025 IMPRESSION: Single view of the abdomen. Gastric tube tip and side-port project over gastric antrum and body respectively. Right abdominal suture line in surgical clips noted. Mildly dilated loops of small bowel in the central abdomen with gas seen distally to the level of the rectum may represent a partial small bowel obstruction or ileus. Contrast material noted in the bladder from reported recent CT. Electronically signed by: Bebeto Davison M.D. Dustin Garibay MD IMG XR PROCEDURES Kari l Result * Lactate (07/22/2025 5:01 AM CDT) Lactate 0.8 0.7 - 2.0 mmol/L Blood 07/22/2025 5:01 AM CDT 07/22/2025 5:10 AM CDT Dustin Garibay MD LAB BLOOD ORDERABLES F inal Result [facility] Department [place] [address] * eGFR (07/22/2025 5:01 AM CDT) eGFR 72 >=60 mL/min/1. 73 m2 Comment: Interpretive Data Reference Interval Normal >/= 90 mL/min/1.73m2 Mildly decreased* 60 - 89 mL/min/1.73m2 Mildly to moderately decreased 45 - 59 mL/min/1.73m2 Moderately to severely decreased 30 - 44 mL/min/1.73m2 Severely decreased 15 - 29 mL/min/1.73m2 Kidney Failure < 15 mL/min/1.73m2 *Relative to young adult level Estimated glomerular filtration rate is determined by the 2020 CKD-EPI equation recommended by the National Kidney Foundation (A Unifying Approach to GFR Estimation: Recommendations of the NKF-ASK Task Force on Reassessing the Inclusion of Race in Diagnosing Kidney Disease, JASN 2020). The CKD-EPI equation should not be used for patients with unstable renal function and has not been validated in children and those over 70. Current interpretive data was last reviewed 2021. Blood 07/22/2025 5:01 AM CDT 07/22/2025 5:15 AM CDT Dustin Garibay MD LAB BLOOD ORDERABLES F inal Result Performing Organization Address [facility] Co de Phone Number [facility] [place] [address] * (ABNORMAL) CBC without differential (07/22/2025 5:01 AM CDT) Pathologist [facility] WBC 6.72 3.80 - 9.90 K/cumm Hgb 10.2(L) 11.9 - 15.5 g/dL [facility] Hct 30.9(L) 35.6 - 45.5 % [facility] Plt 345 150 - 400 K/cumm [facility] MPV 8.8(L) 9.1 - 12.3 fL [facility] RBC 2.77(L) 3.90 - 5.20 M/cumm [facility] MCV 111.6(H) 81.3 - 96.4 fL [facility] MCH 36.8(H) 27.1 - 33.3 pg [facility] MCHC 33.0 32.3 - 35.7 g/dL [facility] RDW CV 12.0 11.1 - 14.9 % [facility] RDW SD 49.5(H) 35.7 - 48.1 fL [facility] NRBC abs 0.00 0.00 - 0.01 K/cumm [facility] Blood 07/22/2025 5:01 AM CDT 07/22/2025 5:12 AM CDT Dustin Garibay MD LAB BLOOD ORDERABLES F inal Result Performing Organization Address City/[facility]/ZIP Co de Phone Number [facility] [place] [address] * (ABNORMAL) Comprehensive metabolic panel (07/22/2025 5:01 AM CDT) Sodium 143 135 - 145 mmol/L Potassium, pl 3.9 3.3 - 4.9 mmol/L [facility] Chloride 112(H) 97 - 110 mmol/L [facility] CO2 21(L) 22 - 32 mmol/L [facility] Anion gap 10 2 - 15 mmol/L [facility] BUN 17 6 - 25 mg/dL [facility] Creatinine 0.87 0.60 - 1.10 mg/dL [facility] Glucose 93 70 - 199 mg/dL [facility] Comment: Interpretive Data Fasting glucose >/= 126 mg/dl is diagnostic for diabetes. Fasting is defined as no caloric intake for at least 8 hours. Fasting glucose between 100 mg/dl to 125 mg/dl is diagnostic of prediabetes. In a patient with classic symptoms of hyperglycemia or hyperglycemic crisis, a random glucose >/= 200 mg/dl is diagnostic for diabetes. In the absence of unequivocal hyperglycemia, results should be confirmed by repeat testing. The classification and Diagnosis of Diabetes Diabetes Care 2021; 46: S19-S40. Current interpretive data was last revised 2022. Calcium 9.3 8.5 - 10.3 mg/dL [facility] Bilirubin, total 0.3 0.1 - 1.2 mg/dL [facility] Protein, pl 6.4(L) 6.5 - 8.5 g/dL [facility] Albumin 3.7 3.5 - 5.0 g/dL [facility] Alk phos 92 40 - 130 Units/L [facility] ALT 15 7 - 45 Units/L [facility] AST 20 10 - 45 Units/L [facility] Blood 07/22/2025 5:01 AM CDT 07/22/2025 5:15 AM CDT us Dustin Garibay MD LAB BLOOD ORDERABLES F inal Result [facility] Department [place] [address] * Occult blood, fecal non neoplasm screening (03/17/2017 6:37 PM CDT) Stool Occult Blood NEGATIVE NEGATIVE 03/17/2017 6:37 PM CDT 03/17/2017 6:52 PM CDT Narrative [facility] HISTORICAL RESULTS - 03/17/2017 6:55 PM CDT Collected By bg Arley GOLDMAN LAB BODY FLUIDS AND STOOLS [place]O Final Result [facility] HISTORICAL RESULTS * Screening Mammogram Bilateral W [...] Electronically signed by: Rey Hernandez md/manasa:06/20/2016 15:38:20 Investment Banker: Brielle ANGEL(R)(M), [facility] letter sent: Normal Exam Reading location: BI-RADS: [...] exams dated: 01/22/2011 and 11/20/2009 [facility]. BREAST TISSUE: The tissue of both breasts [...] exams dated: 01/22/2011 and 11/20/2009 [facility]. BREAST TISSUE: The tissue of both breasts [...] Electronically signed by: Rey Hernandez md/manasa:06/20/2016 15:38:20 Investment Banker: Brielle ANGEL(R)(M), [facility] letter sent: Normal Exam Reading location: BI-RADS: 1 Negative [EOD] Malorie Lo MD IMG MAMMO PROCEDURES Final Result from Last 3 Months or Most Recently Relevant to Health Maintenance Insurance [facility] MEDICARE ADVANTAGE BLUE ACCESS OOS BLUE ACCESS OOS Member Subscriber Plan / Payer (Ef fective 2021-Present) Name:Екатерина Dockery Relation to Subscriber:Self Name:Hettinger MichelleЕкатерина salinas Payer ID:[id number] (NAIC) Type:[employer] Address: [place] [id number] [address] MEDICARE ADVANTAGE [facility] MD[facility] HMO REF Advance Directives For more information, please contact: [phone] * Full Code (Latest Code Status on [...] 10:14 PM 08/24/2022 2:48 AM Care Teams Finger Lift Operator Relationship Specialty Start Date End Date Siena Bell MD [address] [place] [id number] PCP - General Gastroenterology 08/28/22
--- OUTSIDE RECORDS SUMMARY | 2025-09-20 15:10 | XMS_ITS | Encounter Summary ---
Author Organization [facility] Address [address] [place] [address] Care Team Providers Care Advertising Consultant Name Role Phone Malorie Lo MD Primary Care Provider [phone] Zoey Leone SIGN PAINTER Unavailable [phone] Zoey Leone NP Primary Care Provider [phone] Encounter Details Date Type Department Care Team (Late st Contact Info) Description 06/29/2024 Therapy Plan [facility], [address] [address] Mary Syed MD [address] [place] [phone] Social History Tobacco Use Types Packs/Day [...] Care Team (Late st Contact Info) Description 11/14/2025 9:20 AM TECHNOLOGY SUPPORT ANALYST Office Visit [facility] - [place] [address] [place] [address] Zoey Leone NP [address] [place] [address] documented as of this encounter Visit Diagnoses Diagnosis Iron deficiency anemia- Primary Iron deficiency anemia, unspecified documented in this encounter Care Teams Advertising Consultant Relationship Specialty Start Date End Date Malorie Lo MD [address] [place] [address] PCP - General 08/21/11 07/18/25 Zoey Leone SIGN PAINTER [address] [place] [address] PCP - General NURSE PRACTITIONER 07/19/25 Zoey Leone SIGN PAINTER [address] [place] [address] Nurse Practitioner NURSE PRACTITIONER 07/19/25 documented as of this encounter
--- OUTSIDE RECORDS SUMMARY | 2025-09-20 15:10 | XMS_ITS | Clinical Summary ---
Author Organization [facility] Address [address] [place] [address] Care Team Providers Care Furniture Restorer Name Role Phone Zoey Leone EMERGENCY DEPARTMENT Unavailable [phone] Zoey Leone NP Primary Care Provider [phone] Allergies Active Allergy Reactions Criticality Noted Date [...] spray 2 sprays by Nasal route daily. Holt Into Each Nostril 5 Active furosemide (LASIX) [...] every 8 (eight) hours as needed. Active pantoprazole EC (PROTONIX) 40 MG tablet Take 1 tablet (40 mg total) by mouth 2 (two) times daily. 5 Active QUEtiapine (SEROQUEL) 25 MG tablet Take 1 tablet (25 mg total) by mouth 2 (two) times daily. 5 Active rosuvastatin (CRESTOR) 10 MG tablet Take 1 tablet (10 mg total) by mouth daily. Active zolpidem (AMBIEN) 10 MG tablet Take 1 tablet (10 mg total) by mouth daily as needed. Active lubiprostone (AMITIZA) 24 MCG capsule Take 1 capsule (24 mcg total) by mouth daily with breakfast. Active aspirin EC 81 MG tablet Take 1 tablet (81 mg total) by mouth daily. Active triamcinolone (KENALOG) 0.1 % creamIndications :Dermatitis Apply topically 2 (two) times daily. 15 g 1 Active cloNIDine (CATAPRES) 0.2 MG tabletIndication s:Hot flashes TAKE 1 TABLET BY MOUTH EVERY DAY 90 tablet Active Active Problems Problem Noted Date Diagnosed Date Iron deficiency anemia 06/15/2024 Arthralgia of multiple joints 02/25/2022 Allergic rhinitis 08/07/2021 Acquired hypothyroidism 01/26/2019 Atherosclerosis of sycuan co ronary artery of sycuan heart without angina pectoris 01/26/2019 Macrocytic anemia 01/15/2018 Resolved Problems Problem Noted Date Diagnosed Date Resolved Date Bilateral impacted cerumen 03/26/2023 0 08/11/2025 Bronchitis 06/25/2022 08/11/2025 Encounters Date Type Department Care Team Description 09/08/2025 Orders Only [facility] at [facility], [address] [address] Sherry Gooden FNP 09/02/[address] [address] Zoey Leone NP Refill Request 08/11/2025 8:40 AM CDT Office Visit [address] [address] Zoey Leone NP Rash (Patient presents today on a follow up on a rash on the RT arm. Per patient the rash is getting better. ) 08/11/2025 Travel 07/20/2025 9:00 AM CDT Office Visit [address] [phone] Zoey Leone, CLYDE Headache (Patient presents today to get established and does c/o ongoing headaches x 2 weeks. ) 07/20/2025 Travel from Last 3 Months Immunizations Immunization [...] Answer Date Recorded Patient Health Questionnaire-2 Score 2 08/11/2025 Comments No Sex and Gender Information Value Date Recorded Sex Assigned at Female 03/01/2025 12:11 PM CDT Legal Sex Female 7:10 PM CDT Gender Identity Not on file Sexual Orientation Not on file Last Filed Vital Signs Vital Sign Reading Time Taken Comments Blood Pressure 134/77 08/11/2025 8:31 AM CDT Pulse 77 08/11/2025 8:31 AM CDT Temperature 36.4 C (97.6 F) 08/11/2025 8:31 AM CDT Respiratory Rate 20 08/11/2025 8:31 AM CDT Oxygen Saturation 98% 08/11/2025 8:31 AM CDT Inhaled Oxygen Concentration - - Weight 67.6 kg (149 lb) 08/11/2025 8:31 AM CDT Height 153.7 cm (5' 0.5) 08/11/2025 8:31 AM CDT Body Mass Index 28.62 08/11/2025 8:31 AM CDT Plan of Treatment Upcoming Encounters Date Type Department Care Team (Late st Contact Info) Description 11/14/2025 9:20 AM UNDERCOAT SPRAYER Office Visit [address] [place] [phone] Zoey Leone, CLYDE [address] [place] [address] Health Maintenance Due Date Last Done Comments ASCVD LDL 1954 Colorectal Cancer Screening Colonoscopy (10 Years) 1954 Hepatitis C 1972 DTaP, Tdap and Td Vaccines (1 - Tdap) 1973 Zoster Vaccines (1 of 2) 2004 RSV Immunization or 60+ Years (1 - Risk 60-74 years 1-dose series) 2014 Annual Medicare Wellness Visit 2019 Dexa Scan (General) 2019 Pneumococcal Vaccine: 50+ Years (2 of 2 - PPSV23, PCV20, or PCV21) 09/26/2020 08/01/2020 COVID-19 Vaccine (3 - season) 2025 03/09/2021, 02/09/2021 Influenza Adult (#1) 2025 09/08/2024, 11/27/2022, 08/07/2021, Additional history exists Mammogram Screening 03/24/2027 03/24/2025, 6 PHQ-2 (Physician [place]) Completed 08/11/2025 Hepatitis A Vaccines Aged Out No long er eligible based on patient's age to complete this topic Meningococcal B Vaccine Aged Out No l onger eligible based on patient's age to complete this topic Meningococcal Vaccine Aged Out No jesus alberto júnior eligible based on patient's age to complete this topic RSV Immunizations Under 20 Months Aged Out No longer eligible based on patient's age to complete this topic Procedures Procedure Name Priority Date/Time Associated Diagnosis Comments MG SCREENING W ZULY SHERLY DIGI Routine 03/24/2025 10:39 AM CDT Encounter for screening mammogram for malignant neoplasm of breast from Last 3 Months or Most Recently Relevant to Health Maintenance Results * MG SCREENING W ZULY SHERLY DIGI [...] 11:13 AM Narrative 03/25/2025 11:[address] [facility] [place] [address] EXAMINATION: MG SCREENING W ZULYEmeli DUBOIS DIGBrando INDICATIONS: Screening TECHNIQUE: Digital full field CC [...] Most Recently Relevant to Health Maintenance Insurance [facility] MEDICARE Care Teams Furniture Restorer Relationship Specialty Start Date End Date Zoey Leone NP [address] [place] [id number] PCP - General NURSE PRACTITIONER 07/19/25 Zoey Leone NP [address] [place] [phone] Nurse Practitioner NURSE PRACTITIONER 07/19/25
--- OUTSIDE RECORDS SUMMARY | 2025-09-20 15:10 | XMS_ITS | Patient Health Record ---
Author Organization [facility] Address [address] [facility] [address] [place] [address] Care Team Providers Care Traffic Supervisor Name Role Phone Giovanny Waddell Unavailable [phone] Reason For Referral No Information Medications Medication [...] Aerosol Powder Breath Activated Inhalation *Reorder from Acceptd for eRx and Interaction Alerts* 12/07/2020 Active Immunizations Vaccine Route Administration Date Status Comme nts Influenza virus vaccine, quadrivalent (IIV4), split virus, 0.25 mL dosage Unknown 08/01/2020 Administered Influenza virus vaccine, quadrivalent (IIV4), split virus, 0.25 mL dosage Unknown 08/16/2020 Administered Novel [id number], preservative free Unknown 08/11/2014 Administered Pneumococcal conjugate PCV 13 Unknown 08/01/2020 Admini stered Social History Social History Additional Details Category Social Info Options Details Migrated Social History Migrated Social History Alcohol Intake: Occasional 09/04/2020,Tobacco Years: Former smoker 09/04/2020 Plan Of Treatment No Information Insurance Providers Payer Name Payer Address Payer Phone Subscriber Number Group Number Insured Name Patient Relationship to Insured Coverage Start Date Coverage End Date Medicare-I l Medicare [address] [facility] [place] [address] [id number] JAY EWING Self - patient is the insured Medical (General) History Surgical History Surgery Date(Month/Year) Appendectomy (05242)
--- OUTSIDE RECORDS SUMMARY | 2025-09-20 15:10 | XMS_ITS | Encounter Summary ---
Author Organization [facility] Address [address] [place] [address] Care Team Providers Care Strategy Planning Consultant Name Role Phone Malorie Lo MD Primary Care Provider [phone] Zoey Leone RETAIL COVERAGE MERCHANDISER Unavailable [phone] Zoey Leone NP Primary Care Provider [phone] Encounter Details Date Type Department Care Team (Late st Contact Info) Description 06/15/2024 Chart Prep [place], [address] [address] Malorie Lo MD [address] [place] [address] Social History Tobacco Use Types Packs/Day [...] st Contact Info) Description 11/14/2025 9:20 AM SALES AND SERVICE ENGINEER Office Visit [facility] Family Medicine - [place] [address] [place] [address] Zoey Leone NP [address] [place] [address] documented as of this encounter Visit Diagnoses Not on filedocumented in this encounter Care Teams Strategy Planning Consultant Relationship Specialty Start Date End Date Malorie Lo MD [address] [place] [address] PCP - General 08/21/11 07/18/25 Zoey Leone RETAIL COVERAGE MERCHANDISER [address] [place] [address] PCP - General NURSE PRACTITIONER 07/19/25 Zoey Leone RETAIL COVERAGE MERCHANDISER [address] [place] [address] Nurse Practitioner NURSE PRACTITIONER 07/19/25 documented as of this encounter
--- OUTSIDE RECORDS SUMMARY | 2025-09-20 15:11 | XMS_ITS | Clinical Summary ---
Author Organization [facility] Address [address], [address] [place] [address] Phone Care Team Providers Care Hostess Cashier Name Role Phone Siena Bell MD Primary Care Provider Eloy Mendez MD Unavailable [phone] Allergies Active Allergy Reactions Criticality Noted Date [...] NEEDED 12/28/19 22 Active ergocalciferol (VITAMIN D) 43787 UNIT Capsule TAKE 1 CAPSULE EVERY WEEK [...] Encounters Date Type Department Care Team Description 09/05/2025 Results Follow-Up [facility] [address] [phone] Gillian Sandoval, TUBE DEPATCHER, PATIENT EXPERIENCE COORDINATOR IRON W/ IRON BINDING CAPACITY OH, FERRITIN, FOLIC ACID (FOLATE), Additional followed-up results: 4 09/01/2025 10:55 AM CDT Lab [facility] [address] [phone] Lab, [facility] [place] Anemia in stage 3b chronic kidney disease; Iron deficiency anemia, unspecified iron deficiency anemia type; Nausea; Other fatigue 09/01/2025 9:30 AM CDT Office Visit [facility] [address] [phone] Gillian Sandoval, TUBE DEPATCHER, PATIENT EXPERIENCE COORDINATOR Anemia in stage 3b chronic kidney disease (Primary Dx); Iron deficiency anemia, unspecified iron deficiency anemia type; Nausea; Other fatigue 09/01/2025 Travel from Last 3 Months Immunizations Immunization [...] on file Legal Sex Female 9:24 AM CARD TAPE CONVERTER OPERATOR Gender Identity Not on file Sexual Orientation Not on file Last Filed Vital Signs Vital Sign Reading Time Taken Comments Blood Pressure 150/80 09/01/2025 9:52 AM CDT Pulse 68 09/01/2025 9:52 AM CDT Temperature 36.7 C (98 F) 09/01/2025 9:52 AM CDT Respiratory Rate 18 06/02/2025 10:15 AM CDT Oxygen Saturation 98% 09/01/2025 9:52 AM CDT Inhaled Oxygen Concentration - - Weight 67 kg (147 lb 11.2 oz) 09/01/2025 9:52 AM CDT Height 157.5 cm (5' 2) 09/01/2025 9:52 AM CDT Body Mass Index 27.01 09/01/2025 9:52 AM CDT Plan of Treatment Upcoming Encounters Date Type Department Care Team (Late st Contact Info) Description 12/01/2025 9:00 AM CARD TAPE CONVERTER OPERATOR Office Visit [facility] [address] [phone] Eloy Mendez MD [address] [place] [address] MICHEL [address] [place] [phone] Health Maintenance Due Date Last Done Comments DEXA Bone Density 1954 Hepatitis C Virus (HCV) Screening 1954 TdaP Immunization 1954 Cologuard 1999 Colonoscopy 1999 Colorectal Cancer Screening 1999 Immunochemical Fecal Occult Blood 1999 Zoster Immunization (1 of 2) 2004 Medicare Initial AWV G0438 11/17/2018 Pneumococcal Immunization (50+ years) (2 of 2 - PPSV23, PCV20, or PCV21) 09/26/2020 08/01/2020 Influenza Immunization (#1) 2025 1001/2024, 11/27/2022, 08/07/2021, Additional history exists SARS-COV-2 Immunization ( season) 2025 03/09/2021, 02/09/2021 Mammogram 03/24/2026 03/24/2025, 05/0 06/2025, 06/20/2016 Respiratory Syncytial Virus (RSV) Immunization (Adult) [...] Procedure Name Priority Date/Time Associated Diagnosis Comments URIC ACID (BLOOD ASSAY) Routine 09/01/2025 10:32 AM CDT HEMOGLOBIN A1C OH 1453 Routine 09/01/2025 10:32 AM CDT URINALYSIS WITH MICROSCOPIC, C/S IF INDICATED OH Routine 09/01/2025 10:32 AM CDT PARATHYROID HORMONE PTH INTACT Routine 09/01/2025 10:32 AM CDT UR MICROALBUMIN/CREATIN INE RATIO RANDOM Routine 09/01/2025 10:32 AM CDT VITAMIN D, 25 HYDROXY TOTAL Routine 09/01/2025 10:24 AM CDT CBC WITH AUTO DIFF OH Routine 09/01/2025 10:24 AM CDT CMP (COMPREHENSIVE METABOLIC PANEL) Routine 09/01/2025 10:24 AM CDT Anemia in stage 3b chronic kidney disease Iron deficiency anemia, unspecified iron deficiency anemia type Nausea Other fatigue VITAMIN B12 Routine 09/01/2025 10:24 AM CDT Anemia in stage 3b chronic kidney disease Iron deficiency anemia, unspecified iron deficiency anemia type Nausea Other fatigue FOLIC ACID (FOLATE) Routine 09/01/2025 1 0:24 AM CDT Anemia in stage 3b chronic kidney disease Iron deficiency anemia, unspecified iron deficiency anemia type Nausea Other fatigue FERRITIN Routine 09/01/2025 10:24 AM CDT Anemia in stage 3b chronic kidney disease Iron deficiency anemia, unspecified iron deficiency anemia type Nausea Other fatigue IRON W/ IRON BINDING CAPACITY OH Routine 09/01/2025 10:24 AM CDT Anemia in stage 3b chronic kidney disease Iron deficiency anemia, unspecified iron deficiency anemia type Nausea Other fatigue from Last 3 Months Results * (ABNORMAL) URINALYSIS WITH MICROSCOPIC, C/S IF INDICATED OH (09/01/2025 10:32 AM CDT) Urine Color Light Yellow Straw-Yel low CANCER TICKET SALES [facility]PER[facility] Urine Clarity Sl Hazy(A) Clear C[facility] R TICKET SALES [facility] Urine Glucose NEG NEG mg/dL [facility] TICKET SALES [facility] Urine Bilirubin NEG NEG mg/dL [facility] Urine Ketones NEG NEG mg/dL [facility]ET SALES [facility] Urine Specific [place] 1.010(L) 1.015 - 1.020 [facility]ET SALES [facility] Urine Blood NEG NEG mg/L [facility] Urine pH 6.0 5.0 - 8.0 [pH] [facility] SALES [facility] Urine Protein NEG NEG mg/dL [facility] SALES [facility] Urine Urobilinogen 0.2 0.2 - 1.0 mg/dL [facility]ET SALES [facility] Urine Nitrite NEG NEG [facility] T[facility]ET SALES [facility] Urine Leukocytes NEG NEG [facility] Urine Epithelial Cells Moderate(A ) None,Rare ,Few /LPF [facility] T[facility]ET SALES [facility] Urine Mucus None None /LPF [facility] Urine Cast None None /LPF [facility] Urine Bacteria Rare(A) None /HPF [facility] R TICKET SALES [facility] Urine Crystal None None /LPF [facility]ET SALES [facility] Urine White Blood Cells 0-4 0 - 4 /HPF [facility]ET SALES [facility] Urine Red Blood Cells 0-2 0 - 2 /HPF [facility] 09/01/2025 10:3 2 AM CDT us Joce Barksdale MD LAB SEND OUTS Final Result Performing Organization Address [facility] Co de Phone Number [facility] [address], [place] [phone] * (ABNORMAL) HEMOGLOBIN A1C OH 1453 (09/01/2025 10:32 AM CDT) HEMOGLOBIN A1C 4.7(L) 4.8 - 5.6 % [facility] Comment: PREDIABETES: 5.7 - 6.4 DIABETES: >6.4 GLYCEMIC CONTROL FOR ADULTS WITH DIABETES: <7.0 09/01/2025 10:3 2 AM CDT Narrative [facility] - 09/02/2025 6:07 AM CDT TESTING PERFORMED AT: [] LAB[address], [address], PHONE: [phone], FUNCTIONAL MANAGER: ANGLE BUCK, PHD us Joce Barksdale MD LAB SEND OUTS Final Result Performing Organization Address [facility] Co de Phone Number [facility] [place] [place] [address], [place] [phone] * URIC ACID (BLOOD ASSAY) (09/01/2025 10:32 AM CDT) [facility] Uric Acid 3.8 2.3 - 7.6 mg/dL [facility] Comment: P-jfghef-i-benzoquinone imine (metabolite of Acetamenophen) will generate erroneously low results in samples for patients that have taken toxic doses of acetaminophen 09/01/2025 10:3 2 AM CDT us Joce Barksdale MD CHEMISTRY ORDERABLES Final Res ult Performing Organization Address [facility]/ZIP Co de Phone Number [facility] Cancer Care [address] [place] [address], [place] [phone] * UR MICROALBUMIN/CREATININE RATIO RANDOM (09/01/2025 10:32 AM CDT) CREATININE, URINE 29.6 NOT ESTAB. MG/DL [facility] TICKET SALES [facility] MICROALBUMIN, URINE <3.0 NOT ESTAB. UG/ML [facility] TICKET SALES [facility] MICROALB/CREAT RATIO <10 0 - 29 MG/G CREAT [facility]ET SALES [facility] Comment: NORMAL: 0 - 29 MODERATELY INCREASED: 30 - 300 SEVERELY INCREASED: >300 09/01/2025 10:3 2 AM CDT [facility] - 09/02/2025 11:08 AM CDT TESTING PERFORMED AT: [CB] [facility], [address] [place] [address], [address], PHONE: [phone], FUNCTIONAL MANAGER: ANGLE BUCK, PHD us Joce Barksdale MD URINE ORDERABLES Final Result Performing Organization Address [facility] Co de Phone Number [facility]ET [facility]ES [facility] Cancer Care [address] [place] [address], [place] [phone] * PARATHYROID HORMONE PTH INTACT (09/01/2025 10:32 AM CDT) PTH, INTACT 22 15 - 65 PG/ML [facility] 09/01/2025 10:3 2 AM CDT Charles [facility] - 09/02/2025 10:08 AM CDT TESTING PERFORMED AT: [CB] [facility], [address] [place] [address], [address], PHONE: [phone], FUNCTIONAL MANAGER: ANGLE BUCK, PHD us Joce Barksdale MD CHEMISTRY ORDERABLES Final Res ult Performing Organization Address City/[facility]/ZIP Co de Phone Number [facility] [address] [place] [id number], [place] [phone] * VITAMIN D, 25 HYDROXY TOTAL (09/01/2025 10:24 AM CDT) 25() Vitamin D, Total 37.2 30.0 - 100.0 ng/mL [facility] TICKET SALES [facility] Comment: The Clinical Guidelines Subcommittee of the Endocrine Society Task Force established the guidelines below for recommended serum 25(OH) vitamin D levels. Other clinical reference citations may show different values. Deficient <20 Insufficient 20 to <30 Sufficient 30 to 100 Upper Safety Limit >100 09/01/2025 10:2 4 AM CDT us Gillian Sandoval APRN, CNP CHEMISTRY ORDERABLE S Final Result Performing Organization Address [facility] Co de Phone Number CAN[facility] TICKET SALES SUPER[facility] [place] [address] [place] [address], [place] [phone] * (ABNORMAL) IRON W/ IRON BINDING CAPACITY OH (09/01/2025 10:24 AM CDT) Pathologist [facility] IRON 38(L) 50 - 212 ug/dL [facility] TICKET SALES SUPER[facility] UIBC 242 155 - 355 ug/dL [facility] [employer]ET SALES [facility] TIBC 280 261 - 478 ug/dl [facility]ET SALES [facility] % Saturation 14(L) 20 - 50 % [facility] 09/01/2025 10:2 4 AM CDT Narrative [facility] TICKET SALES [facility] - 09/01/2025 11:26 AM CDT Release to patient->Immediate us Gillian Sandoval APRN, PATIENT EXPERIENCE COORDINATOR LAB SEND OUTS Fin al Result Performing Organization Address City/[facility]/ZIP Co de Phone Number [facility] TICKET SALES [facility] [address] [place] [id number], [place] [phone] * (ABNORMAL) CBC WITH AUTO DIFF OH (09/01/2025 10:24 AM CDT) WBC 7.7 4.0 - 10.0 10*3/uL [facility] TICKET SALES SUPER[facility] HGB 11.3 11.2 - 15.7 g/dL [facility] TICKET SALES [facility] HCT 35.1 34.1 - 44.9 % CAN[facility] TICKET SALES SUPER[facility] PLT 354 163 - 369 10*3/uL [facility] TICKET SALES [facility] MPV 8.2(L) 9.4 - 12.4 fL [facility] T[employer]ET SALES [facility] RBC 3.01(L) 3.93 - 5.22 10*6/uL CANC[facility] TICKET SALES SUPER[facility] MCV 117(H) 79 - 95 fL [facility] TICKET SALES [facility] MCH 37.5(H) 25.6 - 32.2 pg [facility] T[employer]ET SALES [facility] MCHC 32.2 32.2 - 36.5 g/dL [facility] TICKET SALES [facility] RDW 12.9 11.6 - 14.4 % [facility] [employer] SALES [facility] Neutrophils % 75.0(H) 36.0 - 66.0 % [facility] [employer] SALES [facility] Lymphocytes % 15.2(L) 19.0 - 40.0 % [facility] T[employer] SALES [facility] Monocytes % 7.0 4.1 - 12.1 % [facility] T[employer]ET SALES [facility] Eosinophils % 2.1 0.0 - 3.5 % [facility] T[employer] SALES [facility] Basophils % 0.4 0.0 - 1.0 % [facility] T[employer]ET SALES [facility] Absolute Neutrophils 5.8 1.4 - 6.6 10*3/uL [facility] SALES [facility] Absolute Lymphocytes 1.2 0.8 - 4.0 10*3/uL [facility]ET SALES [facility] Absolute Monocytes 0.5 0.2 - 1.2 10*3/uL [facility] SALES [facility] Absolute Eosinophils 0.2 0.0 - 0.4 10*3/uL [facility] SAL[facility] Absolute Basophils 0.0 0.0 - 0.1 10*3/uL [facility] TICKET SALES [facility] WBC Estimate Normal [facility]ET SALES [facility] Platelet Estimate Normal [facility] SALES [facility] RBC Morphology Abnormal [facility] R [facility]ET SALES [facility] Macrocytosis 2+ [facility]ET SALES [facility] 09/01/2025 10:2 4 AM CDT us Gillian Sandoval APRN, NAHOMI LAB SEND OUTS Fin al Result Performing Organization Address City/[facility]/ZIP Co de Phone Number [facility] TICKET SALES [facility] [address] [place] [address], * VITAMIN B12 (09/01/2025 10:24 AM CDT) Vitamin B12 207 180 - 914 pg/mL [facility] T[employer]ET SALES [facility] Blood 09/01/2025 10:2 4 AM CDT Narrative [facility]ET SALES [facility] - 09/02/2025 2:25 PM CDT Release to patient->Immediate us Gillian Sandoval APRN, NAHOMI CHEMISTRY ORDERABLE S Final Result Performing Organization Address [facility] Co de Phone Number [facility] TICKET SALES [facility] [place] [address] [place] [address], * FOLIC ACID (FOLATE) (09/01/2025 10:24 AM CDT) Folate 8.43 >=5.90 ng/mL [facility]ET SALES [facility] Blood 09/01/2025 10:2 4 AM CDT Narrative [facility] - 09/02/2025 2:25 PM CDT Release to patient->Immediate IS THE PATIENT REQUIRED TO BE FASTING FOR 12 HOURS?->No us Gillian Sandoval APRN, NAHOMI CHEMISTRY ORDERABLE S Final Result Performing Organization Address [facility]/ZIP Co de Phone Number [facility] TICKET SALES [facility] [address] [place] [address], * FERRITIN (09/01/2025 10:24 AM CDT) Ferritin 70 11 - 307 ng/mL [facility]ICKET SALES [facility] Blood 09/01/2025 10:2 4 AM CDT Narrative [facility] SALES [facility] - 09/02/2025 2:25 PM CDT Release to patient->Immediate us Gillian Sandoval APRN, CNP CHEMISTRY ORDERABLE S Final Result [facility] SALES [facility] [place] [address], [place] [phone] * (ABNORMAL) CMP (COMPREHENSIVE METABOLIC PANEL) (09/01/2025 10:24 AM CDT) Glucose 90 70 - 105 mg/dL [facility] TICKET SALES SUPER[facility] Blood Urea Nitrogen 25 7 - 25 mg/dL [facility] Creatinine 1.0 0.6 - 1.2 mg/dL [facility] Sodium 141 136 - 145 mEq/L [facility] Potassium 4.1 3.5 - 5.1 mEq/L [facility] Chloride 113(H) 98 - 107 mEq/L [facility] Bicarbonate 21 21 - 31 mEq/L [facility] Total Bilirubin 0.2(L) 0.3 - 1.0 mg/dL [facility] Alk. Phosphatase 81 34 - 104 U/L [facility] Aspartate Aminotransferase 17 13 - 39 U/L [facility] Alanine Aminotransferase 15 7 - 52 U/L [facility] Total Protein 5.8(L) 6.4 - 8.9 g/dL [facility] Albumin 3.8 3.5 - 5.7 g/dL [facility] Calcium 9.0 8.6 - 10.3 mg/dL [facility] Anion Gap 11.1 7.0 - 15.0 mEq/L [facility] Globulin 2.0 2.0 - 3.5 g/dL [facility] TICKET SALES SUPER[facility] EGFR 60(L) >60 ml/min/1. 73m2 [facility] TICKET SALES SUPER[facility] Comment: This eGFR is calculated using 2020 CKD-EPI Creatinine equation without race modifier based on the NKF-ASN task force recommendations Equation: mLNY=983*min(SCr/k,1)a*max(SCr/k,1)-1.200*0.9938Age*1.012 (if female), where SCr is serum creatinine, k is 0.7 for females and 0.9 for males, and a is -0.241 for females and -0.302 for males Blood 09/01/2025 10:2 4 AM CDT Narrative [facility]ER TICKET SALES SUPER[facility] - 09/01/2025 11:26 AM CDT Release to patient->Immediate IS THE PATIENT REQUIRED TO BE FASTING FOR 8 HOURS?->No us Gillian Sandoval TUBE DEPATCHER, PATIENT EXPERIENCE COORDINATOR CHEMISTRY ORDERABLE S Final Result [facility] [address] [id number], from Last 3 Months [facility] Care Teams Hostess Cashier Relationship Specialty Start Date End Date Siena Bell MD [address] [place] [address] PCP - General Internal Medicine 01/16/22 Elyo Mendez MD [address] [place] [id number] Consulting Physician Oncology 09/29/23
--- OUTSIDE RECORDS SUMMARY | 2025-09-20 15:11 | XMS_ITS | Patient Health Record ---
Author Organization [facility] Address [address] [place] [address] Care Team Providers Care Department Administrator Name Role Phone Joce Barksdale Unavailable [phone] Reason For Referral No Information Medications Medication SIG (Take, Route, Fr equency, Duration) Notes Start Date End Date Status Calcitriol 0.25 MCG TAKE 1 CAPSULE BY [facility] EVERY DAY; Duration: 90 Active Protonix 40 MG 1 tablet Orally Once a day; Duration: 90 day(s) 05/18/2025 Active Problems Problem Type SNOMED Code ICD Code Onset Dates Problem Status W/U Status Risk Notes Problem Anemia (735235358) Anemia, unspe cified (D64.9) Active confirmed Problem 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 Problem Hypo-osmolality and or hyponatremia (155497587) Hypo-osmolality and hyponatremia (E87.1) Active confirmed Problem Anxiety disorder (161054731) Anxiety disorder, unspecified (F41.9) Active confirmed Problem Gastro-esophageal reflux disease without esophagitis (962955768) Gastro-esophageal reflux disease without esophagitis (K21.9) Active confirmed Problem 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) Active confirmed Problem Chronic kidney disease stage 2 (845190178) Chronic kidney disease, stage 2 (mild) (N18.2) Active confirmed Problem Renal osteodystrophy (77679721) Renal osteodystrophy (N25.0) Active confirmed Problem Secondary hyperparathyroidism of renal origin (32731137) Secondary hyperparathyroidism of renal origin (N25.81) Active confirmed Problem Urinary tract infectious disease (disorder) (08276228) Urinary tract infection, site not specified (N39.0) Active confirmed Problem Chronic fatigue syndrome (disorder) (58385729) Chronic fatigue, unspecified (R53.82) Active confirmed Problem Proteinuria (90606897) Proteinuria, unspecified (R80.9) Active confirmed Problem Essential hypertension (32638644) Essential hypertension (I10) Active confirmed Encounters Encounter Location Date Provider Diagnosis [facility] [address] [address] 09/24/2024 Joce Barksdale Chronic kidney disea se, stage 2 (mild) N18.2 ; Anxiety disorder, unspecified F41.9 ; Chronic fatigue, unspecified R53.82 ; Essential hypertension I10 ; Urinary tract infection, site not specified N39.0 ; Proteinuria, unspecified R80.9 ; Chronic kidney disease, stage 3 unspecified N18.30 and Renal osteodystrophy N25.0 [facility] [address] [place] [address] 11/26/2024 Jocerenuka Barksdale Chronic kidney disea se, stage 2 (mild) N18.2 ; Hypo-osmolality and hyponatremia E87.1 ; Urinary tract infection, site not specified N39.0 and Anxiety disorder, unspecified F41.9 [facility] [address] [address] 12/10/2024 Joce Barksdale Chronic kidney disea se, stage 3 unspecified N18.30 ; Hypo-osmolality and hyponatremia E87.1 ; Primary generalized (osteo)arthritis M15.0 ; Elevation of levels of liver transaminase levels R74.01 and Anemia, unspecified D64.9 [facility] [address] [address] 03/30/2025 Joce Barksdale Chronic kidney disea se, [...] without esophagitis K21.9 and Hypervitaminosis D E67.3 [facility] [address] [address] 05/18/2025 Joce Barksdale Chronic kidney disea se, [...] without esophagitis K21.9 and Hypervitaminosis D E67.3 [place] [facility] [address] [facility] [address] [place] [address] 05/18/2025 Joce Barksdale Assessments Encounter Date Diagnosis [...] Name:Joce Barksdale , 09/26/2025 04:15:00 PM, [address] [facility] [address], [place], [address],
--- OUTSIDE RECORDS SUMMARY | 2025-09-20 15:11 | XMS_ITS | Clinical Summary ---
Author Organization [facility] Address [address] [address] Care Team Providers Care Needle Leader Name Role Phone Malorie Lo MD Primary Care Provider [phone] Source [address] [facility],non-owned Affiliates and Associated Physician Practices is amultiple site organization consisting of ambulatory clinics and hospital sitesin [place], [place], [place] and [place]. This disclosure is being madepursuant to the Care Everywhere program and may not contain all information available regarding this patient. Last updated 18.[facility] [place] Active Problems Problem Noted Date Diagnosed Date SBO (small bowel obstruction) 12/25/2024 Social History Tobacco Use Types Packs/Day Years Used Date Smoking Tobacco: Never Assessed Comments Unknown Sex and Gender Information Value Date Recorded Sex Assigned at Not on file Legal Sex Female 6:55 PM VINEYARDIST Gender Identity Not on file Sexual Orientation [...] 2004 ZOSTER VACCINE (1 of 2) 2004 DEPRESSION SCREENING 11/17/2024 COVID-19 VACCINE (1 - 2023-2 5 season) 2025 INFLUENZA VACCINE (#1) 2025 Respiratory Syncytial Virus [...] age to complete this topic Care Teams Needle Leader Relationship Specialty Start Date End Date Malorie Lo MD PCP - General 04/30/12
--- OUTSIDE RECORDS SUMMARY | 2025-09-20 15:11 | XMS_ITS | Data Portability ---
Author Organization [facility] Address [address] [place] [address] Assessment Encounter Date Assessment Date Assessment LastModified by Organization Details LastModified Time 06/08/2025 06/08/2025 Had screening mammogram done. I will get results. [email or web address] Not available 06/08/2025 11:09:08 Plan of Treatment Reminders Order Date Submit Date Provider Last Modified By Organization Details Last Modified Time Details Appointments ANY 2024 01:30P M Chari Weeks MD Not available Not available Not available ANY 2025 10:30A M Chari Weeks MD Not available Not available Not available Lab TSH, ultra-se nsitive, serum 2024 025 [facility], [address], [place], [address], 09/02/2025 14:22:40 lipid panel, serum 2024 025 [facility], [address], [place], [address], 09/02/2025 14:22:40 CMP, serum or plasma 2024 025 [facility], [address], [place], [address], 09/02/2025 14:22:40 Referral physical therapis t referral - evaluate and treat 2024 025 [email or web address] [facility], [address] [facility], [place], [address], 09/02/2025 15:11:57 Procedures None recorded . Surgeries None recorded . Imaging MAMMO, screenin g, digital, bilatera l 2024 025 valarie [facility], [address] [facility], [place], [address], 08/04/2025 11:37:24 Medication Orders meloxica m 7.5 mg tablet 2024 025 [facility] [id number], [address], 06/08/2025 11:09:17 gabapent in 600 mg tablet 2024 025 [facility] [id number], [address], 06/08/2025 11:09:17 trazodon e 50 mg tablet 2024 025 [facility] [id number] In [facility], [address] [place] [address], [address], 06/08/2025 11:09:18 clonidin e HCl 0.2 mg tablet 2024 025 [facility] [id number], [address], 06/08/2025 11:09:17 clonidin e HCl 0.1 mg tablet 2024 025 [facility] [address], [address], 02/21/2025 11:13:48 azithrom ycin 250 mg tablet 2024 025 [facility] [id number] In [facility], [address] [place] [address], [address], 02/21/2025 10:36:31 fluticas one propiona te 50 mcg/actu ation nasal spray,auguste spension 2023 024 [facility] [id number], [address], 11/16/2024 11:06:43 Miralax 17 gram/dos e oral powder 2023 [facility] [id number], [address], 11/16/2024 11:06:43 trazodon e 50 mg tablet 2023 024 [email or web address] [id number], [address], 12/08/2024 17:40:15 oxycodon e-acetam inophen 10 mg-325 mg tablet 2023 024 [facility] [id number], [address], 11/16/2024 11:06:44 Patient TargetsNo targets recorded. Patient Instructions Encounter Date Encounter Id Patient Instructions Last Modified By Organization Details Last Modified Time 11/16/2024 [id number] abdominal pain: care instructions [email or web address] Not available 11/16/2024 11:06:40 insomnia: care instructions [email or web address] Not available 11/16/2024 11:06:40 medicines to avoid with kidney disease: care instructions [email or web address] Not available 11/16/2024 11:06:40 01/18/2025 [id number] bronchitis: care instructions Not available 01/18/2025 12:26:10 medicines to avoid with kidney disease: care instructions [email or web address] Not available 01/18/2025 12:26:10 learning about high blood pressure [email or web address] Not available 01/18/2025 12:26:10 hypothyroidism: care instructions [email or web address] Not available 01/18/2025 12:26:10 03/23/2025 [id number] learning about swallowing problems [email or web address] Not available 03/23/2025 10:41:35 medicines to avoid with kidney disease: care instructions [email or web address] Not available 03/23/2025 10:41:35 high cholesterol : care instructions Not available 03/23/2025 10:41:35 learning about high blood pressure [email or web address] Not available 03/23/2025 10:41:35 hypothyroidism: care instructions [email or web address] Not available 03/23/2025 10:41:35 learning about mood disorders Not available 03/23/2025 10:41:35 Reason for Referral Physical Therapist Referral for Chronic low back pain evaluate and treat Referring Physician: Chari Weeks, Family Medicine, Encounter Date: 06/08/2025 Results Created Date Observation Date Name Description Value Unit Range Abnormal Flag Note LastModifiedBy Organization Detail LastModifiedTime 12/25/19 25 12/25/2024 Influ abigail virus A and B and SARS- CoV-2 (COVI D-19) and SARS- relat ed CoV RNA panel - Respi rator y syste m speci men by JOAN with probe detec tion sars-cov-2 (covid-19) RNA [presence] in specimen by JOAN with probe detection Negati ve normal Not Available Not Available 22:33:22 12/25/19 25 12/25/2024 Influ abigail virus A and B and SARS- CoV-2 (COVI D-19) and SARS- relat ed CoV RNA panel - Respi rator y syste m speci men by JOAN with probe detec tion influenza virus A RNA [presence] in respiratory system specimen by JOAN with probe detection Negati ve normal Not Available Not Available 22:33:22 12/25/19 25 12/25/2024 Influ abigail virus A and B and SARS- CoV-2 (COVI D-19) and SARS- relat ed CoV RNA panel - Respi rator y syste m speci men by JOAN with probe detec tion influenza virus B RNA [presence] in respiratory system specimen by JOAN with probe detection Negati ve normal Not Available Not Available 22:33:22 12/25/19 25 12/25/2024 Urina lysis compl ete W Refle x Cultu re panel - Urine color of urine by auto Color of urine normal Not Available Not Available 22:33:22 12/25/19 25 12/25/2024 Urina lysis compl ete W Refle x Cultu re panel - Urine appearance of urine Urine specim en normal Not Available Not Available 22:33:22 12/25/19 25 12/25/2024 Urina lysis compl ete W Refle x Cultu re panel - Urine specific gravity of urine by test strip 1.03 1 low: 1.001h igh: 1.03 normal Not Available Not Available 12/31/2024 22:33:22 12/25/19 25 12/25/2024 Urina lysis compl ete W Refle x Cultu re panel - Urine pH of urine by test strip 6 pH_un its low: 5pH unitsh igh: 9pH units normal Not Available Not Available 12/31/2024 22:33:22 12/25/19 25 12/25/2024 Urina lysis compl ete W Refle x Cultu re panel - Urine leukocytes [#/volume] in urine by test strip Leukoc yte estera se measur ement text: negati ve normal Not Available Not Available 12/31/2024 22:33:22 12/25/19 25 12/25/2024 Urina lysis compl ete W Refle x Cultu re panel - Urine nitrite [presence] in urine by test strip Labora tory test findin g text: negati ve normal Not Available Not Available 12/31/2024 22:33:22 12/25/19 25 12/25/2024 Urina lysis compl ete W Refle x Cultu re panel - Urine protein [mass/volume ] in urine by test strip 20 mg/dL text: negati ve Not Available Not Available 12/31/2024 22:33:22 12/25/19 25 12/25/2024 Urina lysis compl ete W Refle x Cultu re panel - Urine glucose [moles/volum e] in urine by test strip Labora tory test findin g text: normal normal Not Available Not Available 12/31/2024 22:33:22 12/25/19 25 12/25/2024 Urina lysis compl ete W Refle x Cultu re panel - Urine ketones [moles/volum e] in urine by test strip Labora tory test findin g text: negati ve normal Not Available Not Available 12/31/2024 22:33:22 12/25/19 25 12/25/2024 Urina lysis compl ete W Refle x Cultu re panel - Urine urobilinogen [mass/volume ] in urine by test strip Urobil inogen measur ement, urine text: normal normal Not Available Not Available 12/31/2024 22:33:22 12/25/19 25 12/25/2024 Urina lysis compl ete W Refle x Cultu re panel - Urine bilirubin.to guillermo [mass/volume ] in urine by test strip Urine dipsti ck for biliru bin text: negati ve normal Not Available Not Available 12/31/2024 22:33:22 12/25/19 25 12/25/2024 Urina lysis compl ete W Refle x Cultu re panel - Urine erythrocytes [#/volume] in urine by test strip Urine dipsti ck for blood text: negati ve normal Not Available Not Available 12/31/2024 22:33:22 12/25/19 25 12/25/2024 Urina lysis compl ete W Refle x Cultu re panel - Urine leukocytes [#/area] in urine sediment by automated count Leukoc ytes in urine low: 0/[hpf ]high: 8/[hpf ] normal Not Available Not Available 12/31/2024 22:33:22 12/25/19 25 12/25/2024 Urina lysis compl ete W Refle x Cultu re panel - Urine erythrocytes [#/area] in urine sediment by automated count Blood in urine low: 0/[hpf ]high: 4/[hpf ] normal Not Available Not Available 12/31/2024 22:33:22 12/25/19 25 12/25/2024 Urina lysis compl ete W Refle x Cultu re panel - Urine bacteria [presence] in urine by automated Urine findin g normal Not Available Not Available 22:33:22 12/25/19 25 12/25/2024 Urina lysis compl ete W Refle x Cultu re panel - Urine mucus [#/area] in urine sediment by automated count Urine findin g Not Available Not Available 22:33:22 12/25/19 25 12/25/2024 Urina lysis compl ete W Refle x Cultu re panel - Urine epithelial cells.squamo us [#/area] in urine sediment by automated count Urine findin g Not Available Not Available 22:33:22 12/25/19 25 12/25/2024 CBC W Auto Diffe renti al panel - Blood leukocytes [#/volume] in blood by automated count 6.1 x10'3 /uL low: 4.2x10 '3/uLh igh: 10.8x1 0'3/uL normal Not Available Not Available 12/31/2024 22:33:21 12/25/19 25 12/25/2024 CBC W Auto Diffe renti al panel - Blood erythrocytes [#/volume] in blood by automated count 3.08 x10'6 /uL low: 3.8x10 '6/uLh igh: 5.2x10 '6/uL low Not Available Not Available 12/31/2024 22:33:21 12/25/19 25 12/25/2024 CBC W Auto Diffe renti al panel - Blood hemoglobin [mass/volume ] in blood 11.3 g/dL low: 12g/dL high: 15.6g/ dL low Not Available Not Available 12/31/2024 22:33:21 12/25/19 25 12/25/2024 CBC W Auto Diffe renti al panel - Blood hematocrit [volume fraction] of blood by automated count 34.9 % low: 35.7%h igh: 45.7% low Not Available Not Available 12/31/2024 22:33:21 12/25/19 25 12/25/2024 CBC W Auto Diffe renti al panel - Blood MCV [entitic volume] by automated count 113.3 fL low: 82fLhi gh: 99fL high Not Available Not Available 12/31/2024 22:33:21 12/25/19 25 12/25/2024 CBC W Auto Diffe renti al panel - Blood MCH [entitic mass] by automated count 36.7 pg low: 27pghi gh: 33pg high Not Available Not Available 12/31/2024 22:33:21 12/25/19 25 12/25/2024 CBC W Auto Diffe renti al panel - Blood MCHC [mass/volume ] by automated count 32.4 g/dL low: 31g/dL high: 36g/dL normal Not Available Not Available 12/31/2024 22:33:21 12/25/19 25 12/25/2024 CBC W Auto Diffe renti al panel - Blood erythrocyte distribution width [ratio] 13.3 % low: 11.8%h igh: 15.5% normal Not Available Not Available 12/31/2024 22:33:21 12/25/19 25 12/25/2024 CBC W Auto Diffe renti al panel - Blood platelets [#/volume] in blood by automated count 324 x10'3 /uL low: 150x10 '3/uLh igh: 400x10 '3/uL normal Not Available Not Available 12/31/2024 22:33:21 12/25/19 25 12/25/2024 CBC W Auto Diffe renti al panel - Blood platelet mean volume [entitic volume] in blood by automated count 10 fL low: 9fLhig h: 12.4fL normal Not Available Not Available 12/31/2024 22:33:21 12/25/19 25 12/25/2024 CBC W Auto Diffe renti al panel - Blood neutrophils/ 100 leukocytes in blood 83 % low: 39%hig h: 72% high Not Available Not Available 12/31/2024 22:33:21 12/25/19 25 12/25/2024 CBC W Auto Diffe renti al panel - Blood lymphocytes/ 100 leukocytes in blood 10 % low: 16%hig h: 47% low Not Available Not Available 12/31/2024 22:33:21 12/25/19 25 12/25/2024 CBC W Auto Diffe renti al panel - Blood monocytes/10 0 leukocytes in blood 7 % low: 5%high : 12% normal Not Available Not Available 12/31/2024 22:33:21 12/25/19 25 12/25/2024 CBC W Auto Diffe renti al panel - Blood neutrophils [#/volume] in blood 5.11 x10'3 /uL low: 1.5x10 '3/uLh igh: 8x10'3 /uL normal Not Available Not Available 12/31/2024 22:33:21 12/25/19 25 12/25/2024 CBC W Auto Diffe renti al panel - Blood nucleated erythrocytes /100 leukocytes [ratio] in blood 0 % high: 0% normal Not Available Not Available 12/31/2024 22:33:21 12/25/19 25 12/25/2024 CBC W Auto Diffe renti al panel - Blood nucleated erythrocytes [#/volume] in blood by automated count 0 x10'3 /uL normal Not Available Not Available 12/31/19 22:33:21 12/25/19 25 12/25/2024 Magne sium [Mass /volu me] in Serum or Plasm a magnesium [mass/volume ] in serum or plasma 1.6 mg/dL low: 1.6mg/ dLhigh : 2.3mg/ dL normal Not Available Not Available 12/31/2024 22:33:22 12/25/19 25 12/25/2024 Lipas e [Enzy matic activ ity/v olume ] in Serum or Plasm a lipase [enzymatic activity/vol ume] in serum or plasma 75 U/L low: 23U/Lh igh: 300U/L normal Not Available Not Available 12/31/2024 22:33:22 12/25/19 25 12/25/2024 Compr ehens chacha metab olic 1999 panel - Serum or Plasm a sodium [moles/volum e] in blood 132 mmol/ L low: 137mmo l/Lhig h: 145mmo l/L low Not Available Not Available 12/31/2024 22:33:21 12/25/19 25 12/25/2024 Compr ehens chacha metab olic 1999 panel - Serum or Plasm a potassium [moles/volum e] in serum or plasma 4.9 mmol/ L low: 3.5mmo l/Lhig h: 5.1mmo l/L normal Not Available Not Available 12/31/2024 22:33:21 12/25/19 25 12/25/2024 Compr ehens chacha metab [facility] 1999 panel - Serum or Plasm a chloride [moles/volum e] in serum or plasma 102 mmol/ L low: 98mmol /Lhigh : 107mmo l/L normal Not Available Not Available 12/31/2024 22:33:21 12/25/19 25 12/25/2024 [facility] [employer] [facility] 1999 panel - Serum or Plasm a carbon dioxide, total [moles/volum e] in serum or plasma 23 mmol/ L low: 22mmol /Lhigh : 30mmol /L normal Not Available Not Available 12/31/2024 22:33:21 12/25/19 25 12/25/2024 [facility] [employer] [facility] 1999 panel - Serum or Plasm a anion gap in serum or plasma 11.9 mmol/ L low: 14mmol /Lhigh : 22mmol /L low Not Available Not Available 12/31/2024 22:33:21 12/25/19 25 12/25/2024 [facility] [employer] [facility] 1999 panel - Serum or Plasm a glucose [mass/volume ] in serum or plasma 114 mg/dL low: 70mg/d Lhigh: 99mg/d L high Not Available Not Available 12/31/2024 22:33:21 12/25/19 25 12/25/2024 [facility] [employer] [facility] 1999 panel - Serum or Plasm a urea nitrogen [mass or moles/volume ] in serum or plasma 18 mg/dL low: 8mg/dL high: 19mg/d L normal Not Available Not Available 12/31/2024 22:33:21 12/25/19 25 12/25/2024 [facility] [employer] [facility] 1999 panel - Serum or Plasm a creatinine [mass/volume ] in serum or plasma 0.85 mg/dL low: 0.66mg /dLhig h: 1.25mg /dL normal Not Available Not Available 12/31/2024 22:33:21 12/25/19 25 12/25/2024 [facility] [place] [place] [id number] panel - Serum or Plasm a glomerular filtration rate/1.73 sq M.predicted [volume rate/area] in serum, plasma or blood >60 normal Not Available Not Available 12/18 22:33:21 12/25/19 25 12/25/2024 [facility] [employer] ol 1999 panel - Serum or Plasm a alkaline phosphatase [enzymatic activity/vol ume] in serum or plasma 103 U/L low: 38U/Lh igh: 126U/L normal Not Available Not Available 12/31/2024 22:33:21 12/25/19 25 12/25/2024 [facility] [employer] chacha metab olic 1999 panel - Serum or Plasm a alanine aminotransfe rase [enzymatic activity/vol ume] in serum or plasma 139 U/L low: 0U/Lhi gh: 35U/L high Not Available Not Available 12/31/2024 22:33:21 12/25/19 25 12/25/2024 [facility] [employer] olic 1999 panel - Serum or Plasm a aspartate aminotransfe rase [enzymatic activity/vol ume] in serum or plasma 136 U/L low: 15U/Lh igh: 37U/L high Not Available Not Available 12/31/2024 22:33:21 12/25/19 25 12/25/2024 [facility] [employer] [facility] 1999 panel - Serum or Plasm a bilirubin.to guillermo [mass/volume ] in serum or plasma 0.8 mg/dL low: 0.2mg/ dLhigh : 1.3mg/ dL normal Not Available Not Available 12/31/2024 22:33:21 12/25/19 25 12/25/2024 [facility] [employer] olic 1999 panel - Serum or Plasm a calcium [mass/volume ] in serum or plasma 9.8 mg/dL low: 8.4mg/ dLhigh : 10.2mg /dL normal Not Available Not Available 12/31/2024 22:33:21 12/25/19 25 12/25/2024 [facility] [employer] olic 1999 panel - Serum or Plasm a protein [mass/volume ] in serum or plasma 7.6 g/dL low: 6.3g/d Lhigh: 8.2g/d L normal Not Available Not Available 12/31/2024 22:33:21 12/25/19 25 12/25/2024 [facility] [employer] ol 1999 panel - Serum or Plasm a albumin [mass/volume ] in serum or plasma 4.6 g/dL low: 3g/dLh igh: 4.4g/d L high Not Available Not Available 12/31/2024 22:33:21 12/25/19 25 12/25/2024 Compr ehens chacha metab olic 1999 panel - Serum or Plasm a globulin [mass/volume ] in serum 3 g/dL low: 2.6g/d Lhigh: 4.2g/d L normal Not Available Not Available 12/31/2024 22:33:21 12/25/19 25 12/25/2024 Compr ehens chacha metab olic 1999 panel - Serum or Plasm a albumin/glob ulin [mass ratio] in serum or plasma 1.5 ratio low: 1ratio high: 2ratio normal Not Available Not Available 12/31/2024 22:33:21 01/11/20 25 01/11/2025 Urina lysis compl ete W Refle x Cultu re panel - Urine color of urine by auto Color of urine normal Not Available Not Available 14:53:13 01/11/20 25 01/11/2025 Urina lysis compl ete W Refle x Cultu re panel - Urine appearance of urine Urine specim en normal Not Available Not Available 14:53:13 01/11/20 25 01/11/2025 Urina lysis compl ete W Refle x Cultu re panel - Urine specific gravity of urine by test strip >1.030 low: 1.001h igh: 1.03 normal Not Available Not Available 01/14/2025 14:53:13 01/11/20 25 01/11/2025 Urina lysis compl ete W Refle x Cultu re panel - Urine pH of urine by test strip 6 pH_un its low: 5pH unitsh igh: 9pH units normal Not Available Not Available 01/14/2025 14:53:13 01/11/20 25 01/11/2025 Urina lysis compl ete W Refle x Cultu re panel - Urine leukocytes [#/volume] in urine by test strip Leukoc yte estera se measur ement text: negati ve normal Not Available Not Available 01/14/2025 14:53:13 01/11/20 25 01/11/2025 Urina lysis compl ete W Refle x Cultu re panel - Urine nitrite [presence] in urine by test strip Labora tory test findin g text: negati ve normal Not Available Not Available 01/14/2025 14:53:13 01/11/2001/11/2025 Urina lysis compl ete W Refle x Cultu re panel - Urine protein [mass/volume ] in urine by test strip 20 mg/dL text: negati ve Not Available Not Available 01/14/2025 14:53:13 01/11/20 25 01/11/2025 Urina lysis compl ete W Refle x Cultu re panel - Urine glucose [moles/volum e] in urine by test strip Labora tory test findin g text: normal normal Not Available Not Available 01/14/2025 14:53:13 01/11/2001/11/2025 Urina lysis compl ete W Refle x Cultu re panel - Urine ketones [moles/volum e] in urine by test strip Labora tory test findin g text: negati ve normal Not Available Not Available 01/14/2025 14:53:13 01/11/20 25 01/11/2025 Urina lysis compl ete W Refle x Cultu re panel - Urine urobilinogen [mass/volume ] in urine by test strip Urobil inogen measur ement, urine text: normal normal Not Available Not Available 01/14/2025 14:53:13 01/11/2001/11/2025 Urina lysis compl ete W Refle x Cultu re panel - Urine bilirubin.to guillermo [mass/volume ] in urine by test strip Urine dipsti ck for biliru bin text: negati ve normal Not Available Not Available 01/14/2025 14:53:13 01/11/2001/11/2025 Urina lysis compl ete W Refle x Cultu re panel - Urine erythrocytes [#/volume] in urine by test strip Urine dipsti ck for blood text: negati ve normal Not Available Not Available 01/14/2025 14:53:13 01/11/20 25 01/11/2025 Urina lysis compl ete W Refle x Cultu re panel - Urine leukocytes [#/area] in urine sediment by automated count Leukoc ytes in urine low: 0/[hpf ]high: 8/[hpf ] normal Not Available Not Available 01/14/2025 14:53:13 01/11/20 25 01/11/2025 Urina lysis compl ete W Refle x Cultu re panel - Urine erythrocytes [#/area] in urine sediment by automated count Blood in urine low: 0/[hpf ]high: 4/[hpf ] normal Not Available Not Available 01/14/2025 14:53:13 01/11/20 25 01/11/2025 Urina lysis compl ete W Refle x Cultu re panel - Urine bacteria [presence] in urine by automated Urine findin g normal Not Available Not Available 14:53:13 01/11/20 25 01/11/2025 Urina lysis compl ete W Refle x Cultu re panel - Urine mucus [#/area] in urine sediment by automated count Urine findin g Not Available Not Available 14:53:13 01/11/20 25 01/11/2025 Urina lysis compl ete W Refle x Cultu re panel - Urine epithelial cells.squamo us [#/area] in urine sediment by automated count Urine findin g normal Not Available Not Available 14:53:13 01/11/20 25 01/11/2025 Lacta te [Mole s/vol ume] in Serum or Plasm a lactate [moles/volum e] in serum or plasma 1.1 mmol/ L low: 0.7mmo l/Lhig h: 1.9mmo l/L normal Not Available Not Available 01/14/2025 14:53:13 01/11/20 25 01/11/2025 Proca lcito vasiliy [Mass /volu me] in Serum or Plasm a procalcitoni n [mass/volume ] in serum or plasma 2.36 NG/mL low: 0NG/mL high: 0.08NG /mL high Not Available Not Available 01/14/2025 14:53:13 01/11/20 25 01/11/2025 CBC W Auto Diffe renti al panel - Blood leukocytes [#/volume] in blood by automated count 8.1 x10'3 /uL low: 4.2x10 '3/uLh igh: 10.8x1 0'3/uL normal Not Available Not Available 01/14/2025 14:53:12 01/11/20 25 01/11/2025 CBC W Auto Diffe renti al panel - Blood erythrocytes [#/volume] in blood by automated count 2.79 x10'6 /uL low: 3.8x10 '6/uLh igh: 5.2x10 '6/uL low Not Available Not Available 01/14/2025 14:53:12 01/11/20 25 01/11/2025 CBC W Auto Diffe renti al panel - Blood hemoglobin [mass/volume ] in blood 10 g/dL low: 12g/dL high: 15.6g/ dL low Not Available Not Available 01/14/2025 14:53:12 01/11/2001/11/2025 CBC W Auto Diffe renti al panel - Blood hematocrit [volume fraction] of blood by automated count 31.5 % low: 35.7%h igh: 45.7% low Not Available Not Available 01/14/2025 14:53:12 01/11/20 25 01/11/2025 CBC W Auto Diffe renti al panel - Blood MCV [entitic volume] by automated count 112.9 fL low: 82fLhi gh: 99fL high Not Available Not Available 01/14/2025 14:53:12 01/11/20 25 01/11/2025 CBC W Auto Diffe renti al panel - Blood MCH [entitic mass] by automated count 35.8 pg low: 27pghi gh: 33pg high Not Available Not Available 01/14/2025 14:53:12 01/11/20 25 01/11/2025 CBC W Auto Diffe renti al panel - Blood MCHC [mass/volume ] by automated count 31.7 g/dL low: 31g/dL high: 36g/dL normal Not Available Not Available 01/14/2025 14:53:12 01/11/20 25 01/11/2025 CBC W Auto Diffe renti al panel - Blood erythrocyte distribution width [ratio] 14.5 % low: 11.8%h igh: 15.5% normal Not Available Not Available 01/14/2025 14:53:12 01/11/20 25 01/11/2025 CBC W Auto Diffe renti al panel - Blood platelets [#/volume] in blood by automated count 500 x10'3 /uL low: 150x10 '3/uLh igh: 400x10 '3/uL high Not Available Not Available 01/14/2025 14:53:12 01/11/20 25 01/11/2025 CBC W Auto Diffe renti al panel - Blood platelet mean volume [entitic volume] in blood by automated count 9.4 fL low: 9fLhig h: 12.4fL normal Not Available Not Available 01/14/2025 14:53:12 01/11/20 25 01/11/2025 CBC W Auto Diffe renti al panel - Blood neutrophils/ 100 leukocytes in blood 78.9 % low: 39%hig h: 72% high Not Available Not Available 01/14/2025 14:53:12 01/11/2001/11/2025 CBC W Auto Diffe renti al panel - Blood lymphocytes/ 100 leukocytes in blood 12.4 % low: 16%hig h: 47% low Not Available Not Available 01/14/2025 14:53:12 01/11/2001/11/2025 CBC W Auto Diffe renti al panel - Blood monocytes/10 0 leukocytes in blood 7.4 % low: 5%high : 12% normal Not Available Not Available 01/14/2025 14:53:12 01/11/2001/11/2025 CBC W Auto Diffe renti al panel - Blood eosinophils [#/volume] in blood 0.5 % low: 1%high : 7% low Not Available Not Available 01/14/2025 14:53:12 01/11/20 25 01/11/2025 CBC W Auto Diffe renti al panel - Blood basophils/10 0 leukocytes in blood 0.4 % low: 0%high : 2% normal Not Available Not Available 01/14/2025 14:53:12 01/11/20 25 01/11/2025 CBC W Auto Diffe renti al panel - Blood immature granulocytes /100 leukocytes in blood 0.4 % low: 0%high : 0.5% normal Not Available Not Available 01/14/2025 14:53:12 01/11/20 25 01/11/2025 CBC W Auto Diffe renti al panel - Blood neutrophils [#/volume] in blood 6.43 x10'3 /uL low: 1.5x10 '3/uLh igh: 8x10'3 /uL normal Not Available Not Available 01/14/2025 14:53:12 01/11/20 25 01/11/2025 CBC W Auto Diffe renti al panel - Blood lymphocytes [#/volume] in blood 1.01 x10'3 /uL low: 1.07x1 0'3/uL high: 3.43x1 0'3/uL low Not Available Not Available 01/14/2025 14:53:12 01/11/20 25 01/11/2025 CBC W Auto Diffe renti al panel - Blood monocytes [#/volume] in blood 0.6 x10'3 /uL low: 0.29x1 0'3/uL high: 0.99x1 0'3/uL normal Not Available Not Available 01/14/2025 14:53:12 01/11/20 25 01/11/2025 CBC W Auto Diffe renti al panel - Blood eosinophils [#/volume] in blood 0.04 x10'3 /uL low: 0.02x1 0'3/uL high: 0.53x1 0'3/uL normal Not Available Not Available 01/14/2025 14:53:12 01/11/20 25 01/11/2025 CBC W Auto Diffe renti al panel - Blood basophils [#/volume] in blood 0.03 x10'3 /uL low: 0.01x1 0'3/uL high: 0.08x1 0'3/uL normal Not Available Not Available 01/14/2025 14:53:12 01/11/20 25 01/11/2025 CBC W Auto Diffe renti al panel - Blood immature granulocytes [#/volume] in blood 0.03 x10'3 /uL low: 0x10'3 /uLhig h: 0.05x1 0'3/uL normal Not Available Not Available 01/14/2025 14:53:12 01/11/20 25 01/11/2025 CBC W Auto Diffe renti al panel - Blood nucleated erythrocytes /100 leukocytes [ratio] in blood 0 % high: 0% normal Not Available Not Available 01/14/2025 14:53:12 01/11/20 25 01/11/2025 CBC W Auto Diffe renti al panel - Blood nucleated erythrocytes [#/volume] in blood by automated count 0 x10'3 /uL normal Not Available Not Available 01/14/20 14:53:12 01/11/20 25 01/11/2025 CBC W Auto Diffe renti al panel - Blood anisocytosis [presence] in blood by light microscopy [facility] data interp retati on normal Not Available Not Available 14:53:12 01/11/20 25 01/11/2025 CBC W Auto Diffe renti al panel - Blood macrocytes [presence] in blood by light microscopy Labora tory data interp retati on normal Not Available Not Available 14:53:12 01/11/20 25 01/11/2025 C react chacha prote in [Mass /volu me] in Serum or Plasm a C reactive protein [mass/volume ] in serum or plasma 1.62 mg/dL low: 0mg/dL high: 0.5mg/ dL high Not Available Not Available 01/14/2025 14:53:13 01/11/20 25 01/11/2025 Compr ehens chacha metab olic 1999 panel - Serum or Plasm a sodium [moles/volum e] in blood 135 mmol/ L low: 137mmo l/Lhig h: 145mmo l/L low Not Available Not Available 01/14/2025 14:53:12 01/11/20 25 01/11/2025 Compr ehens chacha metab olic 1999 panel - Serum or Plasm a potassium [moles/volum e] in serum or plasma 3.7 mmol/ L low: 3.5mmo l/Lhig h: 5.1mmo l/L normal Not Available Not Available 01/14/2025 14:53:12 01/11/20 25 01/11/2025 Compr ehens chacha metab olic 1999 panel - Serum or Plasm a chloride [moles/volum e] in serum or plasma 103 mmol/ L low: 98mmol /Lhigh : 107mmo l/L normal Not Available Not Available 01/14/2025 14:53:12 01/11/20 25 01/11/2025 Compr ehens chacha metab olic 1999 panel - Serum or Plasm a carbon dioxide, total [moles/volum e] in serum or plasma 22 mmol/ L low: 22mmol /Lhigh : 30mmol /L normal Not Available Not Available 01/14/2025 14:53:12 01/11/20 25 01/11/2025 [facility] chacha [facility] 1999 panel - Serum or Plasm a anion gap in serum or plasma 13.7 mmol/ L low: 14mmol /Lhigh : 22mmol /L low Not Available Not Available 01/14/2025 14:53:12 01/11/20 25 01/11/2025 [facility] chacha [facility] 1999 panel - Serum or Plasm a glucose [mass/volume ] in serum or plasma 101 mg/dL low: 70mg/d Lhigh: 99mg/d L high Not Available Not Available 01/14/2025 14:53:12 01/11/20 25 01/11/2025 [facility] chacha [facility] 1999 panel - Serum or Plasm a urea nitrogen [mass or moles/volume ] in serum or plasma 21 mg/dL low: 8mg/dL high: 19mg/d L high Not Available Not Available 01/14/2025 14:53:12 01/11/20 25 01/11/2025 [facility] chacha [facility] 1999 panel - Serum or Plasm a creatinine [mass/volume ] in serum or plasma 0.95 mg/dL low: 0.66mg /dLhig h: 1.25mg /dL normal Not Available Not Available 01/14/2025 14:53:12 01/11/20 25 01/11/2025 [facility] chacha [facility] 1999 panel - Serum or Plasm a glomerular filtration rate/1.73 sq M.predicted [volume rate/area] in serum, plasma or blood >60 normal Not Available Not Available 12/19 14:53:12 01/11/20 25 01/11/2025 [facility] chacha [facility] 1999 panel - Serum or Plasm a alkaline phosphatase [enzymatic activity/vol ume] in serum or plasma 85 U/L low: 38U/Lh igh: 126U/L normal Not Available Not Available 01/14/2025 14:53:12 01/11/20 25 01/11/2025 [facility] [employer] chacha [employer] [facility] 1999 panel - Serum or Plasm a alanine aminotransfe rase [enzymatic activity/vol ume] in serum or plasma 73 U/L low: 0U/Lhi gh: 35U/L high Not Available Not Available 01/14/2025 14:53:12 01/11/20 25 01/11/2025 [facility] [employer] [facility] 1999 panel - Serum or Plasm a aspartate aminotransfe rase [enzymatic activity/vol ume] in serum or plasma 89 U/L low: 15U/Lh igh: 37U/L high Not Available Not Available 01/14/2025 14:53:12 01/11/20 25 01/11/2025 [facility] [employer] chacha [employer] [facility] 1999 panel - Serum or Plasm a bilirubin.to guillermo [mass/volume ] in serum or plasma 0.7 mg/dL low: 0.2mg/ dLhigh : 1.3mg/ dL normal Not Available Not Available 01/14/2025 14:53:12 01/11/20 25 01/11/2025 [facility] panel - Serum or Plasm a calcium [mass/volume ] in serum or plasma 10 mg/dL low: 8.4mg/ dLhigh : 10.2mg /dL normal Not Available Not Available 01/14/2025 14:53:12 01/11/20 25 01/11/2025 [facility] panel - Serum or Plasm a protein [mass/volume ] in serum or plasma 7.3 g/dL low: 6.3g/d Lhigh: 8.2g/d L normal Not Available Not Available 01/14/2025 14:53:12 01/11/20 25 01/11/2025 [facility] [employer] chacha [employer] [facility] 1999 panel - Serum or Plasm a albumin [mass/volume ] in serum or plasma 4.4 g/dL low: 3g/dLh igh: 4.4g/d L normal Not Available Not Available 01/14/2025 14:53:12 01/11/20 25 01/11/2025 [facility] [employer] chacha [employer] [facility] 2000 panel - Serum or Plasm a globulin [mass/volume ] in serum 2.9 g/dL low: 2.6g/d Lhigh: 4.2g/d L normal Not Available Not Available 01/14/2025 14:53:12 01/11/20 25 01/11/2025 Compr ehens chacha metab olic 2000 panel - Serum or Plasm a albumin/glob ulin [mass ratio] in serum or plasma 1.5 ratio low: 1ratio high: 2ratio normal Not Available Not Available 01/14/2025 14:53:12 01/11/20 25 01/11/2025 Proth rombi n time (PT) prothrombin time (PT) 10.6 secon ds low: 9.7sec ondshi gh: 12.2se conds normal Not Available Not Available 01/14/2025 14:53:13 01/11/20 25 01/11/2025 Proth rombi n time (PT) INR in platelet poor plasma by coagulation assay 1 1 normal Not Available Not Available 12/19 14:53:13 01/14/20 25 01/14/2025 CBC W Auto Diffe renti al panel - Blood leukocytes [#/volume] in blood by automated count 8.4 x10'3 /uL low: 4.2x10 '3/uLh igh: 10.8x1 0'3/uL normal Not Available Not Available 01/14/2025 14:53:13 01/14/20 25 01/14/2025 CBC W Auto Diffe renti al panel - Blood erythrocytes [#/volume] in blood by automated count 2.57 x10'6 /uL low: 3.8x10 '6/uLh igh: 5.2x10 '6/uL low Not Available Not Available 01/14/2025 14:53:13 01/14/20 25 01/14/2025 CBC W Auto Diffe renti al panel - Blood hemoglobin [mass/volume ] in blood 9.2 g/dL low: 12g/dL high: 15.6g/ dL low Not Available Not Available 01/14/2025 14:53:13 01/14/20 25 01/14/2025 CBC W Auto Diffe renti al panel - Blood hematocrit [volume fraction] of blood by automated count 27.9 % low: 35.7%h igh: 45.7% low Not Available Not Available 01/14/2025 14:53:13 01/14/20 01/14/2025 CBC W Auto Diffe renti al panel - Blood MCV [entitic volume] by automated count 108.6 fL low: 82fLhi gh: 99fL high Not Available Not Available 01/14/2025 14:53:13 01/14/20 25 01/14/2025 CBC W Auto Diffe renti al panel - Blood MCH [entitic mass] by automated count 35.8 pg low: 27pghi gh: 33pg high Not Available Not Available 01/14/2025 14:53:13 01/14/20 25 01/14/2025 CBC W Auto Diffe renti al panel - Blood MCHC [mass/volume ] by automated count 33 g/dL low: 31g/dL high: 36g/dL normal Not Available Not Available 01/14/2025 14:53:13 01/14/20 25 01/14/2025 CBC W Auto Diffe renti al panel - Blood erythrocyte distribution width [ratio] 13.9 % low: 11.8%h igh: 15.5% normal Not Available Not Available 01/14/2025 14:53:13 01/14/20 25 01/14/2025 CBC W Auto Diffe renti al panel - Blood platelets [#/volume] in blood by automated count 408 x10'3 /uL low: 150x10 '3/uLh igh: 400x10 '3/uL high Not Available Not Available 01/14/2025 14:53:13 01/14/20 25 01/14/2025 CBC W Auto Diffe renti al panel - Blood platelet mean volume [entitic volume] in blood by automated count 9.5 fL low: 9fLhig h: 12.4fL normal Not Available Not Available 01/14/2025 14:53:13 01/14/20 25 01/14/2025 CBC W Auto Diffe renti al panel - Blood neutrophils/ 100 leukocytes in blood 75.7 % low: 39%hig h: 72% high Not Available Not Available 01/14/2025 14:53:13 01/14/20 25 01/14/2025 CBC W Auto Diffe renti al panel - Blood lymphocytes/ 100 leukocytes in blood 14.7 % low: 16%hig h: 47% low Not Available Not Available 01/14/2025 14:53:13 01/14/20 25 01/14/2025 CBC W Auto Diffe renti al panel - Blood monocytes/10 0 leukocytes in blood 8.5 % low: 5%high : 12% normal Not Available Not Available 01/14/2025 14:53:13 01/14/20 25 01/14/2025 CBC W Auto Diffe renti al panel - Blood eosinophils [#/volume] in blood 0.5 % low: 1%high : 7% low Not Available Not Available 01/14/2025 14:53:13 01/14/20 25 01/14/2025 CBC W Auto Diffe renti al panel - Blood basophils/10 0 leukocytes in blood 0.2 % low: 0%high : 2% normal Not Available Not Available 01/14/2025 14:53:13 01/14/20 25 01/14/2025 CBC W Auto Diffe renti al panel - Blood immature granulocytes /100 leukocytes in blood 0.4 % low: 0%high : 0.5% normal Not Available Not Available 01/14/2025 14:53:13 01/14/20 25 01/14/2025 CBC W Auto Diffe renti al panel - Blood neutrophils [#/volume] in blood 6.33 x10'3 /uL low: 1.5x10 '3/uLh igh: 8x10'3 /uL normal Not Available Not Available 01/14/2025 14:53:13 01/14/20 25 01/14/2025 CBC W Auto Diffe renti al panel - Blood lymphocytes [#/volume] in blood 1.23 x10'3 /uL low: 1.07x1 0'3/uL high: 3.43x1 0'3/uL normal Not Available Not Available 01/14/2025 14:53:13 01/14/20 25 01/14/2025 CBC W Auto Diffe renti al panel - Blood monocytes [#/volume] in blood 0.71 x10'3 /uL low: 0.29x1 0'3/uL high: 0.99x1 0'3/uL normal Not Available Not Available 01/14/2025 14:53:13 01/14/20 25 01/14/2025 CBC W Auto Diffe renti al panel - Blood eosinophils [#/volume] in blood 0.04 x10'3 /uL low: 0.02x1 0'3/uL high: 0.53x1 0'3/uL normal Not Available Not Available 01/14/2025 14:53:13 01/14/20 25 01/14/2025 CBC W Auto Diffe renti al panel - Blood basophils [#/volume] in blood 0.02 x10'3 /uL low: 0.01x1 0'3/uL high: 0.08x1 0'3/uL normal Not Available Not Available 01/14/2025 14:53:13 01/14/20 25 01/14/2025 CBC W Auto Diffe renti al panel - Blood immature granulocytes [#/volume] in blood 0.03 x10'3 /uL low: 0x10'3 /uLhig h: 0.05x1 0'3/uL normal Not Available Not Available 01/14/2025 14:53:13 01/14/20 25 01/14/2025 CBC W Auto Diffe renti al panel - Blood nucleated erythrocytes /100 leukocytes [ratio] in blood 0 % high: 0% normal Not Available Not Available 01/14/2025 14:53:13 01/14/20 25 01/14/2025 CBC W Auto Diffe renti al panel - Blood nucleated erythrocytes [#/volume] in blood by automated count 0 x10'3 /uL normal Not Available Not Available 01/14/20 14:53:13 01/14/20 25 01/14/2025 CBC W Auto Diffe renti al panel - Blood anisocytosis [presence] in blood by light microscopy [facility] data interp retati on normal Not Available Not Available 14:53:13 01/14/20 25 01/14/2025 CBC W Auto Diffe renti al panel - Blood poikilocytos is [presence] in blood by light microscopy [facility] [facility] data interp retati on normal Not Available Not Available 14:53:13 01/14/20 25 01/14/2025 CBC W Auto Diffe renti al panel - Blood macrocytes [presence] in blood by light microscopy [facility] [employer] data interp retati on normal Not Available Not Available 14:53:13 01/14/20 25 01/14/2025 CBC W Auto Diffe renti al panel - Blood ovalocytes [presence] in blood by light microscopy [facility] data interp retati on normal Not Available Not Available 14:53:13 01/14/20 25 01/14/2025 Compr ehens chacha metab olic 1999 panel - Serum or Plasm a sodium [moles/volum e] in blood 140 mmol/ L low: 137mmo l/Lhig h: 145mmo l/L normal Not Available Not Available 01/14/2025 14:53:13 01/14/20 25 01/14/2025 Compr ehens chacha metab olic 1999 panel - Serum or Plasm a potassium [moles/volum e] in serum or plasma 3.2 mmol/ L low: 3.5mmo l/Lhig h: 5.1mmo l/L low Not Available Not Available 01/14/2025 14:53:13 01/14/20 25 01/14/2025 Compr ehens chacha metab olic 1999 panel - Serum or Plasm a chloride [moles/volum e] in serum or plasma 106 mmol/ L low: 98mmol /Lhigh : 107mmo l/L normal Not Available Not Available 01/14/2025 14:53:13 01/14/20 25 01/14/2025 Compr ehens chacha metab olic 1999 panel - Serum or Plasm a carbon dioxide, total [moles/volum e] in serum or plasma 24 mmol/ L low: 22mmol /Lhigh : 30mmol /L normal Not Available Not Available 01/14/2025 14:53:13 01/14/20 25 01/14/2025 Compr ehens chacha metab olic 1999 panel - Serum or Plasm a anion gap in serum or plasma 13.2 mmol/ L low: 14mmol /Lhigh : 22mmol /L low Not Available Not Available 01/14/2025 14:53:13 01/14/20 25 01/14/2025 Compr ehens chacha metab olic 1999 panel - Serum or Plasm a glucose [mass/volume ] in serum or plasma 78 mg/dL low: 70mg/d Lhigh: 99mg/d L normal Not Available Not Available 01/14/2025 14:53:13 01/14/20 25 01/14/2025 [facility] 1999 panel - Serum or Plasm a urea nitrogen [mass or moles/volume ] in serum or plasma 11 mg/dL low: 8mg/dL high: 19mg/d L normal Not Available Not Available 01/14/2025 14:53:13 01/14/20 25 01/14/2025 [facility] 1999 panel - Serum or Plasm a creatinine [mass/volume ] in serum or plasma 0.61 mg/dL low: 0.66mg /dLhig h: 1.25mg /dL low Not Available Not Available 01/14/2025 14:53:13 01/14/20 25 01/14/2025 [facility] panel - Serum or Plasm a glomerular filtration rate/1.73 sq M.predicted [volume rate/area] in serum, plasma or blood >60 normal Not Available Not Available 12/19 14:53:13 01/14/20 25 01/14/2025 [facility] panel - Serum or Plasm a alkaline phosphatase [enzymatic activity/vol ume] in serum or plasma 85 U/L low: 38U/Lh igh: 126U/L normal Not Available Not Available 01/14/2025 14:53:13 01/14/20 25 01/14/2025 [facility] [place] [id number] panel - Serum or Plasm a alanine aminotransfe rase [enzymatic activity/vol ume] in serum or plasma 30 U/L low: 0U/Lhi gh: 35U/L normal Not Available Not Available 01/14/2025 14:53:13 01/14/20 25 01/14/2025 [facility] 1999 panel - Serum or Plasm a aspartate aminotransfe rase [enzymatic activity/vol ume] in serum or plasma 27 U/L low: 15U/Lh igh: 37U/L normal Not Available Not Available 01/14/2025 14:53:13 01/14/20 25 01/14/2025 [facility] panel - Serum or Plasm a bilirubin.to guillermo [mass/volume ] in serum or plasma 0.7 mg/dL low: 0.2mg/ dLhigh : 1.3mg/ dL normal Not Available Not Available 01/14/2025 14:53:13 01/14/20 25 01/14/2025 [facility] 1999 panel - Serum or Plasm a calcium [mass/volume ] in serum or plasma 9.2 mg/dL low: 8.4mg/ dLhigh : 10.2mg /dL normal Not Available Not Available 01/14/2025 14:53:13 01/14/20 25 01/14/2025 [facility] 1999 panel - Serum or Plasm a protein [mass/volume ] in serum or plasma 6.5 g/dL low: 6.3g/d Lhigh: 8.2g/d L normal Not Available Not Available 01/14/2025 14:53:13 01/14/20 25 01/14/2025 [facility] chacha [employer] [facility] 1999 panel - Serum or Plasm a albumin [mass/volume ] in serum or plasma 3.7 g/dL low: 3g/dLh igh: 4.4g/d L normal Not Available Not Available 01/14/2025 14:53:13 01/14/20 25 01/14/2025 [facility] 1999 panel - Serum or Plasm a globulin [mass/volume ] in serum 2.8 g/dL low: 2.6g/d Lhigh: 4.2g/d L normal Not Available Not Available 01/14/2025 14:53:13 01/14/20 25 01/14/2025 [facility]acha [employer] [facility] 1999 panel - Serum or Plasm a albumin/glob ulin [mass ratio] in serum or plasma 1.3 ratio low: 1ratio high: 2ratio normal Not Available Not Available 01/14/2025 14:53:13 03/03/20 25 03/03/2025 Cobal drew (Nohelia min B12) [Mass /volu me] in Serum or Plasm a cobalamin (vitamin B12) [mass/volume ] in serum or plasma 243 pg/mL low: 180pg/ mLhigh : 914pg/ mL Not Available Not Available 06/02/2025 16:11:54 03/03/20 25 03/03/2025 Cobal drew (Nohelia min B12) [Mass /volu me] in Serum or Plasm a Unknown Analyte Releas e to patien t->Imm ediate Not Available Not Available 16:11:54 03/03/2003/03/2025 Retic ulocy derrell/E rythr ocyte s in Blood by Autom ated count reticulocyte s/erythrocyt es in blood by automated count 2.27 % low: 0.5%hi gh: 1.7% high Not Available Not Available 06/02/2025 16:11:54 03/03/20 25 03/03/2025 Retic ulocy derrell/E rythr ocyte s in Blood by Autom ated count hemoglobin [entitic mass] in reticulocyte s by automated count 39.2 pg low: 28.2pg high: 36.6pg high RET-H e is a direc t asses sment of incor porat ion of iron into eryth rocyt e hemog lobin . It provi vaibhav an indir ect measu re of the iron avail able for new eryth ropoi esis over past 2-4 days. Not Available Not Available 06/02/2025 16:11:54 03/03/2003/03/2025 Retic ulocy derrell/E rythr ocyte s in Blood by Autom ated count Unknown Analyte Releas e to patien t->Imm ediate Not Available Not Available 16:11:54 03/03/20 25 03/03/2025 Retic ulocy derrell/E rythr ocyte s in Blood by Autom ated count interpretati on and review of laboratory results Abnorm al Not Available Not Available 16:11:54 03/03/2003/03/2025 Folat e [Mass /volu me] in Serum or Plasm a folate [mass/volume ] in serum or plasma low: 5.9NG/ mL Not Available Not Available 06/02/2025 16:11:54 03/03/20 25 03/03/2025 Folat e [Mass /volu me] in Serum or Plasm a Unknown Analyte Releas e to patien t->Imm ediate IS THE PATIEN T REQUIR ED TO BE FASTIN G FOR 12 HOURS? ->No Not Available Not Available 16:11:54 03/03/20 03/03/2025 Tobi tin [Mass /volu me] in Serum or Plasm a ferritin [mass/volume ] in serum or plasma 421 NG/mL low: 11NG/m Lhigh: 307NG/ mL high Not Available Not Available 06/02/2025 16:11:54 03/03/20 25 03/03/2025 Tobi tin [Mass /volu me] in Serum or Plasm a Unknown Analyte Releas e to patien t->Imm ediate Not Available Not Available 16:11:54 03/03/20 25 03/03/2025 Tobi tin [Mass /volu me] in Serum or Plasm a interpretati on and review of laboratory results Abnorm al Not Available Not Available 16:11:54 03/24/20 25 03/24/2025 MICRO ALBUM IN CREAT RATIO , URINE RANDO M creatinine [mass/volume ] in urine 78.2 text: 28 - 217 mg/dL CREAT ININE (U) 78.2 28 - 217 MG/DL 03/24 11:02 AM CDT [facility] Not Available Not Available 04/01/2025 15:06:33 03/24/20 25 03/24/2025 MICRO ALBUM IN CREAT RATIO , URINE RANDO M microalbumin [mass/volume ] in urine 0.6 mg/dL high: 2mg/dL MICRO ALBUM IN (U) 0.6 <2.0 mg/dL 03/24 11:02 AM [facility] Not Available Not Available 04/01/2025 15:06:33 03/24/20 25 03/24/2025 MICRO ALBUM IN CREAT RATIO , URINE RANDO M microalbumin /creatinine [mass ratio] in urine 7.6 mg/g high: 30mg/g ALBUM IN/CR EAT RATIO 7.6 <30 MG/G 03/24 11:02 AM [facility] Not Available Not Available 04/01/2025 15:06:33 03/24/20 25 03/24/2025 Urina lysis dipst ick W Refle x Micro scopi c panel - Urine collection method - specimen URINE CLEAN CATCH SPECI MEN TYPE URINE CLEAN CATCH 03/24 10:05 AM [facility] Not Available Not Available 04/01/2025 15:06:33 03/24/20 25 03/24/2025 Urina lysis dipst ick W Refle x Micro scopi c panel - Urine color of urine LIGHT YELLOW COLOR (U) LIGHT YELLO W 03/24 10:34 AM T [facility] Not Available Not Available 04/01/2025 15:06:33 03/24/20 25 03/24/2025 Urina lysis dipst ick W Refle x Micro scopi c panel - Urine clarity of urine CLEAR TRANS PAREN CY CLEAR 03/24 10:34 AM [facility] Not Available Not Available 04/01/2025 15:06:33 03/24/20 25 03/24/2025 Urina lysis dipst ick W Refle x Micro scopi c panel - Urine specific gravity of urine 1.023 low: 1.001h igh: 1.03 SPECI FIC GRAVI TY (U) 1.023 1.001 - 1.030 03/24 10:34 AM [facility] Not Available Not Available 04/01/2025 15:06:33 03/24/20 25 03/24/2025 Urina lysis dipst ick W Refle x Micro scopi c panel - Urine pH of urine 5.5 low: 5high: 9 U PH 5.5 5.0 - 9.0 03/24 10:34 AM [facility] Not Available Not Available 04/01/2025 15:06:33 03/24/20 25 03/24/2025 Urina lysis dipst ick W Refle x Micro scopi c panel - Urine leukocytes [#/volume] in urine by test strip 250 text: negati ve abnormal LEUKO CYTES (U) 250 (A) NEGAT CHACHA 03/24 10:34 AM [facility] Not Available Not Available 04/01/2025 15:06:33 03/24/20 25 03/24/2025 Urina lysis dipst ick W Refle x Micro scopi c panel - Urine nitrite [presence] in urine NEGATI VE text: negati ve NITRI DERRELL NEGAT CHACHA NEGAT CHACHA 03/24 10:34 AM [facility] Not Available Not Available 04/01/2025 15:06:33 03/24/20 25 03/24/2025 Urina lysis dipst ick W Refle x Micro scopi c panel - Urine protein [mass/volume ] in urine by test strip 10 text: <30 mg/dL PROTE IN RANDO M (U) 10 <30 MG/DL 03/24 10:34 AM [facility] Not Available Not Available 04/01/2025 15:06:33 03/24/20 25 03/24/2025 Urina lysis dipst ick W Refle x Micro scopi c panel - Urine glucose [mass/volume ] in urine NORMAL text: normal mg/dL GLUCO SE (U) SUSAN L SUSAN L MG/DL 03/24 10:34 AM [facility] Not Available Not Available 04/01/2025 15:06:33 03/24/20 25 03/24/2025 Urina lysis dipst ick W Refle x Micro scopi c panel - Urine ketones [mass/volume ] in urine by test strip NEGATI VE text: negati ve mg/dL KETON ES MG/DL (U) NEGAT CHACHA NEGAT CHACHA MG/DL 03/24 10:34 AM [facility] Not Available Not Available 04/01/2025 15:06:33 03/24/20 25 03/24/2025 Urina lysis dipst ick W Refle x Micro scopi c panel - Urine urobilinogen [units/volum e] in urine by test strip NORMAL text: normal mg/dL UROBI LINOG EN SUSAN L SUSAN L MG/DL 03/24 10:34 AM [facility] Not Available Not Available 04/01/2025 15:06:33 03/24/20 25 03/24/2025 Urina lysis dipst ick W Refle x Micro scopi c panel - Urine bilirubin.to guillermo [mass/volume ] in urine NEGATI VE text: negati ve mg/dL BILIR UBIN (U) NEGAT CHACHA NEGAT CHACHA MG/DL 03/24 10:34 AM [facility] Not Available Not Available 04/01/2025 15:06:33 03/24/20 25 03/24/2025 Urina lysis dipst ick W Refle x Micro scopi c panel - Urine erythrocytes [#/volume] in urine by automated test strip NEGATI VE text: negati ve BLOOD (U) NEGAT CHACHA NEGAT CHACHA 03/24 10:34 AM [facility] Not Available Not Available 04/01/2025 15:06:33 03/24/20 25 03/24/2025 Urina lysis dipst ick W Refle x Micro scopi c panel - Urine mucus [#/area] in urine sediment by microscopy low power field RARE text: /lpf MUCUS RARE /LPF 03/24 10:34 AM [facility] Not Available Not Available 04/01/2025 15:06:33 03/24/20 25 03/24/2025 Urina lysis dipst ick W Refle x Micro scopi c panel - Urine leukocytes [#/area] in urine sediment by microscopy high power field 1 text: <6 /hpf WBC/H PF 1 <6 /HPF 03/24 10:34 AM [facility] Not Available Not Available 04/01/2025 15:06:33 03/24/20 25 03/24/2025 Urina lysis dipst ick W Refle x Micro scopi c panel - Urine erythrocytes [#/area] in urine sediment by microscopy high power field 1 text: <6 /hpf RBC/H PF 1 <6 /HPF 03/24 10:34 AM [facility] Not Available Not Available 04/01/2025 15:06:33 03/24/20 25 03/24/2025 Urina lysis dipst ick W Refle x Micro scopi c panel - Urine epithelial cells.squamo us [#/area] in urine sediment by microscopy high power field RARE text: /hpf SQUAM OUS EPITH ELIAL S RARE /HPF 03/24 10:34 AM [facility] Not Available Not Available 04/01/2025 15:06:33 03/24/20 25 03/24/2025 Urina lysis dipst ick W Refle x Micro scopi c panel - Urine interpretati on and review of laboratory results Abnorm al Not Available Not Available 15:06:33 03/24/20 25 03/24/2025 25-Hy droxy vitam in D3+25 -Hydr oxyvi tamin D2 [Mass /volu me] in Serum or Plasm a 25-hydroxyvi tamin D3+25-hydrox yvitamin D2 [mass/volume ] in serum or plasma 109 text: 30 - 100 NG/mL high VITAM IN D 25 HYDRO XY S/P/B 109 (H) 30 - 100 NG/ML 03/24 10:42 AM [facility] Not Available Not Available 04/01/2025 15:06:33 03/24/20 25 03/24/2025 25-Hy droxy vitam in D3+25 -Hydr oxyvi tamin D2 [Mass /volu me] in Serum or Plasm a interpretati on and review of laboratory results Abnorm al Not Available Not Available 15:06:33 03/24/20 25 03/24/[address] [Mass /volu me] in Serum or Plasm a parathyrin.i ntact [mass/volume ] in serum or plasma 35.7 pg/mL low: 18.4pg /mLhig h: 80.1pg /mL PTH INTAC T 35.7 18.4 - 80.1 PG/ML 03/24 10:41 AM [facility] Not Available Not Available 04/01/2025 15:06:33 03/24/2003/24/2025 Thyro tropi n [Unit s/vol ume] in Serum or Plasm a thyrotropin [units/volum e] in serum or plasma 0.174 text: 0.358 - 3.74 uIU/mL low TSH 0.174 (L) 0.358 - 3.74 uIU/M L 03/24 11:07 AM [facility] Not Available Not Available 04/01/2025 15:06:33 03/24/2003/24/2025 Thyro tropi n [Unit s/vol ume] in Serum or Plasm a interpretati on and review of laboratory results Abnorm al Not Available Not Available 15:06:33 03/24/2003/24/2025 Hemog lobin A1c/H emogl obin. total in Blood hemoglobin A1C/hemoglob in.total in blood 5 % high: 5.7% HGB A1C 5.0 <5.7 % 03/24 11:22 AM [facility] Not Available Not Available 04/01/2025 15:06:33 03/24/2003/24/2025 Hemog lobin A1c/H emogl obin. total in Blood glucose mean value [mass/volume ] in blood estimated from glycated hemoglobin 97 mg/dL ESTIM ATED AVG GLUCO SE 97 mg/dL 03/24 11:22 AM [facility] Not Available Not Available 04/01/2025 15:06:33 03/24/2003/24/2025 Urate [Mass /volu me] in Serum or Plasm a urate [mass/volume ] in serum or plasma 3.6 text: 2.6 - 6.0 mg/dL URIC ACID 3.6 2.6 - 6.0 MG/DL 03/24 11:07 AM T [facility] Not Available Not Available 04/01/2025 15:06:32 03/24/20 25 03/24/2025 Compr ehens chacha metab olic 1999 panel - Serum or Plasm a glucose [mass/volume ] in serum or plasma 84 text: 70 - 99 mg/dL GLUCO SE 84 70 - 99 MG/DL 03/24 11:07 AM T [facility] Not Available Not Available 04/01/2025 15:06:32 03/24/20 25 03/24/2025 Compr ehens chacha metab olic 2000 panel - Serum or Plasm a urea nitrogen [mass/volume ] in serum or plasma 28 text: 7 - 18 mg/dL high BUN 28 (H) 7 - 18 MG/DL 03/24 11:07 AM T [facility] Not Available Not Available 04/01/2025 15:06:32 03/24/20 25 03/24/2025 Compr ehens chacha metab olic 2000 panel - Serum or Plasm a creatinine [mass/volume ] in serum or plasma 1.28 text: 0.55 - 1.02 mg/dL high CREAT ININE S/P/B 1.28 (H) 0.55 - 1.02 MG/DL 03/24 11:07 AM T [facility] Not Available Not Available 04/01/2025 15:06:32 03/24/20 25 03/24/2025 Compr ehens chacha metab olic 2000 panel - Serum or Plasm a sodium [moles/volum e] in serum or plasma 137 text: 136 - 145 mmol/L SODIU M S/P/B 137 136 - 145 MMOL/ L 03/24 11:07 AM T [facility] Not Available Not Available 04/01/2025 15:06:32 03/24/20 25 03/24/2025 Compr ehens chacha metab olic 2000 panel - Serum or Plasm a potassium [moles/volum e] in serum or plasma 4.4 text: 3.5 - 5.1 mmol/L POTAS SIUM S/P/B 4.4 3.5 - 5.1 MMOL/ L 03/24 11:07 AM T [facility] Not Available Not Available 04/01/2025 15:06:32 03/24/20 25 03/24/2025 Compr ehens chacha metab olic 2000 panel - Serum or Plasm a chloride [moles/volum e] in serum or plasma 110 text: 97 - 115 mmol/L CHLOR HAILY S/P/B 110 97 - 115 MMOL/ L 03/24 11:07 AM T [facility] Not Available Not Available 04/01/2025 15:06:32 03/24/20 25 03/24/2025 Compr ehens chacha metab olic 2000 panel - Serum or Plasm a carbon dioxide, total [moles/volum e] in serum or plasma 19.5 text: 21 - 32 mmol/L low CO2 19.5 (L) 21 - 32 MMOL/ L 03/24 11:07 AM T [facility] Not Available Not Available 04/01/2025 15:06:32 03/24/20 25 03/24/2025 Compr ehens chacha metab olic 2000 panel - Serum or Plasm a calcium [mass/volume ] in serum or plasma 9 text: 8.5 - 10.1 mg/dL CALCI UM S/P/B 9.0 8.5 - 10.1 MG/DL 03/24 11:07 AM T [facility] Not Available Not Available 04/01/2025 15:06:32 03/24/20 25 03/24/2025 Compr ehens chacha metab olic 2000 panel - Serum or Plasm a bilirubin.to guillermo [mass/volume ] in serum or plasma 0.3 text: 0.2 - 1.2 mg/dL BILIR UBIN TOTAL S/P/B 0.3 0.2 - 1.2 MG/DL 03/24 11:07 AM [facility] Not Available Not Available 04/01/2025 15:06:32 03/24/20 25 03/24/2025 Compr ehens chacha metab olic 1999 panel - Serum or Plasm a protein [mass/volume ] in serum or plasma 7 text: 6.4 - 8.2 g/dL TOTAL PROTE IN S/P/B 7.0 6.4 - 8.2 G/DL 03/24 11:07 AM T [facility] Not Available Not Available 04/01/2025 15:06:32 03/24/20 25 03/24/2025 Compr ehens chacha metab olic 1999 panel - Serum or Plasm a albumin [mass/volume ] in serum or plasma 3.7 text: 3.4 - 5.0 g/dL ALBUM IN S/P/B 3.7 3.4 - 5.0 G/DL 03/24 11:07 AM T [facility] Not Available Not Available 04/01/2025 15:06:32 03/24/20 25 03/24/2025 Compr ehens chacha metab olic 2000 panel - Serum or Plasm a aspartate aminotransfe rase [enzymatic activity/vol ume] in serum or plasma 22 U/L low: 15U/Lh igh: 37U/L AST 22 15 - 37 U/L 03/24 11:07 AM T [facility] Not Available Not Available 04/01/2025 15:06:32 03/24/20 25 03/24/2025 Compr ehens chacha metab olic 2000 panel - Serum or Plasm a alanine aminotransfe rase [enzymatic activity/vol ume] in serum or plasma 20 U/L low: 14U/Lh igh: 55U/L ALT 20 14 - 55 U/L 03/24 11:07 AM [facility] Not Available Not Available 04/01/2025 15:06:32 03/24/20 25 03/24/2025 Compr ehens chacha metab olic 2000 panel - Serum or Plasm a alkaline phosphatase [enzymatic activity/vol ume] in serum or plasma 71 U/L low: 50U/Lh igh: 136U/L ALKAL INE PHOSP HATAS E S/P/B 71 50 - 136 U/L 03/24 11:07 AM T [facility] Not Available Not Available 04/01/2025 15:06:32 03/24/20 25 03/24/2025 Compr ehens chacha metab olic 2000 panel - Serum or Plasm a anion gap in serum or plasma by calculation 7.5 text: 2 - 10 mmol/L ANION GAP 7.5 2 - 10 MMOL/ L 03/24 11:07 AM T [facility] Not Available Not Available 04/01/2025 15:06:32 03/24/20 25 03/24/2025 Compr ehens chacha metab olic 2000 panel - Serum or Plasm a urea nitrogen/cre atinine [mass ratio] in serum or plasma 21.9 low: 6high: 26 BUN CREAT ININE RATIO 21.9 6 - 26 03/24 11:07 AM T [facility] Not Available Not Available 04/01/2025 15:06:32 03/24/20 25 03/24/2025 Compr ehens chacha metab olic 2000 panel - Serum or Plasm a albumin/glob ulin [mass ratio] in serum or plasma 1.1 text: 1.0 - 2.0 ratio A/G RATIO 1.1 1.0 - 2.0 RATIO 03/24 11:07 AM T [facility] Not Available Not Available 04/01/2025 15:06:32 03/24/20 25 03/24/2025 Compr ehens chacha metab olic 2000 panel - Serum or Plasm a glomerular filtration rate [volume rate/area] in serum, plasma or blood by creatinine-b ased formula (CKD-epi 2020)/1.73 sq M 45 text: >90 mL/min /1.73 M2 low GFR ESTIM ATE 45 (L) >90 ML/HI N/1.7 3 M2 03/24 11:07 AM CDT [facility] Not Available Not Available 04/01/2025 15:06:32 03/24/20 25 03/24/2025 Compr ehens chacha metab olic 1999 panel - Serum or Plasm a interpretati on and review of laboratory results Abnorm al Not Available Not Available 15:06:32 05/14/20 25 05/14/2025 25-Hy droxy vitam in D3+25 -Hydr oxyvi tamin D2 [Mass /volu me] in Serum or Plasm a 25-hydroxyvi tamin D3+25-hydrox yvitamin D2 [mass/volume ] in serum or plasma 74 text: 30 - 100 NG/mL INTER PRETA TION DEFIC IENT <20 INSUF FICIE NT 20-29 SUFFI CIENT 30-10 0 Not Available Not Available 06/02/2025 16:10:40 05/14/20 25 05/14/[address] [Mass /volu me] in Serum or Plasm a parathyrin.i ntact [mass/volume ] in serum or plasma 31.7 pg/mL low: 18.4pg /mLhig h: 80.1pg /mL Not Available Not Available 06/02/2025 16:10:40 05/14/20 25 05/14/2025 Urate [Mass /volu me] in Serum or Plasm a urate [mass/volume ] in serum or plasma 2.5 text: 2.6 - 6.0 mg/dL low Not Available Not Available 06/02/2025 16:10:40 05/14/20 25 05/14/2025 Urate [Mass /volu me] in Serum or Plasm a interpretati on and review of laboratory results Abnorm al Not Available Not Available 16:10:40 05/14/20 25 05/14/2025 Compr ehens chacha metab olic 1999 panel - Serum or Plasm a glucose [mass/volume ] in serum or plasma 93 text: 70 - 99 mg/dL Not Available Not Available 06/02/2025 16:10:40 05/14/20 25 05/14/2025 Compr ehens chacha metab olic 1999 panel - Serum or Plasm a urea nitrogen [mass/volume ] in serum or plasma 18 text: 7 - 18 mg/dL Not Available Not Available 06/02/2025 16:10:40 05/14/20 25 05/14/2025 [facility] [employer] olic 1999 panel - Serum or Plasm a creatinine [mass/volume ] in serum or plasma 0.94 text: 0.55 - 1.02 mg/dL Not Available Not Available 06/02/2025 16:10:40 05/14/20 25 05/14/[address] [employer] [facility] [employer] olic 1999 panel - Serum or Plasm a sodium [moles/volum e] in serum or plasma 140 text: 136 - 145 mmol/L Not Available Not Available 06/02/2025 16:10:40 05/14/20 25 05/14/2025 [facility] [employer] [facility] [employer] olic 1999 panel - Serum or Plasm a potassium [moles/volum e] in serum or plasma 4.1 text: 3.5 - 5.1 mmol/L Not Available Not Available 06/02/2025 16:10:40 05/14/20 25 05/14/2025 [facility] [employer] [facility] [employer] olic 1999 panel - Serum or Plasm a chloride [moles/volum e] in serum or plasma 113 text: 97 - 115 mmol/L Not Available Not Available 06/02/2025 16:10:40 05/14/20 25 05/14/2025 [facility] [employer] [facility] [employer] olic 1999 panel - Serum or Plasm a carbon dioxide, total [moles/volum e] in serum or plasma 23.1 text: 21 - 32 mmol/L Not Available Not Available 06/02/2025 16:10:40 05/14/20 25 05/14/2025 [facility] [employer] [facility] [employer] olic 1999 panel - Serum or Plasm a calcium [mass/volume ] in serum or plasma 9 text: 8.5 - 10.1 mg/dL Not Available Not Available 06/02/2025 16:10:40 05/14/20 25 05/14/2025 [facility] [employer] [facility] [employer] olic 1999 panel - Serum or Plasm a bilirubin.to guillermo [mass/volume ] in serum or plasma 0.4 text: 0.2 - 1.2 mg/dL THIS ASSAY IS NOT RECOM KAREN D FOR PATIE NTS UNDER GOING TREAT MENT WITH ELTRO MBOPA G DUE TO THE POTEN TIAL FOR FALSE LY ELEVA JANNETH RESUL TS. Not Available Not Available 06/02/2025 16:10:40 05/14/20 25 05/14/2025 Compr [employer] chacha metab olic 1999 panel - Serum or Plasm a protein [mass/volume ] in serum or plasma 6.6 text: 6.4 - 8.2 g/dL Not Available Not Available 06/02/2025 16:10:40 05/14/20 25 05/14/2025 [facility] [employer] chacha metab olic 1999 panel - Serum or Plasm a albumin [mass/volume ] in serum or plasma 3.5 text: 3.4 - 5.0 g/dL Not Available Not Available 06/02/2025 16:10:40 05/14/20 25 05/14/2025 [facility] [employer] ch[employer] metab olic 1999 panel - Serum or Plasm a aspartate aminotransfe rase [enzymatic activity/vol ume] in serum or plasma 19 U/L low: 15U/Lh igh: 37U/L Not Available Not Available 06/02/2025 16:10:40 05/14/20 25 05/14/2025 Compr [employer] [facility] metab olic 1999 panel - Serum or Plasm a alanine aminotransfe rase [enzymatic activity/vol ume] in serum or plasma 28 U/L low: 14U/Lh igh: 55U/L Not Available Not Available 06/02/2025 16:10:40 05/14/20 25 05/14/2025 Compr [employer] metab olic 1999 panel - Serum or Plasm a alkaline phosphatase [enzymatic activity/vol ume] in serum or plasma 82 U/L low: 50U/Lh igh: 136U/L Not Available Not Available 06/02/2025 16:10:40 05/14/20 25 05/14/2025 Compr [employer] [facility] [employer] olic 1999 panel - Serum or Plasm a anion gap in serum or plasma by calculation 3.9 text: 2 - 10 mmol/L Not Available Not Available 06/02/2025 16:10:40 05/14/20 25 05/14/2025 Compr [employer] [facility] metab olic 1999 panel - Serum or Plasm a urea nitrogen/cre atinine [mass ratio] in serum or plasma 19.2 low: 6high: 26 Not Available Not Available 06/02/2025 16:10:40 05/14/20 25 05/14/2025 Compr ehens chacha metab olic 1999 panel - Serum or Plasm a albumin/glob ulin [mass ratio] in serum or plasma 1.1 text: 1.0 - 2.0 ratio Not Available Not Available 06/02/2025 16:10:40 05/14/20 25 05/14/2025 Compr ehens chacha metab olic 1999 panel - Serum or Plasm a glomerular filtration rate [volume rate/area] in serum, plasma or blood by creatinine-b ased formula (CKD-epi 2020)/1.73 sq M 65 text: >90 mL/min /1.73 M2 low NOTE: eGFR is not calcu lated for patie nts <18 years of age or gende r unkno wn. This is an estim ated GFR calcu latio n using the new CKD EPI creat inine equat ion witho ut race and so does not requi re a corre ction facto r for race. This estim ated GFR shoul d not be used for calcu latin g drug doses . Not Available Not Available 06/02/2025 16:10:40 05/14/20 25 05/14/2025 Compr ehens chacha metab olic 1999 panel - Serum or Plasm a interpretati on and review of laboratory results Abnorm al Not Available Not Available 16:10:40 06/02/20 25 06/03/2025 Cobal drew (Nohelia min B12) [Mass /volu me] in Serum or Plasm a cobalamin (vitamin B12) [mass/volume ] in serum or plasma 232 pg/mL low: 180pg/ mLhigh : 914pg/ mL Not Available Not Available 06/07/2025 10:22:17 06/02/20 25 06/03/2025 Cobal drew (Nohelia min B12) [Mass /volu me] in Serum or Plasm a Unknown Analyte Releas e to patien t->Imm ediate Not Available Not Available 10:22:17 06/02/20 25 06/03/2025 Folat e [Mass /volu me] in Serum or Plasm a folate [mass/volume ] in serum or plasma 10.71 NG/mL low: 5.9NG/ mL Not Available Not Available 06/07/2025 10:22:17 06/02/20 25 06/03/2025 Folat e [Mass /volu me] in Serum or Plasm a Unknown Analyte Releas e to patien t->Imm ediate IS THE PATIEN T REQUIR ED TO BE FASTIN G FOR 12 HOURS? ->No Not Available Not Available 10:22:17 06/02/2006/03/2025 Tobi tin [Mass /volu me] in Serum or Plasm a ferritin [mass/volume ] in serum or plasma 126 NG/mL low: 11NG/m Lhigh: 307NG/ mL Not Available Not Available 06/07/2025 10:22:16 06/02/20 25 06/03/2025 Tobi tin [Mass /volu me] in Serum or Plasm a Unknown Analyte Releas e to patien t->Imm ediate Not Available Not Available 10:22:16 06/02/20 25 06/02/2025 Iron and Iron jose j ng capac ity panel - Serum or Plasm a iron [mass/volume ] in serum or plasma 76 ug/dL low: 50ug/d Lhigh: 212ug/ dL Not Available Not Available 06/02/2025 16:11:54 06/02/20 25 06/02/2025 Iron and Iron jose j ng capac ity panel - Serum or Plasm a iron binding capacity.uns aturated [mass/volume ] in serum or plasma 183 ug/dL low: 155ug/ dLhigh : 355ug/ dL Not Available Not Available 06/02/2025 16:11:54 06/02/20 25 06/02/2025 Iron and Iron jose j ng capac ity panel - Serum or Plasm a iron binding capacity [mass/volume ] in serum or plasma 259 ug/dL low: 261ug/ dLhigh : 478ug/ dL low Not Available Not Available 06/02/2025 16:11:54 06/02/20 25 06/02/2025 Iron and Iron jose j ng capac ity panel - Serum or Plasm a iron saturation [mass fraction] in serum or plasma 29 % low: 20%hig h: 50% Not Available Not Available 06/02/2025 16:11:54 06/02/20 25 06/02/2025 Iron and Iron jose j ng capac ity panel - Serum or Plasm a Unknown Analyte Releas e to patien t->Imm ediate Not Available Not Available 16:11:54 06/02/20 25 06/02/2025 Iron and Iron jose j ng capac ity panel - Serum or Plasm a interpretati on and review of laboratory results Abnorm al Not Available Not Available 16:11:54 06/02/20 25 06/02/2025 CBC W Auto Diffe renti al panel - Blood leukocytes [#/volume] in blood by automated count 5.2 10*3/ uL low: 410*3/ uLhigh : 1010*3 /uL Not Available Not Available 06/02/2025 16:11:54 06/02/20 25 06/02/2025 CBC W Auto Diffe renti al panel - Blood hemoglobin [mass/volume ] in blood 11 g/dL low: 11.2g/ dLhigh : 15.7g/ dL low Not Available Not Available 06/02/2025 16:11:54 06/02/20 25 06/02/2025 CBC W Auto Diffe renti al panel - Blood hematocrit [volume fraction] of blood by automated count 33.6 % low: 34.1%h igh: 44.9% low Not Available Not Available 06/02/2025 16:11:54 06/02/20 25 06/02/2025 CBC W Auto Diffe renti al panel - Blood platelets [#/volume] in blood by automated count 271 10*3/ uL low: 40111* 3/uLhi gh: 88754* 3/uL Not Available Not Available 06/02/2025 16:11:54 06/02/20 25 06/02/2025 CBC W Auto Diffe renti al panel - Blood platelet [entitic mean volume] in blood by automated count 8.7 fL low: 9.4fLh igh: 12.4fL low Not Available Not Available 06/02/2025 16:11:54 06/02/20 25 06/02/2025 CBC W Auto Diffe renti al panel - Blood erythrocytes [#/volume] in blood by automated count 3.01 10*6/ uL low: 3.9310 *6/uLh igh: 5.2210 *6/uL low Not Available Not Available 06/02/2025 16:11:54 06/02/20 25 06/02/2025 CBC W Auto Diffe renti al panel - Blood MCV [entitic mean volume] in red blood cells by automated count 112 fL low: 79fLhi gh: 95fL high Not Available Not Available 06/02/2025 16:11:54 06/02/20 25 06/02/2025 CBC W Auto Diffe renti al panel - Blood MCH [entitic mass] by automated count 36.5 pg low: 25.6pg high: 32.2pg high Not Available Not Available 06/02/2025 16:11:54 06/02/20 25 06/02/2025 CBC W Auto Diffe renti al panel - Blood MCHC [entitic mass/volume] in red blood cells by automated count 32.7 g/dL low: 32.2g/ dLhigh : 36.5g/ dL Not Available Not Available 06/02/2025 16:11:54 06/02/20 25 06/02/2025 CBC W Auto Diffe renti al panel - Blood erythrocyte [distwidth] in red blood cells by automated count 11.6 % low: 11.6%h igh: 14.4% Not Available Not Available 06/02/2025 16:11:54 06/02/20 25 06/02/2025 CBC W Auto Diffe renti al panel - Blood neutrophils/ leukocytes in blood by automated count 64.9 % low: 36%hig h: 66% Not Available Not Available 06/02/2025 16:11:54 06/02/20 25 06/02/2025 CBC W Auto Diffe renti al panel - Blood lymphocytes/ leukocytes in blood by automated count 20.3 % low: 19%hig h: 40% Not Available Not Available 06/02/2025 16:11:54 06/02/20 25 06/02/2025 CBC W Auto Diffe renti al panel - Blood monocytes/le ukocytes in blood by automated count 11.3 % low: 4.1%hi gh: 12.1% Not Available Not Available 06/02/2025 16:11:54 06/02/20 25 06/02/2025 CBC W Auto Diffe renti al panel - Blood eosinophils/ leukocytes in blood by automated count 2.3 % low: 0%high : 3.5% Not Available Not Available 06/02/2025 16:11:54 06/02/20 25 06/02/2025 CBC W Auto Diffe renti al panel - Blood basophils/le ukocytes in blood by automated count 0.6 % low: 0%high : 1% Not Available Not Available 06/02/2025 16:11:54 06/02/20 25 06/02/2025 CBC W Auto Diffe renti al panel - Blood neutrophils [#/volume] in blood by automated count 3.4 10*3/ uL low: 1.410* 3/uLhi gh: 6.610* 3/uL Not Available Not Available 06/02/2025 16:11:54 06/02/20 25 06/02/2025 CBC W Auto Diffe renti al panel - Blood lymphocytes [#/volume] in blood by automated count 1.1 10*3/ uL low: 0.810* 3/uLhi gh: 410*3/ uL Not Available Not Available 06/02/2025 16:11:54 06/02/20 25 06/02/2025 CBC W Auto Diffe renti al panel - Blood monocytes [#/volume] in blood by automated count 0.6 10*3/ uL low: 0.210* 3/uLhi gh: 1.210* 3/uL Not Available Not Available 06/02/2025 16:11:54 06/02/20 25 06/02/2025 CBC W Auto Diffe renti al panel - Blood eosinophils [#/volume] in blood by automated count 0.1 10*3/ uL low: 010*3/ uLhigh : 0.410* 3/uL Not Available Not Available 06/02/2025 16:11:54 06/02/20 25 06/02/2025 CBC W Auto Diffe renti al panel - Blood basophils [#/volume] in blood by automated count 0 10*3/ uL low: 010*3/ uLhigh : 0.110* 3/uL Not Available Not Available 06/02/2025 16:11:54 06/02/20 25 06/02/2025 CBC W Auto Diffe renti al panel - Blood WBC estimate Normal Not Available Not A vailable 06/02/2025 16:11:54 06/02/20 25 06/02/2025 CBC W Auto Diffe renti al panel - Blood platelet estimate Normal Not Available Not Available 16:11:54 06/02/20 25 06/02/2025 CBC W Auto Diffe renti al panel - Blood RBC morphology Abnorm al Not Available Not Available 16:11:54 06/02/20 25 06/02/2025 CBC W Auto Diffe renti al panel - Blood macrocytes [presence] in blood by light microscopy 2+ Not Available Not Available 0 06/02/2025 16:11:54 06/02/20 25 06/02/2025 CBC W Auto Diffe renti al panel - Blood poikilocytos is [presence] in blood by light microscopy 1+ Not Available Not Available 0 06/02/2025 16:11:54 06/02/20 25 06/02/2025 CBC W Auto Diffe renti al panel - Blood interpretati on and review of laboratory results Abnorm al Not Available Not Available 16:11:54 06/02/20 25 06/02/2025 Compr [employer]hens [employer]acha metab olic 1999 panel - Serum or Plasm a glucose [mass/volume ] in serum or plasma 84 mg/dL low: 70mg/d Lhigh: 105mg/ dL Not Available Not Available 06/02/2025 16:11:54 06/02/20 25 06/02/2025 Compr [employer]hens [employer] metab olic 2000 panel - Serum or Plasm a urea nitrogen [mass/volume ] in serum or plasma 16 mg/dL low: 7mg/dL high: 25mg/d L Not Available Not Available 06/02/2025 16:11:54 06/02/20 25 06/02/2025 Compr [employer] metab [employer]lic 1999 panel - Serum or Plasm a creatinine [mass/volume ] in serum or plasma 1.1 mg/dL low: 0.6mg/ dLhigh : 1.2mg/ dL Not Available Not Available 06/02/2025 16:11:54 06/02/20 25 06/02/2025 Compr [employer] metab [employer]lic 2000 panel - Serum or Plasm a sodium [moles/volum e] in serum or plasma 133 text: 136 - 145 mEq/L low Not Available Not Available 06/02/2025 16:11:54 06/02/20 25 06/02/2025 [facility] [employer] metab olic 1999 panel - Serum or Plasm a potassium [moles/volum e] in serum or plasma 4.6 text: 3.5 - 5.1 mEq/L Not Available Not Available 06/02/2025 16:11:54 06/02/20 25 06/02/2025 [facility] [employer] metab olic 1999 panel - Serum or Plasm a chloride [moles/volum e] in serum or plasma 99 text: 98 - 107 mEq/L Not Available Not Available 06/02/2025 16:11:54 06/02/20 25 06/02/2025 [facility] [employer] metab olic 1999 panel - Serum or Plasm a bicarbonate [moles/volum e] in serum or plasma 24 text: 21 - 31 mEq/L Not Available Not Available 06/02/2025 16:11:54 06/02/20 25 [facility] - Serum or Plasm a bilirubin.to guillermo [mass/volume ] in serum or plasma 0.2 mg/dL low: 0.3mg/ dLhigh : 1mg/dL low Not Available Not Available 06/02/2025 16:11:54 06/02/20 25 [facility] - Serum or Plasm a alkaline phosphatase [enzymatic activity/vol ume] in serum or plasma 70 U/L low: 34U/Lh igh: 104U/L Not Available Not Available 06/02/2025 16:11:54 06/02/20 25 06/02/2025 Compr ehens chacha metab olic 1999 panel - Serum or Plasm a aspartate aminotransfe rase [enzymatic activity/vol ume] in serum or plasma 11 U/L low: 13U/Lh igh: 39U/L low Not Available Not Available 06/02/2025 16:11:54 06/02/20 25 06/02/2025 [facility]hens [facility] 1999 panel - Serum or Plasm a alanine aminotransfe rase [enzymatic activity/vol ume] in serum or plasma 11 U/L low: 7U/Lhi gh: 52U/L Not Available Not Available 06/02/2025 16:11:54 06/02/20 25 06/02/2025 [facility] [employer] [facility] 1999 panel - Serum or Plasm a protein [mass/volume ] in serum or plasma 6 g/dL low: 6.4g/d Lhigh: 8.9g/d L low Not Available Not Available 06/02/2025 16:11:54 06/02/20 25 06/02/2025 [facility] [employer] [facility] 1999 panel - Serum or Plasm a albumin [mass/volume ] in serum or plasma by bromocresol green (bcg) dye binding method 4.1 g/dL low: 3.5g/d Lhigh: 5.7g/d L Not Available Not Available 06/02/2025 16:11:54 06/02/20 25 06/02/2025 [facility] [employer] [facility] 1999 panel - Serum or Plasm a calcium [mass/volume ] in serum or plasma 9.2 mg/dL low: 8.6mg/ dLhigh : 10.3mg /dL Not Available Not Available 06/02/2025 16:11:54 06/02/20 25 06/02/2025 Compr ens [facility] [employer] [facility] 1999 panel - Serum or Plasm a anion gap in serum or plasma by calculated.4 ions 14.6 text: 7.0 - 15.0 mEq/L Not Available Not Available 06/02/2025 16:11:54 06/02/20 25 06/02/2025 [facility] [employer] [facility] 1999 panel - Serum or Plasm a globulin [mass/volume ] in serum by calculation 1.9 g/dL low: 2g/dLh igh: 3.5g/d L low Not Available Not Available 06/02/2025 16:11:54 06/02/20 25 06/02/2025 Compr ens [facility]acha [employer] olic 1999 panel - Serum or Plasm a eGFR 54 text: >60 mL/min /1.73m 2 low This eGFR is calcu lated using 2020 CKD-E PI Creat inine equat ion witho ut race modif ier based on the NKF-A SN task force recom menda tions Equat ion: eGFR= 142*m in(SC r/k,1 )a*ma x(SCr /k,1) -1.20 0*0.9 938Ag e*1.0 12 (if femal e), where SCr is serum creat inine , k is 0.7 for femal es and 0.9 for males , and a is -0.24 1 for femal es and -0.30 2 for males Not Available Not Available 06/02/2025 16:11:54 06/02/2006/02/2025 Compr ehens ch[facility] metab olic 2000 panel - Serum or Plasm a Unknown Analyte Releas e to patien t->Imm ediate IS THE PATIEN T REQUIR ED TO BE FASTIN G FOR 8 HOURS? ->No Not Available Not Available 16:11:54 06/02/2006/02/2025 Compr ehens [facility] metab olic 2000 panel - Serum or Plasm a interpretati on and review of laboratory results Abnorm al Not Available Not Available 16:11:54 09/01/2009/02/2025 HbA1c (hemo globi n A1c), blood hemoglobin A1C 4.7 % low: 4.8%hi gh: 5.6% low PREDI ABETE S: 5.7 - 6.4 DIABE DERRELL: >6.4 GLYCE ELLE CONTR OL FOR ADULT S WITH DIABE DERRELL: <7.0 Not Available Not Available 09/06/2025 09:35:11 09/01/2009/02/2025 HbA1c (hemo globi n A1c), blood no coding or coding display name was found JONATHAN Garcia PERFOR MED AT: [] [facility] , [address] [place] [address], [phone], PHONE: , JACQUELINE CHAVEZ DIRECT OR: TRU BLACKWOOD, PHD Not Available Not Available 09:35:11 09/01/2009/02/2025 HbA1c (hemo globi n A1c), blood lab interpretati on Abnorm al Not Available Not Available 09:35:11 09/01/2009/02/2025 uric acid, serum or plasm a uric acid, serum or plasma 3.8 mg/dL low: 2.3mg/ dLhigh : 7.6mg/ dL N-evelia tyl-p -pat oquin one imine (meta bolit e of Aceta menop hen) will gener ate grecia eousl y low resul ts in sampl es for patie nts that have taken toxic doses of aceta minop hen Not Available Not Available 09/06/2025 09:35:10 09/01/2009/02/2025 PTH (para thyro id hormo ne), intac t, serum or plasm a PTH (parathyroid hormone), intact, serum or plasma 22 pg/mL low: 15pg/m Lhigh: 65pg/m L Not Available Not Available 09/06/2025 09:35:10 09/01/2009/02/2025 PTH (para thyro id hormo ne), intac t, serum or plasm a no coding or coding display name was found JONATHAN [facility]IE [facility] AT: [] [facility] , [address] [place] [address], [phone], PHONE: , JACQUELINE CHAVEZ DIRECT OR: TRU BLACKWOOD, PHD Not Available Not Available 09:35:10 09/01/2009/01/2025 iron + total iron- jose j ng capac ity (TIBC ), serum iron, serum 38 ug/dL low: 50ug/d Lhigh: 212ug/ dL low Not Available Not Available 09/06/2025 09:35:11 09/01/2009/01/2025 iron + total iron- jose j ng capac ity (TIBC ), serum iron-binding capacity, unsaturated, serum 242 ug/dL low: 155ug/ dLhigh : 355ug/ dL Not Available Not Available 09/06/2025 09:35:11 09/01/2009/01/2025 iron + total iron- jose j ng capac ity (TIBC ), serum TIBC (total iron-binding capacity), serum 280 ug/dL low: 261ug/ dLhigh : 478ug/ dL Not Available Not Available 09/06/2025 09:35:11 09/01/2009/01/2025 iron + total iron- jose j ng capac ity (TIBC ), serum iron saturation, serum 14 % low: 20%hig h: 50% low Not Available Not Available 09/06/2025 09:35:11 09/01/2009/01/2025 iron + total iron- jose j ng capac ity (TIBC ), serum no coding or coding display name was found Releas e to arianna t->Imm ediate Not Available Not Available 09:35:11 09/01/2009/01/2025 iron + total iron- jose j ng capac ity (TIBC ), serum lab interpretati on Abnorm al Not Available Not Available 09:35:11 09/01/2009/01/2025 CBC w/ auto diff WBC, auto, blood 7.7 10*3/ uL low: 410*3/ uLhigh : 1010*3 /uL Not Available Not Available 09/06/2025 09:35:11 09/01/2009/01/2025 CBC w/ auto diff hemoglobin (Hb), blood 11.3 g/dL low: 11.2g/ dLhigh : 15.7g/ dL Not Available Not Available 09/06/2025 09:35:11 09/01/2009/01/2025 CBC w/ auto diff hematocrit, automated count, blood 35.1 % low: 34.1%h igh: 44.9% Not Available Not Available 09/06/2025 09:35:11 09/01/2009/01/2025 CBC w/ auto diff platelets, auto, blood 354 10*3/ uL low: 84966* 3/uLhi gh: 88814* 3/uL Not Available Not Available 09/06/2025 09:35:11 09/01/2009/01/2025 CBC w/ auto diff platelet mean volume, qn, automated, blood (obs) 8.2 fL low: 9.4fLh igh: 12.4fL low Not Available Not Available 09/06/2025 09:35:11 09/01/20 25 09/01/2025 CBC w/ auto diff RBC count, blood 3.01 10*6/ uL low: 3.9310 *6/uLh igh: 5.2210 *6/uL low Not Available Not Available 09/06/2025 09:35:11 09/01/2009/01/2025 CBC w/ auto diff MCV, blood 117 fL low: 79fLhi gh: 95fL high Not Available Not Available 09/06/2025 09:35:11 09/01/2009/01/2025 CBC w/ auto diff MCH, qn, automated (obs) 37.5 pg low: 25.6pg high: 32.2pg high Not Available Not Available 09/06/2025 09:35:11 09/01/2009/01/2025 CBC w/ auto diff MCHC, qn, automated (obs) 32.2 g/dL low: 32.2g/ dLhigh : 36.5g/ dL Not Available Not Available 09/06/2025 09:35:11 09/01/2009/01/2025 CBC w/ auto diff erythrocyte distribution width, ratio, automated (obs) 12.9 % low: 11.6%h igh: 14.4% Not Available Not Available 09/06/2025 09:35:11 09/01/2009/01/2025 CBC w/ auto diff neutrophils/ 100 leukocytes, automated, blood (obs) 75 % low: 36%hig h: 66% high Not Available Not Available 09/06/2025 09:35:11 09/01/20 25 09/01/2025 CBC w/ auto diff lymphocytes/ 100 leukocytes, automated, blood (obs) 15.2 % low: 19%hig h: 40% low Not Available Not Available 09/06/2025 09:35:11 09/01/2009/01/2025 CBC w/ auto diff monocytes/10 0 leukocytes, automated, blood (obs) 7 % low: 4.1%hi gh: 12.1% Not Available Not Available 09/06/2025 09:35:11 09/01/2009/01/2025 CBC w/ auto diff eosinophils/ 100 leukocytes, automated, blood (obs) 2.1 % low: 0%high : 3.5% Not Available Not Available 09/06/2025 09:35:11 09/01/20 25 09/01/2025 CBC w/ auto diff basophils/10 0 leukocytes, automated, blood (obs) 0.4 % low: 0%high : 1% Not Available Not Available 09/06/2025 09:35:11 09/01/2009/01/2025 CBC w/ auto diff neutrophil count, absolute (anc), blood (obs) 5.8 10*3/ uL low: 1.410* 3/uLhi gh: 6.610* 3/uL Not Available Not Available 09/06/2025 09:35:11 09/01/2009/01/2025 CBC w/ auto diff lymphocytes, quantitative , blood, automated count (obs) 1.2 10*3/ uL low: 0.810* 3/uLhi gh: 410*3/ uL Not Available Not Available 09/06/2025 09:35:11 09/01/2009/01/2025 CBC w/ auto diff monocytes, count, automated, blood (obs) 0.5 10*3/ uL low: 0.210* 3/uLhi gh: 1.210* 3/uL Not Available Not Available 09/06/2025 09:35:11 09/01/2009/01/2025 CBC w/ auto diff eosinophils, auto, blood, absolute 0.2 10*3/ uL low: 010*3/ uLhigh : 0.410* 3/uL Not Available Not Available 09/06/2025 09:35:11 09/01/2009/01/2025 CBC w/ auto diff basophils, quant, auto, blood (obs) 0 10*3/ uL low: 010*3/ uLhigh : 0.110* 3/uL Not Available Not Available 09/06/2025 09:35:11 09/01/2009/01/2025 CBC w/ auto diff WBC estimate Normal Not Available Not A vailable 09/06/2025 09:35:11 09/01/2009/01/2025 CBC w/ auto diff platelet estimate Normal Not Available Not Available 09:35:11 09/01/2009/01/2025 CBC w/ auto diff RBC morphology Abnorm al Not Available Not Available 09:35:11 09/01/2009/01/2025 CBC w/ auto diff macrocytes, ql, light microscopy, blood (obs) 2+ Not Available Not Available 09/06/2025 09:35:11 09/01/2009/01/2025 CBC w/ auto diff lab interpretati on Abnorm al Not Available Not Available 09:35:11 09/01/2009/02/2025 vitam in B12, serum vitamin B12, serum 207 pg/mL low: 180pg/ mLhigh : 914pg/ mL Not Available Not Available 09/06/2025 09:35:11 09/01/2009/02/2025 vitam in B12, serum no coding or coding display name was found Releas e to patien t->Imm ediate Not Available Not Available 09:35:11 09/01/2009/02/2025 folat e, serum folate, serum 8.43 NG/mL low: 5.9NG/ mL Not Available Not Available 09/06/2025 09:35:10 09/01/2009/02/2025 folat e, serum no coding or coding display name was found Releas e to patien t->Imm ediate IS THE PATIEN T REQUIR ED TO BE FASTIN G FOR 12 HOURS? ->No Not Available Not Available 09:35:10 09/01/2009/02/2025 tobi tin, serum or plasm a ferritin, serum or plasma 70 NG/mL low: 11NG/m Lhigh: 307NG/ mL Not Available Not Available 09/06/2025 09:35:10 09/01/2009/02/2025 tobi tin, serum or plasm a no coding or coding display name was found Releas e to patien t->Imm ediate Not Available Not Available 09:35:10 09/01/2009/01/2025 CMP, serum or plasm a glucose, qn [mass/volume ], serum or plasma 90 mg/dL low: 70mg/d Lhigh: 105mg/ dL Not Available Not Available 09/06/2025 09:35:10 09/01/2009/01/2025 CMP, serum or plasm a BUN (blood urea nitrogen), serum or plasma 25 mg/dL low: 7mg/dL high: 25mg/d L Not Available Not Available 09/06/2025 09:35:10 09/01/2009/01/2025 CMP, serum or plasm a creatinine, serum or plasma 1 mg/dL low: 0.6mg/ dLhigh : 1.2mg/ dL Not Available Not Available 09/06/2025 09:35:10 09/01/2009/01/2025 CMP, serum or plasm a sodium, serum or plasma 141 text: 136 - 145 mEq/L Not Available Not Available 09/06/2025 09:35:10 09/01/2009/01/2025 CMP, serum or plasm a potassium, serum or plasma 4.1 text: 3.5 - 5.1 mEq/L Not Available Not Available 09/06/2025 09:35:10 09/01/2009/01/2025 CMP, serum or plasm a chloride, serum or plasma 113 text: 98 - 107 mEq/L high Not Available Not Available 09/06/2025 09:35:10 09/01/2009/01/2025 CMP, serum or plasm a bicarbonate, quant, serum 21 text: 21 - 31 mEq/L Not Available Not Available 09/06/2025 09:35:10 09/01/2009/01/2025 CMP, serum or plasm a bilirubin, total, serum or plasma 0.2 mg/dL low: 0.3mg/ dLhigh : 1mg/dL low Not Available Not Available 09/06/2025 09:35:10 09/01/2009/01/2025 CMP, serum or plasm a alkaline phosphatase, serum or plasma 81 U/L low: 34U/Lh igh: 104U/L Not Available Not Available 09/06/2025 09:35:10 09/01/2009/01/2025 CMP, serum or plasm a AST/SGOT (aspartate aminotransfe rase), serum or plasma 17 U/L low: 13U/Lh igh: 39U/L Not Available Not Available 09/06/2025 09:35:10 09/01/2009/01/2025 CMP, serum or plasm a ALT (alanine aminotransfe rase), serum or plasma 15 U/L low: 7U/Lhi gh: 52U/L Not Available Not Available 09/06/2025 09:35:10 09/01/2009/01/2025 CMP, serum or plasm a protein, total, serum 5.8 g/dL low: 6.4g/d Lhigh: 8.9g/d L low Not Available Not Available 09/06/2025 09:35:10 09/01/2009/01/2025 CMP, serum or plasm a albumin, qn, bcg dye, serum or plasma 3.8 g/dL low: 3.5g/d Lhigh: 5.7g/d L Not Available Not Available 09/06/2025 09:35:10 09/01/2009/01/2025 CMP, serum or plasm a calcium, serum or plasma 9 mg/dL low: 8.6mg/ dLhigh : 10.3mg /dL Not Available Not Available 09/06/2025 09:35:10 09/01/2009/01/2025 CMP, serum or plasm a anion gap 4, serum or plasma (obs) 11.1 text: 7.0 - 15.0 mEq/L Not Available Not Available 09/06/2025 09:35:10 09/01/2009/01/2025 CMP, serum or plasm a globulin, qn, calculated, serum 2 g/dL low: 2g/dLh igh: 3.5g/d L Not Available Not Available 09/06/2025 09:35:10 09/01/2009/01/2025 CMP, serum or plasm a eGFR 60 text: >60 mL/min /1.73m 2 low This eGFR is calcu lated using 2020 CKD-E PI Creat inine equat ion witho ut race modif ier based on the NKF-A SN task force recom menda tions Equat ion: eGFR= 142*m in(SC r/k,1 )a*ma x(SCr /k,1) -1.20 0*0.9 938Ag e*1.0 12 (if femal e), where SCr is serum creat inine , k is 0.7 for femal es and 0.9 for males , and a is -0.24 1 for femal es and -0.30 2 for males Not Available Not Available 09/06/2025 09:35:10 09/01/2009/01/2025 CMP, serum or plasm a no coding or coding display name was found Releas e to patien t->Imm ediate IS THE PATIEN T REQUIR ED TO BE FASTIN G FOR 8 HOURS? ->No Not Available Not Available 09:35:10 09/01/2009/01/2025 CMP, serum or plasm a lab interpretati on Abnorm al Not Available Not Available 09:35:10 11/11/20 24 11/11/2024 CT, abdom en + pelvi s, w/ contr ast No observ ation record ed. [address] [place], [address], 12/02/2024 09:08:54 12/25/19 25 12/25/2024 CT, abdom en + pelvi s, w/ contr ast No observ ation record ed. [address] [place], [address], 01/04/2025 12:27:29 12/25/19 25 12/25/2024 CT, abdom en + pelvi s, w/ contr ast No observ ation record ed. [address] [place], [address], 01/04/2025 12:27:48 01/11/20 25 01/11/2025 CT, abdom en + pelvi s, w/ contr ast No observ ation record ed. [address] [place], [address], 01/19/2025 13:56:50 01/11/20 25 01/11/2025 CT, abdom en + pelvi s, w/ contr ast No observ ation record ed. [address] [place], [address], 01/19/2025 13:57:03 01/11/20 01/11/2025 CT, abdom en + pelvi s, w/ contr ast No observ ation record ed. [address] [place], [address], 01/19/2025 13:57:26 01/14/20 25 01/14/2025 CT, abdom en + pelvi s, w/o contr ast No observ ation record ed. [address] [place], [address], 01/19/2025 13:57:46 01/14/20 25 01/14/2025 CT, abdom en + pelvi s, w/o contr ast No observ ation record ed. [address] [place], [address], 01/19/2025 13:58:27 08/04/20 25 03/24/2025 MAMMO , scree aydin, digit al, bilat eral No observ ation record ed. [email or web address] [address], [place], [address], 08/11/2025 11:46:39 Result Notes None recorded. Problems Name Problem SNOMED Code Status Onset Date Resolution Date Notes Provider Name and Address Organization Details Recorded Time [facility] steven 26530998 Active 2018 Not Available [facility] 4 10:38:08 Hypothyr oidism 61609544 Active 2018 Not Available [employer] 4 10:38:07 Depressi ve disorder 08150714 Active 2018 Not Available [employer] 4 10:38:07 Chronic back pain 760906861 Active 2018 Not Available [employer] 4 10:38:06 Coronary atherosc lerosis 975677004 Active 2018 Stent placed Not Available [employer] 4 10:38:07 Chronic peptic ulcer 224909684 Active 2018 Not Available [employer] 4 10:38:06 Medicati on monitori ng Active 2018 Not Available [employer] 4 10:38:07 Complain ing of cold hands Active 2018 Not Available [employer] 4 10:38:06 Insomnia 260229028 Active 2018 Not Available [facility] 4 10:38:07 Spinal stenosis of lumbar region 18007046 Active 2018 Not Available [facility] 4 10:38:07 Fatigue 85601955 Active 2018 Not Available [facility] 4 10:38:08 Postmeno pausal state 97533891 Active 2018 Not Available [facility] 4 10:38:08 Overwe[place] ht 592013057 Completed 201803/23/2025 Siena Bell MD Attn: Accounting ,[address] [place], [address] , [place] [facility] 5 10:40:56 Viral myalgia 488419652 Active 2019 Not Available [employer] 4 10:38:07 Nasal congesti on 25672714 Active 2019 Not Available [facility] 4 10:38:08 Dizzines s 808544509 Active 2019 Not Available [facility] 4 10:38:07 Morbid obesity 772001947 Completed 201908/09/2021 Siena Bell MD Attn: Accounting ,[address] [place], [address] , [place] [facility] 1 11:14:16 History of placemen t of stent for coronary artery disease 147418631 Active 2019 Not Available [employer] 4 10:38:07 Hyperlip idemia 34146833 Active 2019 Not Available [facility] 4 10:38:08 History of peptic ulcer 289145809 Active 2019 Not Available [employer] 4 10:38:07 Cough 21977057 Active 2020 Not Available [employer] 4 10:38:07 Screenin g for malignan t neoplasm of breast Active 2020 Not Available [employer] 4 10:38:07 Chest pain 80484308 Active 2020 Not Available [facility] 4 10:38:07 Allergic rhinitis 92700962 Active 2020 Not Available [employer] 4 10:38:08 Active immuniza tion Active 2020 Not Available [employer] 4 10:38:07 Macrocyt ic anemia 08370118 Active 2020 Not Available [facility] 4 10:38:08 Chronic kidney disease stage 3 828651146 Active 2020 Not Available [employer] 4 10:38:07 Vitamin D deficien cy 73950804 Active 2020 Not Available [facility] 4 10:38:07 Eruption 833669481 Active 2020 Not Available [employer] 4 10:38:07 Abdomina l pain 37419736 Active 2021 Not Available [employer] 4 10:38:07 Pain of multiple joints 45387161 Active 2021 Not Available [facility] 4 10:38:07 Bronchit is 92555521 Active 2021 Not Available [facility] 4 10:38:07 Coronary arterios clerosis 42894465 Active 2022 Not Available [facility] 4 10:38:08 Obesity 431848781 Completed 202203/23/2025 Siena Bell MD Attn: Accounting ,[address] [place], [address] , [facility] 5 10:40:40 Impacted cerumen of bilatera l ears 46717378471 00553 Active 2022 Not Available [facility] 4 10:38:06 Thyroid stimulat ing hormone level below referenc e range 161922071 Active 2022 Not Available [facility] 4 10:38:06 Impairme nt of balance 846425057 Active 2022 Not Available [facility] 4 10:38:07 Sinusiti s 85492619 Active 2022 Not Available [facility] 4 10:38:07 Paresthe pamela of upper limb 63616182 Active 2022 Not Available [facility] 4 10:38:08 Postvira l fatigue syndrome 88543106 Active 2023 Not Available [facility] 4 10:38:08 Paresthe pamela of lower extremit y 732374414 Active 2023 Not Available [facility] 4 10:38:07 Constipa tion 50483944 Active 2023 Not Available [facility] 4 10:38:06 Nausea 208558929 Active 2023 Not Available [facility] 4 10:38:07 Dysphagi a 75325993 Active 2023 Siena Bell MD Attn: Accounting ,[address] [place], [address] , [place] [facility] 4 11:23:16 Impacted cerumen in right ear 50793439701 08742 Active 2023 Siena Bell MD Attn: Accounting ,[address] [place], [address] , [place] [facility] 4 11:37:51 Pain of left shoulder region Active 2023 Siena Bell MD Attn: Accounting ,[address] [place], [address] , [place] [facility] 4 11:17:20 Muscle weakness 62581234 Active 2023 Siena Bell MD Attn: Accounting ,[address] [place], [address] , [place] [facility] 4 12:38:10 Notes:Some problems listed i n Documents: #[id number], #[id number], #[id number], #[id number], #[id number], #[id number], #[id number], #[id number], #[id number], #[id number], #[id number], #[id number], #[id number], #[id number], #[id number], #[id number], #[id number], #[id number], #[id number], #[id number], #[id number] could not be added to this patient's chart. Please review these documents and add these problems to the patient's chart manually as needed. Problem Notes None recorded. Procedures Surgical History Date Name Laterality Status Provider Name and Address Organization Details Recorded Time 07/01/20 23 cardiac catheterization completed Escobar Ledbetter MA [facility] 07/24/2023 10:55:47 06/25/20 23 Date of Last Pap Smear completed Rocio Renee MA [facility] 02/21/2025 10:31:42 04/30/20 23 Date of Last Mammogram completed Rocio Renee MA [facility] 07/15/2023 10:54:42 11/17/19 15 insertion of carotid artery stent completed Rosemarie Elliott MD Attn: Jessica, [address] [place], [address], [facility] 08/01/2020 15:52:10 Cholecystectomy completed Rocio kirby [facility] 07/15/2023 10:57:48 Imaging Results None recorded. Procedure Notes None recorded. Medical Equipment None Reported. Allergies Allergen ID Allergen Name Allergen Category Reaction Reaction Severity Criticality Documentation Date Start Date Code Code System Note Provider Name and Address Organization Details Recorded Time 876507 ibuprofen medicatio n other mild Not available 11/30/2019 5640 RxNorm Siena Bell MD Attn: Rosette garcia,[address] [place], [address], [facility] 0 13:49:44 949957 POLLEN [employer]TR[employer] environme nt,medica tion other Not available low 09/07/20252017 21238 6 RxNorm heada etienne unrec ogniz ed react ion (text : Runny Nose, code: [id number]) (from [facility]) Not Available jameson - External Data Service - prod 5 12:20:35 Medications Name Sig Start Date Stop Date Status Note LastModified by Organization Details LastModified Time oxycod/apap tab 10-325mg 08/01 completed Not Available Not Available Not Available fluticasone propionate 50 mcg/act susp 08/01 completed Not Available Not Available Not Available amoxicillin 500 mg caps 08/01 completed Not Available Not Available Not Available zolpidem tartrate 5 mg tabs 08/14 completed Not Available Not Available Not Available quetiapine fumarate 25 mg tabs 08/01 completed Not Available Not Available Not Available carisoprodo l 350 mg tablet TAKE 1 TABLET BY MOUTH THREE TIMES A DAY NEEDED 07/21 completed Not Available Not Available Not Available nifedipine ER 30 mg tablet,exte nded release 24 hr TAKE 1 TABLET BY MOUTH EVERY DAY active Not Available Not Available No t Available quetiapine 25 mg tablet TAKE 1 TABLET BY MOUTH TWICE DAILY 2024 active Not Available Not Available Not Avai lable cyclobenzap rine 10 mg tablet TAKE 1 TABLET BY MOUTH DAILY 11/07 completed Not Available Not Available Not Available amoxicillin 500 mg capsule TAKE 1 CAPSULE BY MOUTH THREE TIMES A DAY UNTIL FINISHED 12/26 completed Not Available Not Available Not Available furosemide 40 mg tablet TAKE 1 TABLET BY MOUTH EVERY DAY active Not Available Not Available No t Available Miralax 17 gram/dose oral powder Take 17 g every day by oral route. 2023 active Not Available Not Available Not Avai lable atorvastati n 40 mg tablet TAKE 1 TABLET BY MOUTH EVERY DAY 06/08 completed Not Available Not Available Not Available levothyroxi ne 175 mcg tablet TAKE 1 TABLET BY MOUTH DAILY 2024 active Not Available Not Available Not Avai lable levothyroxi ne 137 mcg tablet TAKE 1 TABLET BY MOUTH EVERY DAY 08/07 completed Not Available Not Available Not Available clonidine HCl 0.1 mg tablet TAKE 1 TABLET BY MOUTH EVERY DAY active Not Available Not Available No t Available prednisone 10 mg tablet PLEASE SEE ATTACHED FOR DETAILED DIRECTION S 05/27 completed Not Available Not Available Not Available gabapentin 600 mg tablet one tab po tid 2024 active Not Available Not Available Not Avai lable tizanidine 2 mg tablet TAKE 1 TABLET BY MOUTH THREE TIMES A DAY NEEDED FOR MUSCLE SPASTICIT Y active Not Available Not Available No t Available trazodone 50 mg tablet TAKE 1 TABLET BY MOUTH EVERYDAY AT BEDTIME active Not Available Not Available No t Available cetirizine 10 mg tablet TAKE 1 TABLET BY MOUTH EVERY DAY 07/21 completed Not Available Not Available Not Available azithromyci n 250 mg tablet TAKE 2 TABLETS BY MOUTH TODAY, THEN TAKE 1 TABLET DAILY FOR 4 DAYS DIRECTED 02/21 completed Not Available Not Available Not Available tizanidine 4 mg tablet one tab po tid prn 2024 active Not Available Not Available Not Avai lable benzonatate 200 mg capsule TAKE 1 CAPSULE BY MOUTH THREE TIMES A DAY 12/26 completed Not Available Not Available Not Available hydrochloro thiazide 50 mg tablet TAKE 1 TABLET BY MOUTH EVERY DAY active Not Available Not Available No t Available hydrocodone 5 mg-acetamin ophen 325 mg tablet 02/16 completed Not Available Not Available Not Available sucralfate 1 gram tablet TAKE 1 TABLET BY MOUTH 4 TIMES DAILY 06/08 completed Not Available Not Available Not Available ondansetron HCl 4 mg tablet TAKE 1 TABLET BY MOUTH EVERY 8 HOURS NEEDED FOR NAUSEA FIRST LINE active Not Available Not Available No t Available prednisone 20 mg tablet 02/10 completed Not Available Not Available Not Available Debrox 6.5 % ear drops INSTILL 5 DROPS INTO AFFECTED RIGHT EAR(S) BY OTIC ROUTE 2 TIMES PER DAY 2023 active Not Available Not Available Not Avai lable clindamycin HCl 150 mg capsule TAKE 1 CAPSULE BY MOUTH EVERY 6 HOURS UNTIL FINISHED 12/26 completed Not Available Not Available Not Available meclizine 12.5 mg tablet Take 1 tablet 3 times a day by oral route as needed. 08/07 completed Not Available Not Available Not Available dextrometho maryan-james enesin 10 mg-100 mg/5 mL oral syrup Take 10 mL 4 times a day by oral route. 09/08 completed Not Available Not Available Not Available doxepin 10 mg capsule TAKE ONE CAPSULE BY MOUTH AT BEDTIME active Not Available Not Available No t Available triamcinolo ne acetonide 0.1 % topical cream APPLY TOPICALLY TWICE A DAY active Not Available Not Available No t Available amoxicillin 500 mg tablet TAKE 1 TABLET BY MOUTH THREE TIMES A DAY UNTIL FINISHED 03/26 completed Not Available Not Available Not Available meloxicam 7.5 mg tablet TAKE 1 TABLET BY MOUTH TWICE A DAY OR TAKE 2 TABLETS DAILY WITH FOOD 2024 active Not Available Not Available Not Avai lable clonidine HCl 0.2 mg tablet TAKE 1 TABLET BY MOUTH EVERY DAY active Not Available Not Available No t Available methocarbam ol 750 mg tablet 01/26 completed Not Available Not Available Not Available triamcinolo ne acetonide 0.025 % topical cream 03/23 completed Not Available Not Available Not Available oxycodone-a cetaminophe n 10 mg-325 mg tablet TAKE 1 TABLET 3 TIMES A DAY BY ORAL ROUTE. MUST LAST 30 DAYS active Not Available Not Available No t Available trazodone 100 mg tablet TAKE 1 TABLET BY MOUTH EVERYDAY AT BEDTIME 08/07 completed Not Available Not Available Not Available benzonatate 100 mg capsule TAKE 1 CAPSULE BY MOUTH THREE TIMES A DAY 02/25 completed Not Available Not Available Not Available bisacodyl 10 mg rectal suppository INSERT 1 SUPPOSITO RY INTO THE RECTUM DAILY. active Not Available Not Available No t Available cephalexin 500 mg capsule TAKE 1 TABLET BY MOUTH TWICE A DAY FOR 5 DAYS 07/24 completed Not Available Not Available Not Available paroxetine 30 mg tablet 08/01 completed Not Available Not Available Not Available paroxetine 20 mg tablet 01/26 completed Not Available Not Available Not Available pantoprazol e 40 mg tablet,pham yed release TAKE 1 TABLET BY MOUTH EVERY DAY active Not Available Not Available No t Available levothyroxi ne 125 mcg tablet 01/26 completed Not Available Not Available Not Available buspirone 10 mg tablet TAKE 1 TABLET BY MOUTH TWICE A DAY 02/25 completed Not Available Not Available Not Available lidocaine 5 % topical patch 1 PATCH TOPICALLY DAILY LEAVE ON MOST PAINFUL AREA FOR UP TO 12 HRS active Not Available Not Available No t Available levothyroxi ne 150 mcg tablet TAKE 1 TABLET BY MOUTH EVERY DAY 03/18 completed Not Available Not Available Not Available metoprolol tartrate 50 mg tablet TAKE 1 TABLET BY MOUTH TWICE DAILY 07/15 completed Not Available Not Available Not Available hydrochloro thiazide 12.5 mg capsule TAKE 1 CAPSULE BY MOUTH DAILY 05/27 completed Not Available Not Available Not Available nitroglycer in 0.[address] 1 TAB UNDER TONGUE DIRECTED FOR CHEST PAIN. MAY REPEAT EVERY 5 MINS - MAX 3 TAB PER EPISODE active Not Available Not Available No t Available gabapentin 300 mg capsule Take 1 capsule 3 times a day by oral route. 07/15 completed Not Available Not Available Not Available buspirone 7.5 mg tablet TAKE 1 TABLET BY MOUTH TWO TIMES DAILY 11/23 completed Not Available Not Available Not Available zolpidem 5 mg tablet TAKE 1 TABLET BY MOUTH EVERY DAY NEEDED 10/03 completed Not Available Not Available Not Available ergocalcife rol (vitamin D2) 1,250 mcg (50,000 unit) capsule TAKE 1 CAPSULE BY MOUTH ONE TIME PER WEEK active Not Available Not Available No t Available zolpidem 10 mg tablet TAKE 1 TABLET BY MOUTH AT BEDTIME NEEDED FOR INSOMNIA active Not Available Not Available No t Available albuterol sulfate HFA 90 mcg/actuati on aerosol inhaler INHALE 1 PUFF USING INHALER THREE TIMES A DAY DIRECTED 06/08 completed Not Available Not Available Not Available losartan 100 mg tablet TAKE 1 TABLET BY MOUTH DAILY 2024 active Not Available Not Available Not Avai lable fluticasone propionate 50 mcg/actuati on nasal spray,suspe nsion [place] 2 Sprays into each nostril every day 2024 active Not Available Not Available Not Avai lable dicyclomine 10 mg capsule TAKE 1 CAPSULE BY MOUTH THREE TIMES A DAY NEEDED active Not Available Not Available No t Available calcitriol 0.25 mcg capsule TAKE 1 CAPSULE BY MOUTH EVERY DAY active Not Available Not Available No t Available naproxen 500 mg tablet Take 1 tablet twice a day by oral route with meals. 08/01 completed Not Available Not Available Not Available diazepam 5 mg tablet active Not Available Not Available No t Available ertapenem 1 gram solution for injection 05/27 completed Not Available Not Available Not Available escitalopra m 10 mg tablet TAKE 1 TABLET BY MOUTH DAILY IN THE MORNING active Not Available Not Available No t Available cyclobenzap rine 5 mg tablet 01/26 completed Not Available Not Available Not Available rosuvastati n 5 mg tablet TAKE 1 TABLET BY MOUTH EVERY DAY FOR HIGH CHOLESTER OL 08/09 completed Not Available Not Available Not Available rosuvastati n 10 mg tablet TAKE 1 TABLET BY MOUTH DAILY active Not Available Not Available No t Available rosuvastati n 20 mg tablet TAKE 1 TABLET BY MOUTH EVERY DAY active Not Available Not Available No t Available metoprolol tartrate 25 mg tablet Take 1 tablet(s) twice a day by oral route. 05/29 completed Not Available Not Available Not Available Tessalon Perles 1 tab TID as needed 02/25 completed Not Available Not Available Not Available micafungin 100 mg intravenous solution 05/27 completed Not Available Not Available Not Available Symbicort 160 mcg-4.5 mcg/actuati on HFA aerosol inhaler TAKE 2 PUFFS BY MOUTH TWICE A DAY active Not Available Not Available No t Available diclofenac 1 % topical gel APPLY 4 GRAMS 4 TIMES DAILY TO SINGLE KNEE, ANKLE, FOOT FOR FOOT INCLUDES SOLE/TOES /TOP OF FOOT active Not Available Not Available No t Available Senexon-S 8.6 mg-50 mg tablet TAKE 1 TABLET BY MOUTH TWICE A DAY active Not Available Not Available No t Available Linzess 145 mcg capsule TAKE 1 CAPSULE BY MOUTH EVERY DAY NEEDED active Not Available Not Available No t Available Vitals Date Recorded Body height Body mass index (BMI) Body weight Heart rate Oxygen saturation Oxygen saturation in Arterial blood by Pulse oximetry Systolic And Diastolic Provider Name and Address Organization Details Last Updated DateTime 5 157.48 cm 24.7 kg/m2 35020.9 7 g 66 /min 97 % 97 % 130/70 mm[Hg] Carmen Zabala MA [place] [facility] 5 11:27:47 Date Recorded Body height Body mass index (BMI) Body weight Oxygen saturation Oxygen saturation in Arterial blood by Pulse oximetry Heart rate Body temperature Systolic And Diastolic Provider Name and Address Organization Details Last Updated DateTime 5 157.48 cm 26.3 kg/m2 12423.3 g 100 % 100 % 68 /min 98.1 [degF] 112/78 mm[Hg] Rocio Renee MA [facility] 5 10:39:11 Date Recorded Body height Body mass index (BMI) Body weight Body temperature Heart rate Oxygen saturation Oxygen saturation in Arterial blood by Pulse oximetry Systolic And Diastolic Provider Name and Address Organization Details Last Updated DateTime 5 157.48 cm 25.6 kg/m2 60704.9 3 g 98 [degF] 65 /min 96 % 96 % 147/76 mm[Hg] Karla Navarro [facility] 5 10:27:42 Date Recorded Body height Body mass index (BMI) Body weight Oxygen saturation Oxygen saturation in Arterial blood by Pulse oximetry Heart rate Systolic And Diastolic Provider Name and Address Organization Details Last Updated DateTime 5 157.48 cm 25.2 kg/m2 42854.7 5 g 97 % 97 % 88 /min 124/60 mm[Hg] Karla Navarro [facility] 5 10:07:40 Date Recorded Body height Body mass index (BMI) Body weight Heart rate Oxygen saturation Oxygen saturation in Arterial blood by Pulse oximetry Systolic And Diastolic Provider Name and Address Organization Details Last Updated DateTime 4 157.48 cm 24.5 kg/m2 93704.3 8 g 74 /min 99 % 99 % 135/86 mm[Hg] Carmen Zabala MA [facility] 4 10:37:11 Social History Question Answer Notes LastModified by Organizat ion Details LastModified Time Tobacco Smoking Status Former Smoker Silvia Kilgore MA [facility], [facility] 01/26/2019 11:49:01 What Is Your Level Of Caffeine Consumption? Moderate Information not available 08/01/2020 How Much Tobacco Do You Chew? None Information not available 08/01/2020 What Type Of Diet Are You Following? REGULAR Information not available 08/01/2020 Hard Of Hearing Or Deaf In One Or Both Ears? No Information not available 08/01/2020 Legally Blind In One Or Both Eyes? No Information not available 08/01/2020 What Was The Date Of Your Most Recent Tobacco Screening? 06/08/2025 [email or web address] Information not available 06/08/2025 Performs Monthly Self-breast Exam? No Information not available 08/01/2020 Smoke Alarm In Home Yes Information not available 08/01/2020 How Much Tobacco Do You Smoke? No Information not available 08/01/2020 Has Tobacco Cessation Counseling Been Provided? No Information not available 12/26/2022 On What Date Was Tobacco Cessation Counseling Provided? 06/08/2025 [email or web address] Information not available 06/08/2025 How Many Years Have You Smoked Tobacco? 2 Stopped 42 Years Ago Information not available 08/01/2020 Sex: Unknown Functional Status Question Answer Note LastModified by Organizat ion Details LastModified Time Do you or have you ever used any other forms of tobacco or nicotine? No Information not available 12/26/2022 What is your level of alcohol consumption? Occasional Information not available 08/01/2020 Do you or have you ever used smokeless tobacco? Never used smokeless tobacco Information not available 08/01/2020 Do you or have you ever used e-cigarettes or vape? Never used electronic cigarettes Information not available 08/01/2020 Mental Status None recorded. Family History Relationship Description Onset Age of this Age Resolved Age Notes LastModified by Organization Details LastModified Time Mother Myocardial infarction [email or web address] Not available 01/26 11:48:53 Medical History Condition Response Coronary Artery Disease Y High Blood Pressure Y High Cholesterol Y Hepatitis Y Headaches Y Thyroid Problems Y Depression Y GI Problems Y Gynecological History Statement/Question Response Date of Last Pap Smear 06/25/2023 Current Control Method Menopause Date of Last Mammogram 04/30/2023 Date of LMP Obstetrics History GPAL:G 2 P 0 0 0 2 Type Value Living 2 Total 2 Immunizations Vaccine Type Date Status Note Provider Nam e and Address Organization Details Recorded Time COVID-19, mRNA, LNP-S, PF, 100 mcg/0.5mL dose or 50 mcg/0.25mL dose 1 completed Not Available [facility] 12/08/2023 10:38:08 Influenza, split virus, quadrivalent, PF 4 completed Not Available [facility] 06/08/2025 09:54:39 COVID-19, mRNA, LNP-S, PF, 100 mcg/0.5mL dose or 50 mcg/0.25mL dose 1 completed Not Available [facility] 06/08/2025 09:54:39 Influenza, high-dose, quadrivalent, PF 3 completed Not Available [facility] 06/08/2025 09:54:39 Influenza, split virus, quadrivalent, preservative 0 completed Dorene Clayton [place] null, [place] - [facility] 08/01/2020 16:29:32 Pneumococcal conjugate PCV 13 0 completed Dorene Clayton [place], [place] [facility] 08/01/2020 16:28:49 Influenza, split virus, quadrivalent, preservative 1 completed Silvia Kilgore [place] [facility] 08/07/2021 11:47:35 Influenza, high-dose, trivalent, PF 4 completed Carmen Zabala [place], [place] [facility] 09/08/2024 12:50:49 Past Encounters Encounter ID Performer Location Encounter Start Date Encounter Closed Date Diagnosis/Indication Diagnosis SNOMED-CT Code Diagnosis ICD10 Code Diagnosis IMO Codes Diagnosis Note [id number] Siena Bell MD [facility] (Adult Med) [address] [place] [address] [phone] 01/26/2019 11:04:58 01/27/2019 11:37:05 Chronic back pain 045669017 M54.9 Coronary atherosclerosis 992186136 I25.84 Depressive disorder 3548 9007 F32.9 Essential hypertension 38122132 I10 Medication monitoring 39 4972821 Z51.81 Chronic peptic ulcer 128 044578 K27.7 Hypothyroidism 98809143 E03.9 [id number] Siena Bell MD [facility] (Adult Med) [address] [place] [address] [id number] 02/10/2019 11:44:01 02/11/2019 10:37:16 Essential hypertension 27580022 I10 Increase metoprolol to 50 mg BID Hypothyroidism 17272390 E03.9 Depressive disorder 3548 9007 F32.9 Chronic back pain 738070 002 M54.9 Chronic peptic ulcer 128 939179 K27.7 Complainin g of cold hands 151668545 R20.8 Possible Raynaud's phenomenon Insomnia 419465916 G47.0 0 [id number] MD [facility] (Adult Med) [address] [place] [address] [id number] 0 03/29/2019 12:23:21 03/29/2019 13:51:04 Essential hypertension 74853926 I10 Increase metoprolol to 50 mg BID Depressive disorder 3548 9007 F32.9 Chronic back pain 809756 002 M54.9 Coronary atherosclerosis 867457575 I25.84 Spinal john nosis of lumbar region 13014046 M48.061 Insomnia 600125894 G47.0 0 [id number] MD [facility] (Adult Med) [address] [place] [address] [id number] 0 07/27/2019 12:27:06 07/28/2019 13:11:02 Hypothyroidism 02982184 E03.9 Essential hypertension 94944111 I10 Increase metoprolol to 50 mg BID Insomnia 702221628 G47.0 0 Coronary atherosclerosis 698663156 I25.84 Chronic back pain 305393 002 M54.9 Depressive disorder 3548 9007 F32.9 Fatigue 18370334 R53.83 Postmenopausal state 764 24315 Z78.0 Overweight 961430744 E66 .3 [id number] MD [facility] (Adult Med) [address] [place] [address] [id number] 0 11/30/2019 11:33:18 11/30/2019 14:11:39 Chronic back pain 787452814 M54.9 Viral myalgia 583703471 M79.10 [id number] MD [facility] (Adult Med) [address] [place] [address] [phone] 0 02/21/2020 13:28:31 02/22/2020 10:21:35 Dizziness 360340094 R42 Nasal congestion 1130828 0 R09.81 [id number] MD [facility] (Adult Med) [address] [place] [address] [id number] 0 05/29/2020 09:59:22 05/30/2020 20:04:41 Chronic peptic ulcer 443939036 K27.7 Chronic back pain 336285 002 M54.9 Essential hypertension 18634367 I10 Increase metoprolol to 50 mg BID Spinal john nosis of lumbar region 94842090 M48.061 Hypothyroidism 92804815 E03.9 Coronary atherosclerosis 433428116 I25.84 Morbid obesity 743489760 E66.01 [id number] MD [facility] (Adult Med) [address] [place] [address] [id number] 08/01/2020 15:19:52 08/01/2020 16:32:27 Screening for malignant neoplasm of breast 093040486 Z12.39 Administra tion of influenza vaccine 52383651 Z23 Coronary arteriosclerosis in kaw artery 3550422174 107 I25.10 Start Crestor, side effects were discussed History of placement of stent for coronary artery disease 606432632 Z95.5 Chronic back pain 453111 002 G89.29 [place] 03/30/2019, it needs to be updatedUDS 01/19/2020Si de effects of Oxycodone were discussed Chronic insomnia 0134396 04 F51.04 [place] 03/30/2019, update needed UDS 01/19/2020Si de effects of Zolpidem including but not limited to dementia and sleep walking were discussed Hypothyroidism 30288545 E03.9 Medication monitoring 39 3732004 Z51.81 Viral screening 11633793 4 Z11.59 Administra tion of pneumococcal vaccine 15521202 Z23 History of peptic ulcer 449206814 Z87.11 Hyperlipidemia 72153161 E78.5 [id number] MD [facility] (Adult Med) [address] [place] [address] [id number] 0 08/28/2020 10:07:42 08/29/2020 11:28:46 Chronic insomnia 697265359 F51.04 Chronic back pain 257794 002 M54.9 Hypothyroidism 03387423 E03.9 [id number] MD [facility] (Adult Med) [address] [place] [address] [id number] 0 11/23/2020 08:22:09 11/24/2020 12:44:07 Insomnia 144359231 G47.00 Spinal john nosis of lumbar region 30567702 M48.061 Cough 96328461 R05 History of peptic ulcer 277045175 Z87.11 [id number] MD [facility] (Adult Med) [address] [place] [address] [id number] 0 04/25/2021 12:03:29 04/26/2021 12:43:55 Chest pain 07835116 R07.9 Chronic back pain 539825 002 M54.9 [id number] MD [facility] (Adult Med) [address] [place] [address] [id number] 0 08/07/2021 10:15:52 08/08/2021 09:11:40 Chronic back pain 280937437 M54.9 Coronary atherosclerosis 096368989 I25.84 Essential hypertension 19774082 I10 Increase metoprolol to 50 mg BID Hyperlipidemia 28390974 E78.5 Hypothyroidism 65886750 E03.9 Insomnia 867057758 G47.0 0 Spinal john nosis of lumbar region 34109048 M48.061 Allergic rhinitis 533703 04 J30.9 Active immunization 3387 9002 Z23 [id number] MD [facility] (Adult Med) [address] [place] [address] [id number] 0 10/03/2021 14:03:13 10/04/2021 06:33:55 Eruption 069423842 R21 Insomnia 698511923 G47.0 0 Chronic peptic ulcer 128 813282 K27.7 Chronic back pain 266799 002 M54.9 Medication monitoring 39 9152616 Z51.81 [id number] MD [facility] (Adult Med) [address] [place] [address] [id number] 0 11/29/2021 10:05:42 11/30/2021 14:19:13 Insomnia 392128040 G47.00 Chronic back pain 594856 002 M54.9 Depressive disorder 3548 9007 F32.9 Vitamin D deficiency 347 48068 E55.9 [id number] MD [facility] (Adult Med) [address] [place] [address] [id number] 0 02/25/2022 10:05:47 02/26/2022 11:17:15 Chronic peptic ulcer 352327235 K27.7 Depressive disorder 3548 9007 F32.9 Abdominal pain 04449755 R10.9 Chronic back pain 700194 002 M54.9 Allergic rhinitis 798703 04 J30.9 Pain of mu ltiple joints 53511129 M25.50 [id number] MD [facility] (Adult Med) [address] [place] [address] [id number] 0 06/25/2022 10:14:19 06/26/2022 10:28:51 Bronchitis 01169841 J40 Chronic back pain 939736 002 M54.9 Chronic peptic ulcer 128 831369 K27.7 Nasal congestion 7517281 0 R09.81 Eruption 690558410 R21 Cough 42142101 R05.9 Insomnia 979555208 G47.0 0 [id number] MD [facility] (Adult Med) [address] [place] [address] [id number] 0 11/07/2022 08:51:50 11/14/2022 13:46:25 Chronic back pain 403995834 M54.9 Cont pain regimen [id number] [facility] [address] [place] [address] [phone] 0 12/26/2022 12:32:15 12/31/2022 15:23:46 Spinal stenosis of lumbar region 63068595 M48.061 Insomnia 548246485 G47.0 0 Depressive disorder 3548 9007 F32.9 Eruption 897776568 R21 Chronic back pain 061491 002 M54.9 Cont pain regimen Allergic rhinitis 210614 04 J30.9 Nasal congestion 6822424 0 R09.81 Coronary arteriosclerosis 47790350 I25.10 Obesity 202816075 E66.9 [id number] MD [facility] (Adult Med) [address] [place] [address] [id number] 0 03/26/2023 10:36:05 04/01/2023 12:19:37 Obesity 589941477 E66.9 Insomnia 161342851 G47.0 0 Chronic back pain 426173 002 M54.9 Cont pain regimen Medication monitoring 39 2072558 Z51.81 Chronic ki dney disease stage 3 763687720 N18.30 Essential hypertension 60995173 I10 Increase metoprolol to 50 mg BID Coronary arteriosclerosis 42816256 I25.10 Hyperlipidemia 73535491 E78.5 Increase dose Hypothyroidism 91445662 E03.9 has not missed meds Macrocytic anemia 153554 05 D53.9 No etoh use Impacted c erumen of bilateral ears 3019346256 177388 H61.23 Chest pain 51221927 R07. 9 [id number] MD [facility] (Adult Med) [address] [place] [address] [id number] 0 04/24/2023 10:35:24 04/25/2023 15:51:31 Obesity 989441530 E66.9 Chronic back pain 985598 002 M54.9 Cont pain regimen Impairment of balance 38 6079339 R26.89 Suspect adverse effect from increased gabapentin . Advised reduction of gabapentin as follows. 300 mg BID and 600 mg at HS [id number] MD [facility] (Adult Med) [address] [place] [address] [id number] 0 05/27/2023 09:56:09 05/29/2023 15:12:50 Obesity 571391484 E66.9 Chronic back pain 467666 002 M54.9 Cont pain regimen Sinusitis 17610778 J32.9 Allergic rhinitis 638624 04 J30.9 [id number] MD [facility] (Adult Med) [address] [place] [address] [id number] 0 07/15/2023 10:45:16 07/19/2023 12:03:20 Screening for malignant neoplasm of cervix 502757782 Z12.4 Will have patient sign medical release for previous PAP results. Screening for malignant neoplasm of breast 811794019 Z12.39 Menopausal flushing 1984 10490 N95.1 Will return to discuss treatment of menopausal symptoms. Screening for osteoporosis 787645948 Z13.820 Will sign medical release to get records from osteoporos is screening. [id number] MD [facility] (Adult Med) [address] [place] [address] [id number] 0 07/24/2023 10:37:23 07/29/2023 11:57:55 Coronary arteriosclerosis 52937728 I25.10 Coronary atherosclerosis 267315617 I25.84 Essential hypertension 17195930 I10 Increase metoprolol to 50 mg BID History of placement of stent for coronary artery disease 562601684 Z95.5 Hyperlipidemia 98506152 E78.5 Increase dose Macrocytic anemia 546339 05 D53.9 No etoh use Chronic back pain 734197 002 M54.9 Cont pain regimen Impacted c erumen of bilateral ears 8764261904 967012 H61.23 [id number] MD [facility] (Adult Med) [address] [place] [address] [id number] 0 07/30/2023 09:55:15 08/01/2023 15:09:45 Menopausal flushing 478303554 N95.1 Did not want to treat with hormone due to age and concern of side effects. Patient is already taking an SSRI so could not use Paxil Will try Clonidine and start with .1 mg daily. Discussed side effects and advised patient to get up slowly from lying down or sitting up and told her she may feel light headed with sudden position changes. Will follow up in three weeks to see how she is tolerating medication and if it is helping symptoms. Adjustment disorder with anxious mood 45822392 F43.22 Financial concerns. Recommende d counseling . She will set up an appointmen t with counseling today. 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 Continue pantoprazo le Bronchitis 48941994 J40 Abdominal pain 71131986 R10.9 Insomnia 734749884 G47.0 0 Chronic back pain 457020 002 M54.9 Cont pain regimen Nausea 766637272 R11.0 Impacted c erumen in right ear 7384357405 094762 H61.21 [id number] MD [facility] (Adult Med) [address] [place] [address] [id number] 0 03/18/2024 12:32:01 03/22/2024 16:27:59 Obesity 445494303 E66.9 Chronic back pain 013604 002 M54.9 Cont pain regimen Depressive disorder 3548 9007 F32.9 Insomnia 305709907 G47.0 0 Hypothyroidism 17982333 E03.9 has not missed meds Impacted c erumen of bilateral ears 9279444781 126519 H61.23 Impacted c erumen in right ear 2207534656 370934 H61.21 [id number] Douglas Miller MD [facility] [address] [place] [address] [phone] 2 04/06/2024 12:31:57 04/06/2024 13:28:54 Impacted cerumen in right ear 0351189377 759254 H61.21 ear cleared middle ears clear bilaterall y follow back if she has further difficulti es [id number] Siena Bell MD [facility] (Adult Med) [address] [place] [address] [id number] 0 07/21/2024 10:37:21 07/23/2024 14:32:02 Overweight 695088256 E66.3 Dysphagia 73811946 R13.1 0 F/u GI. Continue pantoprazo le Pain of le ft shoulder region 6097381940 M25.512 Pain of mu ltiple joints 17758002 M25.50 Chronic back pain 862928 002 M54.9 Cont pain regimen [id number] MD Raghav Rodríguez (Adult Med) [address] [place] [address] [phone] 09/08/2024 11:39:11 09/14/2024 10:26:38 Constipation 72444633 K59.00 Insomnia 302534923 G47.0 0 Chronic back pain 962032 002 M54.9 Cont pain regimen Active immunization 3387 9002 Z23 Dizziness [id number] R42 She will call insurance re [facility] care . Essential hypertension 27588247 I10 BP low today. She will call cardiologi st [id number] MD Raghav Reyes (Adult Med) [address] [place] [address] [phone] 02/21/2025 10:29:17 02/22/2025 13:39:00 Menopausal flushing 461276713 N95.1 Has hot flashes. The Clonidine was helping but has been out of it. Would like to continue it. Will follow up in three months. Screening for osteoporosis 637818945 Z13.820 Patient said she did have osteoporos is screening at [facility] but I do not have those records in the chart. I tried to get them at her last visit but I still do not have them. Will try to get them before her follow up in three months. Screening for malignant neoplasm of breast 457516014 Z12.39 Due for screening mammogram. Will return in three months for exam. Essential hypertension 36734368 I10 Blood pressure controlled . History of bowel obstruction [id number] 74414 Z87.19 Surgery in December. Still has some abdominal discomfort . Sees primary care provider for this. [id number] MD Raghav Rodríguez (Adult Med) [address] [place] [address] [phone] 11/16/2024 10:12:57 11/18/2024 13:14:08 Abdominal pain 91554858 R10.9 Chronic peptic ulcer 128 879622 K27.7 Chronic ki dney disease stage 3 673269879 N18.30 Coronary arteriosclerosis 66801510 I25.10 Insomnia 249580926 G47.0 0 Chronic back pain 643671 002 M54.9 Cont pain regimen Nasal congestion 9336125 0 R09.81 [id number] MD Raghav Rodríguez (Adult Med) [address] [place] [address] [phone] 01/18/2025 10:55:55 01/20/2025 13:07:49 Bronchitis 50432014 J40 Chronic ki dney disease stage 3 744042313 N18.30 Coronary arteriosclerosis 35981528 I25.10 Essential hypertension 50899971 I10 History of peptic ulcer 831187610 Z87.11 Hypothyroidism 39836571 E03.9 [id number] MD Raghav Rodríguez (Adult Med) [address] [place] [address] [phone] 03/23/2025 10:16:32 03/24/2025 10:32:35 Chronic back pain 528369501 M54.9 Cont pain regimen Chronic ki dney disease stage 3 602351223 N18.30 F/U nephrology Coronary atherosclerosis 735171506 I25.84 Depressive disorder 3548 9007 F32.9 Dysphagia 29471380 R13.1 0 F/u GI. Continue pantoprazo le Essential hypertension 33703375 I10 Cont current meds History of peptic ulcer 771045524 Z87.11 Hyperlipidemia 15852974 E78.5 Increase dose Hypothyroidism 29511163 E03.9 Macrocytic anemia 948472 05 D53.9 No etoh use Vitamin D deficiency 347 68888 E55.9 [id number] MD Raghav Reyes (Adult Med) [address] [place] [address] 06/08/2025 09:53:51 06/09/2025 09:58:28 Chronic low back pain 863042553 M54.40 G89.29 85399979 Chronic low back pain. Mostly just has pain in mid lower back with occasional sciatica. No neurologic symptoms. Had x-ray last fall which was negative. She had PT a year ago which did not help. She is going to try PT again and if has no improvemen t will proceed with MRI. Will try Meloxicam for pain. I told her I do not prescibe narcotics. Will continue Gabapentin . Chronic constipation 236 952289 K59.09 637286 Recently saw GI. Prescribed Linzess and given some samples. Patient will not be able to afford prescripti on. Will review notes and discuss alternativ es. Advised her to drink plenty of water, remain active, and increase fiber in diet. Will check a TSH. Last TSH was low. Primary hypothyroidism 45693469 E03.9 30569 On Levothyrox ine. Will repeat TSH. Essential hypertension 42106939 I10 15691 Blood pressure excellent. Continue present medication . Hyperlipidemia 69548017 E78.49 2620520 Taking statin. Has not had lipid checked in some time. Menopausal flushing 1983 83490 N95.1 835759 Clonidine has helped some. Will try increasing dose. Difficulty sleeping 3013 94578 G47.9 7281854 I am unable to continue Ambien. Will have her continue Trazadone at night. Will journal sleep. Health Concerns Section Related Observation LastModified by Organization Detai ls LastModified Time None Recorded Concern Status LastModified by Organization Details LastModified Time None Recorded Advance Directives Directive None Recorded Payers Insurance Date Sequence Insurance Name Policy Number Policy Beard Covered Member ID Beard Member ID Guarantor Name 04/01/2025 1 [facility] [id number] Екатерина D Thayer- Michelle [id number] Екатерина Timi-Tr ice 08/13/2025 1 [employer] (MEDICARE REPLACEMENT/ ADVANTAGE - HMO) [id number] Екатерина D Thayer- Michelle [id number] Екатерина Thayer-Tr ice 04/01/2025 1 [employer] - [facility] (MEDICARE REPLACEMENT/ ADVANTAGE - HMO) [id number] Екатерина D Timi- Michelle [id number] Екатерина Thayer-Tr ice Notes Date Note Type Note Provider Name and Address Organization Details Recorded Time 11/16/2024 text/html Here for med refills. Has been to ED for abdominal pain Misplaced sleeping med Siena Bell MD Attn: Accounting[address] [place], [address], [facility] 11/16/2024 11:07:15 01/18/2025 text/html Here for hospital f/u.Had surgery SBO in 01/11 for lysis of adhesions. Returned 01/14. Treated conservatively. Has had cough for a week Siena Bell MD Attn: Accounting[address] [place], [address], [place] 01/18/2025 12:29:20 02/21/2025 text/html ROS as noted in the HPI follow up, needs mammogram, Clonidine helped for hot flashes, doing better emotionally, takes day by day, had bone density at [facility], rarely looses continence of urine when gets up to urinate at night but this is very unusual, usually no issues with urinary incontinence during the day or at night, some vaginal dryness but no discomfort, no dysuria, six abdominal surgeries since ten years ago, last surgery in December, had bowel obstruction, non smoker, no family history of female cancers Chari Weeks MD Attn: Accounting[address] , [place], [address], [facility] 02/21/2025 11:21:53 03/23/2025 text/html Here for routine f/u. No new complaints Siena Bell MD Attn: Accounting[address] [facility], [place], [address], [facility] 03/23/2025 10:42:18 06/08/2025 text/html ROS as noted in the HPI here to establish, concerns are back pain, problem for years, no injury, low back, does not always have pain, sometimes it just aches for several days, sometimes it goes down left leg, no weakness, no numbness, no issues with bowel or bladder control, did physical therapy about a year ago, takes laxative for constipation, saw student life vice president and said there was no blockage, prescribed Linzess but cannot afford it, hypertension, has COPD, non smoker, used to smoke, uses Albuterol every other day, had mammogram, Clonidine helps hot flashes some but would like it increased, denies allergies Chari Weeks MD Attn: Accounting[address] [facility], [place], [address], [facility] 06/08/2025 13:11:36 OBGyn Episode No OBEpisode recorded.
--- OUTSIDE RECORDS SUMMARY | 2025-09-20 15:11 | XMS_ITS | Patient Health Record ---
Author Organization [facility] Address [address] [place] [address] Care Team Providers Care Veterinarian Assistant Name Role Phone Donny Morenita Unavailable [phone] Reason For Referral No Information Encounters Encounter Location Date Provider Diagnosis [facility] [address] [place] [address] 06/20/2025 Morenita Hines Plan Of Treatment No Information Insurance Providers Payer Name Payer Address Payer Phone Subscriber Number Group Number Insured Name Patient Relationship to Insured Coverage Start Date Coverage End Date [employer] a[employer] medicare [address] [address] [place] [address] [id number] Екатерина Peters Self - patient is the insured
--- NOTE | 2025-09-20 16:09 | ED.ABDPAIN ---
HPI - Abdominal Pain General Chief Complaint: Abdominal Pain <SUSI Young - Last Filed: 09/20/25 17:34> Stated Complaint: abd pain nausea <SUSI Young - Last Filed: 09/20/25 17:34> Time Seen by Provider: 09/20/25 16:09 <SUSI Young - Last Filed: 09/20/25 17:34> Focused HPI: 69 year old female presenting with abdominal pain that began last night and has since worsened. States she has been vomiting since this morning. Endorses fever/chills and nausea. GENERAL: Ill-appearing, well-nourished, and in mild distress. HEAD: Normocephalic, atraumatic. CHEST: Clear to auscultation. ?No respiratory distress. HEART: Regular rate and rhythm.? NEURO: ?Alert and oriented x3. Patient screened in triage and initial orders placed.? ?Additional care and disposition to be based upon?diagnostic testing and treatment. <SUSI Young - Last Filed: 09/20/25 17:34> History of Present Illness HPI narrative: per HPI Patient with history of bowel obstructions, and this feels similar, started last night with lower abdominal pain, cannot stop throwing up. <Dulce Maria Sims MD - Last Filed: 09/20/25 18:43> Related Data Home Medications: Home Medications ?Medication ?Instructions ?Recorded ?Confirmed ?Last Taken ?Type cetirizine 10 mg tablet 10 mg PO DAILY 07/27/22 09/13/25 Unknown History ergocalciferol (vitamin D2) 1,250 50,000 unit PO WEEKLY 07/27/22 09/13/25 Unknown History mcg (50,000 unit) capsule fluticasone propionate 50 2 spray intranasal DAILY 07/27/22 09/13/25 Unknown History mcg/actuation nasal spray,suspension gabapentin 300 mg capsule 300 mg PO TID 07/27/22 09/13/25 Unknown History levothyroxine 175 mcg tablet 175 mcg PO QAM 07/27/22 09/13/25 Unknown History losartan 100 mg tablet 100 mg PO DAILY 07/27/22 09/13/25 Unknown History quetiapine 25 mg tablet 25 mg PO HS 07/27/22 09/13/25 Unknown History rosuvastatin 10 mg tablet 10 mg PO DAILY 07/27/22 09/13/25 Unknown History triamcinolone acetonide 0.1 % 1 applic topical BID 07/27/22 09/13/25 Unknown History topical cream <SUSI Young - Last Filed: 09/20/25 17:34> Allergies/Adverse Reactions: Allergies Allergy/AdvReac Type Severity Reaction Status Date / Time ibuprofen Allergy Mild Unknown Verified 09/20/25 16:46 <SUSI Young - Last Filed: 09/20/25 17:34> Review of Systems Review of Systems: All systems reviewed & are unremarkable except as noted in HPI and below <Dulce Maria Sims MD - Last Filed: 09/20/25 18:43> [facility] Past Medical History Medical History: Medical History (Updated 09/20/25 @ 18:22 by Dulce Maria Sims MD) alf use of drug Sacroiliitis Lumbar stenosis Lumbar spondylosis Lumbar radiculopathy Hypothyroidism Hypertension Hyperlipidemia Nausea and vomiting in adult RUQ pain Elevated liver enzymes Biliary acute pancreatitis <SUSI Young - Last Filed: 09/20/25 17:34> Surgical History Surgical History: Surgical History (Updated 09/13/25 @ 10:33 by Shelly Sullivan APRN) S/P gastric surgery <SUSI Young - Last Filed: 09/20/25 17:34> Family History Family History: Family History Father Stomach cancer Mother Myocardial infarction Cerebrovascular accident <SUSI Young - Last Filed: 09/20/25 17:34> Social History Social History: Social History Smoking status: Never smoker Alcohol intake: never Substance use: current Substance use type: marijuana Last use: 07/22/2022 Do You Feel Safe in your Home?: Yes Lack of Transportation: No Lack of Food: Never True Current Housing: I Have Housing Concerned About Future Housing: No Difficulty Paying Gas/Electric Bills: No Difficulty Paying for Meds: No Difficulty w/ Childcare or Family Care: No Spiritual care concerns: No <SUSI Young - Last Filed: 09/20/25 17:34> Exam Narrative: EXAMINATION OF ORGAN SYSTEMS/BODY AREAS: Constitutional: Vital signs per nursing GENERAL: Tearful in bed, appears quite uncomfortable HEAD: Normal with no signs of head trauma. EYES: EOMI, conjunctiva normal ENT: Hearing grossly intact LUNGS: Nonlabored breathing. HEART: [Regular rate and rhythm] ABD: [Soft], tender to palpation with some slight guarding lower abdomen EXT: Normal range of motion SKIN: [No rashes or lesions.] NEURO: [Alert and oriented x 3. No gross focal sensory or strength deficits.] PSYCH: Normal affect <Dulce Maria Smis MD - Last Filed: 09/20/25 18:43> Course Vital Signs Vital signs: Vital Signs Temperature 98.1 F 09/20/25 13:45 Pulse Rate 97 09/20/25 13:45 Respiratory Rate 20 09/20/25 13:45 Blood Pressure 157/86 H 09/20/25 13:45 Pulse Oximetry 99 09/20/25 13:45 Temperature 98.4 F 09/20/25 16:44 Pulse Rate 78 09/20/25 17:12 Respiratory Rate 18 09/20/25 17:12 Blood Pressure 134/72 09/20/25 17:12 Pulse Oximetry 100 09/20/25 17:12 Oxygen Delivery Room Air 09/20/25 16:44 <SUSI Young - Last Filed: 09/20/25 17:34> Vital Signs Temperature 98.1 F 09/20/25 13:45 Pulse Rate 97 09/20/25 13:45 Respiratory Rate 20 09/20/25 13:45 Blood Pressure 157/86 H 09/20/25 13:45 Pulse Oximetry 99 09/20/25 13:45 Temperature 98.4 F 09/20/25 16:44 Pulse Rate 78 09/20/25 17:12 Respiratory Rate 18 09/20/25 17:12 Blood Pressure 134/72 09/20/25 17:12 Pulse Oximetry 100 09/20/25 17:12 Oxygen Delivery Room Air 09/20/25 16:44 <Dulce Maria Sims MD - Last Filed: 09/20/25 18:43> MDM - Abdominal Pain MDM Narrative Medical decision making narrative: Patient presents with lower abdominal pain, nausea vomiting, feels like her usual bowel obstructions. On exam she is uncomfortable, abdomen soft but she is quite tender to the lower abdomen, she has no epigastric pain or tenderness. She does have an elevated lipase however no epigastric pain, CT is showing SBO Discussed with general surgery and hospitalist. Patient agreed. She feels much better now. NG tube will be placed. <Dulce Maria Sims MD - Last Filed: 09/20/25 18:43> Lab Data Result diagrams: 09/20/25 16:47 09/20/25 16:47 <SUSI Young - Last Filed: 09/20/25 17:34> Labs: Lab Results 09/20/25 Range/Units 16:47 WBC 10.4 H (4.5-10.0) K/mm3 RBC 3.06 L (4.2-5.4) M/mm3 Hgb 11.5 L (12.0-15.0) g/dL Hct 36.3 L (37.0-47.0) % MCV 118.6 H (80-100) fl MCH 37.6 H (26-34) pg MCHC 31.7 L (32-36) g/dl RDW 13.1 (11.5-14.5) % Plt Count 375 (150-375) k/mm3 MPV 8.5 (7.4-10.4) fl Immature Gran % (Auto) 0.3 (0-0.5) % Neut % (Auto) 81.0 H (45.5-73.1) % Lymph % (Auto) 10.7 L (18.3-44.2) % Hinds % (Auto) 6.5 (2.6-8.5) % Eos % (Auto) 1.2 (0-4.4) % Baso % (Auto) 0.3 (0.2-1.2) % Lymph # (Auto) 1.11 (0.9-3.2) K/mm3 Hinds # (Auto) 0.7 H (0.1-0.6) K/mm3 Eos # (Auto) 0.1 (0-0.3) K/mm3 Baso # (Auto) 0.0 (0.0-0.1) K/mm3 Abs Immat Gran (auto) 0.03 (0.00-0.031) K/mm3 Absolute Neuts (auto) 8.4 H (1.3-6.7) K/mm3 Absolute Nucleated RBC 0.000 (0.0-0.012) K/mm3 Band Neutrophils % Not Reportable Nucleated RBC % 0.0 (0.0-0.2) % Platelet Estimate Adequate (Adequate) Anisocytosis 1+ Macrocytosis 1+ (NORMAL) Schistocytes None seen Sodium 134 L (137-145) mmol/L Potassium 4.5 (3.4-5.0) mmol/L Chloride 107 (98-107) mmol/L Carbon Dioxide 20 L (22-30) mmol/L Anion Gap 7 (4-12) mmol/L BUN 17 D (7-17) mg/dL Creatinine 1.08 H (0.7-1.0) mg/dL Estim Creat Clear Calc 38 ml/min Estimated GFR 50 L (59 - ) Glucose 92 (65-110) mg/dL Calcium 9.3 (8.4-10.2) mg/dL Total Bilirubin 0.5 (0.2-1.3) mg/dL AST 183 H (14-36) U/L ALT 100 H (6-35) U/L Alkaline Phosphatase 162 H (38-126) U/L Total Protein 7.4 (6.3-8.2) g/dL Albumin 4.2 (3.5-5.1) g/dL Lipase 865 H (23-300) U/L <SUSI Young - Last Filed: 09/20/25 17:34> Lab Results 09/20/25 Range/Units 16:47 WBC 10.4 H (4.5-10.0) K/mm3 RBC 3.06 L (4.2-5.4) M/mm3 Hgb 11.5 L (12.0-15.0) g/dL Hct 36.3 L (37.0-47.0) % MCV 118.6 H (80-100) fl MCH 37.6 H (26-34) pg MCHC 31.7 L (32-36) g/dl RDW 13.1 (11.5-14.5) % Plt Count 375 (150-375) k/mm3 MPV 8.5 (7.4-10.4) fl Immature Gran % (Auto) 0.3 (0-0.5) % Neut % (Auto) 81.0 H (45.5-73.1) % Lymph % (Auto) 10.7 L (18.3-44.2) % Hinds % (Auto) 6.5 (2.6-8.5) % Eos % (Auto) 1.2 (0-4.4) % Baso % (Auto) 0.3 (0.2-1.2) % Lymph # (Auto) 1.11 (0.9-3.2) K/mm3 Hinds # (Auto) 0.7 H (0.1-0.6) K/mm3 Eos # (Auto) 0.1 (0-0.3) K/mm3 Baso # (Auto) 0.0 (0.0-0.1) K/mm3 Abs Immat Gran (auto) 0.03 (0.00-0.031) K/mm3 Absolute Neuts (auto) 8.4 H (1.3-6.7) K/mm3 Absolute Nucleated RBC 0.000 (0.0-0.012) K/mm3 Band Neutrophils % Not Reportable Nucleated RBC % 0.0 (0.0-0.2) % Platelet Estimate Adequate (Adequate) Anisocytosis 1+ Macrocytosis 1+ (NORMAL) Schistocytes None seen Sodium 134 L (137-145) mmol/L Potassium 4.5 (3.4-5.0) mmol/L Chloride 107 (98-107) mmol/L Carbon Dioxide 20 L (22-30) mmol/L Anion Gap 7 (4-12) mmol/L BUN 17 D (7-17) mg/dL Creatinine 1.08 H (0.7-1.0) mg/dL Estim Creat Clear Calc 38 ml/min Estimated GFR 50 L (59 - ) Glucose 92 (65-110) mg/dL Calcium 9.3 (8.4-10.2) mg/dL Total Bilirubin 0.5 (0.2-1.3) mg/dL AST 183 H (14-36) U/L ALT 100 H (6-35) U/L Alkaline Phosphatase 162 H (38-126) U/L Total Protein 7.4 (6.3-8.2) g/dL Albumin 4.2 (3.5-5.1) g/dL Lipase 865 H (23-300) U/L <Dulce Maria Sims MD - Last Filed: 09/20/25 18:43> Imaging Data Radiologist's impression: ITS Impressions Abdomen/Pelvis CT 09/20/25 17:44 IMPRESSION: 1. Small bowel obstruction. 2: Status post cholecystectomy with prominence of the bile ducts and pancreatic duct. Consider correlation with MRCP. <SUSI Young - Last Filed: 09/20/25 17:34> ITS Impressions Abdomen/Pelvis CT 09/20/25 17:44 IMPRESSION: 1. Small bowel obstruction. 2: Status post cholecystectomy with prominence of the bile ducts and pancreatic duct. Consider correlation with MRCP. <Dulce Maria Sims MD - Last Filed: 09/20/25 18:43> Discharge Plan Discharge Clinical Impression: SBO (small bowel obstruction) <SUSI Young - Last Filed: 09/20/25 17:34> Patient Disposition: Still a Patient <SUSI Young - Last Filed: 09/20/25 17:34> Condition: Stable <SUSI Young - Last Filed: 09/20/25 17:34> Patient Language: Vietnamese <SUSI Young - Last Filed: 09/20/25 17:34> Prescriptions: No Action pantoprazole 40 mg tablet,delayed release (DR/EC) 40 mg PO QAM Qty: 30 3RF ondansetron 4 mg tablet,disintegrating 4 mg PO Q8H PRN (Reason: nausea and vomiting) Qty: 30 2RF dicyclomine 10 mg capsule 10 mg PO TID PRN (Reason: Abdominal Discomfort) Qty: 90 2RF lidocaine 5 % adhesive patch,medicated 1 patch topical DAILY Qty: 30 0RF Rx Instructions: leave on most painful area for up to 12 hrs hydrochlorothiazide 50 mg tablet 50 mg PO DAILY Qty: 30 0RF zolpidem 10 mg tablet 10 mg PO HS PRN (Reason: Insomnia) Qty: 30 0RF diclofenac sodium [Voltaren Arthritis Pain] 1 % gel 4 g topical QID Qty: 100 0RF Rx Instructions: apply to single knee, ankle, foot; for foot includes sole/toes/top of foot fluocinolone acetonide oil 0.01 % drops 5 drp RIGHT EAR BID 14 Days Qty: 20 0RF quetiapine 25 mg tablet 25 mg PO HS levothyroxine 175 mcg tablet 175 mcg PO QAM cetirizine 10 mg tablet 10 mg PO DAILY triamcinolone acetonide 0.1 % cream 1 applic TOPICAL BID Rx Instructions: to arms and neck gabapentin 300 mg capsule 300 mg PO TID ergocalciferol (vitamin D2) 1,250 mcg (50,000 unit) capsule 50,000 unit PO WEEKLY Rx Instructions: on mondays losartan 100 mg tablet 100 mg PO DAILY fluticasone propionate 50 mcg/actuation Solomon,Suspension 2 spray INTRANASAL DAILY rosuvastatin 10 mg tablet 10 mg PO DAILY lubiprostone 24 mcg capsule See Rx Instructions .ROUTE .COMPLEX Qty: 200 2RF Dose Instruction: TAKE 1 CAPSULE BY MOUTH TWICE DAILY Rx Instructions: TAKE 1 CAPSULE BY MOUTH TWICE DAILY hydrocodone-acetaminophen 5-325 mg tablet 1 tablet PO Q8H PRN (Reason: pain) Qty: 21 0RF tizanidine 4 mg tablet 4 mg PO TID PRN (Reason: muscle spasticity) Qty: 270 0RF <SUSI Young - Last Filed: 09/20/25 17:34> Follow-up/Referrals: Shelly Sullivan APRN [Primary Care Provider, Internal Medicine] <SUSI Young - Last Filed: 09/20/25 17:34>
--- NOTE | 2025-09-20 16:14 | ECG_ITS ---
Test Date: 2025-09-20 16:34:01 Measurements Intervals [place] Rate: 82 P: -30 IA: 91 QRS: 39 QRSD: 78 T: 64 QT: 326 QTc: 381 Interpretive Statements JUNCTIONAL RHYTHM NONSPECIFIC T-WAVE ABNORMALITY No previous ECG available for comparison Electronically Signed On 09-20-2025 21:24:01 ENVIRONMENTAL OFFICER by Cassie Syed M.D.
[2025-09-20] MEDS: ONDANSETRON HCL ODT 4 MG TABLET PO (16:25)
[2025-09-20 16:54] LABS: Hematocrit 36.3 % (37.0-47.0); Hemoglobin 11.5 g/dL (12.0-15.0); Immature Granulocyte Percent A 0.3 % (0-0.5); Lymphocytes Absolute Auto 1.11 K/mm3 (0.9-3.2); Mean Corpuscular HGB Conc 31.7 g/dl (32-36); Mean Corpuscular Hemoglobin 37.6 pg (26-34); Mean Corpuscular Volume 118.6 fl (80-100); Nucleated Red Blood Cells Absolute Auto 0.000 K/mm3 (0.0-0.012); Nucleated Red Blood Cells Perc 0.0 % (0.0-0.2); Platelet Count Result 375 k/mm3 (150-375); Red Blood Count 3.06 M/mm3 (4.2-5.4); White Blood Count 10.4 K/mm3 (4.5-10.0)
[2025-09-20 17:07] LABS: Alanine Aminotransferase 100 U/L (6-35); Albumin Level 4.2 g/dL (3.5-5.1); Alkaline Phosphatase 162 U/L (38-126); Anion Gap 7 mmol/L (4-12); Aspartate Amino Transferase 183 U/L (14-36); Bilirubin,Total 0.5 mg/dL (0.2-1.3); Blood Urea Nitrogen 17 mg/dL (7-17); Calcium 9.3 mg/dL (8.4-10.2); Carbon Dioxide 20 mmol/L (22-30); Chloride 107 mmol/L (98-107); Estimated CRCL calculation 38 ml/min; Estimated Glomerular Filt Rate 50; Glucose 92 mg/dL (65-110); Lipase 865 U/L (23-300); Potassium 4.5 mmol/L (3.4-5.0); Sodium 134 mmol/L (137-145); Total Protein 7.4 g/dL (6.3-8.2)
[2025-09-20] MEDS: ONDANSETRON INJ 4 MG/2 ML VIAL IV PUSH (17:08)
[2025-09-20 17:10] LABS: Anisocytosis 1+
[2025-09-20] MEDS: MORPHINE SULFATE (*CRX) 4 MG/ML INJ IV PUSH ×2 (17:10→22:38)
[2025-09-20 17:11] LABS: Macrocytosis 1+ (NORMAL); Schistocytes None Seen
[2025-09-20 18:54] LABS: Add Urine Microscopic? NO; Appearance Urine Clear (Clear); Glucose Urine UA Negative (Negative); Leukocyte Esterase Ur Negative LEU/UL (Negative); Nitrate Urine Negative (Negative); Specific Grav Ur 1.034 (1.001-1.035)
--- NOTE | 2025-09-20 21:07 | PM.IMHP ---
H&P: HPI History of Present Illness Date/Time: 09/20/25 21:07 Chief Complaint: Abdominal Pain Narrative: 69 y/o F with PMH of hypothyroidism, hypertension, hyperlipidemia, biliary pancreatitis, and bowel obstructions presents here with abdominal pain. The patient presents here from home on 09/20 for further evaluation of abdominal pain. She reports onset last night on 09/19. She reports the pain has been progressive and significantly worse this morning. She describes it as twisting sensation, mid lower quadrant, nonradiating, intermittent, no modifying factors. She does report some pain/soreness through her upper abdomen and chest. She reports accompanying nausea and vomiting, fever, chills. She has a history of multiple bowel obstructions with the most recent in July for which she was admitted at [facility]. They have previously been managed both conservatively and surgically, she estimates she has undergone 6 previous surgeries due to obstructions. Last bowel movement yesterday, 09/19. Initial VS at presentation: 98.1? F, HR 97, R 20, 157/86, and 99% on RA. ED workup showed: WBC 10.4, hemoglobin 11.5 (10.2 on 07/21/2025), sodium 134, creatinine 1.08 and GFR 50, AST 183, ALT 100, lipase 865, and UA unremarkable. CT of the abdomen/pelvis showed a small bowel obstruction and s/p cholecystectomy with prominence of the bile ducts and pancreatic duct consider MRCP. Review of Systems Review of Systems: All systems reviewed & are unremarkable except as noted in HPI and below PMFSH Past Medical History Medical History Anemia Lumbar stenosis Lumbar spondylosis Lumbar radiculopathy Hx of small bowel obstruction Depression senior care use of drug Sacroiliitis Hypothyroidism Hypertension Hyperlipidemia Elevated liver enzymes Biliary acute pancreatitis Surgical History Surgical History History of tubal ligation S/P gastric surgery Family History Family History Father Stomach cancer Mother Myocardial infarction Cerebrovascular accident Social History Social History Smoking status: Former smoker Alcohol intake: never Substance use: never Substance use type: marijuana Last use: 07/22/2022 Do You Feel Safe in your Home?: Yes Lack of Transportation: No Lack of Food: Never True Current Housing: I Have Housing Concerned About Future Housing: No Difficulty Paying Gas/Electric Bills: No Difficulty Paying for Meds: No Currently Unemployed: No Education: Master's Degree or Higher Difficulty w/ Childcare or Family Care: No Spiritual care concerns: Yes Meds Home Medications and Allergies Home Medications ?Medication ?Instructions ?Recorded ?Confirmed ?Type cetirizine 10 mg tablet 10 mg PO DAILY 07/27/22 09/20/25 History ergocalciferol (vitamin D2) 1,250 50,000 unit PO MONTHLY 07/27/22 09/20/25 History mcg (50,000 unit) capsule fluticasone propionate 50 2 spray intranasal DAILY PRN nasal 07/27/22 09/20/25 History mcg/actuation nasal congestion spray,suspension gabapentin 300 mg capsule 300 mg PO TID 07/27/22 09/20/25 History levothyroxine 175 mcg tablet 175 mcg PO QAM 07/27/22 09/20/25 History losartan 100 mg tablet 100 mg PO DAILY 07/27/22 09/20/25 History quetiapine 25 mg tablet 25 mg PO BID 07/27/22 09/20/25 History rosuvastatin 10 mg tablet 10 mg PO DAILY 07/27/22 09/20/25 History triamcinolone acetonide 0.1 % 1 applic topical BID 07/27/22 09/20/25 History topical cream ondansetron 4 mg disintegrating 4 mg PO Q8H PRN nausea and 05/30/25 09/20/25 Rx tablet vomiting #30 tabs lubiprostone 24 mcg capsule See Rx Instructions .Route 09/08/25 09/20/25 Rx .COMPLEX #200 caps diclofenac sodium 1 % topical gel 4 g topical QID #100 grams 09/13/25 09/20/25 Rx (Voltaren Arthritis Pain) fluocinolone acetonide oil 0.01 % 5 drp RIGHT EAR BID 14 days #20 mL 09/13/25 09/20/25 Rx ear drops hydrochlorothiazide 50 mg tablet 50 mg PO DAILY #30 tabs 09/13/25 09/20/25 Rx hydrocodone 5 mg-acetaminophen 325 1 tablet PO Q8H PRN pain #21 tabs 09/19/25 09/20/25 Rx mg tablet tizanidine 4 mg tablet 4 mg PO TID PRN muscle spasticity 09/19/25 09/20/25 Rx #270 tabs calcitriol 0.25 mcg capsule 0.25 mcg PO DAILY 09/20/25 09/20/25 History clonidine HCl 0.2 mg tablet 0.2 mg PO DAILY 09/20/25 09/20/25 History dicyclomine 10 mg capsule 10 mg PO BID Abdominal Discomfort 09/20/25 09/20/25 History lidocaine 5 % topical patch 1 patch topical DAILY PRN pain 09/20/25 09/20/25 History pantoprazole 40 mg tablet,delayed 40 mg PO DAILY@1700 09/20/25 09/20/25 History release zolpidem 10 mg tablet 10 mg PO HS Insomnia 09/20/25 09/20/25 History Allergies Allergy/AdvReac Type Severity Reaction Status Date / Time ibuprofen AdvReac Unknown Unknown Verified 09/20/25 21:34 Vital Signs Vital Signs - 24 hr 09/20/25 13:45 09/20/25 16:26 09/20/25 16:44 Temperature 98.1 F 98.4 F Pulse Rate 97 88 81 Respiratory Rate 20 20 13 Blood Pressure 157/86 H 164/78 H 134/72 Pulse Oximetry 99 99 99 Oxygen Delivery Room Air 09/20/25 17:12 09/20/25 18:43 09/20/25 21:04 Temperature 97.8 F Pulse Rate 78 80 67 Respiratory Rate 18 22 H 18 Blood Pressure 134/72 155/60 H 118/74 Pulse Oximetry 100 99 100 Oxygen Delivery Exam Const: General: no acute distress and uncomfortable Other: , female, nontoxic wounds, visibly uncomfortable HENMT: Face/Nose/Sinus: Normal nares present Mouth: Yes moist mucous membranes Other: NG in place, bilious output Eyes: General: appearance normal, both eyes and all related structures Sclera: sclerae normal Pupils: Equal, round and reactive pupils present EOM: EOMs intact bilaterally Resp: Effort & Inspection: normal respiratory effort Auscultation: clear to auscultation bilaterally Cardio: Rate: regular rate Rhythm: regular rhythm Other: S1-S2 present without murmur, rub, ectopy GI: Other: Tenderness in the left upper quadrant, left lower quadrant, right lower quadrant. No significant tenderness in the right upper quadrant. Normoactive bowel sounds in all quadrants. Old midline incision to mid abdomen and laparoscopic incisions noted, well-healed. Abdomen otherwise remained soft and nondistended. Skin: General skin exam: normal color and no rashes or lesions noted Wounds: no wounds Neuro: Speech: normal speech Motor exam (neuro): 5/5 motor strength present throughout Sensory Exam: normal sensation Other: A&O x4 Extrem: General: normal to inspection Psych: Mental Status: mental status grossly normal Affect: normal affect Other: Good insight judgment, pleasant H&P: Results Labs Labs: Short CBC 09/20/25 Range/Units 16:47 WBC 10.4 H (4.5-10.0) K/mm3 Hgb 11.5 L (12.0-15.0) g/dL Hct 36.3 L (37.0-47.0) % Plt Count 375 (150-375) k/mm3 BMP 09/20/25 16:47 Sodium 134 L Potassium 4.5 Chloride 107 Carbon Dioxide 20 L BUN 17 D Creatinine 1.08 H Glucose 92 Calcium 9.3 Liver Function 09/20/25 Range/Units 16:47 Total Bilirubin 0.5 (0.2-1.3) mg/dL AST 183 H (14-36) U/L ALT 100 H (6-35) U/L Alkaline Phosphatase 162 H (38-126) U/L Albumin 4.2 (3.5-5.1) g/dL Urine 09/20/25 Range/Units 18:44 Urine Color Yellow (Yellow) Urine Appearance Clear (Clear) Urine pH 5.5 (5.0-9.0) Ur Specific [place] 1.034 (1.001-1.035) Urine Protein Negative (Negative) mg/dL Urine Glucose (UA) Negative (Negative) mg/dL Assessment and Plan Assessment and plan (1) SBO (small bowel obstruction): Code(s): K56.609 - Unspecified intestinal obstruction, unspecified as to partial versus complete obstruction Status: Acute Assessment and Plan: Patient has history of multiple bowel obstructions that have been managed both conservatively and surgically. She estimates she has had 6 previous surgeries due to bowel obstructions. Most recent bowel obstruction in July of 2025, treated at [facility]. CT of the abdomen/pelvis showed a dilated stomach containing debris as well as multiple dilated loops of small bowel with transition to normal caliber small bowel in the central abdomen, consistent with obstruction. No free air or free fluid. - NG placed for bowel decompression on 09/20, confirmation via abdominal XR. Currently has bilious output, reporting no relief with decompression. - general surgery consulted - NPO, started on IV fluids >> LR 100 mL/hour - analgesics p.r.n.: Morphine 2 mg for pain less than 5, morphine 4 mg for pain greater than 6 - antiemetics p.r.n. (2) Transaminitis: Code(s): R74.01 - Elevation of levels of liver transaminase levels Status: Acute Assessment and Plan: Transaminitis noted upon admission. AST 183, ALT 100, alk-phos 162 with normal total bilirubin. CT showed patient is s/p cholecystectomy with prominence of the bile ducts and pancreatic duct. Radiologist recommended consideration of correlation with MRCP. Patient also noted to have a mildly elevated lipase. Patient is having some pain in the left upper quadrant. - consult to GI for possible MRCP - trend LFTs - bowel rest (3) Pancreatitis: Qualifiers: Chronicity: chronic Pancreatitis type: biliary Qualified Code(s): K86.1 - Other chronic pancreatitis Code(s): K85.90 - Acute pancreatitis without necrosis or infection, unspecified Status: Acute Assessment and Plan: Lipase 865 upon admission. Patient has left upper quadrant tenderness on exam. CT showed dilation of the pancreatic duct. Patient has history of biliary pancreatitis. - bowel rest - analgesics p.r.n. - IV fluid - GI consulted for possible MRCP given there is both dilation of the bile ducts and pancreatic duct - trend lipase (4) Hypertension: Qualifiers: Hypertension type: primary hypertension Qualified Code(s): I10 - Essential (primary) hypertension Code(s): I10 - Essential (primary) hypertension Status: Acute Assessment and Plan: - chronic, currently 131/47, stable. -hold home medications as the patient is currently NPO including losartan, hydrochlorothiazide, and clonidine. Hydralazine p.r.n. for BP greater than 180/90 until no longer NPO. - monitor (5) Hyperlipidemia: Qualifiers: Hyperlipidemia type: unspecified Qualified Code(s): E78.5 - Hyperlipidemia, unspecified Code(s): E78.5 - Hyperlipidemia, unspecified Status: Chronic Assessment and Plan: - hold rosuvastatin 10 mg daily, transaminitis/pancreatitis noted upon admission. Patient also NPO. Plan Patient requesting medication for insomnia, on Ambien nightly at home. However patient is currently NPO. Will give Valium 2 mg IVP x1 this evening, assess toleration. Diet: NPO GI Prophylaxis: N/a DVT Prophylaxis: SCDs IV fluids: LR 100 mL/hour Lines/Tubes: Peripheral IV, NG tube Code Status: Full code Quality VTE Prophylaxis VTE prophylaxis: mechanical ordered Hospitalist [facility] Advance Care Plan I have confirmed that the patient's Advanced Care Plan is present, code status is documented, or surrogate decision maker is listed in patient medical record.: Yes Medication Reconciliation I have utilized all available resources to obtain, update and review the patients current medications (includes all prescriptions, OTC, herbals, cannabis, and nutritional supplements).: Yes
[2025-09-20] MEDS: LACTATED RINGERS 1,000 ML 100 ML IV CONT (22:39)
[2025-09-20] MEDS: diazePAM INJ (*CRX) 10 MG/2 ML SYRINGE 2 MG IV PUSH (22:39)
[2025-09-21] MEDS: MORPHINE SULFATE (*CRX) 4 MG/ML INJ IV PUSH ×3 (02:15→16:00)
[2025-09-21 05:23] VITALS: BP 122/45; PULSE 73; RESP 18; TEMP 37.1; O2SAT 97
[2025-09-21 08:38] LABS: Hematocrit 33.5 % (37.0-47.0); Hemoglobin 10.4 g/dL (12.0-15.0); Immature Granulocyte Percent A 0.4 % (0-0.5); Lymphocytes Absolute Auto 1.20 K/mm3 (0.9-3.2); Mean Corpuscular HGB Conc 31.0 g/dl (32-36); Mean Corpuscular Hemoglobin 37.4 pg (26-34); Mean Corpuscular Volume 120.5 fl (80-100); Nucleated Red Blood Cells Absolute Auto 0.000 K/mm3 (0.0-0.012); Nucleated Red Blood Cells Perc 0.0 % (0.0-0.2); Platelet Count Result 295 k/mm3 (150-375); Red Blood Count 2.78 M/mm3 (4.2-5.4); White Blood Count 5.5 K/mm3 (4.5-10.0)
[2025-09-21 08:54] LABS: Alanine Aminotransferase 91 U/L (6-35); Albumin Level 3.6 g/dL (3.5-5.1); Alkaline Phosphatase 153 U/L (38-126); Anion Gap 6 mmol/L (4-12); Aspartate Amino Transferase 96 U/L (14-36); Bilirubin,Total 0.3 mg/dL (0.2-1.3); Blood Urea Nitrogen 14 mg/dL (7-17); Calcium 8.9 mg/dL (8.4-10.2); Carbon Dioxide 22 mmol/L (22-30); Chloride 112 mmol/L (98-107); Estimated CRCL calculation 48 ml/min; Estimated Glomerular Filt Rate > 60; Glucose 88 mg/dL (65-110); Potassium 4.2 mmol/L (3.4-5.0); Sodium 140 mmol/L (137-145); Total Protein 6.4 g/dL (6.3-8.2)
[2025-09-21 09:09] LABS: Macrocytosis 2+ (NORMAL); Schistocytes None Seen
[2025-09-21] MEDS: MORPHINE SULFATE (*CRX) 4 MG/ML INJ 2 MG IV PUSH ×2 (10:00→13:44)
--- NOTE | 2025-09-21 11:22 | PM.CNGS ---
Assessment and Plan Assessment and plan (1) SBO (small bowel obstruction): Code(s): K56.609 - Unspecified intestinal obstruction, unspecified as to partial versus complete obstruction Status: Acute Assessment and Plan: Patient presented to the ED yesterday with abdominal pain and nausea that started the night before. She has extensive history of roughly 6-7 small bowel obstructions in the past, some of which required surgical intervention. Patient stated that the pain felt very similar to previous episodes. Upon arrival, CT demonstrate small-bowel obstruction. NG tube was placed and is functioning appropriately. Roughly 900 mL of fluid out overnight. Patient still complaining of abdominal pain. Nausea resolved. Continue NG suction and await return of bowel function. Could consider SBFT later today or tomorrow. (2) Transaminitis: Code(s): R74.01 - Elevation of levels of liver transaminase levels Status: Acute Assessment and Plan: Elevated AST/ALT, Alk phos despite being s/p cholecystectomy. GI consulted. (3) Pancreatitis: Qualifiers: Chronicity: chronic Pancreatitis type: biliary Qualified Code(s): K86.1 - Other chronic pancreatitis Code(s): K85.90 - Acute pancreatitis without necrosis or infection, unspecified Status: Acute Assessment and Plan: Lipase 865. S/p cholecystectomy. GI consulted. (4) Hypertension: Qualifiers: Hypertension type: primary hypertension Qualified Code(s): I10 - Essential (primary) hypertension Code(s): I10 - Essential (primary) hypertension Status: Acute History of Present Illness Consult details Consult date: 09/21/25 Reason for consult: other (SBO) Requesting physician: Dulce Maria Sims MD Narrative: Patient is a 69 year old female with history of hypothyroidism, HTN, HLD, biliary pancreatitis, and multiple bowel obstructions who we have been asked to see in surgical consultation for a small bowel obstruciton. Patient states that her abdominal pain first started two nights ago. She developed nausea and vomiting and presented to the ED the following day, 09/20. Patient states that she has had 6-7 obstructions in the past, some of which required surgical intervention, and she stated that her pain felt very similar to previous episodes. She also endorsed dizziness and diaphoresis. She states that she was last hospitalized at [facility] in July for bowel obstruction. She has previously gone there for most of her care but states that she is trying to switch her care over to this area, as [place] is becoming too far for her to be traveling. Patient does follow with GI here at [place] due to history including biliary pancreatitis, choledocholithiasis, constipation, nausea, and epigastric pain. Last seen in their office on 06/28/25 and was advised to continue Protonix for epigastric pain/GERD/nausea. For constipation/family hx of colon cancer/history of SBO she was changed from Linzess to Amitiza BID. Miralax on as needed basis. Dicyclomine 10 mg as needed. Reportedly, she last had a colonoscopy 2 years ago. History of cholecystectomy and gastrojejunostomy. Upon presentation to the ED, labs were drawn and demonstrated a WBC count of 10.4, now down to 5.5 today. Afebrile, although she endorses feeling very hot and sweaty. CT demonstrated dilated stomach as well as multiple dilated loops of small bowel with transition to normal caliber small bowel in the central abdomen, consistent with obstruction. Status post cholecystectomy with prominence of the bile ducts and pancreatic duct. GI team consulted. NG tube placed and functioning appropriately. Patient is still complaining of abdominal pain, but denies nausea or vomiting. Patient states that her last bowel movement was yesterday morning before she came to the ED. 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 Sacroiliitis Hypothyroidism Hypertension Hyperlipidemia Elevated liver enzymes Biliary acute pancreatitis Surgical History Surgical History History of tubal ligation S/P gastric surgery Family History Family History Father Stomach cancer Mother Myocardial infarction Cerebrovascular accident Social History Social History Smoking status: Former smoker Alcohol intake: never Substance use: never Substance use type: marijuana Last use: 07/22/2022 Do You Feel Safe in your Home?: Yes Lack of Transportation: No Lack of Food: Never True Current Housing: I Have Housing Concerned About Future Housing: No Difficulty Paying Gas/Electric Bills: No Difficulty Paying for Meds: No Currently Unemployed: No Education: Master's Degree or Higher Difficulty w/ Childcare or Family Care: No Spiritual care concerns: Yes Meds Home Medications and Allergies Home Medications ?Medication ?Instructions ?Recorded ?Confirmed ?Type cetirizine 10 mg tablet 10 mg PO DAILY 07/27/22 09/20/25 History ergocalciferol (vitamin D2) 1,250 50,000 unit PO MONTHLY 07/27/22 09/20/25 History mcg (50,000 unit) capsule fluticasone propionate 50 2 spray intranasal DAILY PRN nasal 07/27/22 09/20/25 History mcg/actuation nasal congestion spray,suspension gabapentin 300 mg capsule 300 mg PO TID 07/27/22 09/20/25 History levothyroxine 175 mcg tablet 175 mcg PO QAM 07/27/22 09/20/25 History losartan 100 mg tablet 100 mg PO DAILY 07/27/22 09/20/25 History quetiapine 25 mg tablet 25 mg PO BID 07/27/22 09/20/25 History rosuvastatin 10 mg tablet 10 mg PO DAILY 07/27/22 09/20/25 History triamcinolone acetonide 0.1 % 1 applic topical BID 07/27/22 09/20/25 History topical cream ondansetron 4 mg disintegrating 4 mg PO Q8H PRN nausea and 05/30/25 09/20/25 Rx tablet vomiting #30 tabs lubiprostone 24 mcg capsule See Rx Instructions .Route 09/08/25 09/20/25 Rx .COMPLEX #200 caps diclofenac sodium 1 % topical gel 4 g topical QID #100 grams 09/13/25 09/20/25 Rx (Voltaren Arthritis Pain) fluocinolone acetonide oil 0.01 % 5 drp RIGHT EAR BID 14 days #20 mL 09/13/25 09/20/25 Rx ear drops hydrochlorothiazide 50 mg tablet 50 mg PO DAILY #30 tabs 09/13/25 09/20/25 Rx hydrocodone 5 mg-acetaminophen 325 1 tablet PO Q8H PRN pain #21 tabs 09/19/25 09/20/25 Rx mg tablet tizanidine 4 mg tablet 4 mg PO TID PRN muscle spasticity 09/19/25 09/20/25 Rx #270 tabs calcitriol 0.25 mcg capsule 0.25 mcg PO DAILY 09/20/25 09/20/25 History clonidine HCl 0.2 mg tablet 0.2 mg PO DAILY 09/20/25 09/20/25 History dicyclomine 10 mg capsule 10 mg PO BID Abdominal Discomfort 09/20/25 09/20/25 History lidocaine 5 % topical patch 1 patch topical DAILY PRN pain 09/20/25 09/20/25 History pantoprazole 40 mg tablet,delayed 40 mg PO DAILY@1700 09/20/25 09/20/25 History release zolpidem 10 mg tablet 10 mg PO HS Insomnia 09/20/25 09/20/25 History Allergies Allergy/AdvReac Type Severity Reaction Status Date / Time ibuprofen AdvReac Unknown Unknown Verified 09/20/25 21:34 Vital Signs Vital Signs - 24 hr 09/20/25 13:45 09/20/25 16:26 09/20/25 16:44 Temperature 98.1 F 98.4 F Pulse Rate 97 88 81 Respiratory Rate 20 20 13 Blood Pressure 157/86 H 164/78 H 134/72 Pulse Oximetry 99 99 99 Oxygen Delivery Room Air 09/20/25 17:12 09/20/25 18:43 09/20/25 21:04 Temperature 97.8 F Pulse Rate 78 80 67 Respiratory Rate 18 22 H 18 Blood Pressure 134/72 155/60 H 118/74 Pulse Oximetry 100 99 100 Oxygen Delivery 09/20/25 22:00 09/21/25 05:23 09/21/25 10:00 Temperature 99.3 F 98.8 F Pulse Rate 79 73 Respiratory Rate 18 18 Blood Pressure 131/47 L 122/45 L Pulse Oximetry 100 97 Oxygen Delivery Room Air Exam Const: General: uncomfortable Other: appears diaphoretic and is complaining of abdominal pain Eyes: General: appearance normal, both eyes and all related structures Neck: Neck: supple and no JVD Resp: Effort & Inspection: normal respiratory effort Cardio: Rate: regular rate GI: Inspection: non-distended GI Palp: Yes Soft to palpation, Yes Tenderness to palpation present (GI) and No Guarding due to palpation present (GI) Auscultation: normal bowel sounds Other: NG tube in place and functioning appropriately. Skin: General skin exam: normal color and no rashes or lesions noted Extrem: General: normal to inspection Psych: Mental Status: mental status grossly normal Results Labs 09/21/25 08:29 09/21/25 08:29 Labs: Abnormal lab results 09/20/25 09/21/25 Range/Units 16:47 08:29 WBC 10.4 H (4.5-10.0) K/mm3 RBC 3.06 L 2.78 L (4.2-5.4) M/mm3 Hgb 11.5 L 10.4 L (12.0-15.0) g/dL Hct 36.3 L 33.5 L (37.0-47.0) % MCV 118.6 H 120.5 H (80-100) fl MCH 37.6 H 37.4 H (26-34) pg MCHC 31.7 L 31.0 L (32-36) g/dl Neut % (Auto) 81.0 H (45.5-73.1) % Lymph % (Auto) 10.7 L (18.3-44.2) % [place] % (Auto) 11.3 H (2.6-8.5) % [place] # (Auto) 0.7 H (0.1-0.6) K/mm3 Absolute Neuts (auto) 8.4 H (1.3-6.7) K/mm3 Sodium 134 L (137-145) mmol/L Chloride 112 H (98-107) mmol/L Carbon Dioxide 20 L (22-30) mmol/L Creatinine 1.08 H (0.7-1.0) mg/dL Estimated GFR 50 L (59 - ) AST 183 H 96 H (14-36) U/L ALT 100 H 91 H (6-35) U/L Alkaline Phosphatase 162 H 153 H (38-126) U/L Lipase 865 H (23-300) U/L Diabetes panel 09/20/25 09/21/25 Range/Units 16:47 08:29 Sodium 134 L 140 (137-145) mmol/L Potassium 4.5 4.2 (3.4-5.0) mmol/L Chloride 107 112 H (98-107) mmol/L Carbon Dioxide 20 L 22 (22-30) mmol/L BUN 17 D 14 (7-17) mg/dL Creatinine 1.08 H 0.88 (0.7-1.0) mg/dL Glucose 92 88 (65-110) mg/dL Calcium 9.3 8.9 (8.4-10.2) mg/dL AST 183 H 96 H (14-36) U/L ALT 100 H 91 H (6-35) U/L Alkaline Phosphatase 162 H 153 H (38-126) U/L Total Protein 7.4 6.4 (6.3-8.2) g/dL Albumin 4.2 3.6 (3.5-5.1) g/dL Calcium panel 09/20/25 09/21/25 Range/Units 16:47 08:29 Calcium 9.3 8.9 (8.4-10.2) mg/dL Albumin 4.2 3.6 (3.5-5.1) g/dL Pituitary panel 09/20/25 09/21/25 Range/Units 16:47 08:29 Sodium 134 L 140 (137-145) mmol/L Potassium 4.5 4.2 (3.4-5.0) mmol/L Chloride 107 112 H (98-107) mmol/L Carbon Dioxide 20 L 22 (22-30) mmol/L BUN 17 D 14 (7-17) mg/dL Creatinine 1.08 H 0.88 (0.7-1.0) mg/dL Glucose 92 88 (65-110) mg/dL Calcium 9.3 8.9 (8.4-10.2) mg/dL Adrenal panel 09/20/25 09/21/25 Range/Units 16:47 08:29 Sodium 134 L 140 (137-145) mmol/L Potassium 4.5 4.2 (3.4-5.0) mmol/L Chloride 107 112 H (98-107) mmol/L Carbon Dioxide 20 L 22 (22-30) mmol/L BUN 17 D 14 (7-17) mg/dL Creatinine 1.08 H 0.88 (0.7-1.0) mg/dL Glucose 92 88 (65-110) mg/dL Calcium 9.3 8.9 (8.4-10.2) mg/dL Total Bilirubin 0.5 0.3 (0.2-1.3) mg/dL AST 183 H 96 H (14-36) U/L ALT 100 H 91 H (6-35) U/L Alkaline Phosphatase 162 H 153 H (38-126) U/L Total Protein 7.4 6.4 (6.3-8.2) g/dL Albumin 4.2 3.6 (3.5-5.1) g/dL All other labs normal.
[2025-09-21] MEDS: LACTATED RINGERS 1,000 ML 100 ML IV CONT (13:08)
[2025-09-21 14:00] VITALS: BP 130/59; PULSE 72; RESP 19; TEMP 36.3; O2SAT 100
--- NOTE | 2025-09-21 16:21 | PM.IMPN ---
Progress Note: A&P Assessment and Plan (1) SBO (small bowel obstruction): Code(s): K56.609 - Unspecified intestinal obstruction, unspecified as to partial versus complete obstruction Status: Acute Assessment and Plan: Eating imaging confirmed small bowel obstruction, NG tube in place since surgery is following. Under mL of fluids well last night, abdominal pain does persist per patient. Surgery is considering small-bowel follow-through today or tomorrow. Maintain NPO for now Continue IV fluids (2) Pancreatitis: Qualifiers: Chronicity: chronic Pancreatitis type: biliary Qualified Code(s): K86.1 - Other chronic pancreatitis Code(s): K85.90 - Acute pancreatitis without necrosis or infection, unspecified Status: Acute Assessment and Plan: Lipase elevated at 865 on admission with prior history of pancreatitis in the past as well. Associated elevations of liver function testing as well. GI has been consulted as radiology recommends MRCP for further management at this time Continue NPO with IV fluids (3) Nausea and vomiting in adult: Code(s): R11.2 - Nausea with vomiting, unspecified Status: Acute Assessment and Plan: Stable at this time Zofran p.r.n. (4) Elevated liver enzymes: Code(s): R74.8 - Abnormal levels of other serum enzymes Status: Resolved Assessment and Plan: Will trend liver enzymes, which included to do with biliary obstruction, pancreatitis GI consulted, recommendations pending (5) Hyperlipidemia: Qualifiers: Hyperlipidemia type: unspecified Qualified Code(s): E78.5 - Hyperlipidemia, unspecified Code(s): E78.5 - Hyperlipidemia, unspecified Status: Chronic Assessment and Plan: On rosuvastatin 10 mg (6) Hypertension: Qualifiers: Hypertension type: primary hypertension Qualified Code(s): I10 - Essential (primary) hypertension Code(s): I10 - Essential (primary) hypertension Status: Acute Assessment and Plan: On losartan 100 mg (7) Hypothyroidism: Qualifiers: Hypothyroidism type: unspecified Qualified Code(s): E03.9 - Hypothyroidism, unspecified Code(s): E03.9 - Hypothyroidism, unspecified Status: Acute Assessment and Plan: On levothyroxine 175 mcg Subjective Date/time seen: 09/21/25 16:21 Interval history: 69 y/o F with PMH of hypothyroidism, hypertension, hyperlipidemia, biliary pancreatitis, and bowel obstructions presents here with abdominal pain. The patient presents here from home on 09/20 for further evaluation of abdominal pain. She reports onset last night on 09/19. She reports the pain has been progressive and significantly worse this morning. She describes it as twisting sensation, mid lower quadrant, nonradiating, intermittent, no modifying factors. She does report some pain/soreness through her upper abdomen and chest. She reports accompanying nausea and vomiting, fever, chills. She has a history of multiple bowel obstructions with the most recent in July for which she was admitted at [facility]. They have previously been managed both conservatively and surgically, she estimates she has undergone 6 previous surgeries due to obstructions. Last bowel movement yesterday, 09/19. Initial VS at presentation: 98.1? F, HR 97, R 20, 157/86, and 99% on RA. ED workup showed: WBC 10.4, hemoglobin 11.5 (10.2 on 07/21/2025), sodium 134, creatinine 1.08 and GFR 50, AST 183, ALT 100, lipase 865, and UA unremarkable. CT of the abdomen/pelvis showed a small bowel obstruction and s/p cholecystectomy with prominence of the bile ducts and pancreatic duct consider MRCP. Review of Systems Review of Systems: All systems reviewed & are unremarkable except as noted in HPI and below Exam Const: General: uncomfortable Other: complaining of abdominal pain Eyes: General: appearance normal, both eyes and all related structures Neck: Neck: supple and no JVD Resp: Effort & Inspection: normal respiratory effort Cardio: Rate: regular rate GI: Inspection: non-distended GI Palp: Yes Soft to palpation, Yes Tenderness to palpation present (GI) and No Guarding due to palpation present (GI) Auscultation: normal bowel sounds Other: NG tube in place and functioning appropriately. Skin: General skin exam: normal color and no rashes or lesions noted Extrem: General: normal to inspection Psych: Mental Status: mental status grossly normal Objective Data Vital Signs Vital Signs: Vital Signs - 24 hr 09/20/25 16:26 09/20/25 16:44 09/20/25 17:12 Temperature 98.4 F Pulse Rate 88 81 78 Respiratory Rate 20 13 18 Blood Pressure 164/78 H 134/72 134/72 Pulse Oximetry 99 99 100 Oxygen Delivery Room Air 09/20/25 18:43 09/20/25 21:04 09/20/25 22:00 Temperature 97.8 F 99.3 F Pulse Rate 80 67 79 Respiratory Rate 22 H 18 18 Blood Pressure 155/60 H 118/74 131/47 L Pulse Oximetry 99 100 100 Oxygen Delivery 09/21/25 05:23 09/21/25 10:00 09/21/25 14:00 Temperature 98.8 F 97.3 F L Pulse Rate 73 72 Respiratory Rate 18 19 Blood Pressure 122/45 L 130/59 L Pulse Oximetry 97 100 Oxygen Delivery Room Air Intake/Output Intake/Output: Intake & Output 09/18/25 09/19/25 09/20/25 09/21/25 22:59 23:59 23:59 23:59 Intake Total 1000 Output Total 900 Balance 100 Meds/Results Medications: Active Medications Generic Name Dose Route Start Last Admin Trade Name Freq PRN Reason Stop Dose Admin Hydralazine HCl 10 mg 09/20/25 22:20 Hydralazine Hcl 20 Mg/Ml Vial IV PUSH Q8H PRN Blood Pressure - High, >180/90 Lactated Ringer's 1,000 mls @ 100 mls/hr 09/20/25 22:15 09/21/25 13:08 Lr - Lactated Ringers Iv IV CONT 100 mls/hr .Q10H MARK Administration Metoclopramide HCl 10 mg 09/20/25 22:23 Metoclopramide Hcl Inj 10 Mg/2 Ml Vial IV PUSH Q6HR PRN Nausea And Vomiting Morphine Sulfate 2 mg 09/20/25 22:12 09/21/25 13:44 Morphine Sulfate (*Crx) 4 Mg/Ml Inj IV PUSH 2 mg Q4H PRN Administration Pain Rated 5 or Less Morphine Sulfate 4 mg 09/20/25 22:12 09/21/25 16:00 Morphine Sulfate (*Crx) 4 Mg/Ml Inj IV PUSH 4 mg Q4H PRN Administration Pain Rated 6 or Greater Ondansetron HCl 4 mg 09/20/25 22:23 Ondansetron Inj 4 Mg/2 Ml Vial IV PUSH Q6H PRN Nausea And Vomiting Radiology Results: ITS Impressions Abdomen/Pelvis CT 09/20/25 17:44 IMPRESSION: 1. Small bowel obstruction. 2: Status post cholecystectomy with prominence of the bile ducts and pancreatic duct. Consider correlation with MRCP. Abdomen X-Ray 09/20/25 18:46 IMPRESSION: 1: NG tube tip in the stomach. Labs Labs: Laboratory Results - last 24 hr 09/20/25 09/20/25 09/21/25 16:47 18:44 08:29 WBC 10.4 H 5.5 RBC 3.06 L 2.78 L Hgb 11.5 L 10.4 L Hct 36.3 L 33.5 L MCV 118.6 H 120.5 H MCH 37.6 H 37.4 H MCHC 31.7 L 31.0 L RDW 13.1 13.2 Plt Count 375 295 MPV 8.5 8.3 Immature Gran % (Auto) 0.3 0.4 Neut % (Auto) 81.0 H 63.6 Lymph % (Auto) 10.7 L 21.9 [place] % (Auto) 6.5 11.3 H Eos % (Auto) 1.2 2.4 Baso % (Auto) 0.3 0.4 Lymph # (Auto) 1.11 1.20 [place] # (Auto) 0.7 H 0.6 Eos # (Auto) 0.1 0.1 Baso # (Auto) 0.0 0.0 Abs Immat Gran (auto) 0.03 0.02 Absolute Neuts (auto) 8.4 H 3.5 Absolute Nucleated RBC 0.000 0.000 Band Neutrophils % Not Reportable Not Reportable Nucleated RBC % 0.0 0.0 Platelet Estimate Adequate Adequate Anisocytosis 1+ Macrocytosis 1+ 2+ Schistocytes None seen None seen Sodium 134 L 140 Potassium 4.5 4.2 Chloride 107 112 H Carbon Dioxide 20 L 22 Anion Gap 7 6 BUN 17 D 14 Creatinine 1.08 H 0.88 Estim Creat Clear Calc 38 48 Estimated GFR 50 L > 60 Glucose 92 88 Calcium 9.3 8.9 Total Bilirubin 0.5 0.3 AST 183 H 96 H ALT 100 H 91 H Alkaline Phosphatase 162 H 153 H Total Protein 7.4 6.4 Albumin 4.2 3.6 Lipase 865 H Urine Color Yellow Urine Appearance Clear Urine pH 5.5 Ur Specific [place] 1.034 Urine Protein Negative Urine Glucose (UA) Negative Urine Ketones Negative Ur Blood (Man) Negative Urine Nitrate Negative Urine Bilirubin Negative Urine Urobilinogen 0.2 Leukocyte Esterase Rfl Negative Hospitalist [facility] Advance Care Plan I have confirmed that the patient's Advanced Care Plan is present, code status is documented, or surrogate decision maker is listed in patient medical record.: Yes Medication Reconciliation I have utilized all available resources to obtain, update and review the patients current medications (includes all prescriptions, OTC, herbals, cannabis, and nutritional supplements).: Yes
--- NOTE | 2025-09-21 18:05 | WPDGICN ---
Assessment and Plan Assessment and plan (1) SBO (small bowel obstruction): Code(s): K56.609 - Unspecified intestinal obstruction, unspecified as to partial versus complete obstruction Status: Acute (2) Abnormal CT scan: Code(s): R93.89 - Abnormal findings on diagnostic imaging of other specified body structures Status: Acute Assessment and Plan: The patient is undergoing a recurrent episode of small bowel obstruction which remains under observation and conservative management. However, the incidental finding of significant intra- and extrahepatic biliary dilatation along with diffuse pancreatic duct dilatation is unexpected, particularly following a cholecystectomy, and raises the suspicion for an underlying etiology such as a pancreatic or distal common bile duct neoplasm. While the elevated lipase may be attributable to the SBO itself, a definitive workup santos be undertaken: this includes performing an MRI/ MRCP and obtaining a CA 19-9 level in parallel with continued SBO observation. Following the resolution of the current SBO episode, the patient should be considered for referral to the [facility] advanced endoscopy team for a potential Endoscopic Ultrasound to complete the diagnostic evaluation. Plan - MRCP - Ca 19-9 GI Consult Note Consult date/time: 09/21/25 18:05 Reason for consult: Abdominal [id number] obstruction-abnormal common bile duct and pancreatic duct dilatation on CT scan HPI: Екатерина Martinez is a 69-year-old female admitted for a new episode of small bowel obstruction . 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 She has a history of recurrent SBO, requiring at least six exploratory laparotomies and multiple hospitalizations for conservative management (most recently in July of this year). She also has a history of biliary pancreatitis from July 2022. The patient is currently being managed conservatively with IV hydration and nasogastric suction for the suspected SBO. Consultation is requested due to imaging findings of significant intra- and extrahepatic biliary dilatation along with pancreatic duct dilatation. Her CT scan yesterday confirms these biliary/pancreatic findings and reveals significant dilatation of the stomach and small bowel loops, correlating with the clinical diagnosis of SBO. Admission laboratory results showed a normal total bilirubin of 0.5, but demonstrated elevated liver enzymes (AST 183, ALT 100, Alkaline Phosphatase 162) and a significantly elevated lipase (865). WBC was 10.4, Hgb 11.5, and platelets 375.. Review of Systems Review of Systems: All systems reviewed & are unremarkable except as noted in HPI and below PMFSH Past Medical History Medical History Anemia Lumbar stenosis Lumbar spondylosis Lumbar radiculopathy Hx of small bowel obstruction Depression custodial use of drug Sacroiliitis Hypothyroidism Hypertension Hyperlipidemia Elevated liver enzymes Biliary acute pancreatitis Surgical History Surgical History History of tubal ligation S/P gastric surgery Family History Family History Father Stomach cancer Mother Myocardial infarction Cerebrovascular accident Social History Social History Smoking status: Former smoker Alcohol intake: never Substance use: never Substance use type: marijuana Last use: 07/22/2022 Do You Feel Safe in your Home?: Yes Lack of Transportation: No Lack of Food: Never True Current Housing: I Have Housing Concerned About Future Housing: No Difficulty Paying Gas/Electric Bills: No Difficulty Paying for Meds: No Currently Unemployed: No Education: Master's Degree or Higher Difficulty w/ Childcare or Family Care: No Spiritual care concerns: Yes Meds Home Medications and Allergies Home Medications ?Medication ?Instructions ?Recorded ?Confirmed ?Type cetirizine 10 mg tablet 10 mg PO DAILY 07/27/22 09/20/25 History ergocalciferol (vitamin D2) 1,250 50,000 unit PO MONTHLY 07/27/22 09/20/25 History mcg (50,000 unit) capsule fluticasone propionate 50 2 spray intranasal DAILY PRN nasal 07/27/22 09/20/25 History mcg/actuation nasal congestion spray,suspension gabapentin 300 mg capsule 300 mg PO TID 07/27/22 09/20/25 History levothyroxine 175 mcg tablet 175 mcg PO QAM 07/27/22 09/20/25 History losartan 100 mg tablet 100 mg PO DAILY 07/27/22 09/20/25 History quetiapine 25 mg tablet 25 mg PO BID 07/27/22 09/20/25 History rosuvastatin 10 mg tablet 10 mg PO DAILY 07/27/22 09/20/25 History triamcinolone acetonide 0.1 % 1 applic topical BID 07/27/22 09/20/25 History topical cream ondansetron 4 mg disintegrating 4 mg PO Q8H PRN nausea and 05/30/25 09/20/25 Rx tablet vomiting #30 tabs lubiprostone 24 mcg capsule See Rx Instructions .Route 09/08/25 09/20/25 Rx .COMPLEX #200 caps diclofenac sodium 1 % topical gel 4 g topical QID #100 grams 09/13/25 09/20/25 Rx (Voltaren Arthritis Pain) fluocinolone acetonide oil 0.01 % 5 drp RIGHT EAR BID 14 days #20 mL 09/13/25 09/20/25 Rx ear drops hydrochlorothiazide 50 mg tablet 50 mg PO DAILY #30 tabs 09/13/25 09/20/25 Rx hydrocodone 5 mg-acetaminophen 325 1 tablet PO Q8H PRN pain #21 tabs 09/19/25 09/20/25 Rx mg tablet tizanidine 4 mg tablet 4 mg PO TID PRN muscle spasticity 09/19/25 09/20/25 Rx #270 tabs calcitriol 0.25 mcg capsule 0.25 mcg PO DAILY 09/20/25 09/20/25 History clonidine HCl 0.2 mg tablet 0.2 mg PO DAILY 09/20/25 09/20/25 History dicyclomine 10 mg capsule 10 mg PO BID Abdominal Discomfort 09/20/25 09/20/25 History lidocaine 5 % topical patch 1 patch topical DAILY PRN pain 09/20/25 09/20/25 History pantoprazole 40 mg tablet,delayed 40 mg PO DAILY@1700 09/20/25 09/20/25 History release zolpidem 10 mg tablet 10 mg PO HS Insomnia 09/20/25 09/20/25 History Allergies Allergy/AdvReac Type Severity Reaction Status Date / Time ibuprofen AdvReac Unknown Unknown Verified 09/20/25 21:34 Vital Signs Vital Signs - 24 hr 09/20/25 18:43 09/20/25 21:04 09/20/25 22:00 Temperature 97.8 F 99.3 F Pulse Rate 80 67 79 Respiratory Rate 22 H 18 18 Blood Pressure 155/60 H 118/74 131/47 L Pulse Oximetry 99 100 100 Oxygen Delivery 09/21/25 05:23 09/21/25 10:00 09/21/25 14:00 Temperature 98.8 F 97.3 F L Pulse Rate 73 72 Respiratory Rate 18 19 Blood Pressure 122/45 L 130/59 L Pulse Oximetry 97 100 Oxygen Delivery Room Air Exam Const: General: cooperative and healthy appearing Resp: Effort & Inspection: normal respiratory effort and able to speak in complete sentences Auscultation: clear to auscultation bilaterally Cardio: Rate: regular rate Rhythm: regular rhythm GI: Inspection: normal to inspection GI Palp: No No hepatosplenomegaly present Auscultation: normal bowel sounds Rectal Exam: deferred Other: Large vertical postop scar, bowel sounds scant but present. Diffusely tender to palpation in both lower quadrants. Skin: General skin exam: normal color Psych: Appearance: grossly normal Mental Status: mental status grossly normal Results Labs 09/21/25 08:29 09/21/25 08:29 Labs: Short CBC 09/21/25 Range/Units 08:29 WBC 5.5 (4.5-10.0) K/mm3 Hgb 10.4 L (12.0-15.0) g/dL Hct 33.5 L (37.0-47.0) % Plt Count 295 (150-375) k/mm3 BMP 09/21/25 08:29 Sodium 140 Potassium 4.2 Chloride 112 H Carbon Dioxide 22 BUN 14 Creatinine 0.88 Glucose 88 Calcium 8.9 Liver Function 09/21/25 Range/Units 08:29 Total Bilirubin 0.3 (0.2-1.3) mg/dL AST 96 H (14-36) U/L ALT 91 H (6-35) U/L Alkaline Phosphatase 153 H (38-126) U/L Albumin 3.6 (3.5-5.1) g/dL Urine 09/20/25 Range/Units 18:44 Urine Color Yellow (Yellow) Urine Appearance Clear (Clear) Urine pH 5.5 (5.0-9.0) Ur Specific Monitor 1.034 (1.001-1.035) Urine Protein Negative (Negative) mg/dL Urine Glucose (UA) Negative (Negative) mg/dL
[2025-09-21 22:00] VITALS: BP 144/73; PULSE 72; RESP 16; TEMP 37.1; O2SAT 97
[2025-09-22] MEDS: MORPHINE SULFATE (*CRX) 4 MG/ML INJ IV PUSH ×5 (00:02→15:55)
[2025-09-22] MEDS: LACTATED RINGERS 1,000 ML 100 ML IV CONT ×4 (00:03→21:17)
[2025-09-22 06:00] VITALS: BP 155/70; PULSE 79; RESP 16; TEMP 36.9; O2SAT 98
[2025-09-22] MEDS: METOCLOPRAMIDE HCL INJ 10 MG/2 ML VIAL IV PUSH ×2 (06:13→21:15)
[2025-09-22 06:33] LABS: Hematocrit 31.7 % (37.0-47.0); Hemoglobin 10.0 g/dL (12.0-15.0); Immature Granulocyte Percent A 0.5 % (0-0.5); Lymphocytes Absolute Auto 1.14 K/mm3 (0.9-3.2); Mean Corpuscular HGB Conc 31.5 g/dl (32-36); Mean Corpuscular Hemoglobin 36.9 pg (26-34); Mean Corpuscular Volume 117.0 fl (80-100); Nucleated Red Blood Cells Absolute Auto 0.000 K/mm3 (0.0-0.012); Nucleated Red Blood Cells Perc 0.0 % (0.0-0.2); Platelet Count Result 322 k/mm3 (150-375); Red Blood Count 2.71 M/mm3 (4.2-5.4); White Blood Count 5.7 K/mm3 (4.5-10.0)
[2025-09-22 07:00] LABS: Alanine Aminotransferase 61 U/L (6-35); Albumin Level 3.3 g/dL (3.5-5.1); Alkaline Phosphatase 136 U/L (38-126); Anion Gap 6 mmol/L (4-12); Aspartate Amino Transferase 46 U/L (14-36); Bilirubin,Total 0.2 mg/dL (0.2-1.3); Blood Urea Nitrogen 9 mg/dL (7-17); Calcium 8.8 mg/dL (8.4-10.2); Carbon Dioxide 23 mmol/L (22-30); Chloride 112 mmol/L (98-107); Estimated CRCL calculation 66 ml/min; Estimated Glomerular Filt Rate > 60; Glucose 87 mg/dL (65-110); Potassium 3.6 mmol/L (3.4-5.0); Sodium 141 mmol/L (137-145); Total Protein 6.0 g/dL (6.3-8.2)
[2025-09-22 07:02] LABS: Macrocytosis 1+ (NORMAL); Schistocytes None Seen
[2025-09-22] MEDS: BISACODYL 10 MG SUPPOSITORY RECTAL (09:01)
[2025-09-22 10:08] LABS: CA 19-9 <2 U/mL (0-35)
--- NOTE | 2025-09-22 11:33 | P.PNGS_ITS ---
Progress Note: A&P Assessment and Plan (1) SBO (small bowel obstruction): Code(s): K56.609 - Unspecified intestinal obstruction, unspecified as to partial versus complete obstruction Status: Acute Assessment and Plan: * Patient still complaining of lower abdominal pain. Passing flatus and reports a small bowel movement. * Abdominal x-ray this morning demonstrated nonspecific bowel gas pattern. Several loops of gaseous dilated bowel throughout the abdomen and pelvis with at least moderate amount of stool extending to the right hemicolon. * Clamp NG this afternoon and trial clear liquids. (2) Pancreatitis: Qualifiers: Chronicity: chronic Pancreatitis type: biliary Qualified Code(s): K86.1 - Other chronic pancreatitis Code(s): K85.90 - Acute pancreatitis without necrosis or infection, unspecified Status: Acute Assessment and Plan: Lipase 865. S/p cholecystectomy. * GI consulted. Concern for underlying etiology such as pancreatic or distal common bile duct neoplasm. MRCP scheduled for today. CA 19-9 normal. Recommended patient be considered for referral to [facility] advanced endoscopy team for a potential endoscopic ultrasound to complete diagnostic evaluation. (3) Transaminitis: Code(s): R74.01 - Elevation of levels of liver transaminase levels Status: Deleted Assessment and Plan: Elevated AST/ALT, Alk phos despite being s/p cholecystectomy. GI consulted. (4) Hypertension: Qualifiers: Hypertension type: primary hypertension Qualified Code(s): I10 - Essential (primary) hypertension Code(s): I10 - Essential (primary) hypertension Status: Acute Plan Discussed patient's case and plan of care with Dr. Iraheta. Subjective Subjective Date/Time Seen: 09/22/25 11:33 Patient reports: still having pain, flatus, bowel movement, nausea and afebrile Interval history: Patient states she has been passing flatus and has had a very small bowel movement. Feels nauseous, but accredits this to her medications. Still co mplaining of lower abdominal pain. Exam GI: Inspection: non-distended GI Palp: Yes Soft to palpation, Yes Tenderness to palpation present (GI) (diffusely across lower abdomen) and No Guarding due to palpation present (GI) Auscultation: normal bowel sounds Objective Data Vital Signs Vital Signs: Vital Signs - 24 hr 09/21/25 14:00 09/21/25 22:00 09/22/25 06:00 Temperature 97.3 F L 98.8 F 98.4 F Pulse Rate 72 72 79 Respiratory Rate 19 16 16 Blood Pressure 130/59 L 144/73 H 155/70 H Pulse Oximetry 100 97 98 Oxygen Delivery 09/22/25 08:00 Temperature Pulse Rate Respiratory Rate Blood Pressure Pulse Oximetry Oxygen Delivery Room Air Intake/Output Intake/Output: Intake & Output 09/19/25 09/20/25 09/21/25 09/22/25 23:59 23:59 23:59 23:59 Intake Total 2005 813.3 Output Total 900 Balance 1106 813.3 Meds/Results Medications: Active Medications Generic Name Dose Route Start Last Admin Trade Name Freq PRN Reason Stop Dose Admin Hydralazine HCl 10 mg 09/20/25 22:20 Hydralazine Hcl 20 Mg/Ml Vial IV PUSH Q8H PRN Blood Pressure - High, >180/90 Lactated Ringer's 1,000 mls @ 100 mls/hr 09/20/25 22:15 09/22/25 08:11 Lr - Lactated Ringers Iv IV CONT 100 mls/hr .Q10H MARK Administration Metoclopramide HCl 10 mg 09/20/25 22:23 09/22/25 06:13 Metoclopramide Hcl Inj 10 Mg/2 Ml Vial IV PUSH 10 mg Q6HR PRN Administration Nausea And Vomiting Morphine Sulfate 2 mg 09/20/25 22:12 09/21/25 13:44 Morphine Sulfate (*Crx) 4 Mg/Ml Inj IV PUSH 2 mg Q4H PRN Administration Pain Rated 5 or Less Morphine Sulfate 4 mg 09/20/25 22:12 09/22/25 08:12 Morphine Sulfate (*Crx) 4 Mg/Ml Inj IV PUSH 4 mg Q4H PRN Administration Pain Rated 6 or Greater Ondansetron HCl 4 mg 09/20/25 22:23 Ondansetron Inj 4 Mg/2 Ml Vial IV PUSH Q6H PRN Nausea And Vomiting Radiology Results: ITS Impressions Abdomen/Pelvis CT 09/20/25 17:44 IMPRESSION: 1. Small bowel obstruction. 2: Status post cholecystectomy with prominence of the bile ducts and pancreatic duct. Consider correlation with MRCP. Abdomen X-Ray 09/22/25 09:44 IMPRESSION: Nonspecific bowel gas pattern. Gastric tube appears adequately positioned. Labs Labs: Laboratory Results - last 24 hr 09/21/25 09/22/25 08:30 06:13 WBC 5.7 RBC 2.71 L Hgb 10.0 L Hct 31.7 L MCV 117.0 H MCH 36.9 H MCHC 31.5 L RDW 12.6 Plt Count 322 MPV 8.8 Immature Gran % (Auto) 0.5 Neut % (Auto) 65.0 Lymph % (Auto) 20.2 [place] % (Auto) 11.5 H Eos % (Auto) 2.3 Baso % (Auto) 0.5 Lymph # (Auto) 1.14 [place] # (Auto) 0.7 H Eos # (Auto) 0.1 Baso # (Auto) 0.0 Abs Immat Gran (auto) 0.03 Absolute Neuts (auto) 3.7 Absolute Nucleated RBC 0.000 Band Neutrophils % Not Reportable Nucleated RBC % 0.0 Platelet Estimate Adequate Macrocytosis 1+ Schistocytes None seen Sodium 141 Potassium 3.6 Chloride 112 H Carbon Dioxide 23 Anion Gap 6 BUN 9 D Creatinine 0.62 L Estim Creat Clear Calc 66 Estimated GFR > 60 Glucose 87 Calcium 8.8 Total Bilirubin 0.2 AST 46 H ALT 61 H Alkaline Phosphatase 136 H Total Protein 6.0 L Albumin 3.3 L CA 19-9 Antigen <2
--- NOTE | 2025-09-22 13:38 | P.PNGI_ITS ---
Progress Note: A&P Assessment and Plan (1) SBO (small bowel obstruction): Code(s): K56.609 - Unspecified intestinal obstruction, unspecified as to partial versus complete obstruction Status: Acute Assessment and Plan: The patient's small bowel obstruction is resolving following conservative treatment, confirmed by negative abdominal X-rays for ongoing obstruction, advancing the patient's diet after a NG tube clamp trial. Regarding the primary consultation question, MRCP review demonstrates the expected common bile duct dilatation typical for a post-cholecystectomy patient; the pancreas is unremarkable without masses or narrowing, and the CA 19-9 is normal. The temporary elevations in transaminases and lipase are possibly secondary to the acute SBO process, potentially due to bacterial translocation. We advise outpatient clinical and laboratory monitoring and plan a referral for endoscopic ultrasound if the liver biochemistry or lipase abnormalities persist post-discharge. Subjective Date/time seen: 09/22/25 13:38 Objective Data Vital Signs Vital Signs: Vital Signs - 24 hr 09/21/25 14:00 09/21/25 22:00 09/22/25 06:00 Temperature 97.3 F L 98.8 F 98.4 F Pulse Rate 72 72 79 Respiratory Rate 19 16 16 Blood Pressure 130/59 L 144/73 H 155/70 H Pulse Oximetry 100 97 98 Oxygen Delivery 09/22/25 08:00 Temperature Pulse Rate Respiratory Rate Blood Pressure Pulse Oximetry Oxygen Delivery Room Air Intake/Output Intake/Output: Intake & Output 09/19/25 09/20/25 09/21/25 09/22/25 23:59 23:59 23:59 23:59 Intake Total 2006 813.3 Output Total 900 Balance 1106 813.3 Meds/Results Medications: Active Medications Generic Name Dose Route Start Last Admin Trade Name Freq PRN Reason Stop Dose Admin Hydralazine HCl 10 mg 09/20/25 22:20 Hydralazine Hcl 20 Mg/Ml Vial IV PUSH Q8H PRN Blood Pressure - High, >180/90 Lactated Ringer's 1,000 mls @ 100 mls/hr 09/20/25 22:15 09/22/25 08:11 Lr - Lactated Ringers Iv IV CONT 100 mls/hr .Q10H MARK Administration Metoclopramide HCl 10 mg 09/20/25 22:23 09/22/25 06:13 Metoclopramide Hcl Inj 10 Mg/2 Ml Vial IV PUSH 10 mg Q6HR PRN Administration Nausea And Vomiting Morphine Sulfate 2 mg 09/20/25 22:12 09/21/25 13:44 Morphine Sulfate (*Crx) 4 Mg/Ml Inj IV PUSH 2 mg Q4H PRN Administration Pain Rated 5 or Less Morphine Sulfate 4 mg 09/20/25 22:12 09/22/25 12:01 Morphine Sulfate (*Crx) 4 Mg/Ml Inj IV PUSH 4 mg Q4H PRN Administration Pain Rated 6 or Greater Ondansetron HCl 4 mg 09/20/25 22:23 Ondansetron Inj 4 Mg/2 Ml Vial IV PUSH Q6H PRN Nausea And Vomiting Radiology Results: ITS Impressions Abdomen/Pelvis CT 09/20/25 17:44 IMPRESSION: 1. Small bowel obstruction. 2: Status post cholecystectomy with prominence of the bile ducts and pancreatic duct. Consider correlation with MRCP. Abdomen X-Ray 09/22/25 09:44 IMPRESSION: Nonspecific bowel gas pattern. Gastric tube appears adequately positioned. MRCP 09/22/25 12:52 IMPRESSION: Postcholecystectomy dilatation of the biliary ducts with no clearly defined choledocholithiasis or ductal lesion identified. No pancreatic lesion or mass identified. Labs Labs: Laboratory Results - last 24 hr 09/21/25 09/22/25 08:30 06:13 WBC 5.7 RBC 2.71 L Hgb 10.0 L Hct 31.7 L MCV 117.0 H MCH 36.9 H MCHC 31.5 L RDW 12.6 Plt Count 322 MPV 8.8 Immature Gran % (Auto) 0.5 Neut % (Auto) 65.0 Lymph % (Auto) 20.2 [place] % (Auto) 11.5 H Eos % (Auto) 2.3 Baso % (Auto) 0.5 Lymph # (Auto) 1.14 [place] # (Auto) 0.7 H Eos # (Auto) 0.1 Baso # (Auto) 0.0 Abs Immat Gran (auto) 0.03 Absolute Neuts (auto) 3.7 Absolute Nucleated RBC 0.000 Band Neutrophils % Not Reportable Nucleated RBC % 0.0 Platelet Estimate Adequate Macrocytosis 1+ Schistocytes None seen Sodium 141 Potassium 3.6 Chloride 112 H Carbon Dioxide 23 Anion Gap 6 BUN 9 D Creatinine 0.62 L Estim Creat Clear Calc 66 Estimated GFR > 60 Glucose 87 Calcium 8.8 Total Bilirubin 0.2 AST 46 H ALT 61 H Alkaline Phosphatase 136 H Total Protein 6.0 L Albumin 3.3 L CA 19-9 Antigen <2
[2025-09-22 13:50] VITALS: BP 138/82; PULSE 75; RESP 17; TEMP 36.9; O2SAT 100
--- NOTE | 2025-09-22 16:09 | PM.IMPN ---
Progress Note: A&P Assessment and Plan (1) SBO (small bowel obstruction): Code(s): K56.609 - Unspecified intestinal obstruction, unspecified as to partial versus complete obstruction Status: Acute Assessment and Plan: Imaging confirmed small bowel obstruction, NG tube in place since surgery is following. Under mL of fluids well last night, abdominal pain does persist per patient. Repeat abdominal x-ray showing nonspecific bowel gas pattern with several loops of gaseous dilated bowel throughout the abdomen and pelvis with moderate stool burden extending to the right hemicolon. Surgery recommends clamping of NG tube at this time and trial of clear liquid diet (2) Pancreatitis: Qualifiers: Chronicity: chronic Pancreatitis type: biliary Qualified Code(s): K86.1 - Other chronic pancreatitis Code(s): K85.90 - Acute pancreatitis without necrosis or infection, unspecified Status: Acute Assessment and Plan: Lipase elevated at 865 on admission with prior history of pancreatitis in the past as well. Associated elevations of liver function testing as well. GI consulted, MRCP was done and reviewed, showing expected common bile duct dilation typical for postcholecystectomy status with unremarkable pancreas without masses or narrowing. CA 19-9 came back normal. GI consider is elevations in transaminases and lipase (transaminases are improving) to be secondary to the acute SBO process. Outpatient clinical and lab monitoring and referral for EUS still recommended if liver enzymes or lipase continues after discharge. Will have patient follow-up with GI on discharge and order follow-up LFTs and lipase levels on discharge. Clear liquid trial-advance as tolerated (3) Nausea and vomiting in adult: Code(s): R11.2 - Nausea with vomiting, unspecified Status: Acute Assessment and Plan: Stable at this time Zofran p.r.n. (4) Elevated liver enzymes: Code(s): R74.8 - Abnormal levels of other serum enzymes Status: Resolved Assessment and Plan: Will trend liver enzymes, which included to do with biliary obstruction, pancreatitis GI consulted, recommendations appreciated Transaminases are trending down (5) Hyperlipidemia: Qualifiers: Hyperlipidemia type: unspecified Qualified Code(s): E78.5 - Hyperlipidemia, unspecified Code(s): E78.5 - Hyperlipidemia, unspecified Status: Chronic Assessment and Plan: On rosuvastatin 10 mg (6) Hypertension: Qualifiers: Hypertension type: primary hypertension Qualified Code(s): I10 - Essential (primary) hypertension Code(s): I10 - Essential (primary) hypertension Status: Acute Assessment and Plan: On losartan 100 mg (7) Hypothyroidism: Qualifiers: Hypothyroidism type: unspecified Qualified Code(s): E03.9 - Hypothyroidism, unspecified Code(s): E03.9 - Hypothyroidism, unspecified Status: Acute Assessment and Plan: On levothyroxine 175 mcg Subjective Date/time seen: 09/22/25 16:09 Interval history: 69 y/o F with PMH of hypothyroidism, hypertension, hyperlipidemia, biliary pancreatitis, and bowel obstructions presents here with abdominal pain. The patient presents here from home on 09/20 for further evaluation of abdominal pain. She reports onset last night on 09/19. She reports the pain has been progressive and significantly worse this morning. She describes it as twisting sensation, mid lower quadrant, nonradiating, intermittent, no modifying factors. She does report some pain/soreness through her upper abdomen and chest. She reports accompanying nausea and vomiting, fever, chills. She has a history of multiple bowel obstructions with the most recent in July for which she was admitted at [facility]. They have previously been managed both conservatively and surgically, she estimates she has undergone 6 previous surgeries due to obstructions. Last bowel movement yesterday, 09/19. Initial VS at presentation: 98.1? F, HR 97, R 20, 157/86, and 99% on RA. ED workup showed: WBC 10.4, hemoglobin 11.5 (10.2 on 07/21/2025), sodium 134, creatinine 1.08 and GFR 50, AST 183, ALT 100, lipase 865, and UA unremarkable. CT of the abdomen/pelvis showed a small bowel obstruction and s/p cholecystectomy with prominence of the bile ducts and pancreatic duct consider MRCP. Review of Systems Review of Systems: All systems reviewed & are unremarkable except as noted in HPI and below Exam Const: General: uncomfortable Other: complaining of abdominal pain Eyes: General: appearance normal, both eyes and all related structures Neck: Neck: supple and no JVD Resp: Effort & Inspection: normal respiratory effort Cardio: Rate: regular rate GI: Inspection: non-distended GI Palp: Yes Soft to palpation, Yes Tenderness to palpation present (GI) and No Guarding due to palpation present (GI) Auscultation: normal bowel sounds Other: NG tube clamped. Skin: General skin exam: normal color and no rashes or lesions noted Extrem: General: normal to inspection Psych: Mental Status: mental status grossly normal Objective Data Vital Signs Vital Signs: Vital Signs - 24 hr 09/21/25 22:00 09/22/25 06:00 09/22/25 08:00 Temperature 98.8 F 98.4 F Pulse Rate 72 79 Respiratory Rate 16 16 Blood Pressure 144/73 H 155/70 H Pulse Oximetry 97 98 Oxygen Delivery Room Air 09/22/25 13:50 Temperature 98.4 F Pulse Rate 75 Respiratory Rate 17 Blood Pressure 138/82 Pulse Oximetry 100 Oxygen Delivery Intake/Output Intake/Output: Intake & Output 09/19/25 09/20/25 09/21/25 09/22/25 23:59 23:59 23:59 23:59 Intake Total 2005 2685.0 Output Total 900 Balance 1106 2685.0 Meds/Results Medications: Active Medications Generic Name Dose Route Start Last Admin Trade Name Freq PRN Reason Stop Dose Admin Hydralazine HCl 10 mg 09/20/25 22:20 Hydralazine Hcl 20 Mg/Ml Vial IV PUSH Q8H PRN Blood Pressure - High, >180/90 Lactated Ringer's 1,000 mls @ 100 mls/hr 09/20/25 22:15 09/22/25 15:54 Lr - Lactated Ringers Iv IV CONT 100 mls/hr .Q10H MARK Administration Metoclopramide HCl 10 mg 09/20/25 22:23 09/22/25 06:13 Metoclopramide Hcl Inj 10 Mg/2 Ml Vial IV PUSH 10 mg Q6HR PRN Administration Nausea And Vomiting Morphine Sulfate 2 mg 09/20/25 22:12 09/21/25 13:44 Morphine Sulfate (*Crx) 4 Mg/Ml Inj IV PUSH 2 mg Q4H PRN Administration Pain Rated 5 or Less Morphine Sulfate 4 mg 09/20/25 22:12 09/22/25 15:55 Morphine Sulfate (*Crx) 4 Mg/Ml Inj IV PUSH 4 mg Q4H PRN Administration Pain Rated 6 or Greater Ondansetron HCl 4 mg 09/20/25 22:23 Ondansetron Inj 4 Mg/2 Ml Vial IV PUSH Q6H PRN Nausea And Vomiting Radiology Results: ITS Impressions Abdomen/Pelvis CT 09/20/25 17:44 IMPRESSION: 1. Small bowel obstruction. 2: Status post cholecystectomy with prominence of the bile ducts and pancreatic duct. Consider correlation with MRCP. Abdomen X-Ray 09/22/25 09:44 IMPRESSION: Nonspecific bowel gas pattern. Gastric tube appears adequately positioned. MRCP 09/22/25 12:52 IMPRESSION: Postcholecystectomy dilatation of the biliary ducts with no clearly defined choledocholithiasis or ductal lesion identified. No pancreatic lesion or mass identified. Labs Labs: Laboratory Results - last 24 hr 09/21/25 09/22/25 08:30 06:13 WBC 5.7 RBC 2.71 L Hgb 10.0 L Hct 31.7 L MCV 117.0 H MCH 36.9 H MCHC 31.5 L RDW 12.6 Plt Count 322 MPV 8.8 Immature Gran % (Auto) 0.5 Neut % (Auto) 65.0 Lymph % (Auto) 20.2 [place] % (Auto) 11.5 H Eos % (Auto) 2.3 Baso % (Auto) 0.5 Lymph # (Auto) 1.14 [place] # (Auto) 0.7 H Eos # (Auto) 0.1 Baso # (Auto) 0.0 Abs Immat Gran (auto) 0.03 Absolute Neuts (auto) 3.7 Absolute Nucleated RBC 0.000 Band Neutrophils % Not Reportable Nucleated RBC % 0.0 Platelet Estimate Adequate Macrocytosis 1+ Schistocytes None seen Sodium 141 Potassium 3.6 Chloride 112 H Carbon Dioxide 23 Anion Gap 6 BUN 9 D Creatinine 0.62 L Estim Creat Clear Calc 66 Estimated GFR > 60 Glucose 87 Calcium 8.8 Total Bilirubin 0.2 AST 46 H ALT 61 H Alkaline Phosphatase 136 H Total Protein 6.0 L Albumin 3.3 L CA 19-9 Antigen <2 Hospitalist MIPS Advance Care Plan I have confirmed that the patient's Advanced Care Plan is present, code status is documented, or surrogate decision maker is listed in patient medical record.: Yes Medication Reconciliation I have utilized all available resources to obtain, update and review the patients current medications (includes all prescriptions, OTC, herbals, cannabis, and nutritional supplements).: Yes
[2025-09-22] MEDS: MORPHINE SULFATE (*CRX) 4 MG/ML INJ 2 MG IV PUSH (21:15)
[2025-09-22] MEDS: ONDANSETRON INJ 4 MG/2 ML VIAL IV PUSH (21:16)
[2025-09-22 21:23] VITALS: BP 158/75; PULSE 78; RESP 20; TEMP 36.5; O2SAT 98
[2025-09-23 00:09] LABS: Add Urine Microscopic? YES; Appearance Urine Cloudy (Clear); Glucose Urine UA Negative (Negative); Leukocyte Esterase Ur Trace LEU/UL (Negative); Nitrate Urine Negative (Negative); Non Pathogenic Casts 0-2; Specific Grav Ur 1.014 (1.001-1.035)
[2025-09-23 05:12] VITALS: BP 152/69; PULSE 67; RESP 16; TEMP 35.9; O2SAT 96
[2025-09-23 06:39] LABS: Hematocrit 33.5 % (37.0-47.0); Hemoglobin 10.6 g/dL (12.0-15.0); Immature Granulocyte Percent A 0.4 % (0-0.5); Lymphocytes Absolute Auto 0.80 K/mm3 (0.9-3.2); Mean Corpuscular HGB Conc 31.6 g/dl (32-36); Mean Corpuscular Hemoglobin 36.9 pg (26-34); Mean Corpuscular Volume 116.7 fl (80-100); Nucleated Red Blood Cells Absolute Auto 0.000 K/mm3 (0.0-0.012); Nucleated Red Blood Cells Perc 0.0 % (0.0-0.2); Platelet Count Result 300 k/mm3 (150-375); Red Blood Count 2.87 M/mm3 (4.2-5.4); White Blood Count 6.9 K/mm3 (4.5-10.0)
[2025-09-23 07:04] LABS: Alanine Aminotransferase 46 U/L (6-35); Albumin Level 3.5 g/dL (3.5-5.1); Alkaline Phosphatase 117 U/L (38-126); Anion Gap 5 mmol/L (4-12); Aspartate Amino Transferase 32 U/L (14-36); Bilirubin,Total 0.4 mg/dL (0.2-1.3); Blood Urea Nitrogen 4 mg/dL (7-17); Calcium 8.9 mg/dL (8.4-10.2); Carbon Dioxide 27 mmol/L (22-30); Chloride 106 mmol/L (98-107); Estimated CRCL calculation 71 ml/min; Estimated Glomerular Filt Rate > 60; Glucose 105 mg/dL (65-110); Lipase 109 U/L (23-300); Potassium 3.2 mmol/L (3.4-5.0); Sodium 138 mmol/L (137-145); Total Protein 6.2 g/dL (6.3-8.2)
[2025-09-23 07:26] LABS: Macrocytosis 1+ (NORMAL); Schistocytes None Seen
[2025-09-23 08:15] VITALS: PULSE 67; RESP 16; O2SAT 96
[2025-09-23] MEDS: MORPHINE SULFATE (*CRX) 4 MG/ML INJ 2 MG IV PUSH ×4 (08:39→23:19)
[2025-09-23] MEDS: POTASSIUM CHLORIDE 20 MEQ ER TABLET 40 MEQ PO (09:41)
--- NOTE | 2025-09-23 10:37 | P.PNIM_ITS ---
Progress Note: A&P Assessment and Plan (1) SBO (small bowel obstruction): Code(s): K56.609 - Unspecified intestinal obstruction, unspecified as to partial versus complete obstruction Status: Acute Assessment and Plan: Imaging confirmed small bowel obstruction, NG tube in place since surgery is following. Under mL of fluids well last night, abdominal pain does persist per patient. Repeat abdominal x-ray showing nonspecific bowel gas pattern with several loops of gaseous dilated bowel throughout the abdomen and pelvis with moderate stool burden extending to the right hemicolon. NG tube is now clamped and patient has been trialed on clear liquids, tolerating them well. Continue advancing diet as tolerated if surgery recommends NG management per surgery (2) Pancreatitis: Qualifiers: Chronicity: chronic Pancreatitis type: biliary Qualified Code(s): K86.1 - Other chronic pancreatitis Code(s): K85.90 - Acute pancreatitis without necrosis or infection, unspecified Status: Acute Assessment and Plan: Lipase elevated at 865 on admission with prior history of pancreatitis in the past as well. Associated elevations of liver function testing as well. GI consulted, MRCP was done and reviewed, showing expected common bile duct dilation typical for postcholecystectomy status with unremarkable pancreas without masses or narrowing. CA 19-9 came back normal. GI consider is elevations in transaminases and lipase (transaminases are improving) to be secondary to the acute SBO process. Outpatient clinical and lab monitoring and referral for EUS still recommended if liver enzymes or lipase continues after discharge. Will have patient follow-up with GI on discharge and order follow-up LFTs and lipase levels on discharge. Clear liquid trial-advance as tolerated (3) Nausea and vomiting in adult: Code(s): R11.2 - Nausea with vomiting, unspecified Status: Acute Assessment and Plan: Stable at this time Zofran p.r.n. (4) Elevated liver enzymes: Code(s): R74.8 - Abnormal levels of other serum enzymes Status: Resolved Assessment and Plan: Will trend liver enzymes, which included to do with biliary obstruction, pancreatitis GI consulted, recommendations appreciated Transaminases are trending down (5) Hyperlipidemia: Qualifiers: Hyperlipidemia type: unspecified Qualified Code(s): E78.5 - Hyperlipidemia, unspecified Code(s): E78.5 - Hyperlipidemia, unspecified Status: Chronic Assessment and Plan: On rosuvastatin 10 mg (6) Hypertension: Qualifiers: Hypertension type: primary hypertension Qualified Code(s): I10 - Essential (primary) hypertension Code(s): I10 - Essential (primary) hypertension Status: Acute Assessment and Plan: On losartan 100 mg (7) Hypothyroidism: Qualifiers: Hypothyroidism type: unspecified Qualified Code(s): E03.9 - H ypothyroidism, unspecified Code(s): E03.9 - Hypothyroidism, unspecified Status: Acute Assessment and Plan: On levothyroxine 175 mcg Subjective Date/time seen: 09/23/25 10:37 Interval history: 69 y/o F with PMH of hypothyroidism, hypertension, hyperlipidemia, biliary pancreatitis, and bowel obstructions presents here with abdominal pain. The patient presents here from home on 09/20 for further evaluation of abdominal pain. She reports onset last night on 09/19. She reports the pain has been progressive and significantly worse this morning. She describes it as twisting sensation, mid lower quadrant, nonradiating, intermittent, no modifying factors. She does report some pain/soreness through her upper abdomen and chest. She reports accompanying nausea and vomiting, fever, chills. She has a history of multiple bowel obstructions with the most recent in July for which she was admitted at [facility]. They have previously been managed both conservatively and surgically, she estimates she has undergone 6 previous surgeries due to obstructions. Last bowel movement yesterday, 09/19. Initial VS at presentation: 98.1? F, HR 97, R 20, 157/86, and 99% on RA. ED workup showed: WBC 10.4, hemoglobin 11.5 (10.2 on 07/21/2025), sodium 134, creatinine 1.08 and GFR 50, AST 183, ALT 100, lipase 865, and UA unremarkable. CT of the abdomen/pelvis showed a small bowel obstruction and s/p cholecystectomy with prominence of the bile ducts and pancreatic duct consider MRCP. Review of Systems Review of Systems: All systems reviewed & are unremarkable except as noted in HPI and below Exam Const: General: uncomfortable Other: complaining of abdominal pain Eyes: General: appearance normal, both eyes and all related structures Neck: Neck: supple and no JVD Resp: Effort & Inspection: normal respiratory effort Cardio: Rate: regular rate GI: Inspection: non-distended GI Palp: Yes Soft to palpation, Yes Tenderness to palpation present (GI) and No Guarding due to palpation present (GI) Auscultation: normal bowel sounds Other: NG tube clamped. Skin: General skin exam: normal color and no rashes or lesions noted Extrem: General: normal to inspection Psych: Mental Status: mental status grossly normal Objective Data Vital Signs Vital Signs: Vital Signs - 24 hr 09/22/25 13:50 09/22/25 21:23 09/23/25 05:12 Temperature 98.4 F 97.7 F 96.7 F L Pulse Rate 75 78 67 Respiratory Rate 17 20 16 Blood Pressure 138/82 158/75 H 152/69 H Pulse Oximetry 100 98 96 Oxygen Delivery 09/23/25 08:15 Temperature Pulse Rate 67 Respiratory Rate 16 Blood Pressure Pulse Oximetry 96 Oxygen Delivery Room Air Intake/Output Intake/Output: Intake & Output 09/20/25 09/21/25 09/22/25 09/23/25 23:59 23:59 23:59 23:59 Intake Total 2005 3893.3 360 Output Total 900 200 Balance 1106 3693.3 360 Meds/Results Medications: Active Medications Generic Name Dose Route Start Last Admin Trade Name Freq PRN Reason Stop Dose Admin Hydralazine HCl 10 mg 09/20/25 22:20 Hydralazine Hcl 20 Mg/Ml Vial IV PUSH Q8H PRN Blood Pressure - High, >180/90 Lactated Ringer's 1,000 mls @ 100 mls/hr 09/20/25 22:15 09/22/25 21:17 Lr - Lactated Ringers Iv IV CONT 100 mls/hr .Q10H MARK Administration Metoclopramide HCl 10 mg 09/20/25 22:23 09/22/25 21:15 Metoclopramide Hcl Inj 10 Mg/2 Ml Vial IV PUSH 10 mg Q6HR PRN Administration Nausea And Vomiting Morphine Sulfate 2 mg 09/20/25 22:12 09/23/25 08:39 Morphine Sulfate (*Crx) 4 Mg/Ml Inj IV PUSH 2 mg Q4H PRN Administration Pain Rated 5 or Less Morphine Sulfate 4 mg 09/20/25 22:12 09/22/25 15:55 Morphine Sulfate (*Crx) 4 Mg/Ml Inj IV PUSH 4 mg Q4H PRN Administration Pain Rated 6 or Greater Ondansetron HCl 4 mg 09/20/25 22:23 09/22/25 21:16 Ondansetron Inj 4 Mg/2 Ml Vial IV PUSH 4 mg Q6H PRN Administration Nausea And Vomiting Radiology Results: ITS Impressions Abdomen/Pelvis CT 09/20/25 17:44 IMPRESSION: 1. Small bowel obstruction. 2: Status post cholecystectomy with prominence of the bile ducts and pancreatic duct. Consider correlation with MRCP. MRCP 09/22/25 12:52 IMPRESSION: Postcholecystectomy dilatation of the biliary ducts with no clearly defined choledocholithiasis or ductal lesion identified. No pancreatic lesion or mass identified. Abdomen X-Ray 09/23/25 08:19 IMPRESSION: Right upper quadrant findings consistent with ileus or possible small bowel obstruction. Bowel wall thickening may be present which could be associated with inflammatory or infectious enteritis. Labs Labs: Laboratory Results - last 24 hr 09/22/25 09/23/25 23:54 06:02 WBC 6.9 RBC 2.87 L Hgb 10.6 L Hct 33.5 L MCV 116.7 H MCH 36.9 H MCHC 31.6 L RDW 12.3 Plt Count 300 MPV 8.9 Immature Gran % (Auto) 0.4 Neut % (Auto) 74.2 H Lymph % (Auto) 11.7 L [place] % (Auto) 10.9 H Eos % (Auto) 2.5 Baso % (Auto) 0.3 Lymph # (Auto) 0.80 L [place] # (Auto) 0.8 H Eos # (Auto) 0.2 Baso # (Auto) 0.0 Abs Immat Gran (auto) 0.03 Absolute Neuts (auto) 5.1 Absolute Nucleated RBC 0.000 Band Neutrophils % Not Reportable Nucleated RBC % 0.0 Platelet Estimate Adequate Macrocytosis 1+ Schistocytes None seen Sodium 138 Potassium 3.2 L Chloride 106 Carbon Dioxide 27 Anion Gap 5 BUN 4 L D Creatinine 0.58 L Estim Creat Clear Calc 71 Estimated GFR > 60 Glucose 105 Calcium 8.9 Total Bilirubin 0.4 AST 32 ALT 46 H Alkaline Phosphatase 117 Total Protein 6.2 L Albumin 3.5 Lipase 109 Urine Color Yellow Urine Appearance Cloudy H Urine pH 6.0 Ur Specific [place] 1.014 Urine Protein Trace Urine Glucose (UA) Negative Urine Ketones Negative Ur Blood (Man) Negative Urine Nitrate Negative Urine Bilirubin Negative Urine Urobilinogen 0.2 Ur Leukocyte Esterase Trace H Urine RBC 0-2 Urine WBC 6-10 H Ur Squamous Epith Cells Occasional Urine Bacteria None seen Urine Casts 0-2 Hospitalist MIPS Advance Care Plan I have confirmed that the patient's Advanced Care Plan is present, code status is documented, or surrogate decision maker is listed in patient medical record.: Yes Medication Reconciliation I have utilized all available resources to obtain, update and review the patients current medications (includes all prescriptions, OTC, herbals, cannabis, and nutritional supplements).: Yes
--- NOTE | 2025-09-23 10:53 | P.PNGS_ITS ---
Progress Note: A&P Assessment and Plan (1) SBO (small bowel obstruction): Code(s): K56.609 - Unspecified intestinal obstruction, unspecified as to partial versus complete obstruction Status: Acute Assessment and Plan: * Patient feeling much better today. Had multiple bowel movements. Tolerating clears and NG clamping trial. Was nauseated once overnight, but denies and nausea or vomiting this morning. Still has some lower abdominal tenderness to palpation. * Abdominal x-ray this morning demonstrated right upper quadrant findings consistent with ileus or possible small bowel obstruction. Bowel wall thicken ing may be present which could be associated with inflammatory or infectious enteritis. * OK to pull NG tube and advance to full liquids. Will continue to monitor symptoms and hopefully discharge patient this weekend. (2) Pancreatitis: Qualifiers: Chronicity: chronic Pancreatitis type: biliary Qualified Code(s): K86.1 - Other chronic pancreatitis Code(s): K85.90 - Acute pancreatitis without necrosis or infection, unspecified Status: Acute Assessment and Plan: * Lipase down to 109 today. * MRCP demonstrated the expected common bile duct dilation typical for post cholecystectomy patient. Unremarkable pancreas without masses or narrowing. CA 19-9 normal. Temporary elevations in transaminases and lipase are possibly secondary to the acute small-bowel obstruction. * GI recommending outpatient clinical and laboratory monitoring and referral to endoscopic ultrasound if the liver biochemistry or lipase abnormalities persist after discharge. (3) Transaminitis: Code(s): R74.01 - Elevation of levels of liver transaminase levels Status: Deleted Assessment and Plan: Levels trending towards normal. (4) Hypertension: Qualifiers: Hypertension type: primary hypertension Qualified Code(s): I10 - Essential (primary) hypertension Code(s): I10 - Essential (primary) hypertension Status: Acute Plan Discussed patient's case and plan of care with Dr. Iraheta. Subjective Subjective Date/Time Seen: 09/23/25 10:53 Patient reports: no new complaints, feels better, tolerating liquids well, bowel movement and afebrile Interval history: Patient states she is feeling much better today. Had multiple bowel movements. Denies nauseea or vomiting this morning. tolerating clear liquids. Still having some lower abdominal pain. Exam Const: General: comfortable and no acute distress GI: Inspection: non-distended GI Palp: Yes Soft to palpation and Yes Tenderness to palpation present (GI) (diffusely across lower abdomen) Objective Data Vital Signs Vital Signs: Vital Signs - 24 hr 09/22/25 13:50 09/22/25 21:23 09/23/25 05:12 Temperature 98.4 F 97.7 F 96.7 F L Pulse Rate 75 78 67 Respiratory Rate 17 20 16 Blood Pressure 138/82 158/75 H 152/69 H Pulse Oximetry 100 98 96 Oxygen Delivery 09/23/25 08:15 Temperature Pulse Rate 67 Respiratory Rate 16 Blood Pressure Pulse Oximetry 96 Oxygen Delivery Room Air Intake/Output Intake/Output: Intake & Output 09/20/25 09/21/25 09/22/25 09/23/25 23:59 23:59 23:59 23:59 Intake Total 2005 3893.3 360 Output Total 900 200 Balance 1106 3693.3 360 Meds/Results Medications: Active Medications Generic Name Dose Route Start Last Admin Trade Name Freq PRN Reason Stop Dose Admin Hydralazine HCl 10 mg 09/20/25 22:20 Hydralazine Hcl 20 Mg/Ml Vial IV PUSH Q8H PRN Blood Pressure - High, >180/90 Lactated Ringer's 1,000 mls @ 100 mls/hr 09/20/25 22:15 09/22/25 21:17 Lr - Lactated Ringers Iv IV CONT 100 mls/hr .Q10H MARK Administration Metoclopramide HCl 10 mg 09/20/25 22:23 09/22/25 21:15 Metoclopramide Hcl Inj 10 Mg/2 Ml Vial IV PUSH 10 mg Q6HR PRN Administration Nausea And Vomiting Morphine Sulfate 2 mg 09/20/25 22:12 09/23/25 08:39 Morphine Sulfate (*Crx) 4 Mg/Ml Inj IV PUSH 2 mg Q4H PRN Administration Pain Rated 5 or Less Morphine Sulfate 4 mg 09/20/25 22:12 09/22/25 15:55 Morphine Sulfate (*Crx) 4 Mg/Ml Inj IV PUSH 4 mg Q4H PRN Administration Pain Rated 6 or Greater Ondansetron HCl 4 mg 09/20/25 22:23 09/22/25 21:16 Ondansetron Inj 4 Mg/2 Ml Vial IV PUSH 4 mg Q6H PRN Administration Nausea And Vomiting Radiology Results: ITS Impressions Abdomen/Pelvis CT 09/20/25 17:44 IMPRESSION: 1. Small bowel obstruction. 2: Status post cholecystectomy with prominence of the bile ducts and pancreatic duct. Consider correlation with MRCP. MRCP 09/22/25 12:52 IMPRESSION: Postcholecystectomy dilatation of the biliary ducts with no clearly defined choledocholithiasis or ductal lesion identified. No pancreatic lesion or mass identified. Abdomen X-Ray 09/23/25 08:19 IMPRESSION: Right upper quadrant findings consistent with ileus or possible small bowel obstruction. Bowel wall thickening may be present which could be associated with inflammatory or infectious enteritis. Labs Labs: Laboratory Results - last 24 hr 09/22/25 09/23/25 23:54 06:02 WBC 6.9 RBC 2.87 L Hgb 10.6 L Hct 33.5 L MCV 116.7 H MCH 36.9 H MCHC 31.6 L RDW 12.3 Plt Count 300 MPV 8.9 Immature Gran % (Auto) 0.4 Neut % (Auto) 74.2 H Lymph % (Auto) 11.[address] [place] % (Auto) 10.9 H Eos % (Auto) 2.5 Baso % (Auto) 0.3 Lymph # (Auto) 0.[address] [place] # (Auto) 0.8 H Eos # (Auto) 0.2 Baso # (Auto) 0.0 Abs Immat Gran (auto) 0.03 Absolute Neuts (auto) 5.1 Absolute Nucleated RBC 0.000 Band Neutrophils % Not Reportable Nucleated RBC % 0.0 Platelet Estimate Adequate Macrocytosis 1+ Schistocytes None seen Sodium 138 Potassium 3.2 L Chloride 106 Carbon Dioxide 27 Anion Gap 5 BUN 4 L D Creatinine 0.58 L Estim Creat Clear Calc 71 Estimated GFR > 60 Glucose 105 Calcium 8.9 Total Bilirubin 0.4 AST 32 ALT 46 H Alkaline Phosphatase 117 Total Protein 6.2 L Albumin 3.5 Lipase 109 Urine Color Yellow Urine Appearance Cloudy H Urine pH 6.0 Ur Specific [place] 1.014 Urine Protein Trace Urine Glucose (UA) Negative Urine Ketones Negative Ur Blood (Man) Negative Urine Nitrate Negative Urine Bilirubin Negative Urine Urobilinogen 0.2 Ur Leukocyte Esterase Trace H Urine RBC 0-2 Urine WBC 6-10 H Ur Squamous Epith Cells Occasional Urine Bacteria None seen Urine Casts 0-2
[2025-09-23 14:00] VITALS: BP 167/75; PULSE 74; RESP 17; TEMP 35.9; O2SAT 99
[2025-09-23 22:00] VITALS: BP 180/80; PULSE 65; RESP 16; TEMP 36.8; O2SAT 97
[2025-09-23] MEDS: ONDANSETRON INJ 4 MG/2 ML VIAL IV PUSH (23:19)
[2025-09-24] MEDS: MORPHINE SULFATE (*CRX) 4 MG/ML INJ 2 MG IV PUSH ×2 (04:37→08:56)
[2025-09-24 06:00] VITALS: BP 166/72; PULSE 65; RESP 16; TEMP 36.8; O2SAT 97
[2025-09-24 07:14] LABS: Hematocrit 33.4 % (37.0-47.0); Hemoglobin 10.5 g/dL (12.0-15.0); Immature Granulocyte Percent A 0.6 % (0-0.5); Lymphocytes Absolute Auto 1.39 K/mm3 (0.9-3.2); Mean Corpuscular HGB Conc 31.4 g/dl (32-36); Mean Corpuscular Hemoglobin 36.3 pg (26-34); Mean Corpuscular Volume 115.6 fl (80-100); Nucleated Red Blood Cells Absolute Auto 0.000 K/mm3 (0.0-0.012); Nucleated Red Blood Cells Perc 0.0 % (0.0-0.2); Platelet Count Result 312 k/mm3 (150-375); Red Blood Count 2.89 M/mm3 (4.2-5.4); White Blood Count 6.9 K/mm3 (4.5-10.0)
[2025-09-24 07:38] LABS: Alanine Aminotransferase 35 U/L (6-35); Albumin Level 3.5 g/dL (3.5-5.1); Alkaline Phosphatase 109 U/L (38-126); Anion Gap 4 mmol/L (4-12); Aspartate Amino Transferase 32 U/L (14-36); Bilirubin,Total 0.3 mg/dL (0.2-1.3); Blood Urea Nitrogen 2 mg/dL (7-17); Calcium 8.5 mg/dL (8.4-10.2); Carbon Dioxide 29 mmol/L (22-30); Chloride 106 mmol/L (98-107); Estimated CRCL calculation 63 ml/min; Estimated Glomerular Filt Rate > 60; Glucose 96 mg/dL (65-110); Sodium 139 mmol/L (137-145); Total Protein 6.3 g/dL (6.3-8.2)
[2025-09-24 07:43] LABS: Potassium 3.7 mmol/L (3.4-5.0)
[2025-09-24 07:57] LABS: Macrocytosis 1+ (NORMAL); Schistocytes None Seen
[2025-09-24] MEDS: ONDANSETRON INJ 4 MG/2 ML VIAL IV PUSH (09:51)
--- NOTE | 2025-09-24 11:13 | P.PNGS_ITS ---
Progress Note: A&P Assessment and Plan (1) SBO (small bowel obstruction): Code(s): K56.609 - Unspecified intestinal obstruction, unspecified as to partial versus complete obstruction Status: Acute Assessment and Plan: Resolved at this point, having bowel function and full liquid diet, will advance diet to heart healthy, if tolerating diet okay to DC home from surgical standpoint Subjective Subjective Date/Time Seen: 09/24/25 11:13 Interval history: feels good, denies any abdominal pain, having bowel function, tolerating diet Review of Systems Review of Systems: All systems reviewed & are unremarkable except as noted in HPI and below Exam Const: General: cooperative, comfortable and no acute distress Resp: Auscultation: clear to auscultation bilaterally Cardio: Rate: regular rate Rhythm: regular rhythm GI: Inspection: normal to inspection and non-distended GI Palp: No abdominal tenderness, Yes Soft to palpation, No Guarding due to palpation present (GI) and No Rigid due to palpation Objective Data Vital Signs Vital Signs: Vital Signs - 24 hr 09/23/25 14:00 09/23/25 20:00 09/23/25 22:00 Temperature 35.9 C L 36.8 C Pulse Rate 74 65 Respiratory Rate 17 16 Blood Pressure 167/75 H 180/80 H Pulse Oximetry 99 97 Oxygen Delivery Room Air 09/24/25 06:00 09/24/25 09:15 Temperature 36.8 C Pulse Rate 65 Respiratory Rate 16 Blood Pressure 166/72 H Pulse Oximetry 97 Oxygen Delivery Room Air Intake/Output Intake/Output: Intake & Output 09/21/25 09/22/25 09/23/25 09/24/25 23:59 23:59 23:59 23:59 Intake Total 2005 3893.3 900 240 Output Total 900 200 Balance 1106 3693.3 900 240 Meds/Results Medications: Active Medications Generic Name Dose Route Start Last Admin Trade Name Freq PRN Reason Stop Dose Admin Hydralazine HCl 10 mg 09/20/25 22:20 Hydralazine Hcl 20 Mg/Ml Vial IV PUSH Q8H PRN Blood Pressure - High, >180/90 Metoclopramide HCl 10 mg 09/20/25 22:23 09/22/25 21:15 Metoclopramide Hcl Inj 10 Mg/2 Ml Vial IV PUSH 10 mg Q6HR PRN Administration Nausea And Vomiting Morphine Sulfate 2 mg 09/20/25 22:12 09/24/25 08:56 Morphine Sulfate (*Crx) 4 Mg/Ml Inj IV PUSH 2 mg Q4H PRN Administration Pain Rated 5 or Less Morphine Sulfate 4 mg 09/20/25 22:12 09/22/25 15:55 Morphine Sulfate (*Crx) 4 Mg/Ml Inj IV PUSH 4 mg Q4H PRN Administration Pain Rated 6 or Greater Ondansetron HCl 4 mg 09/20/25 22:23 09/24/25 09:51 Ondansetron Inj 4 Mg/2 Ml Vial IV PUSH 4 mg Q6H PRN Administration Nausea And Vomiting Polyethylene Glycol 17 gm 09/24/25 09:00 09/24/25 08:36 Polyethylene Glycol 3350 17 Gm Powd.Pack PO 17 gm QAM MARK Administration Radiology Results: ITS Impressions Abdomen/Pelvis CT 09/20/25 17:44 IMPRESSION: 1. Small bowel obstruction. 2: Status post cholecystectomy with prominence of the bile ducts and pancreatic duct. Consider correlation with MRCP. MRCP 09/22/25 12:52 IMPRESSION: Postcholecystectomy dilatation of the biliary ducts with no clearly defined choledocholithiasis or ductal lesion identified. No pancreatic lesion or mass identified. Abdomen X-Ray 09/23/25 08:19 IMPRESSION: Right upper quadrant findings consistent with ileus or possible small bowel obstruction. Bowel wall thickening may be present which could be associated with inflammatory or infectious enteritis. Labs Labs: Laboratory Results - last 24 hr 09/24/25 07:07 WBC 6.9 RBC 2.89 L Hgb 10.5 L Hct 33.4 L MCV 115.6 H MCH 36.3 H MCHC 31.4 L RDW 12.1 Plt Count 312 MPV 8.8 Immature Gran % (Auto) 0.6 H Neut % (Auto) 65.0 Lymph % (Auto) 20.2 [place] % (Auto) 11.3 H Eos % (Auto) 2.3 Baso % (Auto) 0.6 Lymph # (Auto) 1.39 [place] # (Auto) 0.8 H Eos # (Auto) 0.2 Baso # (Auto) 0.0 Abs Immat Gran (auto) 0.04 H Absolute Neuts (auto) 4.5 Absolute Nucleated RBC 0.000 Band Neutrophils % Not Reportable Nucleated RBC % 0.0 Platelet Estimate Adequate Macrocytosis 1+ Schistocytes None seen Sodium 139 Potassium 3.7 Chloride 106 Carbon Dioxide 29 Anion Gap 4 BUN 2 L Creatinine 0.66 L Estim Creat Clear Calc 63 Estimated GFR > 60 Glucose 96 Calcium 8.5 Total Bilirubin 0.3 AST 32 ALT 35 Alkaline Phosphatase 109 Total Protein 6.3 Albumin 3.5
--- NOTE | 2025-09-24 12:27 | PM.DS ---
DS: Admitting Diagnosis Discharge Date 09/24/25 Admitting Diagnosis SBO DS: Discharge Diagnosis Discharge Diagnosis (1) SBO (small bowel obstruction): Code(s): K56.609 - Unspecified intestinal obstruction, unspecified as to partial versus complete obstruction Status: Acute Assessment and Plan: Imaging confirmed small bowel obstruction, NG tube in place since surgery is following. Under mL of fluids well last night, abdominal pain does persist per patient. Repeat abdominal x-ray showing nonspecific bowel gas pattern with several loops of gaseous dilated bowel throughout the abdomen and pelvis with moderate stool burden extending to the right hemicolon. NG tube is now out and patient has been trialed on clear liquids, tolerating them well. NG out, tolerating oral, stable for discharge from surgery standpoint. (2) Pancreatitis: Qualifiers: Chronicity: chronic Pancreatitis type: biliary Qualified Code(s): K86.1 - Other chronic pancreatitis Code(s): K85.90 - Acute pancreatitis without necrosis or infection, unspecified Status: Acute Assessment and Plan: Lipase elevated at 865 on admission with prior history of pancreatitis in the past as well. Associated elevations of liver function testing as well. GI consulted, MRCP was done and reviewed, showing expected common bile duct dilation typical for postcholecystectomy status with unremarkable pancreas without masses or narrowing. CA 19-9 came back normal. GI consider is elevations in transaminases and lipase (transaminases are improving) to be secondary to the acute SBO process. Outpatient clinical and lab monitoring and referral for EUS still recommended if liver enzymes or lipase continues after discharge. Will have patient follow-up with GI on discharge and order follow-up LFTs and lipase levels on discharge. Clear liquid trial-advance as tolerated (3) Nausea and vomiting in adult: Code(s): R11.2 - Nausea with vomiting, unspecified Status: Acute Assessment and Plan: Stable at this time Zofran p.r.n. (4) Elevated liver enzymes: Code(s): R74.8 - Abnormal levels of other serum enzymes Status: Resolved Assessment and Plan: Will trend liver enzymes, which included to do with biliary obstruction, pancreatitis GI consulted, recommendations appreciated Transaminases are trending down (5) Hypertension: Qualifiers: Hypertension type: primary hypertension Qualified Code(s): I10 - Essential (primary) hypertension Code(s): I10 - Essential (primary) hypertension Status: Acute Assessment and Plan: On losartan 100 mg (6) Hypothyroidism: Qualifiers: Hypothyroidism type: unspecified Qualified Code(s): E03.9 - Hypothyroidism, unspecified Code(s): E03.9 - Hypothyroidism, unspecified Status: Acute Assessment and Plan: On levothyroxine 175 mcg (7) Hyperlipidemia: Qualifiers: Hyperlipidemia type: unspecified Qualified Code(s): E78.5 - Hyperlipidemia, unspecified Code(s): E78.5 - Hyperlipidemia, unspecified Status: Chronic Assessment and Plan: On rosuvastatin 10 mg DS: Summary Hospital Course Hospital Course: 69 y/o F with PMH of hypothyroidism, hypertension, hyperlipidemia, biliary pancreatitis, and bowel obstructions presents here with abdominal pain. The patient presents here from home on 09/20 for further evaluation of abdominal pain. She reports onset last night on 09/19. She reports the pain has been progressive and significantly worse this morning. She describes it as twisting sensation, mid lower quadrant, nonradiating, intermittent, no modifying factors. She does report some pain/soreness through her upper abdomen and chest. She reports accompanying nausea and vomiting, fever, chills. She has a history of multiple bowel obstructions with the most recent in July for which she was admitted at [place]. They have previously been managed both conservatively and surgically, she estimates she has undergone 6 previous surgeries due to obstructions. Last bowel movement yesterday, 09/19. Initial VS at presentation: 98.1? F, HR 97, R 20, 157/86, and 99% on RA. ED workup showed: WBC 10.4, hemoglobin 11.5 (10.2 on 07/21/2025), sodium 134, creatinine 1.08 and GFR 50, AST 183, ALT 100, lipase 865, and UA unremarkable. CT of the abdomen/pelvis showed a small bowel obstruction and s/p cholecystectomy with prominence of the bile ducts and pancreatic duct consider MRCP. GI consulted, MRCP was done and reviewed, showing expected common bile duct dilation typical for postcholecystectomy status with unremarkable pancreas without masses or narrowing. CA 19-9 came back normal. GI consider is elevations in transaminases and lipase (transaminases are improving) to be secondary to the acute SBO process. Outpatient clinical and lab monitoring and referral for EUS still recommended if liver enzymes or lipase continues after discharge. Will have patient follow-up with GI on discharge and order follow-up LFTs and lipase levels on discharge. SBO resolved after NG decompression and conservative management. Patient was able to get NG tube removed and was able to tolerate advancement of diet. Today on day of discharge minimal abdominal pain minimal nausea. Deemed stable for discharge. Status at Discharge Cognitive/behavioral status at discharge: stable Time Spent with Patient Time attestation: Total time spent providing and/or coordinating discharge services: Exam Const: General: uncomfortable Other: complaining of abdominal pain Eyes: General: appearance normal, both eyes and all related structures Neck: Neck: supple and no JVD Resp: Effort & Inspection: normal respiratory effort Cardio: Rate: regular rate GI: Inspection: non-distended GI Palp: Yes Soft to palpation, Yes Tenderness to palpation present (GI) and No Guarding due to palpation present (GI) Auscultation: normal bowel sounds Skin: General skin exam: normal color and no rashes or lesions noted Extrem: General: normal to inspection Psych: Mental Status: mental status grossly normal DS: Data Data Completed and Pending Labs on day of discharge: Labs from last 24 hours 09/24/25 07:07 WBC 6.9 RBC 2.89 L Hgb 10.5 L Hct 33.4 L MCV 115.6 H MCH 36.3 H MCHC 31.4 L RDW 12.1 Plt Count 312 MPV 8.8 Immature Gran % (Auto) 0.6 H Neut % (Auto) 65.0 Lymph % (Auto) 20.2 [place] % (Auto) 11.3 H Eos % (Auto) 2.3 Baso % (Auto) 0.6 Lymph # (Auto) 1.39 [place] # (Auto) 0.8 H Eos # (Auto) 0.2 Baso # (Auto) 0.0 Abs Immat Gran (auto) 0.04 H Absolute Neuts (auto) 4.5 Absolute Nucleated RBC 0.000 Band Neutrophils % Not Reportable Nucleated RBC % 0.0 Platelet Estimate Adequate Macrocytosis 1+ Schistocytes None seen Sodium 139 Potassium 3.7 Chloride 106 Carbon Dioxide 29 Anion Gap 4 BUN 2 L Creatinine 0.66 L Estim Creat Clear Calc 63 Estimated GFR > 60 Glucose 96 Calcium 8.5 Total Bilirubin 0.3 AST 32 ALT 35 Alkaline Phosphatase 109 Total Protein 6.3 Albumin 3.5 Discharge Plan Discharge Consulting providers: Bebeto Iraheta Discharging Clinician: José Manuel Schultz Oca Patient Disposition: Home Activity: as tolerated Diet: as tolerated Patient Instructions: Antibiotic Form Patient Language: Ukrainian Stand Alone Forms: General Discharge Information Follow-up/Referrals: [facility] [Outside, Gastroenterology] Referral Note: EUS recommended by GI service on discharge Discharge Medications: Continued ondansetron 4 mg tablet,disintegrating 4 mg PO Q8H PRN (Reason: nausea and vomiting) 10 Days Qty: 30 2RF hydrochlorothiazide 50 mg tablet 50 mg PO DAILY 30 Days Qty: 30 0RF diclofenac sodium [Voltaren Arthritis Pain] 1 % gel 4 g topical QID 30 Days Qty: 100 0RF Rx Instructions: apply to single knee, ankle, foot; for foot includes sole/toes/top of foot hydrocodone-acetaminophen 5-325 mg tablet 1 tablet PO Q8H PRN (Reason: pain) 7 Days Qty: 21 0RF Patient Comments: PATIENT IN A 3 DAY TRIAL cetirizine 10 mg tablet 10 mg PO DAILY 30 Days Qty: 0 0RF fluticasone propionate 50 mcg/actuation [place],Suspension 2 spray INTRANASAL DAILY PRN (Reason: nasal congestion) 30 Days Qty: 0 0RF gabapentin 300 mg capsule 300 mg PO TID 30 Days Qty: 0 0RF calcitriol 0.25 mcg capsule 0.25 mcg PO DAILY 30 Days Qty: 0 0RF ergocalciferol (vitamin D2) 1,250 mcg (50,000 unit) capsule 50,000 unit PO MONTHLY 30 Days Qty: 0 0RF Rx Instructions: on mondays levothyroxine 175 mcg tablet 175 mcg PO QAM 30 Days Qty: 0 0RF losartan 100 mg tablet 100 mg PO DAILY 30 Days Qty: 0 0RF rosuvastatin 10 mg tablet 10 mg PO DAILY 30 Days Qty: 0 0RF Changed pantoprazole 40 mg tablet,delayed release (DR/EC) 40 mg PO DAILY@1700 30 Days Qty: 0 0RF Discontinued fluocinolone acetonide oil 0.01 % drops 5 drp RIGHT EAR BID 14 Days Qty: 20 0RF quetiapine 25 mg tablet 25 mg PO BID Patient Comments: PATIENT STATES TAKES IN THE AFTERNOON THEN AT NIGHT triamcinolone acetonide 0.1 % cream 1 applic TOPICAL BID Rx Instructions: to arms and neck clonidine HCl 0.2 mg tablet 0.2 mg PO DAILY lidocaine 5 % adhesive patch,medicated 1 patch topical DAILY PRN (Reason: pain) Patient Comments: PATIENT APPLIES TO BACK Rx Instructions: leave on most painful area for up to 12 hrs zolpidem 10 mg tablet 10 mg PO HS dicyclomine 10 mg capsule 10 mg PO BID tizanidine 4 mg tablet 4 mg PO TID PRN (Reason: muscle spasticity) Qty: 270 0RF lubiprostone 24 mcg capsule See Rx Instructions .ROUTE .COMPLEX Qty: 200 2RF Dose Instruction: TAKE 1 CAPSULE BY MOUTH TWICE DAILY Rx Instructions: TAKE 1 CAPSULE BY MOUTH TWICE DAILY Date of admission: 09/20/25 18:24 Primary Care Provider: Shelly Sullivan Admitting Provider: José Manuel Schultz Oca Attending physician on admission: José Manuel Schultz Oca Condition: Stable
== END 2025-09-24 13:48 | disposition home or self-care (01) | DRG 389 ==
LOC: ANHED 18:43 → ANH3MEDSUR 19:54
PROVIDERS: Internal Medicine Gastroenterology; Nurse Practitioner Adult Health; Admitting Provider Student in an Organized Health Care Education/Training Program; Emergency Provider Emergency Medicine; PCP Nurse Practitioner Family; Visit Provider Student in an Organized Health Care Education/Training Program
DX: K56.609 Unspecified intestinal obstruction, unspecified as to partial versus complete obstruction (principal); K86.1 Other chronic pancreatitis; I10 Essential (primary) hypertension; E03.9 Hypothyroidism, unspecified; E78.5 Hyperlipidemia, unspecified; M47.26 Other spondylosis with radiculopathy, lumbar region; M48.061 Spinal stenosis, lumbar region without neurogenic claudication; Z90.49 Acquired absence of other specified parts of digestive tract
CPT/HCPCS: 36415; 74018; 74177; 74183; 76376; 80053; 81001; 81003; 83690; 85025; 86301; 93005; 96374; 96375; 99285; A9270; A9577; J2270; J2405; J2765; J3360; J7120; Q9967